=== PATIENT | male | born 1940 | race Caucasian/White ===

== ENCOUNTER → 2017-05-29 08:07 | Outpatient (CLI) | payer MEDICARE, OTHER, SELFPAY ==
[2017-05-29 09:45] LABS: PSA,Total- Diagnostic 9.27 ng/mL (0.0-4.0)
== END ==
PROVIDERS: Family Provider Family Medicine; PCP Family Medicine; Visit Provider Urology
DX: R97.20 Elevated prostate specific antigen [PSA] (principal)
CPT/HCPCS: 36415; 84153

== ENCOUNTER → 2017-10-18 12:24 | Outpatient (CLI) | payer MEDICARE, OTHER, SELFPAY | PROVIDERS: Family Provider Family Medicine; PCP Family Medicine; Visit Provider Family Medicine | DX: Z00.00 Encounter for general adult medical examination without abnormal findings (principal) ==

== ENCOUNTER 2018-02-04 06:25 | Day surgery (SDC) | payer MEDICARE, OTHER, SELFPAY ==
[2018-02-04] VITALS (7 sets, daily range): BP systolic 98–155; BP diastolic 61–82; PULSE 51–57; RESP 16; TEMP 36.1–36.8; O2SAT 94–99; BMI 26.6
--- NOTE | 2018-02-04 | COLBX_PTH ---
PATIENT: ROBBY FAROOQ LOC: EN U#:[id number] AGE/SX: 77/M ROOM: RE02/04/[address]: Dr. Donny Dahl MD : 1940 BED: DIS: 02/04/2018 SPEC #: [id number] RECD: 02/04/18 11:09 STATUS: JOAQUIN TATA #: [id number] GARRY: 02/04/18 00:[address]: Donny Dahl DEPT: SURGICAL PATHOLOGY RECD BY: Lamberto Nielsen ENTERED: 02/04/18 11:10 SP TYPE: COLON BX OTHR DR: Dr. Rom Stafford MD Tissues: A - Cecum, NOS B - Transverse colon Procedures: Surgery Specimen Level IV HEADER OPERATION: Colonoscopy (MOD) PRE-OP DIAGNOSIS: History of colon polyps TISSUE SUBMITTED: A - Biopsy of cecum polyp, B - Biopsy of distal transverse polyp MICROSCOPIC DIAGNOSIS A. Cecum polyp, biopsy: Fragments of tubular adenoma. Fragments of fecal material. B. Distal transverse colon polyp, biopsy: Fragments of tubular adenoma. SRIDEVI:juan diego 02/05/18 MICROSCOPIC DESCRIPTION Slides are reviewed. GROSS DESCRIPTION A - Received in fixative is one container labeled with the patient's name and designated cecum polyp. The specimen consists of multiple irregular fragments of light kim soft tissue mixed with fecal material that in aggregate measure 2 x 0.3 x 0.1 cm. The specimen is totally submitted in one cassette. B - Received in fixative is one container labeled with the patient's name and designated biopsy distal transverse polyp. The specimen consists of multiple irregular fragments of light kim soft tissue that in aggregate measure 1 x 0.4 x 0.1 cm. The specimen is totally submitted in one cassette. / SRIDEVI:juan diego 02/04/18 TC:1 [facility]: [id number] x2
--- NOTE | 2018-02-04 08:22 | OP.ENDO_ITS ---
Patient Name: Veronica Vera Procedure Date: 02/04/2018 7:44 AM Date of : 1940 Age: 77 Procedure: Colonoscopy Indications: High risk colon cancer surveillance: Personal history of colonic polyps Providers: Donny Dahl MD Referring MD: Donny Dahl MD Medicines: Midazolam 3 mg IV, Meperidine 100 mg IV Patient Profile: Last Colonoscopy: February 2015. Complications: No immediate complications. Procedure: Pre-Anesthesia Assessment: - Prior to the procedure, a History and Physical was performed, and patient medications and allergies were reviewed. The patient's tolerance of previous anesthesia was also reviewed. The risks and benefits of the procedure and the sedation options and risks were discussed with the patient. All questions were answered, and informed consent was obtained. Prior Anticoagulants: The patient has taken no previous anticoagulant or antiplatelet agents. ASA Grade Assessment: II - A patient with mild systemic disease. After reviewing the risks and benefits, the patient was deemed in satisfactory condition to undergo the procedure. After I obtained informed consent, the scope was passed under direct vision. Throughout the procedure, the patient's blood pressure, pulse, and oxygen saturations were monitored continuously. The Colonoscope was introduced through the anus and advanced to the cecum, identified by appendiceal orifice and ileocecal valve. The colonoscopy was performed with moderate difficulty due to a tortuous colon. Successful completion of the procedure was aided by increasing the dose of sedation medication, changing the patient to a supine position and using manual pressure. The patient tolerated the procedure well. The quality of the bowel preparation was good. Moderate Sedation: Moderate (conscious) sedation was personally administered by the endoscopist. The following parameters were monitored: oxygen saturation, heart rate, blood pressure, and response to care. Total physician intraservice time was 20 minutes. Scope In: 7:51:11 AM Scope Withdrawal Time 0 hours 10 minutes 47 seconds Scope Out: 8:14:41 AM Total Procedure Duration Time 0 hours 23 minutes 30 seconds Findings: The digital rectal exam findings include anal stenosis and internal hemorrhoids (Grade I). A 10 mm polyp was found in the cecum. The polyp was sessile. The polyp was removed with a cold snare. Resection and retrieval were complete. A 5 mm polyp was found in the distal transverse colon. The polyp was sessile. The polyp was removed with a cold biopsy forceps. Resection and retrieval were complete. The exam was otherwise without abnormality. Impression: - Anal stenosis and internal hemorrhoids (Grade I) found on digital rectal exam. Difficult to palpate prostate because of tight anus. - One 10 mm polyp in the cecum, removed with a cold snare. Resected and retrieved. - One 5 mm polyp in the distal transverse colon, removed with a cold biopsy forceps. Resected and retrieved. - The examination was otherwise normal. Recommendation: - Discharge patient to home. - Resume previous diet. - Telephone my office for pathology results in 1 week. - Repeat colonoscopy in 5 years for surveillance. - Continue present medications. Procedure Code(s): --- Professional --- 66535, Colonoscopy, flexible; with removal of tumor(s), polyp(s), or other lesion(s) by snare technique 23762, 59, Colonoscopy, flexible; with biopsy, single or multiple 59169, 59, Moderate sedation services provided by the same physician or other qualified health childcare worker performing the diagnostic or therapeutic service that the sedation supports, requiring the presence of an independent trained observer to assist in the monitoring of the patient's level of consciousness and physiological status; initial 15 minutes of intraservice time, patient age 5 years or older Diagnosis Code(s): --- Professional --- Z86.010, Personal history of colonic polyps K62.4, Stenosis of anus and rectum D12.0, Benign neoplasm of cecum D12.3, Benign neoplasm of transverse colon (hepatic flexure or splenic flexure) K64.0, First degree hemorrhoids CPT copyright 2017 [employer]. All rights reserved. The codes documented in this report are preliminary and upon primer charger review may be revised to meet current compliance requirements. Donny Dahl MD 02/04/2018 8:21:42 AM This report has been signed electronically. Number of Addenda: 0 Note Initiated On: 02/04/2018 7:44 AM
== END 2018-02-04 09:25 | disposition home or self-care (01) ==
LOC: EN 06:26 → AC 06:27
PROVIDERS: Family Provider Family Medicine; PCP Family Medicine; Referring Provider Surgery; Visit Provider Surgery
PROC: 0DJD8ZZ Inspection of Lower Intestinal Tract, Via Natural or Artificial Opening Endoscopic (ICD-10-PCS; CPT 45378; principal; 2018-02-04 07:40)
DX: Z12.11 Encounter for screening for malignant neoplasm of colon (principal); D12.0 Benign neoplasm of cecum; D12.3 Benign neoplasm of transverse colon; K64.0 First degree hemorrhoids; K62.4 Stenosis of anus and rectum; M19.90 Unspecified osteoarthritis, unspecified site; G47.30 Sleep apnea, unspecified; F41.9 Anxiety disorder, unspecified; Z79.899 Other long term (current) drug therapy; Z86.010 Personal history of colon polyps
CPT/HCPCS: 45380; 45385; 88305; 99152; 99153; J7120

== ENCOUNTER → 2018-02-24 12:57 | Outpatient (CLI) | payer MEDICARE, OTHER, SELFPAY ==
[2018-02-24 13:03] LABS: Hematocrit 46.2 % (40-54); Hemoglobin 15.3 g/dl (13.0-16.5); Mean Corp Hgb Conc 33.1 g/gl (32-36); Mean Corpuscular Hgb 30.8 pg (27.0-32.0); Mean Corpuscular Volume 93.1 fL (80-94); Mean Platelet Vol. 9.2 fl (6.2-12.0); Platelet Count 238 K/mm3 (150-450); RBC Distribution Width CV 12.8 % (11.6-14.6); RBC Distribution Width SD 43.4 fl (35.1-43.9); Red Blood Count 4.96 M/mm3 (4.6-6.2); White Blood Count 11.4 K/mm3 (4.4-11.0)
[2018-02-24 13:04] LABS: Scan Indicated on CBC? Y/N NO
== END ==
PROVIDERS: Family Provider Family Medicine; PCP Family Medicine; Referring Provider Family Medicine; Visit Provider Family Medicine
DX: R10.31 Right lower quadrant pain (principal)
CPT/HCPCS: 85027

== ENCOUNTER 2018-06-18 05:54 | Day surgery (SDC) | payer MEDICARE, OTHER, SELFPAY ==
--- NOTE | 2018-06-05 17:02 | PCM.HP.BLA ---
History and Physical DATE OF SURGERY: 05/21/2018 SCHEDULED PROCEDURE: right knee arthroscopy with partial medial and partial lateral meniscectomy with chondroplasty HISTORY OF PRESENT ILLNESS: This is a 77-year-old male who has been having ongoing pain in his right knee for several years. With activity pain to reach as high as a 7/10. He has difficult time going up and down stairs secondary to the knee pain. Difficult time with getting in and out of a car or kneeling. Patient states his pain is over the medial and lateral joint line as well as posterior knee. He does complain of clicking sensation in the knee. Patient has tried previous cortisone injections with minimal relief on the last injection. Patient had viscous supplementations in October with no improvement. Patient does have previous history of a staph infection right knee. Patient did undergo an MRI of the knee which does show large effusion with posterior horn medial meniscus tear and fraying of the lateral meniscus. Patient states his knee feels tight. After failing conservative measures and discussing treatment options with Dr. Deonte Richardson, patient would like to proceed with a right knee arthroscopy with partial medial and partial lateral meniscectomy with chondroplasty. Patient does see pain management for injections. He is also on tramadol from pain management. He has previous history of cervical fusion. Patient currently denies any chest pain, shortness of breath, fevers chills, recent infections. Patient has medical history pertinent for coronary artery disease, celiac disease, type I diabetic, hypercholesterolemia, hypertension, BPH. We have obtain surgical clearance from patient's primary care physician. REVIEW OF SYSTEMS: ROS: Const: Reports anxiety, but denies anorexia, change in appetite, fever, hard of hearing, vision problems and weight change. CV: Denies chest pain, heart murmur, irregular heartbeat and peripheral vascular disease. Resp: Reports sleep apnea, but denies asthma, cough, pneumonia, SOB, tuberculosis and wheezing. GI: Reports constipation, but denies diarrhea, difficulty swallowing, heartburn, nausea, bloody stools and vomiting. : Urinary: denies incontinence. Musculo: Reports weakness, but denies leg swelling, limp and trouble walking. Skin: Reports tattoo, but denies Raynaud's and history of shingles. Neuro: Reports numbness/tingling but denies ambulatory dysfunction, dizziness and tremor. Psych: Reports anxiety, but denies depression, insomnia, mental illness and stress. Armando/Lymph: Denies anemia, bleeding/bruising tendency and past transfusion. Reviewed, no changes. PAST MEDICAL HISTORY: PMH: Problem List: Knee joint effusion, Localized, primary osteoarthritis Medical Problems: Arthritis, Kidney Stones, Hypercholesterolemia, Depression Accidents: None Surgical Hx: Gallbladder - (1984) [facility] Hernia Repair - ABDOMINAL HERNIA 1987 [facility] 2005 [facility] Right Knee Surgery - (2008) [facility] Shoulder Rotator Cuff Repair - (2008) Cervical Fusion - 4,5 & 6 Urolift Implant - (08/12/2017) Anesthesia Complications: None Assistive Devices: Glasses Reviewed and updated. SOCIAL HISTORY: SH: Marital: .Occupation: Retired.Work Status: Retired.Hand Dominance: Right-handed. Personal Habits: Cigarette Use: Never Smoked Cigarettes.Alcohol: Denies use.Drug Use: Denies Use.Enjoy Exercising: Exercises 1-3 X/Week. Reviewed, no changes. VITALS: Ht: 67 Wt: 175lb Wt k.380 BMI: 27.4 BP: 131/76 Pulse: 82 Resp: 16 T: 96.8 T: 36.0C ALLERGIES: No Known Drug Allergy MEDICATIONS: Sertraline HCL 50 mg 1po qday, Atorvastatin Calcium 40 mg 1po qday, Gabapentin 400 mg 1po qday, Tramadol HCL 50 mg 1-2 by mouth every 6 hours as needed pain, Vitamin B Complex 1po qday, Vitamin D3 1000 Unit 1x/day by mouth PRE-OP EXAM: General appearance:NORMAL Other: Eyes: Conjunctivae and lids: NORMAL Pupils: ERR Ears, Nose, Mouth, and Throat: NORMAL Other: Inspection of lips, teeth and gums: NORMAL Other: Neck: Examination of neck: no masses noted. Respiratory: Assessment of respiratory effort: NORMAL Other: Auscultation of lungs: clear to auscultation no wheezes, rhonchi or rales. Cardiovascular: Auscultation of heart: regular rate and rhythm, no murmurs, gallops or rubs. Gastrointestinal: Exam of abdomen: soft, nontender, nondistended bowel sounds present. PHYSICAL EXAMINATION: Patient walks with minimal limping gait. Right knee has large effusion. Range of motion right knee: 0 extension to 125 flexion with pain on end range. Patient has click with Vinny's examination. There is swelling in the posterior aspect of the knee. Tenderness to palpation of the posterior knee. Sensation intact to light touch. Neurovascularly intact. IMAGING STUDIES: 1. X-rays of the right knee reveal varus alignment with medial joint space narrowing, subchondral sclerosis, and osteophyte formation consistent with mild to moderate osteoarthritis. 2. MRI of the right knee reveals posterior horn medial meniscus tear with fraying of the lateral meniscus and large effusion. IMPRESSION: 1. Right knee osteoarthritis with underlying medial lateral meniscus tears with large effusion 2. Hypertension 3. Coronary artery disease 4. Type 1 diabetes 5. Hypercholesterolemia 6. BPH 7. Osteopenia 8. Lumbar degenerative disc disease 9. History of cervical fusion PLAN: Dr. Deonte Richardson did discuss and review with the patient all treatment options including surgical versus nonsurgical options. Patient does wish to proceed with the above-stated procedure. Potential risks, benefits, and complications of the procedure were discussed in detail including but not limited to , infection, nerve and blood vessel damage, persistent pain, numbness, tingling, paresthesias, blood clot, pulmonary embolism, and requirement for possible further surgery. The patient expressed full understanding and has no further questions for the doctor. Patient does agree to proceed with the above-stated procedure and has signed the surgery consent form. This dictation was created using voice recognition software. Phonetic and/or grammatical errors may exist.. ___ I have re-examined the patient. There are no clinical changes since date of exam. ___ See progress notes for changes. ___ Dictated on admission Date: Time: Signature:
[2018-06-18] VITALS (8 sets, daily range): BP systolic 114–145; BP diastolic 65–81; PULSE 63–90; RESP 16–18; TEMP 36.2–36.9; O2SAT 92–96; BMI 26.4
[2018-06-18] MEDS: Cefazolin 2 GM in 0.9% Normal Saline 100 ML IV (07:54)
[2018-06-18] MEDS: Bupivacaine Mpf 0.5% 30 ML VIAL (08:30)
--- NOTE | 2018-06-18 08:39 | OP.PCM_ITS ---
Report of Operation Date of Procedure: 06/18/18 Pre-Operative Diagnosis: Right knee medial meniscus tear. Right knee lateral meniscus tear. Right knee chondromalacia tricompartmental Post-Operative Diagnosis: Right knee medial meniscus tear. Right knee lateral meniscus tear. Right knee chondromalacia tricompartmental Surgery/Procedure Performed:: Right knee arthroscopic partial medial lateral meniscectomy right knee arthroscopic chondroplasty Description of Surgical Findings:: See operative body patient support representative: None Type of Anesthesia:: General Anesthesiologist: Aba Pérez Special Medications: Ancef Estimated Blood Loss (mL): 10 Fluids Replaced: 1200 mL crystalloid Description of Procedure: On the date of the procedure, the patient's R lower extremity was marked in the preoperative area. Patient was brought back to the operating room where they were transferred to the bed. Anesthesia assumed control of the C-spine airway and administered anesthetic. All bony prominences were identified and well- padded and the R leg was placed in the arthroscopic leg gupta. The contralateral leg was then draped over the bed and well-padded. There was padding underneath both sciatic nerves. The foot of the bed was then dropped and the R leg was prepped in a sterile fashion. The surgeon then scrubbed. Upon reentering the room, the operative leg was draped in a standard orthopedic fashion. A timeout was called, everyone agreed upon the side, the site, the procedure to be performed, patient's identity and antibiotics given. Incisions were marked out for the medial and lateral infrapatellar portals. Esmarch bandage was then used to exsanguinate the leg and tourniquet was placed at 250 mmHg. At this time, the lateral portal incision was made in a vertical fashion. The trocar was placed into the joint. The camera was then placed and the patellofemoral joint was visualized. The patella did appear to have grade 3-4 chondral changes. The trochlea appeared to have grade 3 chondral changes. We then directed our attention to the medial gutter where there was no foreign body. Then directed our attention to the medial joint compartment. There were grade 3-4 chondral changes on the medial distal femur, grade 3 chondral changes on the medial tibial plateau. The medial meniscus had complex tears along the inner edge. The medial portal was then placed under direct visualization using a spinal needle an 11 blade scalpel. Once this was done a probe was placed in the joint and the meniscus was probed finding complex posterior horn and inner edge meniscus tears. The biters and donna were then used sequentially to debriding get rid of any free edges that could be a source of pain and catching in the meniscus tear. We also debrided any areas of cartilage flaps performed the chondroplasty in the medial compartment once we felt medial meniscus tear was adequately debrided, we again visualized the joint and noted the meniscus tear was adequately debrided. Attention was then turned towards the notch where the anterior cruciate ligament was intact. PCL was visualized and appeared intact. Attention was then directed towards the lateral compartment where the lateral distal femur had grade 3 chondral changes, the lateral proximal tibia had GRADE 3 chondral changes. The lateral meniscus had complex tears of the inner portion of the meniscus. Shaver was placed into the medial compartment as well as biter eventually in order to remove any free edges could be a source of pain. Once he is free edges were removed we again visualized the joint confirmed an adequate meniscectomy. We then directed our attention to the lateral gutter, which was visualized and no free bodies were noted. At this time the wound was copiously irrigated out with normal saline with epinephrine. The wound was closed with 4-0 nylon and 0.5% Marcaine and epinephrine were injected for local anesthetic. Xeroform was placed over the incision. Sterile dressing was placed. Compressive dressing was placed. Tourniquet was let down. For that there was then placed up. Patient was awakened by anesthesia patient was transferred to the PACU for recovery in stable condition. Postoperative plan: Patient will be made weight-bear as tolerated. Return to activities as tolerated. He will come to the office in 2 weeks for postoperative wound check and suture removal. If he is doing well that time he can follow-up as needed. - Complications No intraoperative complications - Admit VTE Documentation VTE Present on Admission: No VTE Mechan Device Prophylaxis: SCD's, Knee High RIKA Hose VTE Pharm Prophylaxis ordered?: Yes
[2018-06-18] MEDS: Ketorolac 30 MG/ML Syringe IV (09:46)
== END 2018-06-18 11:29 | disposition home or self-care (01) ==
LOC: SDC 05:55 → AC 05:55
PROVIDERS: Family Provider Family Medicine; PCP Family Medicine; Referring Provider Specialist; Visit Provider Specialist
PROC: (CPT 29870; principal; 2018-06-18 07:40)
DX: S83.281A Other tear of lateral meniscus, current injury, right knee, initial encounter (principal); S83.231A Complex tear of medial meniscus, current injury, right knee, initial encounter; X58.XXXA Exposure to other specified factors, initial encounter; Y93.9 Activity, unspecified; Y92.9 Unspecified place or not applicable; Y99.9 Unspecified external cause status; M94.261 Chondromalacia, right knee; M17.11 Unilateral primary osteoarthritis, right knee; I25.10 Atherosclerotic heart disease of native coronary artery without angina pectoris; K90.0 Celiac disease; E10.9 Type 1 diabetes mellitus without complications; I10 Essential (primary) hypertension; E78.00 Pure hypercholesterolemia, unspecified; M51.36 Other intervertebral disc degeneration, lumbar region; M85.80 Other specified disorders of bone density and structure, unspecified site; N40.0 Benign prostatic hyperplasia without lower urinary tract symptoms; G47.30 Sleep apnea, unspecified; F32.9 Major depressive disorder, single episode, unspecified; F41.9 Anxiety disorder, unspecified; Z79.899 Other long term (current) drug therapy
CPT/HCPCS: 01400; 29880; 64447; J7120; J2405

== ENCOUNTER → 2020-03-28 15:15 | Outpatient (CLI) | payer MEDICARE, OTHER, SELFPAY ==
[2018-06-18 06:14] VITALS: BMI 26.4
== END ==
PROVIDERS: PCP Family Medicine; Visit Provider Urology
DX: R97.20 Elevated prostate specific antigen [PSA] (principal)
CPT/HCPCS: 36415; 84153

== ENCOUNTER → 2020-07-15 13:41 | Outpatient (CLI) | payer MEDICARE, OTHER, SELFPAY ==
[2018-06-18 06:14] VITALS: BMI 26.4
== END ==
PROVIDERS: PCP Family Medicine; Referring Provider Urology; Visit Provider Urology
DX: R97.20 Elevated prostate specific antigen [PSA] (principal)
CPT/HCPCS: 36415; 84153

== ENCOUNTER → 2020-09-14 | Outpatient (CLI) | payer MEDICARE, OTHER, SELFPAY ==
--- NOTE | 2020-09-14 | LES_PTH ---
PATIENT: ROBBY FAROOQ LOC: [place] #:[id number] AGE/SX: 79/M ROOM: RE09/14/[address]: Dr. Donny Dahl MD : 1940 BED: DIS: 09/14/2020 SPEC #: [id number] RECD: 09/14/20 15:23 STATUS: JOAQUIN REValentine #: [id number] GARRY: 09/14/20 00:[address]: Donny Dhal DEPT: SURGICAL PATHOLOGY RECD BY: Lamberto Nielsen ENTERED: 09/15/20 08:18 SP TYPE: Lesion OTHR DR: Dr. Rom Stafford MD Tissues: Skin of head, NOS Procedures: Surgery Specimen Level IV HEADER OPERATION: Shave biopsy right gnosticist PRE-OP DIAGNOSIS: Skin lesion face TISSUE SUBMITTED: Right gnosticist MICROSCOPIC DIAGNOSIS Skin of right gnosticist, biopsy: Verrucous keratosis, inflamed. AM:juan diego 09/16/2020 MICROSCOPIC DESCRIPTION Slides are reviewed. GROSS DESCRIPTION Received in fixative is one container labeled with the patient's name and designated right gnosticist. The specimen consists of a piece of kim-brown skin measuring 0.6 x 0.5 x 0.2 cm. The specimen is inked and submitted entirely in one cassette. It will be bisected at the time of embedding. / SRIDEVI:juan diego 09/15/20 TC:5 CPT: 70956
[2020-09-14 13:29] VITALS: BMI 27.3
== END | disposition home or self-care (01) ==
LOC: LABSPEC 15:35
PROVIDERS: PCP Family Medicine; Referring Provider Surgery; Visit Provider Surgery
DX: L98.9 Disorder of the skin and subcutaneous tissue, unspecified (principal)
CPT/HCPCS: 88305

== ENCOUNTER → 2021-01-19 14:28 | Outpatient (CLI) | payer MEDICARE, OTHER, SELFPAY | PROVIDERS: PCP Family Medicine; Referring Provider Urology; Visit Provider Urology | DX: N40.1 Benign prostatic hyperplasia with lower urinary tract symptoms (principal) | CPT/HCPCS: 36415; 84153 ==

== ENCOUNTER → 2022-01-19 | Outpatient (CLI) | payer MEDICARE, OTHER, SELFPAY | END | disposition home or self-care (01) | LOC: LAB 16:17 | PROVIDERS: PCP Family Medicine; Visit Provider Urology | DX: R97.20 Elevated prostate specific antigen [PSA] (principal) | CPT/HCPCS: 36415; 84153 ==

== ENCOUNTER → 2022-02-19 | Outpatient (CLI) | payer MEDICARE, OTHER, SELFPAY ==
--- NOTE | 2022-02-19 | IMM_PTH ---
PATIENT: ROBBY FAROOQ LOC: [facility] U#:[id number] AGE/SX: 81/M ROOM: RE02/19/[address]: Dr. Álvaro Fritz MD : 1940 BED: DIS: 02/19/2022 SPEC #: [id number] RECD: 02/21/22 09:56 STATUS: JOAQUIN REQ #: [id number] GARRY: 02/19/22 00:[address]: Álvaro Fritz DEPT: IMMUNOHISTOCHEMISTRY RECD BY: Jhon Sotomayor ENTERED: 02/21/22 10:08 SP TYPE: IMMUNO OTHR DR: Dr. Rom Stafford MD Tissues: D - PROSTATE LEFT F - PROSTATE LEFT Procedures: CK8 (initial) 34BE12 (add) Pankeratin (add) P40 (add) 34BE12 (initial) PHYSICIAN & INSTITUTION [place] [address] SPECIMEN INFORMATION: Tissue Source: D. Left prostate, apex, F. Left prostate, base Clinical Info: R97.20 Specimen Number: [id number] D, F CPT code: 84457, 27405 x7 METHODOLOGY: Deparaffinized sections of prefer/formalin-fixed tissue or PAP/DQ stained slides are incubated with monoclonal/polyclonal antibodies/oligonucleotide probes. Localization is made via biotin free immunoperoxidase method. Appropriate controls are performed and reacted as expected. Results on target cell population are indicated in the following table: RESULTS: ANTIBODY / CLONE RESULT Block D P40 (BC28) negative 34BE12 (34BE12) negative AE1-3 (AE1/AE3/PCK26) positive CK8 (64fsvpK16) positive Block F P40 (BC28) positive 34BE12 (34BE12) positive AE1-3 (AE1/AE3/PCK26) positive CK8 (12ugyvT26) positive These tests were developed and their performance characteristics determined by [facility]. They may not have been cleared or approved by the U.S. Food and Drug Administration. The FDA has determined that such clearance or approval is not necessary. The above immunohistochemical/dualISH markers are ordered and reviewed by the Pathologist. INTERPRETATION: D. Left prostate, apex: Two minute foci of adenocarcinoma F. Left prostate, base: Negative for adenocarcinoma /SRIDEVI :ester 02/22/2022
--- NOTE | 2022-02-19 08:00 | PROSBIL_PTH ---
PATIENT: ROBBY FAROOQ LOC: [facility] U#:[id number] AGE/SX: 81/M ROOM: RE02/19/[address]: Dr. Álvaro Fritz MD : 1940 BED: DIS: 02/19/2022 SPEC #: [id number] RECD: 02/19/22 16:19 STATUS: JOAQUIN REValentine #: [id number] GARRY: 02/19/22 08:[address]: Álvaro Fritz DEPT: SURGICAL PATHOLOGY RECD BY: Dayan Paredes ENTERED: 02/20/22 08:01 SP TYPE: PROST BX YESSY DR: Dr. Rom Stafford MD Tissues: A - PROSTATE RIGHT B - PROSTATE RIGHT C - PROSTATE RIGHT D - PROSTATE LEFT E - PROSTATE LEFT F - PROSTATE LEFT Procedures: PROSTATE BX HEADER OPERATION: Prostate biopsy PRE-OP DIAGNOSIS: R97.20 TISSUE SUBMITTED: A-Right apex, B-Right mid, C-Right base, D-Left apex, E-Left mid, F-Left base MICROSCOPIC DIAGNOSIS A. Right prostate, apex, core biopsy: Prostatic tissue, negative for malignancy. B. Right prostate, mid, core biopsy: Prostatic tissue, negative for malignancy. Focal chronic inflammation. C. Right prostate, base, core biopsy: Prostatic tissue, negative for malignancy. D. Left prostate, apex, core biopsy: Two minute foci of prostatic adenocarcinoma. [place] grade: 3+3 =6 Number of cores involved: 1/ Proportion of tissue involved: <5% Perineural invasion: Not identified. Greatest tumor length: 1.1 cm, discontinuous. Focal chronic inflammation. See comment. E. Left prostate, mid, core biopsy: Prostatic tissue, negative for malignancy. Focal chronic inflammation. F. Left prostate, base, core biopsy: Prostatic tissue, negative for malignancy. Focal chronic inflammation. See comment. RICHARD 02/22/22 COMMENT D & F. Immunohistochemistry ([id number]) supports the above diagnosis. MICROSCOPIC DESCRIPTION Slides are reviewed. GROSS DESCRIPTION A - Received is one container designated prostate, right apex. The specimen consists of one elongated fragment of light kim-white soft tissue each measuring 1.6 cm in length and 0.1 cm in diameter. The specimen is totally submitted in one cassette. B - Received is one container designated prostate, right mid. The specimen consists of one elongated fragment of light kim-white soft tissue each measuring 2.0 cm in length and 0.1 cm in diameter. The specimen is totally submitted in one cassette. C - Received is one container designated prostate, right base. The specimen consists of one elongated fragment of light kim-white soft tissue each measuring 1.5 cm in length and 0.1 cm in diameter. The specimen is totally submitted in one cassette. D - Received is one container designated prostate, left apex. The specimen consists of one elongated fragment of light kim-white soft tissue each measuring 1.5 cm in length and 0.1 cm in diameter. The specimen is totally submitted in one cassette. The specimen is totally submitted in one cassette. E - Received is one container designated prostate, left mid. The specimen consists of one elongated fragment of light kim-white soft tissue each measuring 1.5 cm in length and 0.1 cm in diameter. The specimen is totally submitted in one cassette. F - Received is one container designated prostate, left base. The specimen consists of one elongated fragment of light kim-white soft tissue each measuring 1.5 cm in length and 0.1 cm in diameter. The specimen is totally submitted in one cassette. /SJ:cc 02/20/2022 TC:0 CPT: G0146
== END | disposition home or self-care (01) ==
LOC: LABSPEC 16:25
PROVIDERS: PCP Family Medicine; Visit Provider Urology
DX: C61 Malignant neoplasm of prostate (principal)
CPT/HCPCS: 88305; 88341; 88342; G0416

== ENCOUNTER 2022-07-10 07:28 | Day surgery (SDC) | payer MEDICARE, OTHER, SELFPAY ==
--- NOTE | 2022-07-10 07:46 | PCM.HP.BLA ---
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 Is patient in pain?: No Allergies No Known Allergies Allergy (Verified 06/19/22 14:23) Medications B-complex with vitamin C 1 tab PO DAILY 01/17/18 [History Confirmed 06/19/22] atorvastatin 40 mg tablet 40 mg PO DAILY 01/17/18 [History Confirmed 06/19/22] cholecalciferol (vitamin D3) 25 mcg (1,000 unit) capsule 1,000 unit PO DAILY 01/17/18 [History Confirmed 06/19/22] tramadol 50 mg tablet 50 mg PO Q6H PRN Pain 01/17/18 [History Confirmed 06/19/22] gabapentin 600 mg tablet 600 mg PO Q6H 08/10/20 [History Confirmed 06/19/22] acetaminophen 650 mg tablet,extended release (Arthritis Pain Relief (acetaminophen) ER) 650 mg PO Q12H 03/22/22 [History Confirmed 06/19/22] duloxetine 30 mg capsule,delayed release (Cymbalta) 30 mg PO DAILY 03/22/22 [History Confirmed 06/19/22] PFSH Medical History?(Updated 06/19/22 @ 15:[address] Donny Dahl MD) Anxiety Arthritis Back problem Hemorrhoids Personal history of colonic polyps Sleep apnea Surgical History? History of prostate surgery Hx of carpal tunnel repair Hx of cholecystectomy Hx of fusion of cervical spine Hx of hernia repair Family History? Mother Diabetes Heart diseaseBrother Cancer ?? ? Kidney Heart disease Social History? Smoking Status:? Never smoker second hand exposure:? No alcohol intake:? never substance use type:? does not use caffeine:? No what type of physical activity do you participate in:? none frequency:? does not exercise seatbelt use:? always HPI HPI HPI: 81-year-old gentleman is being referred by Dr. Rom Stafford for surgical consultation regarding abdominal pain.? The patient is complaining of acid he indigestion and nervous stomach.? Complaining of more of discomfort in the right upper quadrant.? Nothing seems to improve it.? This been ongoing for over 6 months.? By report a CT scan from the clinic showed nonspecific findings of appendix filled with air and stool no inflammation.? I have personally reviewed those images.? No evidence of bowel obstruction.? Fatty change of the liver.? Chronic medications include famotidine 20 mg daily and Cymbalta 30 mg daily.? He does have a previous history of colon polyp and diverticulosis of the colon.? He has had a previous cholecystectomy in 1986.? It would appear that his most recent colonoscopy was February 2015. As of June 09, 2022 total protein was 7.2 and albumin was 4.4 and calcium was 9.6 and total bilirubin was 0.7 and alkaline phosphatase was 76 and AST was 26 and ALT was 28 and glucose was 102 and BUN was 17 and creatinine 1.19 and lipase was 21 His white blood cell count was 11.76 with a hemoglobin 15.3 and hematocrit 46.9 and a platelet count of 284,000 with no left shift The patient states that he has had this intermittent right lower quadrant abdominal pain for at least a year and a half.? Claims that the sharp pain he can lie down to take a deep breath and usually is able to get it to resolve within about 5 minutes.? No fever chills or sweats.? He has had a history of multiple kidney stones but he points more to the right flank area.? 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 He claims that when he has the pain that he feels full but he does not vomit.? There is been no bright red blood per rectum or melena.? No unexpected weight loss. Previous colonoscopy was January 2018 He points more to the right mid to lower abdomen as the etiologic source.? He is not having discomfort at this time.? He does not describe the pain as a constant achy dull pain. ROS General General: No weight change, appetite, fatigue, colon cancer, breast cancer or weakness HEENT HEENT: No difficulty swallowing, eye injury, eye surgery, swollen glands or hoarseness Endo Endocrine: No thyroid disease, diabetes mellitus, thyroid cancer, Hair loss, heat intolerance or cold intolerance Musc Musculoskeletal: Yes back problems and arthritis; No rheumatoid arthritis, gout or joint pain Cardio Cardiovascular: No murmur, pacemaker, heart disease, atrial fibrillation, high blood pressure, heart attack, heart stent, palpitations, shortness of breat with exertion or chest pain Psych Psychiatric: Yes anxiety; No depression or hearing voices Resp Respiratory: No shortness of breath, Yes sleep apnea, No cough, No COPD, No asthma, No emphysema and No wheezing Gastro Gastrointestinal: Yes abdominal pain, No nausea or vomiting, No diarrhea, No constipation, No blood in stool, Yes acid reflux, No hemorrhoids, No ulcers, No gallbladder problem and No black,tarry stools Armando Hematologic: No blood thinners, No blood disorders, No bleeding, No anemia and No blood clots Neuro Neurologic: No weakness Exam Const General: cooperative, comfortable and no acute distress [facility] Head: normal to inspection Eyes General: appearance normal, both eyes and all related structures Neck Other: Decreased range of motion Chest Other: Slightly increased anterior posterior diameter Resp Effort & Inspection: normal respiratory effort Auscultation: clear to auscultation bilaterally Cardio Rate: regular rate Rhythm: regular rhythm GI Inspection: normal to inspection Other: Well-healed long right subcostal incision.? Well-healed midline epigastric incision.? No hepatosplenomegaly.? No mass.? No focal tenderness.? Bowel sounds present unremarkable Skin General: no rashes or lesions noted Neuro General: patient alert and patient awake Extrem General: no calf tenderness Psych Appearance: grossly normal Assessment and Plan Assessment and Plan (1) Abdominal pain: ?Status:?Acute Plan 1-1/2-year history of intermittent sharp right mid to lower quadrant abdominal pain of undetermined etiology.? He has a history of kidney stones but states that he does not feel that this discomfort is similar.? Apparently on 1 occasion he was noted to have some blood in his urine on analysis.? The pain is rather transient and about [address] imaging exam suggested a visibly unusual appendix with air and stool noted within a fairly large orifice.? There is additional some concern as to whether his discomfort could be peptic ulcer in origin. I propose for him a combined esophagogastroduodenoscopy with possible biopsy and colonoscopy with possible biopsy or polypectomy as indicated and he is aware of technique, benefit, risk and alternatives.? Careful inspection for peptic ulcer issues and careful inspection particularly of the appendiceal orifice will be pursued. If these exams are unremarkable then I would remain suspicious about potentially degenerative disease of his back with transient nerve impingement or perhaps less likely intermittent kidney stone pain but I think that is less likely to the quite transient nature of his discomfort. I appreciate the opportunity of assisting with the surgical care. Copy: Dr. Rom Dahl M.D., F.A.C.S I have examined the patient and the H&P has been reviewed. There are no clinical changes since date of exam. Donny Dahl M.D., F.A.C.S.
[2022-07-10] MEDS: Lactated Ringers 1,000 ML 15 ML IV (08:00)
[2022-07-10 08:01] VITALS: BP 169/86; PULSE 98; RESP 16; TEMP 36.2; O2SAT 96; BMI 27.1
--- NOTE | 2022-07-10 08:30 | EGD_PTH ---
PATIENT: ROBBY FAROOQ LOC: EN U#:[id number] AGE/SX: 81/M ROOM: RE07/10/[address]: Dr. Donny Dahl MD : 1940 BED: DIS: 07/10/2022 SPEC #: [id number] RECD: 07/10/22 11:57 STATUS: JOAQUIN TATA #: [id number] GARRY: 07/10/22 08:[address]: Donny Dahl DEPT: SURGICAL PATHOLOGY RECD BY: Dayan Paredes ENTERED: 07/10/22 12:47 SP TYPE: EGD BIOPSY OT DR: Dr. Rom Stafford MD Tissues: A - Duodenum, NOS B - Gastric mucous membrane C - Esophagus, NOS D - Cecum, NOS E - Ascending colon Procedures: Special Stain Group II Surgery Specimen Level IV Alcian Blue/PAS (control) HEADER OPERATION: Colonoscopy, EGD ([facility] [place]), biopsy PRE-OP DIAGNOSIS: Abdominal pain TISSUE SUBMITTED: A ? Duodenum biopsy, B ? Antrum biopsy for histo and H. pylori, C ? Distal esophagus biopsy, D ? Cecal polyp, E - Proximal ascending polyps biopsy MICROSCOPIC DIAGNOSIS A. Duodenum, biopsy: A fragment of duodenal mucosa with mild Deven gland hyperplasia. B. Antrum, biopsy: Mild gastritis. See microscopic description and comment. C. Distal esophagus, biopsy: Fragments of gastroesophageal mucosa with intestinal metaplasia (goblet cell metaplasia), consistent with Cabral's esophagus. Chronic inflammation. Indefinite for low grade dysplasia. See comment. D. Cecal polyp, biopsy: Fragments of tubular adenoma. E. Proximal ascending colon polyp, biopsy: Fragments of hyperplastic polyp. SJ:juan diego 07/11/2022 COMMENT B. The results of immunohistochemistry for Helicobacter pylori will be reported separately ([id number]). C. Immunohistochemistry ([id number]) for P53 and Ki-67 will be performed and results will be reported separately. Alcian blue/PAS stain with matched control is used in the evaluation of the specimen. Case has been reviewed in consultation with Dr. Hernandez who concurs with the above diagnosis. IDC:AM MICROSCOPIC DESCRIPTION Slides are reviewed. B. The specimen shows fragments of gastric mucosa with chronic inflammatory cell infiltrates in the lamina propria consisting of lymphocytes and plasma cells, consistent with mild chronic gastritis. GROSS DESCRIPTION A - Received in fixative is one container labeled with the patient's name and designated duodenum biopsy. The specimen consists of one irregular fragment of light kim soft tissue that measures 0.3 x 0.3 x 0.1 cm. The specimen is totally submitted in one cassette. B - Received in fixative is one container labeled with the patient's name and designated antrum biopsy. The specimen consists of one irregular fragment of light kim soft tissue that measures 0.4 x 0.3 x 0.1 cm. The specimen is totally submitted in one cassette. C - Received in fixative is one container labeled with the patient's name and designated distal esophagus biopsy. The specimen consists of multiple irregular fragments of light kim soft tissue that in aggregate measure 1.5 x 0.6 x 0.1 cm. The specimen is totally submitted in one cassette. D - Received in fixative is one container labeled with the patient's name and designated cecal polyp. The specimen consists of multiple irregular fragments of light kim soft tissue that in aggregate measure 1.0 x 0.2 x 0.1 cm. The specimen is totally submitted in one cassette. E - Received in fixative is one container labeled with the patient's name and designated proximal ascending polyp. The specimen consists of multiple irregular fragments of light kim soft tissue that in aggregate measure 1.0 x 0.4 x 0.1 cm. The specimen is totally submitted in one cassette. / SJ:rg 07/10/2022 TC:1 [facility]: [id number] x4, [id number]
--- NOTE | 2022-07-10 08:30 | IMM_PTH ---
PATIENT: ROBBY FAROOQ LOC: EN U#:[id number] AGE/SX: 81/M ROOM: RE07/10/[address]: Dr. Donny Dahl MD : 1940 BED: DIS: 07/10/2022 SPEC #: [id number] RECD: 07/10/22 13:42 STATUS: JOAQUIN REValentine #: [id number] GARRY: 07/10/22 08:[address]: Donny Dahl DEPT: IMMUNOHISTOCHEMISTRY RECD BY: Aurea Summers ENTERED: 07/10/22 13:43 SP TYPE: IMMUNO OTHR DR: Dr. Rom Stafford MD Tissues: B - Stomach, NOS C - Esophageal mucous membrane Procedures: H Pylori (initial) P53 (initial) KI-67 (add) PHYSICIAN & INSTITUTION [place] [id number] SPECIMEN INFORMATION: Tissue Source: B ? Antrum biopsy, C ? Distal esophagus biopsy Clinical Info: Abdominal pain Specimen Number: [id number] B & C CPT code: 46725 x2, 03679 METHODOLOGY: Deparaffinized sections of prefer/formalin-fixed tissue or PAP/DQ stained slides are incubated with monoclonal/polyclonal antibodies/oligonucleotide probes. Localization is made via biotin free immunoperoxidase method. Appropriate controls are performed and reacted as expected. Results on target cell population are indicated in the following table: RESULTS: ANTIBODY / CLONE RESULT Block B H Pylori (polyclonal) negative Block C P53 (DO-7) positive, focal (indeterminate pattern) Ki-67 (30-9) positive, low These tests were developed and their performance characteristics determined by [facility]. They may not have been cleared or approved by the U.S. Food and Drug Administration. The FDA has determined that such clearance or approval is not necessary. The above immunohistochemical/dualISH markers are ordered and reviewed by the Pathologist. INTERPRETATION: B. Antrum, biopsy: Negative for Helicobacter pylori organisms. C. Distal esophagus, biopsy: Indefinite for low grade dysplasia. SJ:juan diego 07/12/2022 Case has been reviewed in consultation with Dr. Hernandez who concurs with the above diagnosis. IDC:MELIZA
[2022-07-10 09:10] VITALS: BP 169/86; BP 94/63; PULSE 59; RESP 16; TEMP 36.1; O2SAT 94
--- NOTE | 2022-07-10 09:11 | OP.CCLET_ITS ---
07/10/2022 Rom Stafford Re : Upper GI endoscopy procedure for Veronica Stafford This procedure was performed on Sunday, July 10, 2022. My impressions and recommendations are as follows: Impressions : - Esophageal mucosal changes consistent with long-segment Cabral's esophagus. Biopsied. - Medium-sized hiatal hernia. - Gastritis. Biopsied. - Normal examined duodenum. Biopsied. Recommendations : - Discharge patient to home. - Resume previous diet. - Continue present medications. - Use Prilosec (omeprazole) 40 mg PO daily Possible source of right mid abdominal pain.. My findings are described in the full procedure note, which is enclosed. If I can be of further assistance, please feel free to contact me at Doctor phone number(s): Work: . Sincerely, Donny Dahl MD 07/10/2022 9:11:18 AM This report has been signed electronically.
--- NOTE | 2022-07-10 09:11 | OP.EGD_ITS ---
Patient Name: Veronica Vera Procedure Date: 07/10/2022 8:19 AM Date of : 1940 Age: 81 Procedure: Upper GI endoscopy Indications: Abdominal pain in the right upper quadrant Providers: Donny Dahl MD Medicines: See the Anesthesia note for documentation of the administered medications Complications: No immediate complications. Procedure: Pre-Anesthesia Assessment: - Prior to the procedure, a History and Physical was performed, and patient medications and allergies were reviewed. The patient's tolerance of previous anesthesia was also reviewed. The risks and benefits of the procedure and the sedation options and risks were discussed with the patient. All questions were answered, and informed consent was obtained. Prior Anticoagulants: The patient has taken no previous anticoagulant or antiplatelet agents. ASA Grade Assessment: II - A patient with mild systemic disease. After reviewing the risks and benefits, the patient was deemed in satisfactory condition to undergo the procedure. After obtaining informed consent, the endoscope was passed under direct vision. Throughout the procedure, the patient's blood pressure, pulse, and oxygen saturations were monitored continuously. The colonoscope was introduced through the mouth, and advanced to the second part of duodenum. The upper GI endoscopy was accomplished without difficulty. The patient tolerated the procedure well. Scope In: 8:30:41 AM Scope Out: 8:42:58 AM Total Procedure Duration Time 0 hours 12 minutes 17 seconds Findings: There were esophageal mucosal changes consistent with long-segment Cabral's esophagus present in the lower third of the esophagus. The maximum longitudinal extent of these mucosal changes was 6 cm in length. Mucosa was biopsied with a cold forceps for histology. A medium-sized hiatal hernia was present. Diffuse mild inflammation characterized by erythema was found in the gastric antrum. Biopsies were taken with a cold forceps for histology. The examined duodenum was normal. Biopsies were taken with a cold forceps for histology. Impression: - Esophageal mucosal changes consistent with long-segment Cabral's esophagus. Biopsied. - Medium-sized hiatal hernia. - Gastritis. Biopsied. - Normal examined duodenum. Biopsied. Recommendation: - Discharge patient to home. - Resume previous diet. - Continue present medications. - Use Prilosec (omeprazole) 40 mg PO daily Possible source of right mid abdominal pain.. Procedure Code(s): --- Professional --- 77591, Esophagogastroduodenoscopy, flexible, transoral; with biopsy, single or multiple Diagnosis Code(s): --- Professional --- K22.8, Other specified diseases of esophagus K44.9, Diaphragmatic hernia without obstruction or gangrene K29.70, Gastritis, unspecified, without bleeding R10.11, Right upper quadrant pain CPT copyright 2017 [employer]. All rights reserved. The codes documented in this report are preliminary and upon edge worker review may be revised to meet current compliance requirements. Donny Dahl MD 07/10/2022 9:11:18 AM This report has been signed electronically. Number of Addenda: 0 Note Initiated On: 07/10/2022 8:19 AM
[2022-07-10 09:15] VITALS: BP 101/67; BP 169/86; PULSE 57; RESP 16; O2SAT 94
--- NOTE | 2022-07-10 09:17 | OP.COLON_ITS ---
Patient Name: Veronica Vera Procedure Date: 07/10/2022 8:43 AM Date of : 1940 Age: 81 Procedure: Colonoscopy Indications: Abdominal pain in the right upper quadrant Providers: Donny Dahl MD Medicines: See the Anesthesia note for documentation of the administered medications Patient Profile: Last Colonoscopy: date unknown. Complications: No immediate complications. Procedure: Pre-Anesthesia Assessment: - Prior to the procedure, a History and Physical was performed, and patient medications and allergies were reviewed. The patient's tolerance of previous anesthesia was also reviewed. The risks and benefits of the procedure and the sedation options and risks were discussed with the patient. All questions were answered, and informed consent was obtained. Prior Anticoagulants: The patient has taken no previous anticoagulant or antiplatelet agents. ASA Grade Assessment: II - A patient with mild systemic disease. After reviewing the risks and benefits, the patient was deemed in satisfactory condition to undergo the procedure. After I obtained informed consent, the scope was passed under direct vision. Throughout the procedure, the patient's blood pressure, pulse, and oxygen saturations were monitored continuously. The colonoscope was introduced through the anus and advanced to the cecum, identified by appendiceal orifice and ileocecal valve. The colonoscopy was performed without difficulty. The patient tolerated the procedure well. The quality of the bowel preparation was good. The ileocecal valve and the appendiceal orifice were photographed. Scope In: 8:45:11 AM Scope Withdrawal Time 0 hours 16 minutes 16 seconds Scope Out: 9:05:34 AM Total Procedure Duration Time 0 hours 20 minutes 23 seconds Findings: The digital rectal exam findings include non-thrombosed internal hemorrhoids and internal hemorrhoids that prolapse with straining, but spontaneously regress to the resting position (Grade II). A 5 mm polyp was found in the cecum. The polyp was sessile. The polyp was removed with a hot snare. Resection and retrieval were complete. A polypoid area at likely orifice to ileocecal valve was found in the proximal ascending colon. The polyp was sessile. This was biopsied with a cold forceps for histology. A few diverticula were found in the sigmoid colon. Impression: - Non-thrombosed internal hemorrhoids and internal hemorrhoids that prolapse with straining, but spontaneously regress to the resting position (Grade II) found on digital rectal exam. - One 5 mm polyp in the cecum, removed with a hot snare. Resected and retrieved. - One polyp like area or orifice to ileocecal area in the proximal ascending colon. Biopsied. - Diverticulosis in the sigmoid colon. Recommendation: - Discharge patient to home. - Resume previous diet. - Continue present medications. - Repeat colonoscopy in 5 years for surveillance based on pathology results. - Telephone my office for pathology results in 1 week. No source for abdominal pain identified in the colon Procedure Code(s): --- Professional --- 97418, Colonoscopy, flexible; with removal of tumor(s), polyp(s), or other lesion(s) by snare technique 53545, 59, Colonoscopy, flexible; with biopsy, single or multiple Diagnosis Code(s): --- Professional --- K64.1, Second degree hemorrhoids D12.0, Benign neoplasm of cecum D12.2, Benign neoplasm of ascending colon R10.11, Right upper quadrant pain K57.30, Diverticulosis of large intestine without perforation or abscess without bleeding CPT copyright 2017 [employer]. All rights reserved. The codes documented in this report are preliminary and upon senior insight manager review may be revised to meet current compliance requirements. Donny Dahl MD 07/10/2022 9:17:32 AM This report has been signed electronically. Number of Addenda: 0 Note Initiated On: 07/10/2022 8:43 AM
--- NOTE | 2022-07-10 09:18 | OP.CCLET_ITS ---
07/10/2022 Rom Stafford Re : Colonoscopy procedure for Veronica Mora Nydia This procedure was performed on Sunday, July 10, 2022. My impressions and recommendations are as follows: Impressions : - Non-thrombosed internal hemorrhoids and internal hemorrhoids that prolapse with straining, but spontaneously regress to the resting position (Grade II) found on digital rectal exam. - One 5 mm polyp in the cecum, removed with a hot snare. Resected and retrieved. - One polyp like area or orifice to ileocecal area in the proximal ascending colon. Biopsied. - Diverticulosis in the sigmoid colon. Recommendations : - Discharge patient to home. - Resume previous diet. - Continue present medications. - Repeat colonoscopy in 5 years for surveillance based on pathology results. - Telephone my office for pathology results in 1 week. No source for abdominal pain identified in the colon My findings are described in the full procedure note, which is enclosed. If I can be of further assistance, please feel free to contact me at Doctor phone number(s): Work: . Sincerely, Donny Dahl MD 07/10/2022 9:17:32 AM This report has been signed electronically.
[2022-07-10 09:20] VITALS: BP 103/69; BP 169/86; PULSE 58; RESP 18; O2SAT 100
[2022-07-10 09:25] VITALS: BP 115/77; BP 169/86; PULSE 58; RESP 18; O2SAT 98
[2022-07-10 09:46] VITALS: BP 169/86
== END 2022-07-10 10:16 | disposition home or self-care (01) ==
LOC: EN 07:28 → AC 07:29
PROVIDERS: PCP Family Medicine; Referring Provider Family Medicine; Visit Provider Surgery
PROC: 0DJD8ZZ Inspection of Lower Intestinal Tract, Via Natural or Artificial Opening Endoscopic (ICD-10-PCS; CPT 45378; principal; 2022-07-10 08:25)
DX: K22.710 Barrett's esophagus with low grade dysplasia (principal); K29.70 Gastritis, unspecified, without bleeding; K44.9 Diaphragmatic hernia without obstruction or gangrene; K57.30 Diverticulosis of large intestine without perforation or abscess without bleeding; K76.0 Fatty (change of) liver, not elsewhere classified; K21.9 Gastro-esophageal reflux disease without esophagitis; K64.1 Second degree hemorrhoids; D12.0 Benign neoplasm of cecum; Z86.010 Personal history of colon polyps
CPT/HCPCS: 45385; 43239; 45380; 88305; 88313; 88341; 88342; J7120; J2405

== ENCOUNTER → 2022-08-30 | Outpatient (CLI) | payer MEDICARE, OTHER, SELFPAY | END | disposition home or self-care (01) | LOC: MTLAB 08:33 → LAB 08:34 | PROVIDERS: PCP Family Medicine; Referring Provider Urology; Visit Provider Urology | DX: C61 Malignant neoplasm of prostate (principal) | CPT/HCPCS: 36415; 84153 ==

== ENCOUNTER → 2023-03-01 | Outpatient (CLI) | payer MEDICARE, OTHER, SELFPAY | END | disposition home or self-care (01) | LOC: LAB 10:54 | PROVIDERS: PCP Family Medicine; Referring Provider Urology; Visit Provider Urology | DX: R97.20 Elevated prostate specific antigen [PSA] (principal) | CPT/HCPCS: 36415; 84153 ==

== ENCOUNTER 2023-05-10 10:42 | Day surgery (SDC) | payer MEDICARE, OTHER, SELFPAY ==
[2023-05-10 11:24] VITALS: BP 158/94; PULSE 73; RESP 18; TEMP 36.4; O2SAT 98; BMI 28.4
[2023-05-10] MEDS: Lactated Ringers 1,000 ML 15 ML IV (11:35)
--- NOTE | 2023-05-10 11:55 | HP.PCM_ITS ---
HPI - General General Date of Service: 05/10/23 Chief Complaint: Prostate cancer HPI Narrative ROBBY FAROOQ, is a 82 M who presents for placement of spacer and markers for prostate cancer treatment [facility] Medical History Anxiety Anxiety Arthritis Arthritis Back pain Back problem CPAP (continuous positive airway pressure) dependence Depression Heartburn Hemorrhoids High cholesterol Loss of hearing Neuropathy Non-smoker Personal history of colonic polyps Skin tear Sleep apnea Wears glasses Home Medications B-complex with vitamin C 1 tab PO DAILY 01/17/18 [History Last Taken Unknown] atorvastatin 40 mg tablet 40 mg PO DAILY 01/17/18 [History Last Taken Unknown] cholecalciferol (vitamin D3) 25 mcg (1,000 unit) capsule 1,000 unit PO DAILY 01/17/18 [History Last Taken Unknown] tramadol 50 mg tablet 50 mg PO 4X/DAY 01/17/18 [History Last Taken 05/10/23] gabapentin 600 mg tablet 600 mg PO 4X/DAY 08/10/20 [History Last Taken 05/10/23] acetaminophen 650 mg tablet,extended release (Arthritis Pain Relief (acetaminophen) ER) 650 mg PO PRN PRN Pain 03/22/22 [History Last Taken Unknown] duloxetine 30 mg capsule,delayed release (Cymbalta) 30 mg PO DAILY 03/22/22 [History Last Taken Unknown] sertraline 25 mg tablet (Zoloft) 25 mg PO DAILY 03/14/23 [History Last Taken Unknown] omeprazole 40 mg capsule,delayed release See Rx Instructions .Route .COMPLEX #90 caps 03/27/23 [Rx Last Taken 05/10/23] Allergy/AdvReac Type Severity Reaction Status Date / Time No Known Allergies Allergy Verified 05/10/23 11:23 Family History Mother Diabetes Heart disease Brother Cancer Kidney Heart disease Surgical History (Updated 05/01/23 @ 14:42 by Alie Simon) History of esophagogastroduodenoscopy (EGD) History of Grace fundoplication History of prostate surgery Hx of carpal tunnel repair Hx of cholecystectomy Hx of colonoscopy Hx of fusion of cervical spine Hx of hernia repair Hx of right knee surgery Hx of rotator cuff surgery Social History (Reviewed 07/18/22 @ 08:01 by Erika Bernardo Smoking Status: Never smoker second hand exposure: No alcohol intake: never substance use type: does not use caffeine: No what type of physical activity do you participate in: none frequency: does not exercise seatbelt use: always Vital Signs Vital Signs Vital Signs: 05/10/23 11:24 05/10/23 11:24 Temperature 97.6 F L Temperature Source Temporal Pulse Rate 73 Respiratory Rate 18 Respiratory Pattern Normal Blood Pressure 158/94 H Blood Pressure Mean 115 Blood Pressure Source Monitor Blood Pressure Position Semi-Fowlers Blood Pressure Location Right Arm Pulse Ox 98 Oxygen Delivery Method Room Air Weight Weight: 84.9 kg Body Mass Index (BMI) 28.4
--- NOTE | 2023-05-10 12:55 | DCINST_ITS ---
Discharge Instructions Diet Discharge Diet: No restrictions Activity Discharge Activity: Return to Normal Activity and May Not Drive (while taking narcotic pain medications.) Dressing / Incision Call your doctor if you observe: Fever of 101 or Higher Follow Up Care Please Follow Up With: Álvaro Fritz MD When: Call [phone] for an appointment Test Results: Test results from this visit will be discussed in further detail at your follow- up appointment, if applicable. Discharge Plan Admission Primary Reason for Your Visit: Placement of gold markers and spacer Attending Provider: Álvaro Fritz Primary Care Provider: Rom Stafford Discharge Orders/Prescriptions Prescriptions: New ciprofloxacin HCl [Cipro] 500 mg tablet 500 mg PO BID Qty: 10 0RF No Action atorvastatin 40 mg tablet 40 mg PO DAILY tramadol 50 mg tablet 50 mg PO 4X/DAY B-complex with vitamin C tablet 1 tab PO DAILY cholecalciferol (vitamin D3) 1,000 unit capsule 1,000 unit PO DAILY gabapentin 600 mg tablet 600 mg PO 4X/DAY Patient Comments: TAKE 1 TABLET BY MOUTH EVERY 6 HOURS acetaminophen [Arthritis Pain Relief (acetam)] 650 mg tablet extended release 650 mg PO PRN PRN (Reason: Pain) duloxetine [Cymbalta] 30 mg capsule,delayed release(DR/EC) 30 mg PO DAILY sertraline [Zoloft] 25 mg tablet 25 mg PO DAILY omeprazole 40 mg capsule,delayed release(DR/EC) See Rx Instructions .ROUTE .COMPLEX Qty: 90 4RF Dose Instruction: TAKE 1 CAPSULE BY MOUTH EVERY DAY Rx Instructions: TAKE 1 CAPSULE BY MOUTH EVERY DAY Referrals / Follow Up: Rom Stafford MD [Primary Care Provider] - Disposition Disposition (needs filled in before D/C Order can be placed): Home, Self Care
[2023-05-10] MEDS: Cefazolin 2 GM in 0.9% Normal Saline (100mL Bag) 100 ML IV (13:19)
--- NOTE | 2023-05-10 13:38 | OP.PCM_ITS ---
Report of Operation Date of Procedure: 05/10/23 Pre-Operative Diagnosis: Prostate cancer Post-Operative Diagnosis: The same Surgery/Procedure Performed:: Placement of gold markers and spacer gel Description of Surgical Findings:: In the preoperative area I reviewed with the patient how the procedure is done we talked about the risk of the procedure including the risk of infection, bleeding, migration of the spacer gel, the patient is planning to have radiation to the prostate he understands that the spacer gel has demonstrated benefit in reducing the risk of toxicity from the ration radiation to the rectum but there is no guarantees that this spacer gel will prevent any serious complications or toxicity to the rectum or bowels. After reviewing this with the patient and his family organ to proceed with placement of a spacer gel matrix. Patient was taken back to the operating room after smooth induction of anesthesia he was placed supine on the table. The genitals and perineum were prepped and draped in usual sterile fashion. I then introduced a biplanar ultrasound probe into the rectum and performed ultrasonography and identified the Denonvilliers' fascia the prostate mid base and apex and seminal vesicles. The spacer gel mix was then prepared on the back table per manufactures instruction. Under ultrasound guidance in the midline perineum a bevel needle down we advanced through the perineum below the prostate into the space of Denonvilliers' fascia. This space which could be identified by ultrasound with a bright white layer between the prostate and the rectum. I then injected a puff of normal saline to identify the space further. After I confirmed that the needle was in the correct space in the mid prostate and the space of Denonvilliers' fascia between the rectum and the prostate. Then over the course of 15 seconds the gel matrix was injected slowly there was nice separation between the prostate and the rectum at the gel matrix was injected. The position of the gel matrix was confirmed by ultrasound. Then the injection needle was removed intact. penis and testicles were prepped and draped in usual sterile fashion, ultrasound probe was placed into the rectum and biplanar ultrasound was performed on the prostate. Identified the base mid and apex of the prostate identified the transition zone prostate. Then using a needle the first head inspector and center marker was placed into the right base of the prostate, the second head inspector and center marker was placed in the left base of the prostate, and the third core marker was placed in the right apex of the prostate after all 3 markers were placed the placement of the markers were confirmed by ultrasonography.
[2023-05-10 13:45] VITALS: BP 150/79; BP 158/94; PULSE 73; RESP 16; TEMP 36.6; O2SAT 95
[2023-05-10 13:50] VITALS: BP 143/84; BP 158/94; PULSE 68; RESP 16; O2SAT 94
[2023-05-10 13:57] VITALS: BP 132/85; BP 158/94; PULSE 71; RESP 16; TEMP 36.6; O2SAT 93
[2023-05-10 14:23] VITALS: BP 158/94
== END 2023-05-10 14:28 | disposition home or self-care (01) ==
LOC: SDC 10:46 → AC 10:50
PROVIDERS: PCP Family Medicine; Referring Provider Urology; Visit Provider Urology
PROC: (CPT 55874; principal; 2023-05-10 12:55)
DX: C61 Malignant neoplasm of prostate (principal); E78.00 Pure hypercholesterolemia, unspecified; Z79.899 Other long term (current) drug therapy; K21.9 Gastro-esophageal reflux disease without esophagitis
CPT/HCPCS: 55876; 55874; 00400; J7120; J2405

== ENCOUNTER → 2023-05-16 | Outpatient (CLI) | payer MEDICARE, OTHER, SELFPAY ==
--- NOTE | 2023-05-16 10:49 | MRI_ITS ---
EXAMINATION: MR Prostate WO/W Contrast COMPARISON: None CLINICAL HISTORY: Male, 82 years old. planning XRT, eval for disease extent in prostate TECHNIQUE: Standard prostate MR protocol was used before and after administration of 17 cc of IV Clariscan. FINDINGS: Heterogeneous appearance of the central gland is consistent with benign prostatic hyperplasia. OAR hydrogel is seen posterior to the seminal vesicles. Radiation beads are in place. Lesion 1: LOCATION - there is a 2 x 1.2 x 1.2 cm mildly T2 hypointense lesion in the left anterolateral transition zone from mid to apex. It is moderately bright on DWI and moderately dark on ADC map. T2 - 5 DWI - 4 DCE - positive Overall PI-RADS v2 score = 5 Capsular margin and neurovascular bundle: At least 2 mm of macrocapsular extension to the left anterolaterally. Seminal vesicles: Not involved. Lymph nodes: No lymphadenopathy in the field of view. Bones: New enhancing T1 hypointense/T2 hypointense 1 cm lesion in the left superior pubic ramus near the pubic symphysis . MRI/Pelvis W/WO Contrast IMPRESSION: 2 cm PI-RADS 5 lesion in the left anterolateral TZ from mid gland to apex. 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 - At least 2 mm of macrocapsular extension to the left anterolaterally. - No evidence of seminal vesicle invasion. - No lymphadenopathy. Electronically Signed: Miguel Claudio MD at 20:09 EST ,
[2023-05-16 11:29] LABS: CREATININE FINGERSTICK < 1.0 mg/dL (0.70-1.30); EGFR FINGERSTICK > 60.0000 mL/min (>60)
--- OUTSIDE RECORDS SUMMARY | 2023-05-16 12:04 | XMS RPT_ITS | CCD ---
Author Name Unknown Address [address] [facility] [address] [place] [address] Organization [facility] Care Team Providers Care Meat Slicer Name Role Phone REECE CHAUDHARY, NIKO Primary Care Physician Anthony Guerrero Unavailable Unavailable Niko Stafford MD Primary Care Provider REECE CHAUDHARY, NIKO Primary Care Physician Anthony Guerrero Unavailable Unavailable Niko Stafford MD Primary Care Provider Anthony Guerrero Unavailable Unavailable Niko Stafford MD Primary Care Provider NIKO STAFFORD MD Primary Care Unavailable SHONDA VALLES, CRISTINO Porter Attending Domenica NIKO Valenzuela MD Primary Care Unavailable JOE RAMIRES MD Attending Unavailable NIKO STAFFORD MD Primary Care Unavailable SARAH VALLES, RAJI Attending Unavailab Mejia, RAJI Attending UnavailNIKO David MD Primary Care Unavailable NIKO STAFFORD MD Primary Care Unavailable JOE RAMIRES MD Attending Unavailable NIKO STAFFORD Primary Care Unavailable NIKO STAFFORD Referring Unavailable NIKO STAFFORD Primary Care Unavailable NIKO STAFFORD Referring Unavailable NIKO STAFFORD Referring Unavailable NIKO STAFFORD Primary Care Unavailable NIKO STAFFORD Attending Unavailable NIKO STAFFORD Primary Care Unavailable NIKO STAFFORD Primary Care Unavailable NIKO STAFFORD Referring Unavailable NIKO MENDIETA JR Attending Unavailable NIKO STAFFORD Primary Care Unavailable NIKO STAFFORD Primary Care Unavailable Adrian Thompson Attending Unavailable NIKO STAFFORD Primary Care Unavailable NIKO STAFFORD Referring Unavailable NIKO STAFFORD Primary Care Unavailable NIKO STAFFORD Attending Unavailable Medications Current Medications Medication Drug Class(es) Dates Sig (Normalized) Sig (Original) enteric contrast (will be provided with radiology test) (1 source) Start: 05-07-2022 End: 05-08-2022 enteric contrast (will be provided with radiology test) Indications: Chronic RLQ pain For CT ABD/PEL W IVCON Routine order Administer, As Directed One Time Only, via Oral, Rectal, both Oral and Rectal, Enteric Tube, Stoma or Indwelling Catheter, Enteric Contrast as designated per enteric contrast guidelines 1 Each 0 05/07/2022 05/08/2022 Active Completed/Discontinued Medications Medication Drug Class(es) Dates Sig (Normalized) Sig (Original) acetaminophen 325 mg oral tablet (20 sources) Start: 05-16-2020 End: 06-15-2020 Tylenol 325 mg oral tablet Dose : 325 mg = 1 tab(s), Oral, QID, # 120 tab(s), 0 Refill(s), Pharmacy: [id number], 05/19/20, 172.7, cm, 05/16/20 10:03:00 EST, Height, kg, 05/16/20 10:03:00 EST, Dosing Weight Start Date: 05/16/20 Stop Date: 06/15/20 Status: Ordered Problems Active Problems Problem Classification Problem Date Documented Date Episodic/Chronic Adjustment disorders (1 source) Grief finding; Translations: [Adjustment disorder with depressed mood] Chronic Anxiety disorders (20 sources) Anxiety state; Translations: [Generalized anxiety disorder] Onset: 03-28-2009 02-08-2015 Chronic Diseases of white blood cells (20 sources) Lymphocytosis; Translations: [Lymphocytosis (symptomatic)] Onset: 03-24-2018 03-24-2018 Chronic Disorders of lipid metabolism (20 sources) Hypercholesterolemia; Translations: [Hyperlipidemia] Onset: 03-28-2009 08-04-2013 Chronic Esophageal disorders (8 sources) Gastroesophageal reflux disease without esophagitis; Translations: [Gastro-esophageal reflux disease without esophagitis] Chronic Genitourinary symptoms and ill-defined conditions (1 source) Microscopic hematuria; Translations: [Other microscopic hematuria] Episodic Mood disorders (4 sources) Depressive disorder; Translations: [Depression, unspecified depression type] Chronic Osteoarthritis (20 sources) Osteoarthritis; Translations: [Unspecified osteoarthritis, unspecified site] Onset: 03-28-2009 04-03-2021 Chronic Other bone disease and musculoskeletal deformities (11 sources) [place] 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 Other nervous system disorders (20 sources) Cervical nerve root compression; Translations: [Cervical root disorders, not elsewhere classified] 01-06-2020 Chronic Other nervous system disorders (1 source) Other chronic pain; Translations: [Chronic RLQ pain] Onset: 05-22-2022 Chronic Other non-traumatic joint disorders (11 sources) Knee pain 03-18-2020 Episodic Other screening for suspected conditions (not mental disorders or infectious disease) (20 sources) Raised prostate specific antigen; Translations: [Elevated prostate specific antigen [PSA]] Onset: 04-13-2009 01-06-2020 Episodic Other skin disorders (1 source) Lesion of nose; Translations: [Disorder of the skin and subcutaneous tissue, unspecified] 10-18-2022 Episodic Peritonitis and intestinal abscess (1 source) Infectious disease of abdomen; Translations: [Peritonitis, unspecified] Episodic Residual codes; unclassified (7 sources) Sleep apnea; Translations: [Sleep apnea, unspecified] Onset: 03-28-2009 Chronic Residual codes; unclassified (17 sources) Obstructive sleep apnea syndrome; Translations: [Obstructive sleep apnea (adult) (pediatric)] Onset: 03-28-2009 Chronic Residual codes; unclassified (1 source) Sleep apnea, unspecified; Translations: [Sleep apnea, unspecified type] Onset: 01-06-2020 Chronic Residual codes; unclassified (11 sources) Chronic back pain 04-03-2018 Episodic Spondylosis; intervertebral disc disorders; other back problems (20 sources) Degeneration of intervertebral disc; Translations: [Disorder of lumbar disc] Onset: 03-28-2009 08-04-2013 Chronic Past or Other Problems Problem Classification Problem Date Documented Da te Episodic/Chronic Abdominal pain (7 sources) Right lower quadrant pain; Translations: [Right lower quadrant pain] Onset: 05-22-2022 Episodic Administrative/social admission (20 sources) Advance directive discussed with patient; Translations: [Other specified counseling] Onset: 07-07-2021 Episodic Anal and rectal conditions (19 sources) Stenosis of rectum and anus; Translations: [Stenosis of anus and rectum] Onset: 02-25-2018 01-10-2022 Episodic Calculus of urinary tract (20 sources) Kidney stone; Translations: [Calculus of kidney] Onset: 03-28-2009 08-04-2013 Episodic Diabetes mellitus without complication (20 sources) Impaired fasting glycemia; Translations: [Impaired fasting glucose] Onset: 04-13-2009 06-13-2010 Episodic Hemorrhoids (19 sources) Internal hemorrhoids grade I; Translations: [First degree hemorrhoids] Onset: 02-25-2018 01-10-2022 Episodic Other and unspecified benign neoplasm (2 sources) Polyp of colon; Translations: [Polyp of colon] Onset: 04-29-2009 07-24-2017 Episodic Other and unspecified benign neoplasm (20 sources) History of polyp of colon; Translations: [Personal history of colonic polyps] Onset: 01-26-2014 01-26-2014 Episodic Other non-traumatic joint disorders (2 sources) Shoulder joint pain; Translations: [Pain in unspecified shoulder] Onset: 11-23-2009 04-03-2021 Episodic Spondylosis; intervertebral disc disorders; other back problems (20 sources) Sciatica; Translations: [Other specified dorsopathies, lumbosacral region] Onset: 09-06-2017 09-06-2017 Episodic Results Test Name Value Interpretation Reference Range Facil ity Vital Signs Date Time Vital Sign Value Performing Clinician Steph arriaga 06-09-2022 09:12-0500 Body weight 84.37 kg Niko Stafford MD Work Phone: [facility] 06-09-2022 09:12-0500 Diastolic blood pressure 82 mm[Hg] Niko Stafford MD Work Phone: [facility] 06-09-2022 09:12-0500 Heart rate 70 /min Niko Stafford MD Work Phone: [facility] 06-09-2022 09:12-0500 SaO2% (BldA) [Mass fraction] 97 % Niko Stafford MD Work Phone: [facility] 06-09-2022 09:12-0500 Systolic blood pressure 122 mm[Hg] Niko Stafford MD Work Phone: [facility] 05-07-2022 15:35-0500 Body height 168.9 cm Niko Stafford MD Work Phone: [facility] 05-07-2022 15:35-0500 Body weight 84.37 kg Niko Stafford MD Work Phone: [facility] 05-07-2022 15:35-0500 Diastolic blood pressure 66 mm[Hg] Niko Stafford MD Work Phone: [facility] 05-07-2022 15:35-0500 Heart rate 71 /min Niko Stafford MD Work Phone: [facility] 05-07-2022 15:35-0500 SaO2% (BldA) [Mass fraction] 99 % Niko Stafford MD Work Phone: [facility] 05-07-2022 15:35-0500 Systolic blood pressure 130 mm[Hg] Niko Stafford MD Work Phone: [facility] 04-16-2022 14:15-0500 Body temperature 97.5 [degF] Nkio Mendieta Jr., MD Work Phone: [facility] 04-16-2022 14:15-0500 Body weight 84.01 kg Niko Mendieta Jr., MD Work Phone: [facility] 04-16-2022 14:15-0500 Diastolic blood pressure 72 mm[Hg] Niko Mendieta Jr., MD Work Phone: [facility] 04-16-2022 14:15-0500 Heart rate 72 /min Niko Mendieta Jr., MD Work Phone: [facility] 04-16-2022 14:15-0500 Respiratory rate 16 /min Niko Mendieta Jr., MD Work Phone: [facility] 04-16-2022 14:15-0500 SaO2% (BldA) [Mass fraction] 96 % Niko Mendieta Jr., MD Work Phone: [facility] 04-16-2022 14:15-0500 Systolic blood pressure 146 mm[Hg] Niko Mendieta Jr., MD Work Phone: [facility] 03-19-2022 10:38-0500 Diastolic blood pressure 86 mm[Hg] Justina Haagen PRODUCT DEVELOPMENT DIRECTOR.CHAR FILTER TANK TENDER HEAD Work Phone: [facility] 03-19-2022 10:38-0500 Heart rate 63 /min Justina Haagen PRODUCT DEVELOPMENT DIRECTOR.CHAR FILTER TANK TENDER HEAD Work Phone: [facility] 03-19-2022 10:38-0500 Respiratory rate 18 /min Justina Haagen PRODUCT DEVELOPMENT DIRECTOR.CHAR FILTER TANK TENDER HEAD Work Phone: [facility] 03-19-2022 10:38-0500 SaO2% (BldA) [Mass fraction] 97 % Justina Haagen PRODUCT DEVELOPMENT DIRECTOR.CHAR FILTER TANK TENDER HEAD Work Phone: [facility] 03-19-2022 10:38-0500 Systolic blood pressure 134 mm[Hg] Justina Haagen PRODUCT DEVELOPMENT DIRECTOR.CHAR FILTER TANK TENDER HEAD Work Phone: [facility] 02-12-2022 10:16-0500 Body weight 83.01 kg Justina Haagen PRODUCT DEVELOPMENT DIRECTOR.CHAR FILTER TANK TENDER HEAD Work Phone: [facility] 02-12-2022 10:16-0500 Diastolic blood pressure 90 mm[Hg] Justina Haagen PRODUCT DEVELOPMENT DIRECTOR.CHAR FILTER TANK TENDER HEAD Work Phone: [facility] 02-12-2022 10:16-0500 Heart rate 64 /min Justina Haagen PRODUCT DEVELOPMENT DIRECTOR.CHAR FILTER TANK TENDER HEAD Work Phone: [facility] 02-12-2022 10:16-0500 Respiratory rate 16 /min Justina Haagen PRODUCT DEVELOPMENT DIRECTOR.CHAR FILTER TANK TENDER HEAD Work Phone: [facility] 02-12-2022 10:16-0500 Systolic blood pressure 142 mm[Hg] Justina Haagen PRODUCT DEVELOPMENT DIRECTOR.CHAR FILTER TANK TENDER HEAD Work Phone: [facility] 01-10-2022 10:30-0400 Diastolic blood pressure 82 mm[Hg] Niko Stafford MD Work Phone: [facility] 01-10-2022 10:30-0400 Systolic blood pressure 130 mm[Hg] Niko Stafford MD Work Phone: [facility] 01-10-2022 10:05-0400 Body height 168.9 cm Niko Stafford MD Work Phone: [facility] 01-10-2022 10:05-0400 Body weight 82.92 kg Niko Stafford MD Work Phone: [facility] 01-10-2022 10:05-0400 Heart rate 57 /min Niko Stafford MD Work Phone: [facility] 01-10-2022 10:05-0400 SaO2% (BldA) [Mass fraction] 97 % Niko Stafford MD Work Phone: [facility] 07-07-2021 10:29-0400 Body weight 83.92 kg Niko Stafford MD Work Phone: [facility] 07-07-2021 10:29-0400 Diastolic blood pressure 78 mm[Hg] Niko Stafford MD Work Phone: [facility] 07-07-2021 10:29-0400 Heart rate 64 /min Niko Stafford MD Work Phone: [facility] 07-07-2021 10:29-0400 Systolic blood pressure 138 mm[Hg] Niko Stafford MD Work Phone: [facility] Encounters Encounter Date Encounter Type Care Provider Facility Start: 03-27-2023 Telephone encounter Niko Stafford MD Work Phone: [facility] Procedures Date Procedure Procedure Detail Performing Clinician Start: 12-24-2022 Biopsy JOE MARTINEZ MD Start: 05-22-2022 Ct abdomen & pelvis w/contrast material Niko Stafford MD Work Phone: Start: 07-22-2020 2019-nCoV vaccination D Nestor ROSALES DO Plan of Treatment Date Care Activity Detail Author Start: 06-09-2025 DIABETES SCREEN DIABETES SCREEN [facility] Start: 06-09-2025 Diabetes Screening Diabetes Screenin g [facility] Start: 05-22-2025 DIABETES SCREEN DIABETES SCREEN [facility] Start: 02-01-2025 DIABETES SCREEN DIABETES SCREEN [facility] Start: 09-01-2024 DIABETES SCREEN DIABETES SCREEN [facility] Start: 02-20-2024 Urine microalbumin profile [facility] Start: 01-07-2024 [facility] Start: 12-07-2022 Covid-19 Vaccine ( season) Covid-19 Vaccine () [facility] Start: 12-07-2022 Influenza vaccination [facility] Start: 10-05-2022 Influenza vaccination INFLUENZA (#1) [facility] Immunizations Immunization Date Immunization Notes Care Provider Fa cili 01-19-2022 influenza virus vaccine, unspecified formulation Ct [facility] 02-10-2021 COVID-19 vaccine, ag e 12+ yr ([employer] - PURPLE TOP) Niko Stafford MD Work Phone: [facility] 01-14-2021 influenza, high dose seasonal, preservative-free Niko Stafford MD Work Phone: [facility] 01-14-2021 influenza, high-dose , quadrivalent vaccine (FLUZONE HIGH DOSE QUADRIVALENT) Niko Stafford MD Work Phone: [facility] 08-16-2020 zoster vaccine, recombinant, adjuvanted, (SHINGRIX, PF,) 50 mcg/0.5 mL injection Niko Stafford MD Work Phone: [facility] Work Phone: Payers Date Payer Category Payer Private Health Insurance HUMANA HUMANA MEDICARE SUPPLEMENT [id number] 2015-Present [phone] [address] [address] [place] [address] Indemnity [id number] 2015 Private Health Insurance HUMANA HUMANA MEDICARE SUPPLEMENT [id number] 2015-Present [phone] [address] [address] [place] [address] Indemnity [id number] 2015 Private Health Insurance [id number] 2003 Medicare MEDICARE MEDICAR E A AND B [id number] 2003-Present [phone] [place] [address] Medicare [id number] 2003 Medicare MEDICARE MEDICAR E A AND B [id number] 2003-Present [phone] [place] [address] Medicare [id number] 2003 Medicare [id number] 1938 Unknown [id number] 1938 Unknown [id number] 1938 Unknown [id number] 1938 Unknown [id number] 1938 Unknown [id number] Social History Date Type Detail Facility Start: 03-18-2020 End: 01-10-2022 Never smoked tobacco (finding) [facility] Sex Assigned At Male [facility] Start: 01-06-2021 End: 07-10-2022 Alcohol intake Current non-drinker of alcohol (finding) [facility] Start: 1940 Sex Assigned At Not on file [facility] Start: 06-27-2021 End: 02-12-2022 Exposure to SARS-CoV-2 (event) Not sure [facility] Start: 01-10-2022 Tobacco use and exposure Smokeless tobacco non-user [facility] Start: 07-10-2022 End: 10-22-2022 History of Social function [facility] Work Phone: Start: 07-10-2022 End: 10-22-2022 Tobacco use panel [facility] Work Phone: Adult Depression Screening Assessment 2 [facility] Work Phone: Clinical Notes 03-28-2009 to 03-27-2023 Telephone Encounter - Wilfrid Leal - 03/27/2023 10:51 AM ESTTelephone Encounter - Corinne Barrera - 03/27/2023 10:43 AM ESTTelephone Encounter - Molly Nunez Ma - 10/18/2022 1:57 PM EDT Note Date & Type Note Facility 03-27-2023 Miscellaneous Notes Omeprazole 40mg prescribed by Dr. Joe Dahl and was last dispensed today, 03/27/23 by [facility] pharmacy. Pt notified. Wilfrid Leal Patient called to refill omeprazole 40 mg; once a day. Not on med list. Please review. Uses [facility] in [place]. documented in this encounter [facility] 10-18-2022 Miscellaneous Notes Faxed consult to [facility] as requested. Molly Nunez Ma Right nasal lesion noted while here with . Has lesion on right nostril with central scabbed depression, nodular border with telangiectasial vessels. Recheck walk in without appt in 2 weeks. Please send consult to Dr. Milo Hunt Telephone on 10/18/22 CONSULT TO DERMATOLOGY External nasal lesion (primary encounter diagnosis) Erick Leyva PA-C documented in this encounter [facility] 10-02-2022 Miscellaneous Notes Records reviewed. Patient with a 6 cm segment of Cabral's. History of a previous fundoplication. Biopsies revealed indefinite for low-grade dysplasia. 1. We will obtain esophageal biopsy slides for review. 2. We will arrange for a virtual visit. Records received and uploaded under scanned doc. Please review and advise Denisha Hensley Distribution Driver documented in this encounter [facility] 08-06-2022 Note HNO ID: [id number] Author: Adrian Thompson MD Service: ? Author Type: Physician Type: Progress Notes Filed: 08/06/2022 2:36 PM Note Text: New Patient/Consult REASON FOR VISIT Veronica Farooq is a 81 year old male who is scheduled for a consult at the request of . CHIEF COMPLAINT No chief complaint on file. My final recommendations will be communicated back to the requesting physician by the way of the shared medical record, fax, or via US Mail. HISTORY OF PRESENT ILLNESS 81-year-old male who was referred for Cabral's esophagus. Records indicate biopsy proven Cabral's esophagus with indeterminate for dysplasia. An upper endoscopy was performed on July 10. Long segment Barretts of 6 cm in length was notable as well as a medium sized hiatal hernia. Long history of GERD ( years ) Placed on omeprazole, pyrosis is under control No pyrosis or dysphagia Medications: atorvastatin, vitamin B and C, tramadol, gabapentin, acetaminophen, cymbalta, omeprazole 40 milligrams daily, Past medical history: back pain, obstructive sleep apnea, depression, gastroesophageal reflux, hypercholesterolemia, hearing loss, colon polyps Past surgical history: Grace fundoplication, prostate surgery, coli cystectomy, carpal tunnel repair, fusion cervical spine, hernia repair, rotator cuff surgery, right knee surgery Family medical history: diabetes heart disease kidney disease cancer Social history: no history of smoking or alcohol use MEDICATIONS Current Outpatient Medications Medication Sig Dispense Refill atorvastatin (LIPITOR) 40 mg tablet Take 1 tablet by mouth daily at bedtime. For cholesterol. 90 tablet 3 famotidine (PEPCID) 20 mg tablet Take 1 tablet by mouth daily at bedtime. 30 tablet 2 DULoxetine (CYMBALTA) 30 mg capsule Take 1 capsule by mouth once daily. 90 capsule 1 acetaminophen (TYLENOL ARTHRITIS PAIN ORAL) Take 2 tablets by mouth. gabapentin (NEURONTIN) 600 mg tablet Take 600 mg by mouth four times daily. vitamin B complex (VITAMIN B-100 COMPLEX ORAL) Take 100 mg by mouth once daily. Cholecalciferol, Vitamin D3, 25 mcg (1,000 unit) cap Take 1,000 Units by mouth once daily. gabapentin (NEURONTIN) 400 mg capsule Take 600 mg by mouth four times daily. traMADol (ULTRAM) 50 mg tablet Take 50 mg by mouth every 6 hours as needed. CPAP CHIN STRAP, USED WITH CPAP DEVICE 1 Units 0 No current facility-administered medications for this visit. ALLERGIES ALLERGIES No Known Allergies PAST MEDICAL HISTORY PAST MEDICAL HISTORY Diagnosis Date Cervical nerve root impingement sees Dr. Lott, pain management at [place] Colon polyp Depression Diverticulosis of colon (without mention of hemorrhage) Elevated PSA sees Dr Boswell Hyperlipidemia Kidney disease Low testosterone Obstructive sleep apnea Osteoarthrosis Personal history of colonic polyps Sleep apnea Snoring PAST SURGICAL HISTORY PAST SURGICAL HISTORY Procedure Laterality Date CHOLECYSTECTOMY 1986 Cholecystectomy, open (Dr. Rayo) COLONOSCOPY AND POLYPECTOMY late [address] Pandey -- 3-year intervals COLONOSCOPY AND POLYPECTOMY 02/23/2014 Sessile serrated with low-gr dysplasia, tubular adenoma, internal hemorrhoids COLONOSCOPY BX SINGLE/MULTI 07/10/2022 Dr. Nestor Dahl; hemorrhoids, 5mm polyp- cecum, polyp- ileocecal, diverticulosis- sigmoid; repeat 5yrs COLONOSCOPY FLX DX W/COLLJ SPEC WHEN PFRMD 03/30/2011 Colonoscopy repeat 3 years COLONOSCOPY FLX DX W/COLLJ SPEC WHEN PFRMD 02/25/2015 CYSTOSCOPY,+URETEROSCOPY 1993 stone removed EGD BIOPSY SING OR MULT 07/10/2022 Dr. Nestor Dahl; Cabral's, HH, gastritis NEUROPLASTY AND/TRANSPOS MEDIAN NRV CARPAL TUNNE Bilateral 08/11/[address] Shepard PAST SURGICAL HISTORY OF 2008 Left Rotator cuff, Dr. Raines, PAST SURGICAL HISTORY OF 1988, 2003 Castillo, Ventral Hernia x 2 PAST SURGICAL HISTORY OF 01/03/2015 neck surgery - fused C4,5,6 PAST SURGICAL HISTORY OF Right 06/18/2018 right knee arthroscopic partial medical lateral meniscectomy right knee arthroscopic chondroplasty UROLIFT PROSTATE PROCEDURE 11/2017 Dr.Miguel Fritz SOCIAL HISTORY Social History Tobacco Use Smoking status: Never Smokeless tobacco: Never Substance Use Topics Alcohol use: No Drug use: No FAMILY HISTORY FAMILY HISTORY Problem Relation Age of Onset None Father Coronary Artery Disease Mother early 60's Diabetes Mother Coronary Artery Disease Brother Cancer Brother kidney Colon Cancer Other none Heart disease Brother GASTROINTESTINAL REVIEW OF SYSTEMS Difficulty swallowing / foods sticking in throat: No Heartburn: No Chest Pain: No Filling up quickly at meals: No Loss of appetite: No Nausea: No Vomiting: No Abdominal pain: No Bloody or black, bowel movements: No Constipation: No Diarrhea: No Vomiting blood: No Recent change in weight: No REVIEW OF OTHER SYSTEMS GENERAL: No weight los (more content not included)... [facility] 08-06-2022 History of Presen t illness Narrative New Patient/Consult REASON FOR VISIT Veronica Farooq is a 81 year old male who is scheduled for a consult at the request of . CHIEF COMPLAINT No chief complaint on file. My final recommendations will be communicated back to the requesting physician by the way of the shared medical record, fax, or via US Mail. HISTORY OF PRESENT ILLNESS 81-year-old male who was referred for Cabral's esophagus. Records indicate biopsy proven Cabral's esophagus with indeterminate for dysplasia. An upper endoscopy was performed on July 10. Long segment Barretts of 6 cm in length was notable as well as a medium sized hiatal hernia. Long history of GERD ( years ) Placed on omeprazole, pyrosis is under control No pyrosis or dysphagia Medications: atorvastatin, vitamin B and C, tramadol, gabapentin, acetaminophen, cymbalta, omeprazole 40 milligrams daily, Past medical history: back pain, obstructive sleep apnea, depression, gastroesophageal reflux, hypercholesterolemia, hearing loss, colon polyps Past surgical history: Grace fundoplication, prostate surgery, coli cystectomy, carpal tunnel repair, fusion cervical spine, hernia repair, rotator cuff surgery, right knee surgery Family medical history: diabetes heart disease kidney disease cancer Social history: no history of smoking or alcohol use MEDICATIONS Current Outpatient Medications Medication Sig Dispense Refill atorvastatin (LIPITOR) 40 mg tablet Take 1 tablet by mouth daily at bedtime. For cholesterol. 90 tablet 3 famotidine (PEPCID) 20 mg tablet Take 1 tablet by mouth daily at bedtime. 30 tablet 2 DULoxetine (CYMBALTA) 30 mg capsule Take 1 capsule by mouth once daily. 90 capsule 1 acetaminophen (TYLENOL ARTHRITIS PAIN ORAL) Take 2 tablets by mouth. gabapentin (NEURONTIN) 600 mg tablet Take 600 mg by mouth four times daily. vitamin B complex (VITAMIN B-100 COMPLEX ORAL) Take 100 mg by mouth once daily. Cholecalciferol, Vitamin D3, 25 mcg (1,000 unit) cap Take 1,000 Units by mouth once daily. gabapentin (NEURONTIN) 400 mg capsule Take 600 mg by mouth four times daily. traMADol (ULTRAM) 50 mg tablet Take 50 mg by mouth every 6 hours as needed. CPAP CHIN STRAP, USED WITH CPAP DEVICE 1 Units 0 No current facility-administered medications for this visit. ALLERGIES ALLERGIES No Known Allergies PAST MEDICAL HISTORY PAST MEDICAL HISTORY Diagnosis Date Cervical nerve root impingement sees Dr. Lott, pain management at [place] Colon polyp Depression Diverticulosis of colon (without mention of hemorrhage) Elevated PSA sees Dr Boswell Hyperlipidemia Kidney disease Low testosterone Obstructive sleep apnea Osteoarthrosis Personal history of colonic polyps Sleep apnea Snoring PAST SURGICAL HISTORY PAST SURGICAL HISTORY Procedure Laterality Date CHOLECYSTECTOMY 1986 Cholecystectomy, open (Dr. Rayo) COLONOSCOPY & POLYPECTOMY late [address] Pandey -- 3-year intervals COLONOSCOPY & POLYPECTOMY 02/23/2014 Sessile serrated with low-gr dysplasia, tubular adenoma, internal hemorrhoids COLONOSCOPY BX SINGLE/MULTI 07/10/2022 Dr. Nestor Dahl; hemorrhoids, 5mm polyp- cecum, polyp- ileocecal, diverticulosis- sigmoid; repeat 5yrs COLONOSCOPY FLX DX W/COLLJ SPEC WHEN PFRMD 03/30/2011 Colonoscopy repeat 3 years COLONOSCOPY FLX DX W/COLLJ SPEC WHEN PFRMD 02/25/2015 CYSTOSCOPY,+URETEROSCOPY 1993 stone removed EGD BIOPSY SING OR MULT 07/10/2022 Dr. Nestor Dahl; Cabral's, HH, gastritis NEUROPLASTY &/TRANSPOS MEDIAN NRV CARPAL TUNNE Bilateral 08/11/[address] Shepard PAST SURGICAL HISTORY OF 2008 Left Rotator cuff, Dr. Raines, PAST SURGICAL HISTORY OF 1988, 2003 Castillo, Ventral Hernia x 2 PAST SURGICAL HISTORY OF 01/03/2015 neck surgery - fused C4,5,6 PAST SURGICAL HISTORY OF Right 06/18/2018 right knee arthroscopic partial medical lateral meniscectomy right knee arthroscopic chondroplasty UROLIFT PROSTATE PROCEDURE 11/2017 Dr.Miguel Fritz SOCIAL HISTORY Social History Tobacco Use Smoking status: Never Smokeless tobacco: Never Substance Use Topics Alcohol use: No Drug use: No FAMILY HISTORY FAMILY HISTORY Problem Relation Age of Onset None Father Coronary Artery Disease Mother early 60's Diabetes Mother Coronary Artery Disease Brother Cancer Brother kidney Colon Cancer Other none Heart disease Brother GASTROINTESTINAL REVIEW OF SYSTEMS Difficulty swallowing / foods sticking in throat: No Heartburn: No Chest Pain: No Filling up quickly at meals: No Loss of appetite: No Nausea: No Vomiting: No Abdominal pain: No Bloody or black, bowel movements: No Constipation: No Diarrhea: No Vomiting blood: No Recent change in weight: No REVIEW OF OTHER SYSTEMS GENERAL: No weight loss, malaise or fevers RESPIRATORY: Negative for cough, hemoptysis, wheezing, COPD, dyspnea or shortness of breath CARDIOVASCULAR: Negative for chest pain, leg swelling, hypertension, CHF or palpitations MUSCULOSKELETAL: Negative for joint pain or swelling, back pain or muscle pain SKIN: Negative for lesions, rash, and itching PSYCH: Negative for sleep disturbance, mood disorder and recent psychosocial stressors NEURO: No history of headaches, syncope, paralysis, seizures or tremors PHYSICAL EXAMINATION There were no vitals taken for this visit. General appearance: cooperative, in no acute distress Neurological: alert and oriented x3, exam grossly non-focal, No Asterixis Eyes: conjunctivae/corneas clear Lungs: Lungs clear to auscultation. No wheezing or ronchi. Heart: S1, S2 Normal Abdomen: Abdomen soft, non-tender, Bowel sounds normal, No masses, No organomegaly, and no tenderness on palpation or percussion. Extremities: Extremities normal. No deformities, edema, or skin discoloration Skin:no rashes, lesions, or jaundice Lymph:No abnormal adenopathy Assessment IMPRESSION AND PLAN Assessment and plan: 81-year-old male with long segment Cabral s esophagus. Comments in the biopsy states indeterminate Cabral's dysplasia with possible endoscopic ablation. We will first have these biopsies reviewed and if necessary, perform either another surveillance examination or ablation of the Barretts esophagus. This will all depend on the findings of our pathology team. Adrian Thompson II, MD August 06, 2022 11:06 AM documented in this encounter [facility] 08-03-2022 Miscellaneous Notes Faxed referral over as requested. Ok to do PT is needing referral for Pain Management his previous one has retired (Dr. Lott) he is wanting to go to Dr. Ramires at [facility]. Please assist and advise. Kori LOVE documented in this encounter [facility] 07-26-2022 Miscellaneous Notes Records received uploaded under scanned doc. Pt needs to be seen for Cabral's I will call and schedule. Please review and advise Denisha Hensley Distribution Driver documented in this encounter [facility] 06-29-2022 Miscellaneous Notes Pharmacy verified in [facility] Patient has been identified by name and date of : Yes Patient aware RX will be sent to pharmacy. No need to notify patient. Spouse phones for refill(s): Requested Prescriptions Pending Prescriptions Disp Refills atorvastatin (LIPITOR) 40 mg tablet 90 tablet 3 Sig: Take 1 tablet by mouth daily at bedtime. For cholesterol. famotidine (PEPCID) 20 mg tablet 30 tablet 2 Sig: Take 1 tablet by mouth daily at bedtime. DULoxetine (CYMBALTA) 30 mg capsule 90 capsule 1 Sig: Take 1 capsule by mouth once daily. Date of last office visit : 06/09/2022 Date of next office visit : Visit date not found Last 2 Encounter Wt Readings: Date: Wt: 06/09/2022 84.4 kg (186 lb) 05/07/2022 84.4 kg (186 lb) Please advise. Anay Wheeler Pss documented in this encounter [facility] 06-13-2022 Miscellaneous Notes Spoke with patient. Given message from provider's office. Patient verbalizes understanding. Patient states he has an appointment with Dr. Joe Dahl on 06/19. He says I'm doing about the same . Yary Lindsay RN TC to pt, left message to return call to office. FYI- pt cancelled appt with Gen Surg (pt was advised by PCP at on 06/09/22 to keep appt with Gen Surg) Left message for patient to return call. Molly Nunez Ma Result message sent 05/31/22: Please let him know CT showed no surgical issues. Appendix non-specific findings with air and stool present. How is he doing? Please give my apology as I don't know why message did not reach him. He also saw Dr. Stafford 06/09/2022 whose note reflects reviewing results. Thanks, Erick Brown PA-C Images from the original note were not included. Patient calling asking to have CT results. Results CT ABD/PEL W IVCON (Order [id number]) Patient Info Patient Name Sex Veronica Farooq ([id number]) Male 1940 Imaging Findings Finding Acuity Linked Recommendation Recommendation Status Finding Status Digestive tract Routing code: GI_1 Actionable Unlisted Recommendation (see report) at the discretion of the clinical team. Needs Follow-up Reviewed Recommendations Needing Follow-Up Due Finding Recommended by Unlisted Recommendation (see report) at the discretion of the clinical team. 05/25/2023 Digestive tract Routing code: GI_1 - Actionable Radiology, Oru In Reading Physician Reading Date [facility] [place] Provider 05/25/2022 05/25/2022 11:21 PM - Radiology, Oru In Component Results Component Performing Lab Radiology Result (Actionable) (Final) CCRAD ACTIONABLE Comment: This report contains an incidental or actionable finding. This finding may be a new finding separate from the reason your provider ordered the imaging test or it may be an already known finding that needs additional or continued follow-up. Because of this incidental or actionable finding, you may need another test (imaging or a different type of test). Please contact your provider for the next steps. Impression IMPRESSION: Nonspecific findings of the appendix which is filled with air and stool but there is no periappendiceal inflammation seen. Correlation with clinical symptoms recommended This can be seen on series 3 image 80. No evidence of bowel obstruction. Fatty infiltration of the liver ACTIONABLE RESULT: FOLLOW-UP Acuity: Actionable Findings: Digestive Tract Routing Code: GI_1 Recommendation: Unlisted Recommendation (see report) correlation with clinical symptoms Time Frame: At the discretion of the clinical team. COMMUNICATION: Results will be communicated with the ordering provider via [facility] staff message or phone message by Imaging Support Services within 2 business days of report finalization. ==== Algorithms for management of incidental imaging findings can be found on the [facility] Intranet Sharepoint site at: [email or web address] [email or web address] Professor In Family Studies: JOSE Transcribe Date/Time: May 25 2022 11:14P Dictated by : VENTURA KENNY MD This examination was interpreted and the report reviewed and electronically signed by: VENTURA KENNY MD on May 25 2022 11:19PM EST Results-Findings * * *Final Report* * * DATE OF EXAM: May 22 2022 11:19AM [facility] 0530 - CT ABD/PEL W IVCON / PROCEDURE REASON: multiple diagnoses * * * * Physician Interpretation * * * * EXAMINATION: CT ABDOMEN AND PELVIS WITH IV CONTRAST CLINICAL HISTORY: Chronic right lower quadrant pain TECHNIQUE: CT of the abdomen and pelvis was performed using standard technique, scanning from just above the dome of the diaphragm to the symphysis pubis. MQ: CTAP_3 Contrast: IV: 100 ml of Omnipaque 350 Oral: 50 ml of Omni 240 10-25ml diluted with water CT Radiation dose: Integrated Dose-length product (DLP) for this visit = 468 mGy*cm. CT Dose Reduction Employed: Automated exposure control(AEC) and iterative recon COMPARISON: 02/24/2018 RESULT: Liver: Fatty infiltration of the liver is noted Biliary: No bile duct dilation. The gallbladder is surgically absent Spleen: A punctate granulomatous calcification is noted. No splenomegaly. Pancreas: No mass or duct dilation. Adrenals: No mass. Kidneys: Kidneys enhance symmetrically. No hydronephrosis is seen. GI tract: No dilation or wall thickening. Prominent appendix which is filled with air and stool measuring 1 cm without periappendiceal inflammation series 3 image 80. Lymph nodes: No abdominal or pelvic lymphadenopathy. Mesentery/Peritoneum: No ascites or mass. Retroperitoneum: No mass. Vasculature: - Abdominal aorta and iliac arteries: Atherosclerotic calcifications without aneurysm. - Celiac and SMA: Patent without stenosis. - Portal venous system (SMV, splenic vein, portal vein and branches): Patent. - Hepatic veins: Patent. Pelvis: No mass, ascites or fluid collection. Bladder is grossly unremarkable. Prostate radiation are seen Bones/Soft Tissues: Calcified granuloma right lung base. Small hiatal hernia. Lower thorax: No additional findings Still Operator Whiskey (topogram) images: No additional findings. Result History CT ABD/PEL W IVCON (Order #[id number]) on 05/25/2022 - Order Result History Report Result Information Status Provider Status Actionable Final result (05/25/2022 11:21 PM) Reviewed Exam Performed Date and Time 05/22/2022 11:19 AM [facility] DIVISION OF RADIOLOGY [address] [facility] [address] CT ABD/PEL W IVCON: Result Notes M Lex Brown PA-C 05/26/2022 9:13 AM EST Please let hi know CT showed no surgical issues. Appendix non-specific findings with air and stool present. How is he doing? Thanks, Erick Brown PA-C Went over results, notes from Erick RIVERA with understanding. Patient requesting referral to Dr Joe Dahl. Printed face sheet, insurance card copy, CT results, office notes, labs faxed to [phone] as requested. Patient said trying to get appt with Dr Nestor Dahl and will not get set up until items are faxed to them. documented in this encounter [facility] 06-11-2022 Miscellaneous Notes Patient calling asking for results. Went over results, notes from Dr Stafford with understanding. Patient said he has seen Dr Fritz in the past wanted referral faxed to his office. Printed consult, face sheet, insurance card copy, urine results, office notes and CT results faxed to [phone] as requested. Urine shows blood in urine. In addition to the surgery consult we placed Saturday. Refer to urology for hematuria. documented in this encounter [facility] 06-09-2022 Note HNO ID: [id number] Author: Niko Stafford MD Service: ? Author Type: Physician Type: Progress Notes Filed: 06/09/2022 9:41 AM Note Text: Patient presents with: Follow Up HPI: Patient presents today for office visit for follow up. Still getting the pain in his abd. Has the full feeling. Taking the famotidine and maybe slightly helpful. Is watching diet but doesn't seem to matter what he eats and still will get acid indigestion at night. Describes as a bad case of nervous stomach . His pain he indicates now is more ruq pain. Can still get occasional rlq pain. Can happen up to a few times a week. No changes in the bowels or the urine. Most of the time has not pain at all. No weight loss. No changes in the appetite. Indigestion is improving. No fever. Has been there on and off for months. Can last up to an hour when he gets discomfort. He wonders if it is a nervous stomach. He was to have done labs and urine at last ov and did not as directed. Reiterated that he needs to get labs I ordered today. Erick Brown discussed ct with him and asked him to come back in for recheck. See previous ov: Complains of a shooting/sharp pain in lower right sided abdomen. Intermittent over the past 6+ months. Hurts more in the morning. When episodes come on it takes a little while to go away. Feels like he's full . No bloody or black stools. No constipation or diarrhea. Does use miralax daily. No urinary issues. No dysuria or hematuria. No fever or chills. Nothing seems to make it better. Eventually will get beter. No change in appetite. No weight loss. Can last up to an hour each time it occurs. Has had some acid indigestion. No nsaid use. Does use tums. See CT SCAN: Nonspecific findings of the appendix which is filled with air and stool but there is no periappendiceal inflammation seen. Correlation with clinical symptoms recommended This can be seen on series 3 image 80. No evidence of bowel obstruction. Fatty infiltration of the liver Component Latest Ref Rng AND Units 02/01/2022 WBC 3.70 - 11.00 k/uL 10.45 RBC 4.20 - 6.00 m/uL 4.67 Hemoglobin 13.0 - 17.0 g/dL 14.7 Hematocrit 39.0 - 51.0 % 44.1 MCV 80.0 - 100.0 fL 94.4 MCH 26.0 - 34.0 pg 31.5 MCHC 30.5 - 36.0 g/dL 33.3 RDW-CV 11.5 - 15.0 % 12.2 Platelet Count 150 - 400 k/uL 241 MPV 9.0 - 12.7 fL 9.0 Neut% % 55.0 Abs Neut (ANC) 1.45 - 7.50 k/uL 5.74 Lymph% % 32.4 Abs Lymph 1.00 - 4.00 k/uL 3.39 Overton% % 10.3 Abs Overton <0.87 k/uL 1.08 (H) Eosin% % 1.1 Abs Eosin <0.46 k/uL 0.12 Baso% % 0.6 Abs Baso <0.11 k/uL 0.06 Immature Gran % % 0.6 IMMATURE GRANS (ABS) <0.10 k/uL 0.06 NRBC /100 WBC 0.0 Absolute nRBC <0.01 k/uL <0.01 DTYPE Auto Protein, Total 6.3 - 8.0 g/dL 6.8 Albumin 3.9 - 4.9 g/dL 4.3 Calcium 8.5 - 10.2 mg/dL 9.3 Bilirubin, Total 0.2 - 1.3 mg/dL 0.8 Alkaline Phosphatase 38 - 113 U/L 72 AST 14 - 40 U/L 22 ALT 10 - 54 U/L 24 Glucose 74 - 99 mg/dL 111 (H) BUN 9 - 24 mg/dL 18 Creatinine 0.73 - 1.22 mg/dL 1.02 Sodium 136 - 144 mmol/L 140 Potassium 3.7 - 5.1 mmol/L 4.5 Chloride 97 - 105 mmol/L 101 CO2 22 - 30 mmol/L 29 Anion Gap 9 - 18 mmol/L 10 eGFR >=60 mL/min/1.73mA? 73 Cholesterol, Total <200 mg/dL 160 Triglyceride <150 mg/dL 122 HDL Cholesterol >39 mg/dL 39 (L) Non HDL Cholesterol <130 mg/dL 121 Fasting Time hrs 12 VLDL Cholesterol <30 mg/dL 24 TC:HDL Ratio <5.10 4.10 LDL Cholesterol <100 mg/dL 97 LDL:HDL Ratio <2.54 2.49 Hemoglobin A1C 4.3 - 5.6 % 6.0 (H) Estimated Average Glucose mg/dL 126 MEDICATIONS: Current Outpatient Medications Medication Sig famotidine (PEPCID) 20 mg tablet Take 1 tablet by mouth daily at bedtime. DULoxetine (CYMBALTA) 30 mg capsule Take 1 capsule by mouth once daily. atorvastatin (LIPITOR) 40 mg tablet Take 1 tablet by mouth daily at bedtime. For cholesterol. acetaminophen (TYLENOL ARTHRITIS PAIN ORAL) Take 2 tablets by mouth. gabapentin (NEURONTIN) 600 mg tablet Take 600 mg by mouth four times daily. vitamin B complex (VITAMIN B-100 COMPLEX ORAL) Take 100 mg by mouth once daily. Cholecalciferol, Vitamin D3, 25 mcg (1,000 unit) cap Take 1,000 Units by mouth once daily. traMADol (ULTRAM) 50 mg tablet Take 50 mg by mouth every 6 hours as needed. gabapentin (NEURONTIN) 400 mg capsule Take 600 mg by mouth four times daily. CPAP CHIN STRAP, USED WITH CPAP DEVICE No current facility-administered medications for this visit. ALLERGIES: ALLERGIES No Known Allergies PAST MEDICAL HISTORY Diagnosis Date Cervical nerve root impingement sees Dr. Lott, pain management at [place] Colon polyp Depression Diverticulosis of colon (without mention of hemorrhage) Elevated PSA sees Dr Boswell Hyperlipidemia Kidney disease Low testosterone Obstructive sleep apnea Osteoarthrosis Personal history of colonic polyps Sleep apnea Snoring PAST SURGICAL HISTORY Procedure Laterality Date CHOLECYSTEC (more content not included)... [facility] [place] 06-09-2022 Instructions Niko Stafford MD - 06/09/2022 9:39 AM EST Get labs and urine today. Make sure you follow up with surgery for follow up. documented in this encounter [facility] 06-09-2022 History of Presen t illness Narrative Patient presents with: Follow Up HPI: Patient presents today for office visit for follow up. Still getting the pain in his abd. Has the full feeling. Taking the famotidine and maybe slightly helpful. Is watching diet but doesn't seem to matter what he eats and still will get acid indigestion at night. Describes as a bad case of nervous stomach . His pain he indicates now is more ruq pain. Can still get occasional rlq pain. Can happen up to a few times a week. No changes in the bowels or the urine. Most of the time has not pain at all. No weight loss. No changes in the appetite. Indigestion is improving. No fever. Has been there on and off for months. Can last up to an hour when he gets discomfort. He wonders if it is a nervous stomach. He was to have done labs and urine at last ov and did not as directed. Reiterated that he needs to get labs I ordered today. Erick Brown discussed ct with him and asked him to come back in for recheck. See previous ov: Complains of a shooting/sharp pain in lower right sided abdomen. Intermittent over the past 6+ months. Hurts more in the morning. When episodes come on it takes a little while to go away. Feels like he's full . No bloody or black stools. No constipation or diarrhea. Does use miralax daily. No urinary issues. No dysuria or hematuria. No fever or chills. Nothing seems to make it better. Eventually will get beter. No change in appetite. No weight loss. Can last up to an hour each time it occurs. Has had some acid indigestion. No nsaid use. Does use tums. See CT SCAN: Nonspecific findings of the appendix which is filled with air and stool but there is no periappendiceal inflammation seen. Correlation with clinical symptoms recommended This can be seen on series 3 image 80. No evidence of bowel obstruction. Fatty infiltration of the liver Component Latest Ref Rng & Units 02/01/2022 WBC 3.70 - 11.00 k/uL 10.45 RBC 4.20 - 6.00 m/uL 4.67 Hemoglobin 13.0 - 17.0 g/dL 14.7 Hematocrit 39.0 - 51.0 % 44.1 MCV 80.0 - 100.0 fL 94.4 MCH 26.0 - 34.0 pg 31.5 MCHC 30.5 - 36.0 g/dL 33.3 RDW-CV 11.5 - 15.0 % 12.2 Platelet Count 150 - 400 k/uL 241 MPV 9.0 - 12.7 fL 9.0 Neut% % 55.0 Abs Neut (ANC) 1.45 - 7.50 k/uL 5.74 Lymph% % 32.4 Abs Lymph 1.00 - 4.00 k/uL 3.39 Overton% % 10.3 Abs Overton <0.87 k/uL 1.08 (H) Eosin% % 1.1 Abs Eosin <0.46 k/uL 0.12 Baso% % 0.6 Abs Baso <0.11 k/uL 0.06 Immature Gran % % 0.6 IMMATURE GRANS (ABS) <0.10 k/uL 0.06 NRBC /100 WBC 0.0 Absolute nRBC <0.01 k/uL <0.01 DTYPE Auto Protein, Total 6.3 - 8.0 g/dL 6.8 Albumin 3.9 - 4.9 g/dL 4.3 Calcium 8.5 - 10.2 mg/dL 9.3 Bilirubin, Total 0.2 - 1.3 mg/dL 0.8 Alkaline Phosphatase 38 - 113 U/L 72 AST 14 - 40 U/L 22 ALT 10 - 54 U/L 24 Glucose 74 - 99 mg/dL 111 (H) BUN 9 - 24 mg/dL 18 Creatinine 0.73 - 1.22 mg/dL 1.02 Sodium 136 - 144 mmol/L 140 Potassium 3.7 - 5.1 mmol/L 4.5 Chloride 97 - 105 mmol/L 101 CO2 22 - 30 mmol/L 29 Anion Gap 9 - 18 mmol/L 10 eGFR >=60 mL/min/1.73m 73 Cholesterol, Total <200 mg/dL 160 Triglyceride <150 mg/dL 122 HDL Cholesterol >39 mg/dL 39 (L) Non HDL Cholesterol <130 mg/dL 121 Fasting Time hrs 12 VLDL Cholesterol <30 mg/dL 24 TC:HDL Ratio <5.10 4.10 LDL Cholesterol <100 mg/dL 97 LDL:HDL Ratio <2.54 2.49 Hemoglobin A1C 4.3 - 5.6 % 6.0 (H) Estimated Average Glucose mg/dL 126 MEDICATIONS: Current Outpatient Medications Medication Sig famotidine (PEPCID) 20 mg tablet Take 1 tablet by mouth daily at bedtime. DULoxetine (CYMBALTA) 30 mg capsule Take 1 capsule by mouth once daily. atorvastatin (LIPITOR) 40 mg tablet Take 1 tablet by mouth daily at bedtime. For cholesterol. acetaminophen (TYLENOL ARTHRITIS PAIN ORAL) Take 2 tablets by mouth. gabapentin (NEURONTIN) 600 mg tablet Take 600 mg by mouth four times daily. vitamin B complex (VITAMIN B-100 COMPLEX ORAL) Take 100 mg by mouth once daily. Cholecalciferol, Vitamin D3, 25 mcg (1,000 unit) cap Take 1,000 Units by mouth once daily. traMADol (ULTRAM) 50 mg tablet Take 50 mg by mouth every 6 hours as needed. gabapentin (NEURONTIN) 400 mg capsule Take 600 mg by mouth four times daily. CPAP CHIN STRAP, USED WITH CPAP DEVICE No current facility-administered medications for this visit. ALLERGIES: ALLERGIES No Known Allergies PAST MEDICAL HISTORY Diagnosis Date Cervical nerve root impingement sees Dr. Lott, pain management at [place] Colon polyp Depression Diverticulosis of colon (without mention of hemorrhage) Elevated PSA sees Dr Boswell Hyperlipidemia Kidney disease Low testosterone Obstructive sleep apnea Osteoarthrosis Personal history of colonic polyps Sleep apnea Snoring PAST SURGICAL HISTORY Procedure Laterality Date CHOLECYSTECTOMY 1986 Cholecystectomy, open (Dr. Rayo) COLONOSCOPY & POLYPECTOMY late [address] Pandey -- 3-year intervals COLONOSCOPY & POLYPECTOMY 02/23/14 Sessile serrated with low-gr dysplasia, tubular adenoma, internal hemorrhoids COLONOSCOPY FLX DX W/COLLJ SPEC WHEN PFRMD 03/30/2011 Colonoscopy repeat 3 years COLONOSCOPY FLX DX W/COLLJ SPEC WHEN PFRMD 02-25-15 CYSTOSCOPY,+URETEROSCOPY 1993 stone removed NEUROPLASTY &/TRANSPOS MEDIAN NRV CARPAL TUNNE Bilateral 08/11/[address] Shepard PAST SURGICAL HISTORY OF 2008 Left Rotator cuff, Dr. Raines, PAST SURGICAL HISTORY OF 1988, 2003 Castillo, Ventral Hernia x 2 PAST SURGICAL HISTORY OF 01/03/2015 neck surgery - fused C4,5,6 PAST SURGICAL HISTORY OF Right 06/18/2018 right knee arthroscopic partial medical lateral meniscectomy right knee arthroscopic chondroplasty UROLIFT PROSTATE PROCEDURE 11/2017 Dr.Miguel Fritz FAMILY HISTORY Problem Relation Age of Onset None Father Coronary Artery Disease Mother early 60's Diabetes Mother Coronary Artery Disease Brother Cancer Brother kidney Colon Cancer Other none Heart disease Brother Social History Tobacco Use Smoking status: Never Smokeless tobacco: Never Substance Use Topics Alcohol use: No Drug use: No Reviewed current medications, allergies, past medical history, surgical history, family history and social history today. REVIEW OF SYSTEMS All other reviewed and negative other than HPI. HEALTH MAINTENANCE: Reviewed health maintenance issues today and recommended the following in detail. There are no preventive care reminders to display for this patient. VITALS: BP 122/82 Pulse 70 Wt 84.4 kg (186 lb) SpO2 97% BMI 29.57 kg/m Last 4 Encounter Wt Readings: Date: Wt: 05/07/2022 84.4 kg (186 lb) 04/16/2022 84 kg (185 lb 3.2 oz) 02/12/2022 83 kg (183 lb) 01/10/2022 82.9 kg (182 lb 12.8 oz) PHYSICAL EXAMINATION: General appearance: Well appearing, alert, in no acute distress, well-hydrated, well nourished. Skin: Skin color, texture, turgor normal, no suspicious rashes or lesions Head: Normocephalic, no masses, lesions, tenderness or abnormalities Lungs: Lungs clear to auscultation. No wheezing, rhonchi, rales Heart: RRR without murmur, gallop, or rubs. No ectopy Abdomen: Negative findings: symmetric, no masses palpable, no organomegaly, bowel sounds normal, soft, non-tender, spleen non-palpable, and no rebound or guarding. Specifically nonsurgical abdomen today. Extremities: No deformities, edema, skin discoloration, clubbing or cyanosis. Good capillary refill. ASSESSMENT/PLAN: 1. RUQ pain - ICD9: 789.01, ICD10: R10.11 (primary diagnosis) Reinforced getting labs and following up with surgery as directed. Red flags for re-assessment reviewed with patient in detail. - stay on famotidine. - CBC + DIFF - COMP METABOLIC PANEL - LIPASE BLD - URINALYSIS, WITH MICROSCOPIC - URINE CULTURE - CONSULT TO GENERAL SURGERY 2. RLQ abdominal pain - ICD9: 789.03, ICD10: R10.31 - CBC + DIFF - COMP METABOLIC PANEL - LIPASE BLD - URINALYSIS, WITH MICROSCOPIC - URINE CULTURE - CONSULT TO GENERAL SURGERY 3. GERD without esophagitis - ICD9: 530.81, ICD10: K21.9 - continue meds. - CONSULT TO GENERAL SURGERY Niko Stafford documented in this encounter [facility] 05-28-2022 Miscellaneous Notes Patient returned call and went over results, notes from Erick KURTZ with understanding. Patient said he is feeling the same, no changes still having pain right lower quadrant. He has follow up appt with Dr Stafford on 06/09/2022. Message left for patient to return call. Nuha Gómez ----- Message from Matilda Brown PA-C sent at 05/26/2022 9:13 AM EST ----- Please let hi know CT showed no surgical issues. Appendix non-specific findings with air and stool present. How is he doing? Thanks, Erick Brown PA-C documented in this encounter [facility] 05-22-2022 Note HNO ID: [id number] Author: RT Jus(R) Service: ? Author Type: Hand Hose Cutter Type: Progress Notes Filed: 05/22/2022 2:45 PM Note Text: Radiology Service Progress Note DATE OF SERVICE: May 22, 2022 TIME: 2:44 PM PATIENT IDENTITY VERIFICATION COMPLETED USING TWO (2) STANDARD IDENTIFIERS: Name and Date of confirmed by patient verbally. FALL SCREENING: Has the patient had 2 falls in the last year or 1 fall with injury or currently using an Ambulatory Assistive Device (Walker, Cane, Wheelchair, Crutches, etc.)? No PATIENT GENDER DATA: Male PATIENT RELEVANT IMPLANT DATA REVIEWED: Yes ALLERGIES: Reviewed and unchanged CONTRAST ALLERGY: NO. EXAM: CT -CONTRAST INDUCED NEPHROPATHY RISK FACTORS: Patient age > 60 years CREATININE: Creatinine Date Value Ref Range Status 05/22/2022 1.05 0.73 - 1.22 mg/dL Final 02/01/2022 1.02 0.73 - 1.22 mg/dL Final 12/21/2020 1.08 0.73 - 1.22 mg/dL Final Estimated Glomerular Filtration Rate Date Value Ref Range Status 05/22/2022 70 >=60 mL/min/1.73m? Final Comment: Estimated Glomerular Filtration Rate (eGFR) is calculated using the 2020 CKD-EPI creatinine equation. This equation utilizes serum creatinine, sex, and age as parameters. The creatinine assay has traceable calibration to isotope dilution-mass spectrometry. Refer to KDIGO guidelines for clinical interpretation. In patients with unstable renal function, e.g. those with acute kidney injury, the eGFR may not accurately reflect actual GFR. eGFR- Date Value Ref Range Status 12/21/2020 >60 Final P.O.C.T. RESULTS: POC done: Yes, See Lab Tab May 22, 2022 TREATMENT: N/A PERIPHERAL IV DATA: Ambulatory: A peripheral IV was started in the Left antecubital site with a Angio cath: 22 gauge. RADIOLOGY DEPARTMENT: CT; Exam(s) Completed: Abdomen/Pelvis SIGNATURE: RT Gregorio(R) PATIENT NAME: Veronica Farooq DATE: May 22, 2022 TIME: 2:44 PM [facility] [place] 05-22-2022 History of Presen t illness Narrative Radiology Service Progress Note DATE OF SERVICE: May 22, 2022 TIME: 2:44 PM PATIENT IDENTITY VERIFICATION COMPLETED USING TWO (2) STANDARD IDENTIFIERS: Name and Date of confirmed by patient verbally. FALL SCREENING: Has the patient had 2 falls in the last year or 1 fall with injury or currently using an Ambulatory Assistive Device (Walker, Cane, Wheelchair, Crutches, etc.)? No PATIENT GENDER DATA: Male PATIENT RELEVANT IMPLANT DATA REVIEWED: Yes ALLERGIES: Reviewed and unchanged CONTRAST ALLERGY: NO. EXAM: CT -CONTRAST INDUCED NEPHROPATHY RISK FACTORS: Patient age > 60 years CREATININE: Creatinine Date Value Ref Range Status 05/22/2022 1.05 0.73 - 1.22 mg/dL Final 02/01/2022 1.02 0.73 - 1.22 mg/dL Final 12/21/2020 1.08 0.73 - 1.22 mg/dL Final Estimated Glomerular Filtration Rate Date Value Ref Range Status 05/22/2022 70 >=60 mL/min/1.73m Final Comment: Estimated Glomerular Filtration Rate (eGFR) is calculated using the 2020 CKD-EPI creatinine equation. This equation utilizes serum creatinine, sex, and age as parameters. The creatinine assay has traceable calibration to isotope dilution-mass spectrometry. Refer to KDIGO guidelines for clinical interpretation. In patients with unstable renal function, e.g. those with acute kidney injury, the eGFR may not accurately reflect actual GFR. eGFR- Date Value Ref Range Status 12/21/2020 >60 Final P.O.C.T. RESULTS: POC done: Yes, See Lab Tab May 22, 2022 TREATMENT: N/A PERIPHERAL IV DATA: Ambulatory: A peripheral IV was started in the Left antecubital site with a Angio cath: 22 gauge. RADIOLOGY DEPARTMENT: CT; Exam(s) Completed: Abdomen/Pelvis SIGNATURE: RT Gregorio(R) PATIENT NAME: Veronica Farooq DATE: May 22, 2022 TIME: 2:44 PM documented in this encounter [facility] 05-07-2022 Note HNO ID: [id number] Author: Niko Stafford MD Service: ? Author Type: Physician Type: Progress Notes Filed: 05/07/2022 3:58 PM Note Text: Patient presents with: Abdominal Pain HPI: Patient presents today for office visit for abdominal pain. Complains of a shooting/sharp pain in lower right sided abdomen. Intermittent over the past 6+ months. Hurts more in the morning. When episodes come on it takes a little while to go away. Feels like he's full . No bloody or black stools. No constipation or diarrhea. Does use miralax daily. No urinary issues. No dysuria or hematuria. No fever or chills. Nothing seems to make it better. Eventually will get beter. No change in appetite. No weight loss. Can last up to an hour each time it occurs. Has had some acid indigestion. No nsaid use. Does use tums. MEDICATIONS: Current Outpatient Medications Medication Sig DULoxetine (CYMBALTA) 30 mg capsule Take 1 capsule by mouth once daily. atorvastatin (LIPITOR) 40 mg tablet Take 1 tablet by mouth daily at bedtime. For cholesterol. acetaminophen (TYLENOL ARTHRITIS PAIN ORAL) Take 2 tablets by mouth. gabapentin (NEURONTIN) 600 mg tablet Take 600 mg by mouth four times daily. vitamin B complex (VITAMIN B-100 COMPLEX ORAL) Take 100 mg by mouth once daily. Cholecalciferol, Vitamin D3, 25 mcg (1,000 unit) cap Take 1,000 Units by mouth once daily. traMADol (ULTRAM) 50 mg tablet Take 50 mg by mouth every 6 hours as needed. CPAP CHIN STRAP, USED WITH CPAP DEVICE gabapentin (NEURONTIN) 400 mg capsule Take 600 mg by mouth four times daily. (Patient not taking: No sig reported) No current facility-administered medications for this visit. ALLERGIES: ALLERGIES No Known Allergies PAST MEDICAL HISTORY Diagnosis Date Cervical nerve root impingement sees Dr. Lott, pain management at [place] Colon polyp Depression Diverticulosis of colon (without mention of hemorrhage) Elevated PSA sees Dr Boswell Hyperlipidemia Kidney disease Low testosterone Obstructive sleep apnea Osteoarthrosis Personal history of colonic polyps Sleep apnea Snoring PAST SURGICAL HISTORY Procedure Laterality Date CHOLECYSTECTOMY 1986 Cholecystectomy, open (Dr. Rayo) COLONOSCOPY AND POLYPECTOMY late [address] Pandey -- 3-year intervals COLONOSCOPY AND POLYPECTOMY 02/23/14 Sessile serrated with low-gr dysplasia, tubular adenoma, internal hemorrhoids COLONOSCOPY FLX DX W/COLLJ SPEC WHEN PFRMD 03/30/2011 Colonoscopy repeat 3 years COLONOSCOPY FLX DX W/COLLJ SPEC WHEN PFRMD 02-25-15 CYSTOSCOPY,+URETEROSCOPY 1993 stone removed NEUROPLASTY AND/TRANSPOS MEDIAN NRV CARPAL TUNNE Bilateral 08/11/[address] Shepard PAST SURGICAL HISTORY OF 2008 Left Rotator cuff, Dr. Raines, PAST SURGICAL HISTORY OF 1988, 2003 Castillo, Ventral Hernia x 2 PAST SURGICAL HISTORY OF 01/03/2015 neck surgery - fused C4,5,6 PAST SURGICAL HISTORY OF Right 06/18/2018 right knee arthroscopic partial medical lateral meniscectomy right knee arthroscopic chondroplasty UROLIFT PROSTATE PROCEDURE 11/2017 Dr.Miguel Fritz FAMILY HISTORY Problem Relation Age of Onset None Father Coronary Artery Disease Mother early 60's Diabetes Mother Coronary Artery Disease Brother Cancer Brother kidney Colon Cancer Other none Heart disease Brother Social History Tobacco Use Smoking status: Never Smokeless tobacco: Never Substance Use Topics Alcohol use: No Drug use: No Reviewed current medications, allergies, past medical history, surgical history, family history and social history today. REVIEW OF SYSTEMS As above. HEALTH MAINTENANCE: Reviewed health maintenance issues today and recommended the following in detail. DEPRESSION ASSESSMENT due on 04/08/2022 Has dpoa, his and children are his dpoa. VITALS: BP 130/66 Pulse 71 Ht 168.9 cm (5' 6.5 ) Wt 84.4 kg (186 lb) SpO2 99% BMI 29.57 kg/m? Last 4 Encounter Wt Readings: Date: Wt: 04/16/2022 84 kg (185 lb 3.2 oz) 02/12/2022 83 kg (183 lb) 01/10/2022 82.9 kg (182 lb 12.8 oz) 07/07/2021 83.9 kg (185 lb) PHYSICAL EXAMINATION: General appearance: Well appearing, alert, in no acute distress, well-hydrated, well nourished. Skin: Skin color, texture, turgor normal, no suspicious rashes or lesions Lungs: Lungs clear to auscultation. No wheezing, rhonchi, rales Heart: RRR without murmur, gallop, or rubs. No ectopy Abdomen: soft, no current tenderness. Bs positive. No rebound. Extremities: No deformities, edema, skin discoloration, clubbing or cyanosis. Good capillary refill. ASSESSMENT/PLAN: 1. Chronic RLQ pain - ICD9: 789.03, 338.29, ICD10: R10.31, G89.29 (primary diagnosis) Given its persistence and chronic recurrent nature. Do ct to rule out mass. Check labs. Red flags for re-assessment reviewed with patient in detail. - URINALYSIS, WITH MICROSCOPIC - URINE CULTURE - CBC + DIF (more content not included)... [facility] [place] 05-07-2022 History of Presen t illness Narrative Patient presents with: Abdominal Pain HPI: Patient presents today for office visit for abdominal pain. Complains of a shooting/sharp pain in lower right sided abdomen. Intermittent over the past 6+ months. Hurts more in the morning. When episodes come on it takes a little while to go away. Feels like he's full . No bloody or black stools. No constipation or diarrhea. Does use miralax daily. No urinary issues. No dysuria or hematuria. No fever or chills. Nothing seems to make it better. Eventually will get beter. No change in appetite. No weight loss. Can last up to an hour each time it occurs. Has had some acid indigestion. No nsaid use. Does use tums. MEDICATIONS: Current Outpatient Medications Medication Sig DULoxetine (CYMBALTA) 30 mg capsule Take 1 capsule by mouth once daily. atorvastatin (LIPITOR) 40 mg tablet Take 1 tablet by mouth daily at bedtime. For cholesterol. acetaminophen (TYLENOL ARTHRITIS PAIN ORAL) Take 2 tablets by mouth. gabapentin (NEURONTIN) 600 mg tablet Take 600 mg by mouth four times daily. vitamin B complex (VITAMIN B-100 COMPLEX ORAL) Take 100 mg by mouth once daily. Cholecalciferol, Vitamin D3, 25 mcg (1,000 unit) cap Take 1,000 Units by mouth once daily. traMADol (ULTRAM) 50 mg tablet Take 50 mg by mouth every 6 hours as needed. CPAP CHIN STRAP, USED WITH CPAP DEVICE gabapentin (NEURONTIN) 400 mg capsule Take 600 mg by mouth four times daily. (Patient not taking: No sig reported) No current facility-administered medications for this visit. ALLERGIES: ALLERGIES No Known Allergies PAST MEDICAL HISTORY Diagnosis Date Cervical nerve root impingement sees Dr. Lott, pain management at [place] Colon polyp Depression Diverticulosis of colon (without mention of hemorrhage) Elevated PSA sees Dr Boswell Hyperlipidemia Kidney disease Low testosterone Obstructive sleep apnea Osteoarthrosis Personal history of colonic polyps Sleep apnea Snoring PAST SURGICAL HISTORY Procedure Laterality Date CHOLECYSTECTOMY 1986 Cholecystectomy, open (Dr. Rayo) COLONOSCOPY & POLYPECTOMY late [address] Pandey -- 3-year intervals COLONOSCOPY & POLYPECTOMY 02/23/14 Sessile serrated with low-gr dysplasia, tubular adenoma, internal hemorrhoids COLONOSCOPY FLX DX W/COLLJ SPEC WHEN PFRMD 03/30/2011 Colonoscopy repeat 3 years COLONOSCOPY FLX DX W/COLLJ SPEC WHEN PFRMD 02-25-15 CYSTOSCOPY,+URETEROSCOPY 1993 stone removed NEUROPLASTY &/TRANSPOS MEDIAN NRV CARPAL TUNNE Bilateral 08/11/[address] Shepard PAST SURGICAL HISTORY OF 2008 Left Rotator cuff, Dr. Raines, PAST SURGICAL HISTORY OF 1988, 2003 Castillo, Ventral Hernia x 2 PAST SURGICAL HISTORY OF 01/03/2015 neck surgery - fused C4,5,6 PAST SURGICAL HISTORY OF Right 06/18/2018 right knee arthroscopic partial medical lateral meniscectomy right knee arthroscopic chondroplasty UROLIFT PROSTATE PROCEDURE 11/2017 Dr.Miguel Fritz FAMILY HISTORY Problem Relation Age of Onset None Father Coronary Artery Disease Mother early 60's Diabetes Mother Coronary Artery Disease Brother Cancer Brother kidney Colon Cancer Other none Heart disease Brother Social History Tobacco Use Smoking status: Never Smokeless tobacco: Never Substance Use Topics Alcohol use: No Drug use: No Reviewed current medications, allergies, past medical history, surgical history, family history and social history today. REVIEW OF SYSTEMS As above. HEALTH MAINTENANCE: Reviewed health maintenance issues today and recommended the following in detail. DEPRESSION ASSESSMENT due on 04/08/2022 Has dpoa, his and children are his dpoa. VITALS: BP 130/66 Pulse 71 Ht 168.9 cm (5' 6.5 ) Wt 84.4 kg (186 lb) SpO2 99% BMI 29.57 kg/m Last 4 Encounter Wt Readings: Date: Wt: 04/16/2022 84 kg (185 lb 3.2 oz) 02/12/2022 83 kg (183 lb) 01/10/2022 82.9 kg (182 lb 12.8 oz) 07/07/2021 83.9 kg (185 lb) PHYSICAL EXAMINATION: General appearance: Well appearing, alert, in no acute distress, well-hydrated, well nourished. Skin: Skin color, texture, turgor normal, no suspicious rashes or lesions Lungs: Lungs clear to auscultation. No wheezing, rhonchi, rales Heart: RRR without murmur, gallop, or rubs. No ectopy Abdomen: soft, no current tenderness. Bs positive. No rebound. Extremities: No deformities, edema, skin discoloration, clubbing or cyanosis. Good capillary refill. ASSESSMENT/PLAN: 1. Chronic RLQ pain - ICD9: 789.03, 338.29, ICD10: R10.31, G89.29 (primary diagnosis) Given its persistence and chronic recurrent nature. Do ct to rule out mass. Check labs. Red flags for re-assessment reviewed with patient in detail. - URINALYSIS, WITH MICROSCOPIC - URINE CULTURE - CBC + DIFF - BASIC METABOLIC PNL - CT ABD/PEL W IVCON - IV CONTRAST (RADIOLOGY PROCEDURE) - ENTERIC CONTRAST (RADIOLOGY PROCEDURE) 2. GERD: Add pepcid at hs. Red flags for re-assessment reviewed with patient in detail. Niko Stafford MD RTO in four weeks. documented in this encounter [facility] 04-16-2022 Note HNO ID: [id number] Author: Niko Mendieta Jr., MD Service: ? Author Type: Physician Type: Progress Notes Filed: 04/16/2022 3:23 PM Note Text: NEW PATIENT (CONSULT) HISTORY AND PHYSICAL EXAM PRIMARY CARE PHYSICIAN: Niko Stafford MD REASON FOR CONSULT: TAMMI REFERRING PHYSICIAN: Niko Stafford MD CHIEF COMPLAINT: TAMMI Consultation requested by Niko Stafford MD for an opinion regarding chief complaint of Patient presents with: New Patient: Sleep apnea; non-CPAP user and my final recommendations will be communicated back to the requesting physician by way of shared medical record or letter via [place] mail. 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 Those results in Epic. Note on review of results, question if 17 cmH2O was adequate pressure with present of centrals during study, and REM events did not appear normalized on this setting. Pt stopped using PAP therapy due to a constant leak at the pressure he was set at (he thinks it was up to 20 cmH2O). Thus, they lowered the pressure down to 8 cmH2O, but what good was that doing . Describes sleep as being up and down quite a bit during the night. States lots of disruption from environment ( moving, dog). States he could never get adjusted to the PAP. No significant issues falling asleep at night besides delay in sleep when caring for his . + Snore. States if does wake up and he is supine, will have a dry mouth. Pt prefers to sleep on his side. Sleep and wake times vary but always finds sleep non-restorative. Also tired during the day. No RLS symptoms. No parasomnias. Estimates 6.5 hours of sleep nightly. REVIEW OF SYSTEMS GENERAL:No weight loss, malaise or fevers. HEENT:Negative for frequent or significant headaches, No changes in hearing or vision, no nose bleeds or other nasal problems NECK:Negative for lumps, goiter, pain and significant neck swelling RESPIRATORY: Negative for cough, wheezing or shortness of breath. CARDIOVASCULAR: Negative for chest pain, leg swelling or palpitations. GASTROINTESTINAL: Negative for abdominal discomfort, blood in stools or black stools or change in bowel habits GENITOURINARY: No history of dysuria, frequency or incontinence MUSCULOSKELETAL: Negative for joint pain or swelling, back pain or muscle pain. NEUROLOGIC:Negative for focal numbness or weakness, headaches and dizziness or syncope, vision changes, speech/language changes, changes in gait or falls -- besides those complaints as above in HPI. SKIN:Negative for lesions, rash, and itching. LAB/IMAGING: Reviewed and include: WBC (k/uL) Date Value 02/01/2022 10.45 RBC (m/uL) Date Value 02/01/2022 4.67 Hemoglobin (g/dL) Date Value 02/01/2022 14.7 Hematocrit (%) Date Value 02/01/2022 44.1 MCV (fL) Date Value 02/01/2022 94.4 MCH (pg) Date Value 02/01/2022 31.5 MCHC (g/dL) Date Value 02/01/2022 33.3 RDW-CV (%) Date Value 02/01/2022 12.2 Platelet Count (k/uL) Date Value 02/01/2022 241 MPV (fL) Date Value 02/01/2022 9.0 Glucose (mg/dL) Date Value 02/01/2022 111 (H) BUN (mg/dL) Date Value 02/01/2022 18 Creatinine (mg/dL) Date Value 02/01/2022 1.02 Sodium (mmol/L) Date Value 02/01/2022 140 Potassium (mmol/L) Date Value 02/01/2022 4.5 Chloride (mmol/L) Date Value 02/01/2022 101 CO2 (mmol/L) Date Value 02/01/2022 29 Protein, Total (g/dL) Date Value 02/01/2022 6.8 Albumin (g/dL) Date Value 02/01/2022 4.3 Calcium, Total (mg/dL) Date Value 02/01/2022 9.3 Alkaline Phosphatase (U/L) Date Value 02/01/2022 72 Bilirubin, Total (mg/dL) Date Value 02/01/2022 0.8 AST (U/L) Date Value 02/01/2022 22 ALT (U/L) Date Value 02/01/2022 24 URINALYSIS No results found for: PH, SPGR, UGLUC, UBILI, UKET, UHB, UPROT, UROBIL, UWBC, SSA MEDICATIONS: DULoxetine (CYMBALTA) 30 mg capsule Take 1 capsule by mouth once daily. atorvastatin (LIPITOR) 40 mg tablet Take 1 tablet by mouth daily at bedtime. For cholesterol. acetaminophen (TYLENOL ARTHRITIS PAIN ORAL) Take 2 tablets by mouth. gabapentin (NEURONTIN) 600 mg tablet Take 600 mg by mouth four times daily. vitamin B complex (VITAMIN B-100 COMPLEX ORAL) Take 100 mg by mouth once daily. Cholecalciferol, Vitamin D3, 25 mcg (1,000 unit) cap Take 1,000 Units by mouth once daily. traMADol (ULTRAM) 50 mg tablet Take 50 mg by mouth every 6 hours as needed. gabapentin (NEURONTIN) 400 mg capsule Take 600 mg by mouth four times daily. (Patient not taking: Reported on 04/16/2022) CPAP CHIN STRAP, USED WITH CPAP DEVICE (Patient not taking: Reported on 04/16/2022) HISTORIES PAST MEDICAL HISTORY Diagnosis Date Cervical nerve root impingement sees Dr. Lott, pain management at [facility] (more content not included)... [facility] [place] 04-16-2022 History of Presen t illness Narrative NEW PATIENT (CONSULT) HISTORY AND PHYSICAL EXAM PRIMARY CARE PHYSICIAN: Niko Stafford MD REASON FOR CONSULT: TAMMI REFERRING PHYSICIAN: Niko Stafford MD CHIEF COMPLAINT: TAMMI Consultation requested by Niko Stafford MD for an opinion regarding chief complaint of Patient presents with: New Patient: Sleep apnea; non-CPAP user and my final recommendations will be communicated back to the requesting physician by way of shared medical record or letter via [place] mail. 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 Those results in [facility]. Note on review of results, question if 17 cmH2O was adequate pressure with present of centrals during study, and REM events did not appear normalized on this setting. Pt stopped using PAP therapy due to a constant leak at the pressure he was set at (he thinks it was up to 20 cmH2O). Thus, they lowered the pressure down to 8 cmH2O, but what good was that doing . Describes sleep as being up and down quite a bit during the night. States lots of disruption from environment ( moving, dog). States he could never get adjusted to the PAP. No significant issues falling asleep at night besides delay in sleep when caring for his . + Snore. States if does wake up and he is supine, will have a dry mouth. Pt prefers to sleep on his side. Sleep and wake times vary but always finds sleep non-restorative. Also tired during the day. No RLS symptoms. No parasomnias. Estimates 6.5 hours of sleep nightly. REVIEW OF SYSTEMS GENERAL:No weight loss, malaise or fevers. HEENT:Negative for frequent or significant headaches, No changes in hearing or vision, no nose bleeds or other nasal problems NECK:Negative for lumps, goiter, pain and significant neck swelling RESPIRATORY: Negative for cough, wheezing or shortness of breath. CARDIOVASCULAR: Negative for chest pain, leg swelling or palpitations. GASTROINTESTINAL: Negative for abdominal discomfort, blood in stools or black stools or change in bowel habits GENITOURINARY: No history of dysuria, frequency or incontinence MUSCULOSKELETAL: Negative for joint pain or swelling, back pain or muscle pain. NEUROLOGIC:Negative for focal numbness or weakness, headaches and dizziness or syncope, vision changes, speech/language changes, changes in gait or falls -- besides those complaints as above in HPI. SKIN:Negative for lesions, rash, and itching. LAB/IMAGING: Reviewed and include: WBC (k/uL) Date Value 02/01/2022 10.45 RBC (m/uL) Date Value 02/01/2022 4.67 Hemoglobin (g/dL) Date Value 02/01/2022 14.7 Hematocrit (%) Date Value 02/01/2022 44.1 MCV (fL) Date Value 02/01/2022 94.4 MCH (pg) Date Value 02/01/2022 31.5 MCHC (g/dL) Date Value 02/01/2022 33.3 RDW-CV (%) Date Value 02/01/2022 12.2 Platelet Count (k/uL) Date Value 02/01/2022 241 MPV (fL) Date Value 02/01/2022 9.0 Glucose (mg/dL) Date Value 02/01/2022 111 (H) BUN (mg/dL) Date Value 02/01/2022 18 Creatinine (mg/dL) Date Value 02/01/2022 1.02 Sodium (mmol/L) Date Value 02/01/2022 140 Potassium (mmol/L) Date Value 02/01/2022 4.5 Chloride (mmol/L) Date Value 02/01/2022 101 CO2 (mmol/L) Date Value 02/01/2022 29 Protein, Total (g/dL) Date Value 02/01/2022 6.8 Albumin (g/dL) Date Value 02/01/2022 4.3 Calcium, Total (mg/dL) Date Value 02/01/2022 9.3 Alkaline Phosphatase (U/L) Date Value 02/01/2022 72 Bilirubin, Total (mg/dL) Date Value 02/01/2022 0.8 AST (U/L) Date Value 02/01/2022 22 ALT (U/L) Date Value 02/01/2022 24 URINALYSIS No results found for: PH, SPGR, UGLUC, UBILI, UKET, UHB, UPROT, UROBIL, UWBC, SSA MEDICATIONS: DULoxetine (CYMBALTA) 30 mg capsule Take 1 capsule by mouth once daily. atorvastatin (LIPITOR) 40 mg tablet Take 1 tablet by mouth daily at bedtime. For cholesterol. acetaminophen (TYLENOL ARTHRITIS PAIN ORAL) Take 2 tablets by mouth. gabapentin (NEURONTIN) 600 mg tablet Take 600 mg by mouth four times daily. vitamin B complex (VITAMIN B-100 COMPLEX ORAL) Take 100 mg by mouth once daily. Cholecalciferol, Vitamin D3, 25 mcg (1,000 unit) cap Take 1,000 Units by mouth once daily. traMADol (ULTRAM) 50 mg tablet Take 50 mg by mouth every 6 hours as needed. gabapentin (NEURONTIN) 400 mg capsule Take 600 mg by mouth four times daily. (Patient not taking: Reported on 04/16/2022) CPAP CHIN STRAP, USED WITH CPAP DEVICE (Patient not taking: Reported on 04/16/2022) HISTORIES PAST MEDICAL HISTORY Diagnosis Date Cervical nerve root impingement sees Dr. Lott, pain management at [place] Colon polyp Depression Diverticulosis of colon (without mention of hemorrhage) Elevated PSA sees Dr Boswell Hyperlipidemia Kidney disease Low testosterone Obstructive sleep apnea Osteoarthrosis Personal history of colonic polyps Sleep apnea Snoring FAMILY HISTORY Problem Relation Age of Onset None Father Coronary Artery Disease Mother early 60's Diabetes Mother Coronary Artery Disease Brother Cancer Brother kidney Colon Cancer Other none Heart disease Brother SOCIAL HISTORY Social History Tobacco Use Smoking status: Never Smokeless tobacco: Never Substance Use Topics Alcohol use: No Drug use: No PHYSICAL EXAMINATION BP 146/72 Pulse 72 Temp 36.4 C (97.5 F) (Temporal) Resp 16 Wt 84 kg (185 lb 3.2 oz) SpO2 96% BMI 29.44 kg/m GENERAL EXAM: General appearance: NAD, pleasant. HEENT: NC/AT, nasal congestion absent, no oral lesions, membranes moist. Loo III NECK: ROM nml. Lungs: CTA bilaterally. CV: RRR nl S1, S2 Extr: No cyanosis, clubbing or edema. Skin: Cool to touch. NEUROLOGICAL EXAM: General: Awake, alert, oriented x3 (person,place,time), speech fluent, no dysarthria; comprehension, naming, repetition intact. CN: PERRL, EOMI and without nystagmus, VFF to confrontation, facial sensation and strength are normal and symmetric, hearing is intact to finger rub bilaterally, palate and tongue movements are intact and symmetric. SCM and trapezius strength normal. Motor: Normal tone, bulk and strength (5/5) bilaterally (throughout extremities x4). Coordination: FNF, JOANN, HTS intact. No tremors. Sensation: LT intact throughout. No evidence of neglect. Gait: Stable with normal stride and arm swing. Assessment and Plan: ASSESSMENT/PLAN: 1. 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 Currently not treated due to PAP intolerance and mask leak as above. However, pt willing to try treating again. Continues to have symptoms of TAMMI, with greater risk factor likely being oral airway crowding with no reported family history and BMI <30. Pt has other conditions that could be exacerbated by untreated TAMMI including elevated BP. Discussed with patient: the physiology of OSAS, medical conditions associated with OSAS (DM, HTN, CAD, Depression, Stroke, Headache...) and treatment options (UPPP, Dental appliances, CPAP...). To evaluate, will order split night sleep study. Split if AHI >5 given prior dx of TAMMI and other med conditions. However, rather than trail CPAP through the night, will now attempt to treat with bilevel PAP therapy. Pt agrees with plan. Pt will follow up 1-2 weeks after sleep study to review results and determine appropriate treatment. Advised patient to avoid activities that could harm self or others when tired/sleepy, including driving and/or operating heavy machinery. Encouraged weight loss, and continued compliance with other medications. Niko Mendieta MD I spent a total of 45 minutes on the date of the service which included preparing to see the patient, [id number] patient care, completing clinical documentation, obtaining and/or reviewing separately obtained history, performing a medically appropriate examination, counseling and educating the patient/family/caregiver, ordering medications, tests, or procedures, and communicating results to the patient/family/caregiver. documented in this encounter [facility] 03-19-2022 Instructions Justina Carrasco APRN.CNP - 03/19/2022 11:01 AM EST Continue the same dose of medication. Recheck with Dr. Stafford in June. Let us know sooner if you feel that the dose of medication needs to be increased. documented in this encounter [facility] 03-19-2022 History of Presen t illness Narrative This is a 81 year old male who presents today with: Patient presents with: Recheck: 1 month follow up HISTORY OF PRESENT ILLNESS: Veronica Farooq is a 81 year old male. Patient presents with: Recheck: 1 month follow up Pt presents today for a 1 month follow-up of the cymbalta. He feels that the medication is working. He had follow-up with his pain management provider, who also endorsed the medication. While mood isn't perfect, feels improved and stable. He would like to continue the current dose of medication. PAST MEDICAL HISTORY: PAST MEDICAL HISTORY Diagnosis Date Cervical nerve root impingement sees Dr. Lott, pain management at [place] Colon polyp Depression Diverticulosis of colon (without mention of hemorrhage) Elevated PSA sees Dr Boswell Hyperlipidemia Kidney disease Low testosterone Obstructive sleep apnea Osteoarthrosis Personal history of colonic polyps Sleep apnea Snoring PAST SURGICAL HISTORY Procedure Laterality Date CHOLECYSTECTOMY 1986 Cholecystectomy, open (Dr. Rayo) COLONOSCOPY & POLYPECTOMY late [address] Pandey -- 3-year intervals COLONOSCOPY & POLYPECTOMY 02/23/14 Sessile serrated with low-gr dysplasia, tubular adenoma, internal hemorrhoids COLONOSCOPY FLX DX W/COLLJ SPEC WHEN PFRMD 03/30/2011 Colonoscopy repeat 3 years COLONOSCOPY FLX DX W/COLLJ SPEC WHEN PFRMD 02-25-15 CYSTOSCOPY,+URETEROSCOPY 1993 stone removed NEUROPLASTY &/TRANSPOS MEDIAN NRV CARPAL TUNNE Bilateral 08/11/[address] Shepard PAST SURGICAL HISTORY OF 2008 Left Rotator cuff, Dr. Raines, PAST SURGICAL HISTORY OF 1988, 2003 Castillo, Ventral Hernia x 2 PAST SURGICAL HISTORY OF 01/03/2015 neck surgery - fused C4,5,6 PAST SURGICAL HISTORY OF Right 06/18/2018 right knee arthroscopic partial medical lateral meniscectomy right knee arthroscopic chondroplasty UROLIFT PROSTATE PROCEDURE 11/2017 Dr.Miguel Fritz ALLERGIES Patient has no known allergies. MEDICATIONS Current Outpatient Medications Medication Sig DULoxetine (CYMBALTA) 30 mg capsule Take 1 capsule by mouth once daily. atorvastatin (LIPITOR) 40 mg tablet Take 1 tablet by mouth daily at bedtime. For cholesterol. acetaminophen (TYLENOL ARTHRITIS PAIN ORAL) Take 2 tablets by mouth. gabapentin (NEURONTIN) 600 mg tablet Take 600 mg by mouth four times daily. vitamin B complex (VITAMIN B-100 COMPLEX ORAL) Take 100 mg by mouth once daily. Cholecalciferol, Vitamin D3, 25 mcg (1,000 unit) cap Take 1,000 Units by mouth once daily. gabapentin (NEURONTIN) 400 mg capsule Take 600 mg by mouth four times daily. traMADol (ULTRAM) 50 mg tablet Take 50 mg by mouth every 6 hours as needed. CPAP CHIN STRAP, USED WITH CPAP DEVICE No current facility-administered medications for this visit. FAMILY HISTORY Problem Relation Age of Onset None Father Coronary Artery Disease Mother early 60's Diabetes Mother Coronary Artery Disease Brother Cancer Brother kidney Colon Cancer Other none Heart disease Brother Social History Tobacco Use Smoking status: Never Smokeless tobacco: Never Substance Use Topics Alcohol use: No Drug use: No EXAM: BP 134/86 Pulse 63 Resp 18 SpO2 97% PHYSICAL EXAM: General Appearance: Well appearing, alert, in no acute distress, well-hydrated, well nourished.. Skin: Skin color, texture, turgor normal, no suspicious rashes or lesions. Head: Normocephalic, no masses, lesions, tenderness or abnormalities. Eyes: Anicteric sclera. Extraocular movements are intact. Lungs: Lungs clear to auscultation. No wheezing, rhonchi, rales.. Heart: RRR without murmur, gallop, or rubs. No ectopy. Neurologic: Gait normal. ASSESSMENT/PLAN: 1. Depression, unspecified depression type - ICD9: 311, ICD10: F32.A Stable on current dose of cymbalta. He would like to continue the same dose. 90-day supply sent to pharmacy. Recheck in 3 months. Discussed treatment plan and patient voices understanding. Patient's questions answered appropriately. Medications and potential side effects were discussed and patient voices understanding. Return to the office as scheduled or as needed for worsening/no improvement. Justina Carrasco APRN.SINGH documented in this encounter [facility] 02-12-2022 Instructions Justina Carrasco APRN.CNP - 02/12/2022 10:45 AM EST Continue the same medication. Recheck in 1 month for a recheck. 3. Let us know sooner if any problems/concerns. documented in this encounter [facility] 02-12-2022 History of Presen t illness Narrative This is a 81 year old male who presents today with: Patient presents with: Recheck HISTORY OF PRESENT ILLNESS: Veronica Farooq is a 81 year old male. Patient presents with: Recheck Pt presents today for a recheck. He stopped his zoloft at last visit and was started on cymbalta. He thinks this one may be helping a little more. He still has trouble with some depression. Admits to continued grief over when his father . He endorses that his has been having health problems. He did have a couple of sessions of counseling a few years ago and not interested in resuming that at this time. PAST MEDICAL HISTORY: PAST MEDICAL HISTORY Diagnosis Date Cervical nerve root impingement sees Dr. Lott, pain management at [place] Colon polyp Depression Diverticulosis of colon (without mention of hemorrhage) Elevated PSA sees Dr Boswell Hyperlipidemia Kidney disease Low testosterone Obstructive sleep apnea Osteoarthrosis Personal history of colonic polyps Sleep apnea Snoring PAST SURGICAL HISTORY Procedure Laterality Date CHOLECYSTECTOMY 1986 Cholecystectomy, open (Dr. Rayo) COLONOSCOPY & POLYPECTOMY late [address] Pandey -- 3-year intervals COLONOSCOPY & POLYPECTOMY 02/23/14 Sessile serrated with low-gr dysplasia, tubular adenoma, internal hemorrhoids COLONOSCOPY FLX DX W/COLLJ SPEC WHEN PFRMD 03/30/2011 Colonoscopy repeat 3 years COLONOSCOPY FLX DX W/COLLJ SPEC WHEN PFRMD 02-25-15 CYSTOSCOPY,+URETEROSCOPY 1993 stone removed NEUROPLASTY &/TRANSPOS MEDIAN NRV CARPAL TUNNE Bilateral 08/11/[address] Shepard PAST SURGICAL HISTORY OF 2008 Left Rotator cuff, Dr. Raines, PAST SURGICAL HISTORY OF 1988, 2003 Castillo, Ventral Hernia x 2 PAST SURGICAL HISTORY OF 01/03/2015 neck surgery - fused C4,5,6 PAST SURGICAL HISTORY OF Right 06/18/2018 right knee arthroscopic partial medical lateral meniscectomy right knee arthroscopic chondroplasty UROLIFT PROSTATE PROCEDURE 11/2017 Dr.Miguel Fritz ALLERGIES Patient has no known allergies. MEDICATIONS Current Outpatient Medications Medication Sig DULoxetine (CYMBALTA) 30 mg capsule Take 1 capsule by mouth once daily. atorvastatin (LIPITOR) 40 mg tablet Take 1 tablet by mouth daily at bedtime. For cholesterol. acetaminophen (TYLENOL ARTHRITIS PAIN ORAL) Take 2 tablets by mouth. gabapentin (NEURONTIN) 600 mg tablet Take 600 mg by mouth four times daily. vitamin B complex (VITAMIN B-100 COMPLEX ORAL) Take 100 mg by mouth once daily. Cholecalciferol, Vitamin D3, 25 mcg (1,000 unit) cap Take 1,000 Units by mouth once daily. gabapentin (NEURONTIN) 400 mg capsule Take 600 mg by mouth four times daily. traMADol (ULTRAM) 50 mg tablet Take 50 mg by mouth every 6 hours as needed. CPAP CHIN STRAP, USED WITH CPAP DEVICE No current facility-administered medications for this visit. FAMILY HISTORY Problem Relation Age of Onset None Father Coronary Artery Disease Mother early 60's Diabetes Mother Coronary Artery Disease Brother Cancer Brother kidney Colon Cancer Other none Heart disease Brother Social History Tobacco Use Smoking status: Never Smokeless tobacco: Never Substance Use Topics Alcohol use: No Drug use: No EXAM: BP 142/90 (BP Site: Left Arm, BP Position: Sitting, BP Cuff Size: Regular Adult) Pulse 64 Resp 16 Wt 83 kg (183 lb) BMI 29.09 kg/m PHYSICAL EXAM: General Appearance: Well appearing, alert, in no acute distress, well-hydrated, well nourished.. Skin: Skin color, texture, turgor normal, no suspicious rashes or lesions. Head: Normocephalic, no masses, lesions, tenderness or abnormalities. Eyes: Anicteric sclera. Extraocular movements are intact. . Neck: Supple, no adenopathy, no bruits. Lungs: Lungs clear to auscultation. No wheezing, rhonchi, rales.. Heart: RRR without murmur, gallop, or rubs. No ectopy. Extremities: No deformities, edema, skin discoloration, clubbing or cyanosis. Good capillary refill. Neurologic: Gait normal. ASSESSMENT/PLAN: 1. Depression, unspecified depression type - ICD9: 311, ICD10: F32.A Patient notices some improvement in his symptoms. Discussed options. He will go ahead and continue this for another month. Will determine at that time, if he would like to continue the same dose or increase the dosage. He is aware to notify provider in the meantime with any problems or concerns. Discussed treatment plan and patient voices understanding. Patient's questions answered appropriately. Medications and potential side effects were discussed and patient voices understanding. Return to the office as scheduled or as needed for worsening/no improvement. Justina Carrasco APRN.CNP The patient indicates understanding of these issues and agrees with the plan. I spent a total of 24 minutes on the date of the service which included preparing to see the patient, [id number] patient care, completing clinical documentation, performing a medically appropriate examination, and counseling and educating the patient/family/caregiver. documented in this encounter [facility] documented as of this encounter (statuses as of 01/10/2022) [facility] History of Past illness Narrative* Problem Noted Date Resolved Date Back problem 01/10/2022 01/10/2022 Chronic back pain 01/10/2022 01/10/2022 Hemorrhoids 01/10/2022 01/10/2022 History of cervical spinal arthrodesis 2 01/10/2022 History of surgical procedure 01/10/2022 [place]-Schlatter's disease 01/10/202201/10 Skin lesion 01/10/2022 01/10/2022 Benign neoplasm of transverse colon 02/25/2018 01/10/2022 Right lower quadrant pain 02/25/20182021 Pain in joint, shoulder region 11/23/2009 1 Overview: Left rotator cuff Colon polyps 04/29/2009 01/10/2022 Overview: Dr. Miranda, q 3 year scopes Routine general medical exam in[facility] at a [facility] 03/28/2009 02/08/2015 Overview: 03/28/2009, establish care 06/13/2010, yearly check-up documented as of this encounter (statuses as of 02/12/2022) [facility] History of Past illness Narrative* Problem Noted Date Resolved Date Back problem 01/10/2022 01/10/2022 Chronic back pain 01/10/2022 01/10/2022 Hemorrhoids 01/10/2022 01/10/2022 History of cervical spinal arthrodesis 2 01/10/2022 History of surgical procedure 01/10/2022 [place]-Schlatter's disease 01/10/202201/10 Skin lesion 01/10/2022 01/10/2022 Benign neoplasm of transverse colon 02/25/2018 01/10/2022 Right lower quadrant pain 02/25/20182021 Pain in joint, shoulder region 11/23/2009 1 Overview: Left rotator cuff Colon polyps 04/29/2009 01/10/2022 Overview: Dr. Miranda, q 3 year scopes Routine general medical exam ination at a health care facility 03/28/2009 02/08/2015 Overview: 03/28/2009, establish care 06/13/2010, yearly check-up documented as of this encounter (statuses as of 03/19/2022) [facility] History of Past illness Narrative* Problem Noted Date Resolved Date Back problem 01/10/2022 01/10/2022 Chronic back pain 01/10/2022 01/10/2022 Hemorrhoids 01/10/2022 01/10/2022 History of cervical spinal arthrodesis 2 01/10/2022 History of surgical procedure 01/10/2022 [place]-Schlatter's disease 01/10/202201/10 Skin lesion 01/10/2022 01/10/2022 Benign neoplasm of transverse colon 02/25/2018 01/10/2022 Right lower quadrant pain 02/25/20182021 Pain in joint, shoulder region 11/23/2009 1 Overview: Left rotator cuff Colon polyps 04/29/2009 01/10/2022 Overview: Dr. Miranda, q 3 year scopes Routine general medical exam [facility] at a [facility] 03/28/2009 02/08/2015 Overview: 03/28/2009, establish care 06/13/2010, yearly check-up documented as of this encounter (statuses as of 04/16/2022) [facility] History of Past illness Narrative* Problem Noted Date Resolved Date Back problem 01/10/2022 01/10/2022 Chronic back pain 01/10/2022 01/10/2022 Hemorrhoids 01/10/2022 01/10/2022 History of cervical spinal arthrodesis 2 01/10/2022 History of surgical procedure 01/10/2022 [place]-Schlatter's disease 01/10/202201/10 Skin lesion 01/10/2022 01/10/2022 Benign neoplasm of transverse colon 02/25/2018 01/10/2022 Right lower quadrant pain 02/25/20182021 Pain in joint, shoulder region 11/23/2009 1 Overview: Left rotator cuff Colon polyps 04/29/2009 01/10/2022 Overview: Dr. Miranda, q 3 year scopes Routine general medical exam ination at a health care facility 03/28/2009 02/08/2015 Overview: 03/28/2009, establish care 06/13/2010, yearly check-up documented as of this encounter (statuses as of 05/08/2022) [facility] History of Past illness Narrative* Problem Noted Date Resolved Date Back problem 01/10/2022 01/10/2022 Chronic back pain 01/10/2022 01/10/2022 Hemorrhoids 01/10/2022 01/10/2022 History of cervical spinal arthrodesis 01/10/2022 History of surgical procedure 01/10/2022 Albin-Schlatter's disease 01/10/202201/10 Skin lesion 01/10/2022 01/10/2022 Benign neoplasm of transverse colon 02/25/2018 01/10/2022 Right lower quadrant pain 02/25/20182021 Pain in joint, shoulder region 11/23/2009 1 Overview: Left rotator cuff Colon polyps 04/29/2009 01/10/2022 Overview: Dr. Miranda, q 3 year scopes Routine general medical exam ination at a health care facility 03/28/2009 02/08/2015 Overview: 03/28/2009, establish care 06/13/2010, yearly check-up documented as of this encounter (statuses as of 06/09/2022) [place] [id number] History of Past illness Narrative* Problem Noted Date Resolved Date Back problem 01/10/2022 01/10/2022 Chronic back pain 01/10/2022 01/10/2022 Hemorrhoids 01/10/2022 01/10/2022 History of cervical spinal arthrodesis 2 01/10/2022 History of surgical procedure 01/10/2022 [place]-Schlatter's disease 01/10/202201/10 Skin lesion 01/10/2022 01/10/2022 Benign neoplasm of transverse colon 02/25/2018 01/10/2022 Right lower quadrant pain 02/25/20182021 Pain in joint, shoulder region 11/23/2009 1 Overview: Left rotator cuff Colon polyps 04/29/2009 01/10/2022 Overview: Dr. Miranda, q 3 year scopes Routine general medical exam [facility] at [facility] 03/28/2009 02/08/2015 Overview: 03/28/2009, establish care 06/13/2010, yearly check-up documented as of this encounter (statuses as of 06/11/2022) [facility] History of Past illness Narrative* Problem Noted Date Resolved Date Back problem 01/10/2022 01/10/2022 Chronic back pain 01/10/2022 01/10/2022 Hemorrhoids 01/10/2022 01/10/2022 History of cervical spinal arthrodesis 2 01/10/2022 History of surgical procedure 01/10/2022 Albin-Schlatter's disease 01/10/202201/10 Skin lesion 01/10/2022 01/10/2022 Benign neoplasm of transverse colon 02/25/2018 01/10/2022 Right lower quadrant pain 02/25/20182021 Pain in joint, shoulder region 11/23/2009 1 Overview: Left rotator cuff Colon polyps 04/29/2009 01/10/2022 Overview: Dr. Miranda, q 3 year scopes Routine general medical exam ination at a health care facility 03/28/2009 02/08/2015 Overview: 03/28/2009, establish care 06/13/2010, yearly check-up documented as of this encounter (statuses as of 06/29/2022) [facility] History of Past illness Narrative* Problem Noted Date Resolved Date Back problem 01/10/2022 01/10/2022 Chronic back pain 01/10/2022 01/10/2022 Hemorrhoids 01/10/2022 01/10/2022 History of cervical spinal arthrodesis 2 01/10/2022 History of surgical procedure 01/10/2022 Albin-Schlatter's disease 01/10/202201/10 Skin lesion 01/10/2022 01/10/2022 Benign neoplasm of transverse colon 02/25/2018 01/10/2022 Right lower quadrant pain 02/25/20182021 Pain in joint, shoulder region 11/23/2009 1 Overview: Left rotator cuff Colon polyps 04/29/2009 01/10/2022 Overview: Dr. Miranda, q 3 year scopes Routine general medical exam ination at a health care facility 03/28/2009 02/08/2015 Overview: 03/28/2009, establish care 06/13/2010, yearly check-up documented as of this encounter (statuses as of 07/27/2022) [facility] History of Past illness Narrative* Problem Noted Date Resolved Date Back problem 01/10/2022 01/10/2022 Chronic back pain 01/10/2022 01/10/2022 Hemorrhoids 01/10/2022 01/10/2022 History of cervical spinal arthrodesis 2 01/10/2022 History of surgical procedure 01/10/2022 [place]-Schlatter's disease 01/10/202201/10 Skin lesion 01/10/2022 01/10/2022 Benign neoplasm of transverse colon 02/25/2018 01/10/2022 Right lower quadrant pain 02/25/20182021 Pain in joint, shoulder region 11/23/2009 1 Overview: Left rotator cuff Colon polyps 04/29/2009 01/10/2022 Overview: Dr. Miranda, q 3 year scopes Routine general medical exam [facility] at [facility] 03/28/2009 02/08/2015 Overview: 03/28/2009, establish care 06/13/2010, yearly check-up documented as of this encounter (statuses as of 07/28/2022) [facility] History of Past illness Narrative* Problem Noted Date Resolved Date Back problem 01/10/2022 01/10/2022 Chronic back pain 01/10/2022 01/10/2022 Hemorrhoids 01/10/2022 01/10/2022 History of cervical spinal arthrodesis 2 01/10/2022 History of surgical procedure 01/10/2022 [place]-Schlatter's disease 01/10/202201/10 Skin lesion 01/10/2022 01/10/2022 Benign neoplasm of transverse colon 02/25/2018 01/10/2022 Right lower quadrant pain 02/25/20182021 Pain in joint, shoulder region 11/23/2009 1 Overview: Left rotator cuff Colon polyps 04/29/2009 01/10/2022 Overview: Dr. Miranda, q 3 year scopes Routine general medical exam ination at a health care facility 03/28/2009 02/08/2015 Overview: 03/28/2009, establish care 06/13/2010, yearly check-up documented as of this encounter (statuses as of 08/03/2022) [facility] History of Past illness Narrative* Problem Noted Date Resolved Date Back problem 01/10/2022 01/10/2022 Chronic back pain 01/10/2022 01/10/2022 Hemorrhoids 01/10/2022 01/10/2022 History of cervical spinal arthrodesis 2 01/10/2022 History of surgical procedure 01/10/2022 Albin-Schlatter's disease 01/10/202201/10 Skin lesion 01/10/2022 01/10/2022 Benign neoplasm of transverse colon 02/25/2018 01/10/2022 Right lower quadrant pain 02/25/20182021 Pain in joint, shoulder region 11/23/2009 1 Overview: Left rotator cuff Colon polyps 04/29/2009 01/10/2022 Overview: Dr. Miranda, q 3 year scopes Routine general medical exam [facility] at [facility] 03/28/2009 02/08/2015 Overview: 03/28/2009, establish care 06/13/2010, yearly check-up documented as of this encounter (statuses as of 08/07/2022) [facility] History of Past illness Narrative* Problem Noted Date Resolved Date Back problem 01/10/2022 01/10/2022 Chronic back pain 01/10/2022 01/10/2022 Hemorrhoids 01/10/2022 01/10/2022 History of cervical spinal arthrodesis 2 01/10/2022 History of surgical procedure 01/10/2022 Albin-Schlatter's disease 01/10/202201/10 Skin lesion 01/10/2022 01/10/2022 Benign neoplasm of transverse colon 02/25/2018 01/10/2022 Right lower quadrant pain 02/25/20182021 Pain in joint, shoulder region 11/23/2009 1 Overview: Left rotator cuff Colon polyps 04/29/2009 01/10/2022 Overview: Dr. Miranda, q 3 year scopes Routine general medical exam ination at a health care facility 03/28/2009 02/08/2015 Overview: 03/28/2009, establish care 06/13/2010, yearly check-up documented as of this encounter (statuses as of 08/16/2022) [facility] History of Past illness Narrative* Problem Noted Date Resolved Date Back problem 01/10/2022 01/10/2022 Chronic back pain 01/10/2022 01/10/2022 Hemorrhoids 01/10/2022 01/10/2022 History of cervical spinal arthrodesis 01/10/2022 History of surgical procedure 01/10/2022 Albin-Schlatter's disease 01/10/202201/10 Skin lesion 01/10/2022 01/10/2022 Benign neoplasm of transverse colon 02/25/2018 01/10/2022 Right lower quadrant pain 02/25/20182021 Pain in joint, shoulder region 11/23/2009 1 Overview: Left rotator cuff Colon polyps 04/29/2009 01/10/2022 Overview: Dr. Miranda, q 3 year scopes Routine general medical exam ination at a health care facility 03/28/2009 02/08/2015 Overview: 03/28/2009, establish care 06/13/2010, yearly check-up documented as of this encounter (statuses as of 10/03/2022) [facility] History of Past illness Narrative* Problem Noted Date Diagnosed Date Resolved Date Back problem 01/10/2022 01/10/2022 Chronic back pain 01/10/2022 01/10/2022 Hemorrhoids 01/10/2022 01/10/2022 History of cervical spinal arthrodesis 01/10/2022 01/10/2022 History of surgical procedure 01/10/2022 01/10/2022 Albin-Schlatter's disease 01/10/2022 1 Skin lesion 01/10/2022 01/10/2022 Benign neoplasm of transverse colon 02/25/2018 01/10/2022 Right lower quadrant pain 02/25/2018 Pain in joint, shoulder region 11/23/2009 01/10/2022 Overview: Left rotator cuff Colon polyps 04/29/2009 01/10/2022 Overview: Dr. Miranda, q 3 year scopes Routine general medical exam ination at a health care facility 03/28/2009 02/08/2015 Overview: 03/28/2009, establish care 06/13/2010, yearly check-up documented as of this encounter (statuses as of 10/18/2022) [facility] History of Past illness Narrative* Problem Noted Date Diagnosed Date Resolved Date Back problem 01/10/2022 01/10/2022 Chronic back pain 01/10/2022 01/10/2022 Hemorrhoids 01/10/2022 01/10/2022 History of cervical spinal arthrodesis 01/10/2022 01/10/2022 History of surgical procedure 01/10/2022 01/10/2022 [place]-Schlatter's disease 01/10/2022 1 Skin lesion 01/10/2022 01/10/2022 Benign neoplasm of transverse colon 02/25/2018 01/10/2022 Right lower quadrant pain 02/25/2018 Pain in joint, shoulder region 11/23/2009 01/10/2022 Overview: Left rotator cuff Colon polyps 04/29/2009 01/10/2022 Overview: Dr. Miranda, q 3 year scopes Routine general medical exam ination at a health care facility 03/28/2009 02/08/2015 Overview: 03/28/2009, establish care 06/13/2010, yearly check-up documented as of this encounter (statuses as of 02/10/2023) [facility] History of Past illness Narrative* Problem Noted Date Diagnosed Date Resolved Date Back problem 01/10/2022 01/10/2022 Chronic back pain 01/10/2022 01/10/2022 Hemorrhoids 01/10/2022 01/10/2022 History of cervical spinal arthrodesis 01/10/2022 01/10/2022 History of surgical procedure 01/10/2022 01/10/2022 [place]-Schlatter's disease 01/10/2022 1 Skin lesion 01/10/2022 01/10/2022 Benign neoplasm of transverse colon 02/25/2018 01/10/2022 Right lower quadrant pain 02/25/2018 Pain in joint, shoulder region 11/23/2009 01/10/2022 Overview: Left rotator cuff Colon polyps 04/29/2009 01/10/2022 Overview: Dr. Miranda, q 3 year scopes Routine general medical exam ination at a [facility] care facility 03/28/2009 02/08/2015 Overview: 03/28/2009, establish care 06/13/2010, yearly check-up documented as of this encounter (statuses as of 02/10/2023) [facility] History of Past illness Narrative* Problem Noted Date Diagnosed Date Resolved Date Back problem 01/10/2022 01/10/2022 Chronic back pain 01/10/2022 01/10/2022 Hemorrhoids 01/10/2022 01/10/2022 History of cervical spinal arthrodesis 01/10/2022 01/10/2022 History of surgical procedure 01/10/2022 01/10/2022 [place]-Schlatter's disease 01/10/2022 1 Skin lesion 01/10/2022 01/10/2022 Benign neoplasm of transverse colon 02/25/2018 01/10/2022 Right lower quadrant pain 02/25/2018 Pain in joint, shoulder region 11/23/2009 01/10/2022 Overview: Left rotator cuff Colon polyps 04/29/2009 01/10/2022 Overview: Dr. Miranda, q 3 year scopes Routine general medical exam ination at a [facility] facility 03/28/2009 02/08/2015 Overview: 03/28/2009, establish care 06/13/2010, yearly check-up documented as of this encounter (statuses as of 03/28/2023) [facility] History of Present illness Narrative* Niko Stafford MD - 01/10/2022 10:05 AM EDT Patient presents with: 6 Month Exam HPI: Patient presents today for office visit for follow up. Feeling more depressed and anxious. Refers to stress with 's health. HYPERLIPIDEMIA: Patient is taking medications: Yes. Patient is watching diet: Yes. Patient denies myalgias: Yes. Patient denies gi upset: Yes PSYCH: Currently tolerating medications well: Yes . Side effects: No. Sleep issues: Yes. Not sleeping well Energy changes: Yes. Fatigued. He would like to try something else Appetite changes: No. Current depression: Yes. Current anxiety: Yes. Suicidal ideation: No. Still seeing urology and pain management. Hematology. Again has seen heme in the past. Recommended we follow. TAMMI:he did not keep his appt with sleep med. Discussed importance of treating. MEDICATIONS: Current Outpatient Medications Medication Sig sertraline (ZOLOFT) 50 mg tablet Take 1 tablet by mouth once daily. atorvastatin (LIPITOR) 40 mg tablet Take 1 tablet by mouth daily at bedtime. For cholesterol. acetaminophen (TYLENOL ARTHRITIS PAIN ORAL) Take 2 tablets by mouth. gabapentin (NEURONTIN) 600 mg tablet Take 600 mg by mouth four times daily. vitamin B complex (VITAMIN B-100 COMPLEX ORAL) Take 100 mg by mouth once daily. Cholecalciferol, Vitamin D3, 25 mcg (1,000 unit) cap Take 1,000 Units by mouth once daily. gabapentin (NEURONTIN) 400 mg capsule Take 600 mg by mouth four times daily. traMADol (ULTRAM) 50 mg tablet Take 50 mg by mouth every 6 hours as needed. CPAP CHIN STRAP, USED WITH CPAP DEVICE No current facility-administered medications for this visit. ALLERGIES: ALLERGIES No Known Allergies PAST MEDICAL HISTORY Diagnosis Date Cervical nerve root impingement sees Dr. Lott, pain management at [place] Colon polyp Depression Diverticulosis of colon (without mention of hemorrhage) Elevated PSA sees Dr Boswell Hyperlipidemia Kidney disease Low testosterone Obstructive sleep apnea Osteoarthrosis Personal history of colonic polyps Sleep apnea Snoring PAST SURGICAL HISTORY Procedure Laterality Date CHOLECYSTECTOMY 1986 Cholecystectomy, open (Dr. Rayo) COLONOSCOPY & POLYPECTOMY late [address] Pandey -- 3-year intervals COLONOSCOPY & POLYPECTOMY 02/23/14 Sessile serrated with low-gr dysplasia, tubular adenoma, internal hemorrhoids COLONOSCOPY FLX DX W/COLLJ SPEC WHEN PFRMD 03/30/2011 Colonoscopy repeat 3 years COLONOSCOPY FLX DX W/COLLJ SPEC WHEN PFRMD 02-25-15 CYSTOSCOPY,+URETEROSCOPY 1993 stone removed NEUROPLASTY &/TRANSPOS MEDIAN NRV CARPAL TUNNE Bilateral 08/11/[address] Shepard PAST SURGICAL HISTORY OF 2008 Left Rotator cuff, Dr. Raines, PAST SURGICAL HISTORY OF 1988, 2003 Castillo, Ventral Hernia x 2 PAST SURGICAL HISTORY OF 01/03/2015 neck surgery - fused C4,5,6 PAST SURGICAL HISTORY OF Right 06/18/2018 right knee arthroscopic partial medical lateral meniscectomy right knee arthroscopic chondroplasty UROLIFT PROSTATE PROCEDURE 11/2017 Dr.Miguel Fritz FAMILY HISTORY Problem Relation Age of Onset None Father Coronary Artery Disease Mother early 60's Diabetes Mother Coronary Artery Disease Brother Cancer Brother kidney Colon Cancer Other none Heart disease Brother Social History Tobacco Use Smoking status: Never Smokeless tobacco: Never Substance Use Topics Alcohol use: No Drug use: No Reviewed current medications, allergies, past medical history, surgical history, family history andsocial history today. REVIEW OF SYSTEMS RESPIRATORY: Negative for cough, hemoptysis, wheezing, COPD, dyspnea or shortness of breath CARDIOVASCULAR: Negative for chest pain, leg swelling, hypertension, CHF or palpitations GI: Negative for blood in stools or black stools, change in bowel habit : No history of dysuria, frequency or incontinence All other reviewed and negative other than HPI. HEALTH MAINTENANCE: Reviewed health maintenance issues today and recommended the following in detail. DEPRESSION ASSESSMENT done INFLUENZA(1) due on 12/07/2021-will be getting at [facility]. VITALS: BP 130/82 Pulse (!) 57 Ht 168.9 cm (5' 6.5 ) Wt 82.9 kg (182 lb 12.8 oz) SpO2 97% BMI 29.06 kg/m Last 4 Encounter Wt Readings: Date: Wt: 07/07/2021 83.9 kg (185 lb) 01/06/2021 83.5 kg (184 lb) 07/06/2020 85.2 kg (187 lb 12.8 oz) 01/06/2020 84.8 kg (187 lb) PHYSICAL EXAMINATION: General appearance: Well appearing, alert, in no acute distress, well-hydrated, well nourished. Skin: Skin color, texture, turgor normal, no suspicious rashes or lesions Head: Normocephalic, no masses, lesions, tenderness or abnormalities Lungs: Lungs clear to auscultation. No wheezing, rhonchi, rales Heart: RRR without murmur, gallop, or rubs. No ectopy Abdomen: Normal abdominal exam, Abdomen soft, non-tender. Bowel sounds normal. No masses, organomegaly Extremities: No deformities, edema, skin discoloration, clubbing or cyanosis. Good capillary refill. Musculoskeletal: No joint swelling, deformity, or tenderness PSYCH:Affect normal. Normal speech. Normal eye contact ASSESSMENT/PLAN: 1. 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 Stop zoloft and start low dose cymbalta which might help chronic pain issues as well. - DULOXETINE 30 MG CAPSULE,DELAYED RELEASE 2. Mixed hyperlipidemia - ICD9: 272.2, ICD10: E78.2 - check labs. 3. Depression, unspecified depression type - ICD9: 311, ICD10: F32.A - Discussed risks and benefits of new medication with the patient. Advised them to call if any sideeffects or questions. - DULOXETINE 30 MG CAPSULE,DELAYED RELEASE 4. Hyperglycemia Check labs. Niko Stafford MD RTO in four weeks. [facility] History of Present illness Narrative* Niko Stafford MD - 07/07/2021 10:46 AM EDT Patient presents with: 6 Month Exam HPI: Patient presents today for office visit for follow up. Chronic pain:still seeing pain management. URO: sees Dr. Fritz, urine is doing well. Hematology: has seen hematology previous for monocytosis. Dr. Decker had suggested we monitor it. The abs number is climbing a little. PSYCH: moods have been stable. No severe anxiety or depression. No issues with meds. Some stress at home. TAMMI:not using cpap. Discussed importance of treating. Offered to have him go back to see Dr. Mendieta HYPERLIPIDEMIA: Patient is taking medications: Yes. Patient is watching diet: Yes. MEDICATIONS: Current Outpatient Medications Medication Sig sertraline (ZOLOFT) 50 mg tablet Take 1 tablet by mouth once daily. atorvastatin (LIPITOR) 40 mg tablet Take 1 tablet by mouth daily at bedtime. For cholesterol. gabapentin (NEURONTIN) 600 mg tablet Take 600 mg by mouth four times daily. vitamin B complex (VITAMIN B-100 COMPLEX ORAL) Take 100 mg by mouth once daily. Cholecalciferol, Vitamin D3, (VITAMIN D) 1,000 unit cap Take 1,000 Units by mouth once daily. traMADol (ULTRAM) 50 mg tablet Take 50 mg by mouth every 6 hours as needed. zoster vaccine, recombinant, adjuvanted, (SHINGRIX, PF,) 50 mcg/0.5 mL injection Inject 0.5 mL intramuscularly now and repeat 2nd dose in 2-6 months acetaminophen (TYLENOL ARTHRITIS PAIN ORAL) Take 2 tablets by mouth. gabapentin (NEURONTIN) 400 mg capsule Take 600 mg by mouth four times daily. CPAP CHIN STRAP, USED WITH CPAP DEVICE No current facility-administered medications for this visit. ALLERGIES: ALLERGIES No Known Allergies PAST MEDICAL HISTORY Diagnosis Date Cervical nerve root impingement sees Dr. Lott, pain management at [place] Colon polyp Depression Diverticulosis of colon (without mention of hemorrhage) Elevated PSA sees Dr Boswell Hyperlipidemia Kidney disease Low testosterone Obstructive sleep apnea Osteoarthrosis Personal history of colonic polyps Sleep apnea Snoring PAST SURGICAL HISTORY Procedure Laterality Date CHOLECYSTECTOMY 1986 Cholecystectomy, open (Dr. Rayo) COLONOSCOPY & POLYPECTOMY late [address] Pandey -- 3-year intervals COLONOSCOPY & POLYPECTOMY 02/23/14 Sessile serrated with low-gr dysplasia, tubular adenoma, internal hemorrhoids COLONOSCOPY FLX DX W/COLLJ SPEC WHEN PFRMD 03/30/2011 Colonoscopy repeat 3 years COLONOSCOPY FLX DX W/COLLJ SPEC WHEN PFRMD 02-25-15 CYSTOSCOPY,+URETEROSCOPY 1993 stone removed NEUROPLASTY &/TRANSPOS MEDIAN NRV CARPAL TUNNE Bilateral 08/11/[address] Shepard PAST SURGICAL HISTORY OF 2008 Left Rotator cuff, Dr. Raines, PAST SURGICAL HISTORY OF 1988, 2003 Castillo, Ventral Hernia x 2 PAST SURGICAL HISTORY OF 01/03/2015 neck surgery - fused C4,5,6 PAST SURGICAL HISTORY OF Right 06/18/2018 right knee arthroscopic partial medical lateral meniscectomy right knee arthroscopic chondroplasty UROLIFT PROSTATE PROCEDURE 11/2017 Dr.Miguel Fritz FAMILY HISTORY Problem Relation Age of Onset None Father Coronary Artery Disease Mother early 60's Diabetes Mother Coronary Artery Disease Brother Cancer Brother kidney Colon Cancer Other none Heart disease Brother Social History Tobacco Use Smoking status: Never Smoker Smokeless tobacco: Never Used Substance Use Topics Alcohol use: No Drug use: No Reviewed current medications, allergies, past medical history, surgical history, family history andsocial history today. REVIEW OF SYSTEMS RESPIRATORY: Negative for cough, hemoptysis, wheezing, COPD, dyspnea or shortness of breath CARDIOVASCULAR: Negative for chest pain, leg swelling, hypertension, CHF or palpitations All other reviewed and negative other than HPI. HEALTH MAINTENANCE: Reviewed health maintenance issues today and recommended the following in detail. ADVANCE DIRECTIVE DISCUSSION - has living will and dpoa. , then daughter and son are his surrogates. Asked him to bring it in. VITALS: BP 138/78 Pulse 64 Wt 83.9 kg (185 lb) BMI 29.41 kg/m Last 4 Encounter Wt Readings: Date: Wt: 07/07/2021 83.9 kg (185 lb) 01/06/2021 83.5 kg (184 lb) 07/06/2020 85.2 kg (187 lb 12.8 oz) 01/06/2020 84.8 kg (187 lb) PHYSICAL EXAMINATION: General appearance: Well appearing, alert, in no acute distress, well-hydrated, well nourished. Skin: Skin color, texture, turgor normal, no suspicious rashes or lesions Head: Normocephalic, no masses, lesions, tenderness or abnormalities Neck: Supple, no adenopathy; thyroid symmetric, normal size, no bruits Lungs: Lungs clear to auscultation. No wheezing, rhonchi, rales Heart: RRR without murmur, gallop, or rubs. No ectopy Abdomen: Normal abdominal exam, Abdomen soft, non-tender. Bowel sounds normal. No masses, organomegaly Extremities: No deformities, edema, skin discoloration, clubbing or cyanosis. Good capillary refill. Musculoskeletal: No joint swelling, deformity, or tenderness ASSESSMENT/PLAN: 1. Monocytosis - ICD9: 288.63, ICD10: D72.821 (primary diagnosis) - recheck in six weeks to follow trend. - CBC + DIFF 2. Depression, unspecified depression type - ICD9: 311, ICD10: F32.A - continue meds. - SERTRALINE 50 MG TABLET 3. Grief - ICD9: 309.0, ICD10: F43.21 - SERTRALINE 50 MG TABLET 4. Hyperglycemia - ICD9: 790.29, ICD10: R73.9 - follow labs. - HGB A1C 5. Sleep apnea, unspecified type - ICD9: 780.57, ICD10: G47.30 - see sleep med - CONSULT TO SLEEP MEDICINE - ADULT 6. Mixed hyperlipidemia - ICD9: 272.2, ICD10: E78.2 - good control - Continue current medication. - ATORVASTATIN 40 MG TABLET 7. Advance directive discussed with patient - ICD9: V65.49, ICD10: Z71.89 Niko Stafford RTO in six months and prn. documented in this encounterC[facility]03[facility]22 Miscellaneous Notes* Telephone Encounter - Nusrat Garcia Ma - 06/30/2021 8:[address] orders for cbc with diff with patient. documented in this encounterC[facility]12[facility] History of Past illness Narrative* Problem Noted Date Resolved Date Routine general medical exam ination at a health care facility 03/28/2009 02/08/2015 Overview: 03/28/2009, establish care 06/13/2010, yearly check-up documented as of this encounter (statuses as of 06/30/2021) [facility] History of Past illness Narrative* Problem Noted Date Resolved Date Routine general medical exam ination at a health care facility 03/28/2009 02/08/2015 Overview: 03/28/2009, establish care 06/13/2010, yearly check-up documented as of this encounter (statuses as of 07/07/2021) [facility] No data available for this section [facility] Evaluation + Plan note Future Appointments Appointment Date:10/03/2021 10:00:00 AM Scheduled Provider:RAJI SMITH Location:PM Office Appointment Type:PM [facility] Management Evaluation + Plan note Future Appointments Appointment Date:12/12/2021 01:30:00 PM Scheduled Provider:JOE ROSALES DO Location:PM Office Appointment Type:PM OV [facility] Evaluation + Plan note Future Appointments Appointment Date:08/03/2022 10:00:00 AM Scheduled Provider:RAJI SMITH Location:PM Office Appointment Type:PM [facility] Management Evaluation + Plan note Future Appointments Appointment Date:12/31/2022 08:15:00 AM Scheduled Provider:JOE RAMIRES MD Location:[facility] PM Appointment Type:PM OV [facility] Evaluation + Plan note Future Appointments Appointment Date:02/25/2023 01:30:00 PM Scheduled Provider:JOE RAMIRES MD Location:[facility] PM Appointment Type:PM OV [facility] Evaluation + Plan note Future Appointments Appointment Date:05/27/2023 12:15:00 PM Scheduled Provider:JOE RAMIRES MD Location:[facility] PM [facility]ment Type:[facility] Diagnosis Sleep apnea, unspecified type- Primary documented in this encounter [facility] note* Diagnosis Monocytosis- Primary Monocytosis (symptomatic) Depression, unspecified depression type Grief Adjustment disorder with depressed mood Hyperglycemia Other abnormal glucose Sleep apnea, unspecified type Mixed hyperlipidemia Advance directive discussed with patient Other specified counseling documented in this encounter [facility] note* Diagnosis Cervical nerve root impingement- Primary Brachial neuritis or radiculitis nos Mixed hyperlipidemia Depression, unspecified depression type Hyperglycemia Other abnormal glucose documented in this encounter [facility] note* Diagnosis Depression, unspecified depression type- Primary documented in this encounter [facility] note* Diagnosis Obstructive sleep apnea (adult) (pediatric)- Primary documented in this encounter [facility] note* Diagnosis Chronic RLQ pain- Primary Abdominal pain, right lower quadrant GERD without esophagitis Esophageal reflux Infection in abdomen (HCC) Unspecified peritonitis documented in this encounter [facility] note* Diagnosis RUQ pain- Primary Abdominal pain, right upper quadrant RLQ abdominal pain Abdominal pain, right lower quadrant GERD without esophagitis Esophageal reflux documented in this encounter [facility] note* Diagnosis Microscopic hematuria- Primary documented in this encounter [facility] note* Diagnosis Mixed hyperlipidemia GERD without esophagitis Esophageal reflux documented in this encounter 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 note* Diagnosis Gastroesophageal reflux disease without esophagitis- Primary Esophageal reflux Cabral's esophagus with dysplasia Cabral's esophagus documented in this encounter [facility] note* Diagnosis Cabral's esophagus without dysplasia- Primary Cabral's esophagus documented in this encounter [facility] note* Diagnosis External nasal lesion- Primary Unspecified disorder of skin and subcutaneous tissue [facility]* Diagnosis Chronic RLQ pain Abdominal pain, right lower quadrant documented in this encounter [facility] Discharge instructions No data available for this section 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 Advance Directive(s) 04/16/2018 12:40 PM Reason for Referral Specialty Diagnoses / Procedures Referred By Contac t Referred To Contact Dermatology Diagnoses External nasal lesion Procedures CONSULT TO DERMATOLOGY Matilda Brown PA-C [address] [place] [address] Referral ID Status Reason Start Date Expiration Date Visits Requested Visits Authorized [id number] Ref Not Required PCP Requested Referral 10/18/2022 10/18/2023 1 1 Specialty Diagnoses / Procedures Referred By Contac t Referred To Contact Gastroenterology Diagnoses Cabral's esophagus without dysplasia Procedures CONSULT TO GASTROENTEROLOGY OFFICE/OUTPATIENT [facility] 60-74 MINUTES Adrian Thompson MD [address] [id number] Referral ID Status Reason Start Date Expiration Date Visits Requested Visits Authorized [id number] Authorized PCP Requested Referral 10/02/2022 10/02/2023 1 1 Specialty Diagnoses / Procedures Referred By Contac t Referred To Contact Pain Management Diagnoses 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 Procedures CONSULT TO PAIN MGT Niko Stafford MD [address] [place] [address] Referral ID Status Reason Start Date Expiration Date Visits Requested Visits Authorized [id number] Ref Not Required PCP Requested Referral 08/03/2022 08/03/2023 1 1 Specialty Diagnoses / Procedures Referred By Contac t Referred To Contact Urology Diagnoses Microscopic hematuria Procedures CONSULT TO UROLOGY OFFICE/OUTPATIENT [facility] 60-74 MINUTES Niko Stafford MD [address] [place] [address] Referral ID Status Reason Start Date Expiration Date Visits Requested Visits Authorized [id number] Authorized PCP Requested Referral 06/11/2022 06/11/2023 1 1 Specialty Diagnoses / Procedures Referred By Contac t Referred To Contact General Surgery Diagnoses RUQ pain RLQ abdominal pain GERD without esophagitis Procedures CONSULT TO GENERAL SURGERY OFFICE/OUTPATIENT [facility] 60-[place] [address] [place] [id number] Referral ID Status Reason Start Date Expiration Date Visits Requested Visits Authorized [id number] Authorized PCP Requested Referral 06/09/2022 06/09/2023 1 1 Specialty Diagnoses / Procedures Referred By Contac t Referred To Contact CT IMAGING Diagnoses Chronic RLQ pain Infection in abdomen (HCC) Procedures CT ABD/PEL W IVCON CT ABD & PELVIS W/CONTRAST Niko Stafford MD [address] [place] [id number] Imaging Referral ID Status Reason Start Date Expiration Date Visits Requested Visits Authorized [id number] Authorized Auto-Generat ed Referral 05/07/2022 06/06/2023 1 1 Specialty Diagnoses / Procedures Referred By Contac t Referred To Contact Diagnoses Sleep apnea, unspecified type Procedures CONSULT TO SLEEP MEDICINE - ADULT OFFICE/OUTPATIENT [facility] 60-74 MINUTES Niko Stafford MD [address] [place] [id number] Referral ID Status Reason Start Date Expiration Date Visits Requested Visits Authorized [id number] Authorized PCP Requested Referral 07/07/2021 07/07/2022 1 1 Additional Source Comments (unrecognized sect ion and content) No Status Records FoundNo Status Records FoundNo Status Records Found INFORMATION SOURCE (unrecogn ized section and content) DATE CREATED AUTHOR AUTHOR'S ORGANIZ ATION 03/14/2023 [facility] ([place]) DATE CREATED AUTHOR AUTHOR'S BETTY GONZALEZ 03/28/2023 [facility] [place] Source Comments (unrecognize d section and content) In the event this informatio n is protected by the Federal Confidentiality of Alcohol and Drug Abuse Patient Records regulations: The Federal rules restrict any use of the information to criminally investigate or prosecute any alcohol or drug abuse patient.[facility] FoundationIn the event this information is protected by the Federal Confidentiality of Alcohol and Drug Abuse Patient Records regulations: The Federal rules restrict any use of the information to criminally investigate or prosecute any alcohol or drug abuse patient.[facility] FoundationIn the event this information is protected by the Federal Confidentiality of Alcohol and Drug Abuse Patient Records regulations: The Federal rules restrict any use of the information to criminally investigate or prosecute any alcohol or drug abuse patient.[facility] FoundationIn the event this information is protected by the Federal Confidentiality of Alcohol and Drug Abuse Patient Records regulations: The Federal rules restrict any use of the information to criminally investigate or prosecute any alcohol or drug abuse patient.[facility] FoundationIn the event this information is protected by the Federal Confidentiality of Alcohol and Drug Abuse Patient Records regulations: The Federal rules restrict any use of the information to criminally investigate or prosecute any alcohol or drug abuse patient.[facility] FoundationIn the event this information is protected by the Federal Confidentiality of Alcohol and Drug Abuse Patient Records regulations: The Federal rules restrict any use of the information to criminally investigate or prosecute any alcohol or drug abuse patient.[facility] FoundationIn the event this information is protected by the Federal Confidentiality of Alcohol and Drug Abuse Patient Records regulations: The Federal rules restrict any use of the information to criminally investigate or prosecute any alcohol or drug abuse patient.[facility] FoundationIn the event this information is protected by the Federal Confidentiality of Alcohol and Drug Abuse Patient Records regulations: The Federal rules restrict any use of the information to criminally investigate or prosecute any alcohol or drug abuse patient.[facility] FoundationIn the event this information is protected by the Federal Confidentiality of Alcohol and Drug Abuse Patient Records regulations: The Federal rules restrict any use of the information to criminally investigate or prosecute any alcohol or drug abuse patient.[facility] FoundationIn the event this information is protected by the Federal Confidentiality of Alcohol and Drug Abuse Patient Records regulations: The Federal rules restrict any use of the information to criminally investigate or prosecute any alcohol or drug abuse patient.[facility] FoundationIn the event this information is protected by the Federal Confidentiality of Alcohol and Drug Abuse Patient Records regulations: The Federal rules restrict any use of the information to criminally investigate or prosecute any alcohol or drug abuse patient.[facility] FoundationIn the event this information is protected by the Federal Confidentiality of Alcohol and Drug Abuse Patient Records regulations: The Federal rules restrict any use of the information to criminally investigate or prosecute any alcohol or drug abuse patient.[facility] FoundationIn the event this information is protected by the Federal Confidentiality of Alcohol and Drug Abuse Patient Records regulations: The Federal rules restrict any use of the information to criminally investigate or prosecute any alcohol or drug abuse patient.[facility] FoundationIn the event this information is protected by the Federal Confidentiality of Alcohol and Drug Abuse Patient Records regulations: The Federal rules restrict any use of the information to criminally investigate or prosecute any alcohol or drug abuse patient.[facility] FoundationIn the event this information is protected by the Federal Confidentiality of Alcohol and Drug Abuse Patient Records regulations: The Federal rules restrict any use of the information to criminally investigate or prosecute any alcohol or drug abuse patient.[facility] FoundationIn the event this information is protected by the Federal Confidentiality of Alcohol and Drug Abuse Patient Records regulations: The Federal rules restrict any use of the information to criminally investigate or prosecute any alcohol or drug abuse patient.[facility] FoundationIn the event this information is protected by the Federal Confidentiality of Alcohol and Drug Abuse Patient Records regulations: The Federal rules restrict any use of the information to criminally investigate or prosecute any alcohol or drug abuse patient.[facility] FoundationIn the event this information is protected by the Federal Confidentiality of Alcohol and Drug Abuse Patient Records regulations: The Federal rules restrict any use of the information to criminally investigate or prosecute any alcohol or drug abuse patient.[facility] FoundationIn the event this information is protected by the Federal Confidentiality of Alcohol and Drug Abuse Patient Records regulations: The Federal rules restrict any use of the information to criminally investigate or prosecute any alcohol or drug abuse patient.[facility] FoundationIn the event this information is protected by the Federal Confidentiality of Alcohol and Drug Abuse Patient Records regulations: The Federal rules restrict any use of the information to criminally investigate or prosecute any alcohol or drug abuse patient.[facility] FoundationIn the event this information is protected by the Federal Confidentiality of Alcohol and Drug Abuse Patient Records regulations: The Federal rules restrict any use of the information to criminally investigate or prosecute any alcohol or drug abuse patient.[facility] Reason for Visit (unrecogniz ed section and content) Specialty Diagnoses / Procedures Referred By Dunia urias Referred To Contact CT IMAGING Diagnoses Chronic RLQ pain Infection in abdomen (HCC) Procedures CT ABD/PEL W IVCON CT ABD & PELVIS W/CONTRAST Niko Stafford MD [address] [place] [address] [place] [id number] Referral ID Status Reason Start Date Expiration Date V isits Requested Visits Authorized [id number] Closed Auto-Generate d Referral 05/07/2022 06/06/2023 1 1 Reason Comments Orders Reason Comments 6 Month Exam Reason Comments 6 Month Exam Reason Comments Recheck Reason Comments Recheck 1 month follow up Reason Comments New Patient Sleep apnea; non-CPA P user Specialty Diagnoses / Procedures Referred By Dunia urias Referred To Contact Diagnoses Sleep apnea, unspecified type Procedures CONSULT TO SLEEP MEDICINE - ADULT OFFICE/OUTPATIENT NEW HIGH MDM 60-74 MINUTES Niko Stafford MD [address] [place] [address] Referral ID Status Reason Start Date Expiration Date V isits Requested Visits Authorized [id number] Closed PCP Requested Referral 07/07/2021 07/07/2022 1 1 Reason Comments Abdominal Pain Reason Comments Follow Up Reason Comments Results Reason Onset Date Comments Refill Request 06/29/2022 Reason Comments Received Outside Medical Records Reason Comments Results Reason Comments Consult Reason Comments New Patient [place] Reason Comments Received Outside Medical Records Reason Comments Orders Reason Comments Rx refill; not on med list Care Teams (unrecognized sec tion and content) Meat Slicer Relationship Specialty Start Date End Date Niko Stafford MD [address] [place], [place] [id number] PCP - General Family Practice 02/08/15 Anthony Guerrero Physician Neurology 06/02/14 Meat Slicer Relationship Specialty Start Date End Date Niko Stafford MD [address] [place], [place] [id number] PCP - General Family Medicine 02/08/15 Anthony Guerrero Physician Neurology 06/02/14 Meat Slicer Relationship Specialty Start Date End Date Niko Stafford MD [address] [place], [place] [id number] PCP - General Family Medicine 02/08/15 Anthony Guerrero Physician Neurology 06/02/14 Meat Slicer Relationship Specialty Start Date End Date Niko Stafford MD [address] [place], [place] [id number] PCP - General Family Medicine 02/08/15 Anthony Guerrero Physician Neurology 06/02/14 Meat Slicer Relationship Specialty Start Date End Date Niko Stafford MD [address] [place], [place] [id number] PCP - General Family Medicine 02/08/15 Anthony Guerrero Physician Neurology 06/02/14 Meat Slicer Relationship Specialty Start Date End Date Niko Stafford MD [address] [place], [place] [id number] PCP - General Family Medicine 02/08/15 Anthony Guerrero Physician Neurology 06/02/14 Meat Slicer Relationship Specialty Start Date End Date Niko Stafford MD [address] [place] [address] PCP - General Family Medicine 02/08/15 Anthony Guerrero Physician Neurology 06/02/14 Meat Slicer Relationship Specialty Start Date End Date Niko Stafford MD [address] [place] [address] PCP - General Family Medicine 02/08/15 Anthony Guerrero Physician Neurology 06/02/14 Meat Slicer Relationship Specialty Start Date End Date Niko Stafford MD [address] [place] [address] PCP - General Family Medicine 02/08/15 Anthony Guerrero Physician Neurology 06/02/14 Meat Slicer Relationship Specialty Start Date End Date Niko Stafford MD [address] [place] [address] PCP - General Family Medicine 02/08/15 Anthony Guerrero Physician Neurology 06/02/14 Meat Slicer Relationship Specialty Start Date End Date Niko Stafford MD [address] [facility] [place] [address] PCP - General Family Medicine 02/08/15 Anthony Guerrero Physician Neurology 06/02/14 Meat Slicer Relationship Specialty Start Date End Date Niko Stafford MD [address] [place] [address] PCP - General Family Medicine 02/08/15 Anthony Guerrero Physician Neurology 06/02/14 Meat Slicer Relationship Specialty Start Date End Date Niko Stafford MD [address] [facility] [place] [address] PCP - General Family Medicine 02/08/15 Anthony Guerrero Physician Neurology 06/02/14 Meat Slicer Relationship Specialty Start Date End Date Niko Stafford MD [address] [place] [address] PCP - General Family Medicine 02/08/15 Anthony Guerrero Physician Neurology 06/02/14 Meat Slicer Relationship Specialty Start Date End Date Niko Stafford MD [address] [place] [address] PCP - General Family Medicine 02/08/15 Anthony Guerrero Physician Neurology 06/02/14 Meat Slicer Relationship Specialty Start Date End Date Niko Stafford MD [address] [place] [address] PCP - General Family Medicine 02/08/15 Anthony Guerrero Physician Neurology 06/02/14 Care Team (unrecognized sect ion and content) Care Team Personnel Name: NIKO STAFFORD MD Member Role: Primary Care Physician Address: Address: [place] [address]- Care Team Related Persons Name: CHRISTINE FAROOQ Address: Home [address] [place] [address] [place] Care Team Personnel Name: NIKO STAFFORD MD Member Role: Primary Care Physician Address: Address: [address] [address]- Care Team Related Persons Name: CHRISTINE FAROOQ Address: Home [address] [place] [id number] Care Team Personnel Name: NIKO STAFFORD MD Member Role: Primary Care Physician Address: Address: [place] [id number]- [place] Care Team Related Persons Name: CHRISTINE FAROOQ Address: Home [address] Care Team Personnel Name: NIKO STAFFORD MD Member Role: Primary Care Physician Address: Address: [facility] [address] Care Team Related Persons Name: CHRISTINE FAROOQ Address: Home [address] FOR RECORDS PERTAINING TO PATIENTS WHO ARE OR HAVE BEEN ENROLLED IN A CHEMICAL DEPENDENCY/SUBSTANCEABUSE PROGRAM, SOME INFORMATION MAY BE OMITTED. This clinical summary was aggregated from multiple sources. Caution should be exercised in using it in the provision of clinical care. This summary normalizes information from multiple sources, and as a consequence, information in this document may materially change the coding, format and clinical context of patient data. In addition, data may be omitted in some cases. CLINICAL DECISIONS SHOULD BE BASED ON THE PRIMARY CLINICAL RECORDS. [facility] [employer] [facility]. provides no warranty or guarantee of the accuracy or completeness of information in this document.
== END | disposition home or self-care (01) ==
LOC: MRI 10:40
PROVIDERS: PCP Family Medicine; Referring Provider Student in an Organized Health Care Education/Training Program; Visit Provider Student in an Organized Health Care Education/Training Program
DX: C61 Malignant neoplasm of prostate (principal)
CPT/HCPCS: 72197; A9575

== ENCOUNTER → 2023-06-08 | Outpatient (CLI) | payer MEDICARE, OTHER, SELFPAY ==
--- OUTSIDE RECORDS SUMMARY | 2023-06-08 08:18 | XMS RPT_ITS | CCD ---
Author Name Unknown Address [address] [facility] [address] [place] [address] Organization [facility] Care Team Providers Care Facilities Supervisor Name Role Phone REECE CHAUDHARY, NIKO Primary Care Physician Anthony Guerrero Unavailable Unavailable Niko Stafford MD Primary Care Provider REECE CHAUDHARY, NIKO Primary Care Physician Anthony Guerrero Unavailable Unavailable Niko Stafford MD Primary Care Provider Anthony Guerrero Unavailable Unavailable Niko Stafford MD Primary Care Provider NIKO STAFFORD Primary Care Unavailable NIKO STAFFORD [...] Unavailable NIKO STAFFORD Attending Unavailable NIKO STAFFORD MD Primary Care Unavailable RAJI SMITH Attending Unavailable REECE CHAUDHARY, NIKO Primary Care Unavailable JOE RAMIRES MD Attending Unavailable REECE CHAUDHARY, NIKO Primary Care Unavailable SHONDA VALLES, CRISTINO Porter Attending Domenica estelle STAFFORD MD, NIKO Primary Care Unavailable JOE RAMIRES MD Attending Unavailable JOE RAMIRES MD Attending Unavailable NIKO STAFFORD MD Primary Care Unavailable NIKO STAFFORD MD Primary Care Unavailable RAJI SMITH Attending Unavailable Medications Current Medications Medication Drug Class(es) Dates Sig (Normalized) Sig (Original) atorvastatin 40 mg oral tablet (20 sources) HMG-CoA Reductase Inhibitor Start: 08-20-2013 End: 06-29-2022 Lipitor 40 mg oral tablet Dose : 40 mg = 1 tab(s), Oral, Daily, 0 Refill(s) Start Date: 08/20/13 Status: Ordered Completed/Discontinued Medications Medication Drug Class(es) Dates Sig (Normalized) Sig (Original) acetaminophen 325 mg oral tablet (20 sources) Start: 05-16-2020 End: 06-15-2020 Tylenol 325 mg oral tablet Dose : 325 mg = 1 tab(s), Oral, QID, # 120 tab(s), 0 Refill(s), Pharmacy: [id number], 05/19/20, 172.7, cm, 05/16/20 10:03:00 EST, Height, kg, 05/16/20 10:03:00 EST, Dosing Weight Start Date: 05/16/20 Stop Date: 06/15/20 Status: Ordered Problems Active Problems Problem Classification Problem Date Documented Date Episodic/Chronic Adjustment disorders (1 source) Grief finding; Translations: [Adjustment disorder with depressed mood] Chronic Anxiety disorders (20 sources) Anxiety state; Translations: [Generalized anxiety disorder] Onset: 03-28-2009 02-08-2015 Chronic Calculus of urinary tract (20 sources) Kidney stone; Translations: [Calculus of kidney] Onset: 03-28-2009 08-04-2013 Episodic Diseases of white blood cells (20 sources) [...] Chronic Other bone disease and musculoskeletal deformities (12 sources) 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 Other nervous system disorders (20 sources) Cervical nerve root compression; Translations: [Cervical root disorders, not elsewhere classified] 01-06-2020 Chronic Other nervous system disorders (1 source) Other chronic pain; Translations: [Chronic RLQ pain] Onset: 05-22-2022 Chronic Other non-traumatic joint disorders (12 sources) Knee pain 03-18-2020 Episodic Other screening [...] type] Onset: 01-06-2020 Chronic Residual codes; unclassified (12 sources) Chronic back pain 04-03-2018 Episodic Spondylosis; intervertebral disc disorders; other back problems (20 sources) Degeneration of intervertebral disc; Translations: [Disorder of lumbar disc] Onset: 03-28-2009 08-04-2013 Chronic Spondylosis; intervertebral disc disorders; other back problems (20 sources) Sciatica; Translations: [Other specified dorsopathies, lumbosacral region] Onset: 09-06-2017 09-06-2017 Episodic Past or Other Problems Problem Classification Problem [...] anus and rectum] Onset: 02-25-2018 01-10-2022 Episodic Diabetes mellitus without complication (20 sources) [...] in unspecified shoulder] Onset: 11-23-2009 04-03-2021 Episodic Results Test Name Value Interpretation Reference Range Facil ity Vital Signs Date Time Vital Sign Value Performing Clinician Steph arriaga 06-09-2022 09:12-0500 Body weight 84.37 kg Niko Stafford MD Work Phone: [facility] 06-09-2022 09:12-0500 Diastolic blood pressure 82 mm[Hg] Niko Stafford MD Work Phone: [facility] 06-09-2022 09:12-0500 Heart rate 70 /min Niko Stafford MD Work Phone: [facility] 06-09-2022 09:12-0500 SaO2% (BldA) [Mass fraction] 97 % Niko Stafford MD Work Phone: [facility] 06-09-2022 09:12-0500 Systolic blood pressure 122 mm[Hg] Niko Stafford MD Work Phone: [facility] 05-07-2022 15:35-0500 Body height 168.9 cm Niko Stafford MD Work Phone: [facility] 05-07-2022 15:35-0500 Body weight 84.37 kg Niko Stafford MD Work Phone: [facility] 05-07-2022 15:35-0500 Diastolic blood pressure 66 mm[Hg] Niko Stafford MD Work Phone: [facility] 05-07-2022 15:35-0500 Heart rate 71 /min Niko Stafford MD Work Phone: [facility] 05-07-2022 15:35-0500 SaO2% (BldA) [Mass fraction] 99 % Niko Stafford MD Work Phone: [facility] 05-07-2022 15:35-0500 Systolic blood pressure 130 mm[Hg] Niko Stafford MD Work Phone: [facility] 04-16-2022 14:15-0500 Body temperature 97.5 [degF] Niko Mendieta Jr., MD Work Phone: [facility] 04-16-2022 14:15-0500 Body weight 84.01 kg iNko Mendieta Jr., MD Work Phone: [facility] 04-16-2022 14:15-0500 Diastolic blood pressure 72 mm[Hg] Niko Mendieta Jr., MD Work Phone: [facility] 04-16-2022 14:15-0500 Heart rate 72 /min Niko Mendieta Jr., MD Work Phone: [facility] 04-16-2022 14:15-0500 Respiratory rate 16 /min Niko Mendieta Jr., MD Work Phone: [facility] 04-16-2022 14:15-0500 SaO2% (BldA) [Mass fraction] 96 % Niko Mendieta Jr., MD Work Phone: [facility] 04-16-2022 14:15-0500 Systolic blood pressure 146 mm[Hg] Niko Mendieta Jr., MD Work Phone: [facility] 03-19-2022 10:38-0500 Diastolic blood pressure 86 mm[Hg] Justina Carrasco APRN.MAGNETOMETER OPERATOR Work Phone: [facility] 03-19-2022 10:38-0500 Heart rate 63 /min Justina Carrasco INSIDE SALES ADMINISTRATOR.MAGNETOMETER OPERATOR Work Phone: [facility] 03-19-2022 10:38-0500 Respiratory rate 18 /min Justina Haagen INSIDE SALES ADMINISTRATOR.MAGNETOMETER OPERATOR Work Phone: [facility] 03-19-2022 10:38-0500 SaO2% (BldA) [Mass fraction] 97 % Justina Haagen INSIDE SALES ADMINISTRATOR.MAGNETOMETER OPERATOR Work Phone: [facility] 03-19-2022 10:38-0500 Systolic blood pressure 134 mm[Hg] Justina Haagen INSIDE SALES ADMINISTRATOR.MAGNETOMETER OPERATOR Work Phone: [facility] 02-12-2022 10:16-0500 Body weight 83.01 kg Justina Haagen INSIDE SALES ADMINISTRATOR.MAGNETOMETER OPERATOR Work Phone: [facility] 02-12-2022 10:16-0500 Diastolic blood pressure 90 mm[Hg] Justina Haagen INSIDE SALES ADMINISTRATOR.MAGNETOMETER OPERATOR Work Phone: [facility] 02-12-2022 10:16-0500 Heart rate 64 /min Justina Haagen INSIDE SALES ADMINISTRATOR.MAGNETOMETER OPERATOR Work Phone: [facility] 02-12-2022 10:16-0500 Respiratory rate 16 /min Justina Haagen INSIDE SALES ADMINISTRATOR.MAGNETOMETER OPERATOR Work Phone: [facility] 02-12-2022 10:16-0500 Systolic blood pressure 142 mm[Hg] Justina Haagen INSIDE SALES ADMINISTRATOR.MAGNETOMETER OPERATOR Work Phone: [facility] 01-10-2022 10:30-0400 Diastolic blood pressure 82 mm[Hg] Niko Stafford MD Work Phone: [facility] 01-10-2022 10:30-0400 Systolic blood pressure 130 mm[Hg] Niko Stafford MD Work Phone: [facility] 01-10-2022 10:05-0400 Body height 168.9 cm Niko Stafford MD Work Phone: [facility] 01-10-2022 10:05-0400 Body weight 82.92 kg Niko Stafford MD Work Phone: [facility] 01-10-2022 10:05-0400 Heart rate 57 /min Niko Stafford MD Work Phone: [facility] 01-10-2022 10:05-0400 SaO2% (BldA) [Mass fraction] 97 % Niko Stafford MD Work Phone: [facility] 07-07-2021 10:29-0400 Body weight 83.92 kg Niko Stafford MD Work Phone: [facility] 07-07-2021 10:29-0400 Diastolic blood pressure 78 mm[Hg] Niko Stafford MD Work Phone: [facility] 07-07-2021 10:29040 Heart rate 64 /min Niko Stafford MD Work Phone: [facility] 07-07-2021 10:290400 Systolic blood pressure 138 mm[Hg] Niko Stafford MD Work Phone: [facility] Encounters Encounter Date Encounter Type Care Provider Facility Start: 05-27-2023 End: 05-28-2023 ambulatory JOE RAMIRES MD Facility:[facility] Start: 05-27-2023 End: 05-27-2023 Patient encounter procedure JOE RAMIRES MD [facility] Start: 03-27-2023 Telephone encounter Niko Stafford MD Work Phone: [facility] [place] Procedures Date Procedure Procedure Detail Performing Clinician Start: 12-24-2022 Biopsy JOE MARTINEZ MD Start: 05-22-2022 Ct abdomen & pelvis w/contrast material Niko Stafford MD Work Phone: Start: 07-22-2020 2019-nCoV vaccination Matthieu ROSALES DO Plan of Treatment Date Care Activity Detail Author Start: 06-09-2025 DIABETES SCREEN DIABETES SCREEN [facility] Start: 06-09-2025 Diabetes Screening Diabetes Screenin g [facility] Start: 05-22-2025 DIABETES SCREEN DIABETES SCREEN [facility] Start: 02-01-2025 DIABETES SCREEN DIABETES SCREEN [facility] Start: 09-01-2024 DIABETES SCREEN DIABETES SCREEN [facility] Start: 02-20-2024 Urine microalbumin profile [facility] Start: 01-07-2024 DIABETES SCREEN DIABETES SCREEN [facility] Start: 12-07-2022 Covid-19 Vaccine ( season) Covid-19 Vaccine ( season) [facility] Start: 12-07-2022 Influenza vaccination [facility] Start: 10-05-2022 Influenza vaccination INFLUENZA (#1) [facility] Immunizations Immunization Date Immunization Notes Care Provider Fa cili 01-19-2022 influenza virus vaccine, unspecified formulation [facility] 02-10-2021 COVID-19 vaccine, ag e 12+ yr ([employer] - PURPLE TOP) Niko Stafford MD Work Phone: [facility] 01-14-2021 influenza, high dose seasonal, preservative-free Niko Stafford MD Work Phone: [facility] 01-14-2021 influenza, high-dose , quadrivalent vaccine (FLUZONE HIGH DOSE QUADRIVALENT) Niko Stafford MD Work Phone: [facility] 08-16-2020 zoster vaccine, recombinant, adjuvanted, (SHINGRIX, PF,) 50 mcg/0.5 mL injection Niko Stafford MD Work Phone: [facility] Work Phone: Payers Date Payer Category Payer Medicare [id number] 2015 Private Health Insurance HUMANA HUMANA MEDICARE SUPPLEMENT [id number] 2015-Present [phone] [address] [address] [place] [address] Indemnity [id number] 2015 Private Health Insurance HUMANA HUMANA MEDICARE SUPPLEMENT [id number] 2015-Present [phone] [address] [address] [place] [address] Indemnity [id number] 2003 Medicare MEDICARE MEDICAR E A AND B [id number] 2003-Present [phone] [place] [address] Medicare [id number] 2003 Medicare MEDICARE MEDICAR E A AND B [id number] 2003-Present [phone] [place] [address] Medicare [id number] 2003 Medicare [id number] 1940 Unknown [id number] 1940 Unknown [id number] 1940 Unknown [id number] 1940 Unknown [id number] 1940 Unknown [id number] 1940 Unknown [id number] Social History Date Type Detail Facility Start: 03-18-2020 End: 09-24-2022 Never smoked tobacco (finding) [facility] Sex Assigned At Male [facility] Start: 01-06-2021 End: 07-10-2022 Alcohol intake Current non-drinker of alcohol (finding) [facility] Start: 1940 Sex Assigned At Not on file [facility] Start: 06-27-2021 End: 02-12-2022 Exposure to SARS-CoV-2 (event) Not sure [facility] Start: 01-10-2022 Tobacco use and exposure Smokeless tobacco non-user [facility] Start: 07-10-2022 End: 10-22-2022 History of Social function [facility] Work Phone: Start: 07-10-2022 End: 10-22-2022 Tobacco use panel [facility] Work Phone: Adult Depression Screening Assessment 2 [facility] Work Phone: Clinical Notes 03-28-2009 to 03-27-2023 Telephone Encounter - Wilfrid Leal - 03/27/2023 10:51 AM ESTTelephone Encounter - Corinne Barrera - 03/27/2023 10:43 AM ESTTelephone Encounter - Molly Nunez Ma - 10/18/2022 1:57 PM EDT Note Date & Type Note Facility 03-27-2023 Miscellaneous Notes Omeprazole 40mg prescribed by Dr. Joe Dahl and was last dispensed today, 03/27/23 by [facility] pharmacy. Pt notified. Wilfrid Leal Patient called to refill omeprazole 40 mg; once a day. Not on med list. Please review. Uses [facility] in [place]. documented in this encounter [facility] 10-18-2022 Miscellaneous Notes Faxed consult to [place] as requested. Molly Nunez Ma Right nasal lesion noted while here with . Has lesion on right nostril with central scabbed depression, nodular border with telangiectasial vessels. Recheck walk in without appt in 2 weeks. Please send consult to Dr. Milo Hunt Telephone on 10/18/22 CONSULT TO DERMATOLOGY External nasal lesion (primary encounter diagnosis) Thanks, Erick Brown PA-C documented in this encounter [facility] 10-02-2022 Miscellaneous Notes Records reviewed. Patient with a 6 cm segment of Cabral's. History of a previous fundoplication. Biopsies revealed indefinite for low-grade dysplasia. 1. We will obtain esophageal biopsy slides for review. 2. We will arrange for a virtual visit. Records received and uploaded under scanned doc. Please review and advise Denisha Hensley Block Mechanic documented in this encounter [facility] 08-06-2022 Note HNO ID: [id number] Author: Adrian Thompson MD Service: ? Author [...] impingement sees Dr. Lott, pain management at [place] Colon polyp Depression Diverticulosis of colon (without [...] los (more content not included)... [facility] 08-06-2022 History of Presen t illness Narrative [...] impingement sees Dr. Lott, pain management at [place] Colon polyp Depression Diverticulosis of colon (without [...] 2022 11:06 AM documented in this encounter [facility] 08-03-2022 Miscellaneous Notes Faxed referral over as requested. Ok to do PT is needing referral for Pain Management his previous one has retired (Dr. Lott) he is wanting to go to Dr. Ramires at [facility]. Please assist and advise. Kori LOVE documented in this encounter [facility] 07-26-2022 Miscellaneous Notes Records received uploaded under scanned doc. Pt needs to be seen for Cabral's I will call and schedule. Please review and advise Denisha Hensley Block Mechanic documented in this encounter [facility] 06-29-2022 Miscellaneous Notes Pharmacy verified in [facility] Patient has been identified by name [...] Anay Wheeler Pss documented in this encounter [facility] 06-13-2022 Miscellaneous Notes Spoke with patient. Given message from provider's office. Patient verbalizes understanding. Patient states he has an appointment with Dr. Joe Dahl on 06/19. He says I'm doing about the same . Yary Lindsay RN TC to pt, left message to return call to office. FYI- pt cancelled appt with Gen Surg (pt was advised by PCP at [facility] on 06/09/22 to keep appt with Gen [...] results. Results CT ABD/PEL W IVCON (Order [id number]) Patient Info Patient Name Sex Veronica Gore ([id number]) Male 1940 Imaging Findings Finding Acuity Linked [...] Radiology, [place] Physician Reading Date [facility] [place] Provider 05/25/2022 05/25/2022 11:21 PM - Radiology, [...] be communicated with the ordering provider via [facility] staff message or phone message by Imaging Support Services within 2 business days of report finalization. ==== Algorithms for management of incidental imaging findings can be found on the [facility] Intranet Sharepoint site at: [email or web address] [email or web address] [email or web address] Bumper Operator: JOSE Transcribe Date/Time: May 25 2022 11:14P Dictated by : VENTURA KENNY MD This examination was interpreted and the report reviewed and electronically signed by: VENTURA KENNY MD on May 25 2022 11:19PM EST Results-Findings * * *Final Report* * * DATE OF EXAM: May 22 2022 11:19AM [facility] 0530 - CT ABD/PEL W IVCON / [...] hiatal hernia. Lower thorax: No additional findings Soa Engineer (topogram) images: No additional findings. Result History CT ABD/PEL W IVCON (Order #[id number]) on 05/25/2022 - Order Result History Report Result Information Status Provider Status Actionable Final result (05/25/2022 11:21 PM) Reviewed Exam Performed Date and Time 05/22/2022 11:19 AM [facility] DIVISION OF RADIOLOGY [address] [facility] [address] CT ABD/PEL W IVCON: Result Notes M [...] CT results, office notes, labs faxed to [phone] as requested. Patient said trying to get appt with Dr Nestor Dahl and will not get set up until items are faxed to them. documented in this encounter [facility] 06-11-2022 Miscellaneous Notes Patient calling asking for results. Went over results, notes from Dr Stafford with understanding. Patient said he has seen Dr Fritz in the past wanted referral faxed to his office. Printed consult, face sheet, insurance card copy, urine results, office notes and CT results faxed to [phone] as requested. Urine shows blood in urine. In addition to the surgery consult we placed Saturday. Refer to urology for hematuria. documented in this encounter [facility] 06-09-2022 Note HNO ID: [id number] Author: Niko Stafford MD Service: ? Author [...] to get labs I ordered today. Erick Kevin discussed ct with him and asked him [...] Abs Lymph 1.00 - 4.00 k/uL 3.39 [place]% % 10.3 Abs [place] <0.87 k/uL 1.08 (H) Eosin% % 1.1 [...] impingement sees Dr. Lott, pain management at [place] Colon polyp Depression Diverticulosis of colon (without mention of hemorrhage) Elevated PSA sees Dr Boswell Hyperlipidemia Kidney disease Low testosterone Obstructive sleep apnea Osteoarthrosis Personal history of colonic polyps Sleep apnea Snoring PAST SURGICAL HISTORY Procedure Laterality Date CHOLECYSTEC (more content not included)... [facility] 06-09-2022 Instructions Niko Stafford MD - 06/09/2022 9:39 AM EST Get labs and urine today. Make sure you follow up with surgery for follow up. documented in this encounter [facility] 06-09-2022 History of Presen t illness Narrative [...] Abs Lymph 1.00 - 4.00 k/uL 3.39 [place]% % 10.3 Abs [place] <0.87 k/uL 1.08 (H) Eosin% % 1.1 [...] impingement sees Dr. Lott, pain management at [place] Colon polyp Depression Diverticulosis of colon (without [...] SURGERY Niko Stafford documented in this encounter [facility] 05-28-2022 Miscellaneous Notes Patient returned call and [...] Erick Brown PA-C documented in this encounter [facility] 05-22-2022 Note HNO ID: [id number] Author: RT Jus(R) Service: ? Author Type: Dance Critic Type: Progress Notes Filed: 05/22/2022 2:45 PM [...] 22, 2022 TIME: 2:44 PM [facility] 05-22-2022 History of Presen t illness Narrative [...] TIME: 2:44 PM documented in this encounter [facility] 05-07-2022 Note HNO ID: [id number] Author: Niko Stafford MD Service: ? Author [...] impingement sees Dr. Lott, pain management at [place] Colon polyp Depression Diverticulosis of colon (without [...] DIF (more content not included)... [facility] 05-07-2022 History of Presen t illness Narrative [...] impingement sees Dr. Lott, pain management at [place] Colon polyp Depression Diverticulosis of colon (without [...] in four weeks. documented in this encounter [facility] 04-16-2022 Note HNO ID: [id number] Author: Niko Mendieta Jr., MD Service: ? [...] TAMMI for which he was dx'd at [facility] via split night sleep study showing severe [...] impingement sees Dr. Lott, pain management at [facility] (more content not included)... 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 Those results in [facility]. Note on review of results, question [...] impingement sees Dr. Lott, pain management at [place] Colon polyp Depression Diverticulosis of colon (without [...] treating again. Continues to have symptoms of TMAMI, with greater risk factor likely being oral [...] which included preparing to see the patient, [id number] patient care, completing clinical documentation, obtaining and/or reviewing separately obtained history, performing a medically appropriate examination, counseling and educating the patient/family/caregiver, ordering medications, tests, or procedures, and communicating results to the patient/family/caregiver. documented in this encounter [facility] 03-19-2022 Instructions Justina Carrasco APRN.CNP - 03/19/2022 11:01 AM EST Continue the same dose of medication. Recheck with Dr. Stafford in June. Let us know sooner if you feel that the dose of medication needs to be increased. documented in this encounter [facility] 03-19-2022 History of Presen t illness Narrative [...] impingement sees Dr. Lott, pain management at [place] Colon polyp Depression Diverticulosis of colon (without [...] needed for worsening/no improvement. Justina Carrasco APRN.CNP documented in this encounter [facility] 02-12-2022 Instructions Justina Carrasco APRN.CNP - 02/12/2022 10:45 AM EST Continue the same medication. Recheck in 1 month for a recheck. 3. Let us know sooner if any problems/concerns. documented in this encounter [facility] 02-12-2022 History of Presen t illness Narrative [...] impingement sees Dr. Lott, pain management at [place] Colon polyp Depression Diverticulosis of colon (without [...] which included preparing to see the patient, [id number] patient care, completing clinical documentation, performing a medically appropriate examination, and counseling and educating the patient/family/caregiver. documented in this encounter [facility] documented as of this encounter (statuses as of 01/10/2022) [facility] History of Past illness Narrative* Problem Noted [...] of this encounter (statuses as of 02/12/2022) [facility] History of Past illness Narrative* Problem Noted Date Resolved Date Back problem 01/10/2022 01/10/2022 Chronic back pain 01/10/2022 01/10/2022 Hemorrhoids 01/10/2022 01/10/2022 History of cervical spinal arthrodesis 2 01/10/2022 History of surgical procedure 01/10/2022 Long[place]-Schlatter's disease 01/10/202201/10 Skin lesion 01/10/2022 01/10/2022 Benign [...] of this encounter (statuses as of 03/19/2022) [facility] History of Past illness Narrative* Problem Noted Date Resolved Date Back problem 01/10/2022 01/10/2022 Chronic back pain 01/10/2022 01/10/2022 Hemorrhoids 01/10/2022 01/10/2022 History of cervical spinal arthrodesis 01/10/2022 History of surgical procedure 01/10/2022 [place]-Schlatter's disease 01/10/202201/10 Skin lesion 01/10/2022 01/10/2022 Benign [...] of this encounter (statuses as of 04/16/2022) [facility] History of Past illness Narrative* Problem Noted [...] Routine general medical exam ination at a [facility] care facility 03/28/2009 02/08/2015 Overview: 03/28/2009, [place] [facility] 06/13/2010, yearly check-up documented as of this encounter (statuses as of 05/08/2022) [facility] History of Past illness Narrative* Problem Noted Date Resolved Date Back problem 01/10/2022 01/10/2022 Chronic back pain 01/10/2022 01/10/2022 Hemorrhoids 01/10/2022 01/10/2022 History of cervical spinal arthrodesis 2 01/10/2022 History of surgical procedure 01/10/2022 Longwood-Schlatter's disease 01/10/202201/10 Skin lesion 01/10/2022 01/10/2022 Benign [...] of this encounter (statuses as of 06/09/2022) [facility] History of Past illness Narrative* Problem Noted Date Resolved Date Back problem 01/10/2022 01/10/2022 Chronic back pain 01/10/2022 01/10/2022 Hemorrhoids 01/10/2022 01/10/2022 History of cervical spinal arthrodesis 2 01/10/2022 History of surgical procedure 01/10/2022 Longwood-Schlatter's disease 01/10/202201/10 Skin lesion 01/10/2022 01/10/2022 Benign neoplasm of transverse colon 02/25/2018 01/10/2022 Right lower quadrant pain 02/25/20182021 Pain in joint, shoulder region 11/23/2009 1 Overview: Left rotator cuff Colon polyps 04/29/2009 01/10/2022 Overview: Dr. Miranda, q 3 year scopes Routine general medical exam ination at a [facility] care facility 03/28/2009 02/08/2015 Overview: 03/28/2009, establish care 06/13/2010, yearly check-up documented as of this encounter (statuses as of 06/11/2022) [facility] History of Past illness Narrative* Problem Noted [...] of this encounter (statuses as of 06/29/2022) [facility] History of Past illness Narrative* Problem Noted Date Resolved Date Back problem 01/10/2022 01/10/2022 Chronic back pain 01/10/2022 01/10/2022 Hemorrhoids 01/10/2022 01/10/2022 History of cervical spinal arthrodesis 2 01/10/2022 History of surgical procedure 01/10/2022 Longwood-Schlatter's disease 01/10/202201/10 Skin lesion 01/10/2022 01/10/2022 Benign [...] of this encounter (statuses as of 07/27/2022) [facility] History of Past illness Narrative* Problem Noted Date Resolved Date Back problem 01/10/2022 01/10/2022 Chronic back pain 01/10/2022 01/10/2022 Hemorrhoids 01/10/2022 01/10/2022 History of cervical spinal arthrodesis 2 01/10/2022 History of surgical procedure 01/10/2022 Longwood-Schlatter's disease 01/10/202201/10 Skin lesion 01/10/2022 01/10/2022 Benign neoplasm of transverse colon 02/25/2018 01/10/2022 Right lower quadrant pain 02/25/20182021 Pain in joint, shoulder region 11/23/2009 1 Overview: Left rotator cuff Colon polyps 04/29/2009 01/10/2022 Overview: Dr. Miranda, q 3 year scopes Routine general medical exam ination at a [facility] care facility 03/28/2009 02/08/2015 Overview: 03/28/2009, establish care 06/13/2010, yearly check-up documented as of this encounter (statuses as of 07/28/2022) [facility] History of Past illness Narrative* Problem Noted Date Resolved Date Back problem 01/10/2022 01/10/2022 Chronic back pain 01/10/2022 01/10/2022 Hemorrhoids 01/10/2022 01/10/2022 History of cervical spinal arthrodesis 2 01/10/2022 History of surgical procedure 01/10/2022 Longwood-Schlatter's disease 01/10/202201/10 Skin lesion 01/10/2022 01/10/2022 Benign [...] of this encounter (statuses as of 08/03/2022) [facility] History of Past illness Narrative* Problem Noted [...] of this encounter (statuses as of 08/07/2022) [facility] History of Past illness Narrative* Problem Noted Date Resolved Date Back problem 01/10/2022 01/10/2022 Chronic back pain 01/10/2022 01/10/2022 Hemorrhoids 01/10/2022 01/10/2022 History of cervical spinal arthrodesis 2 01/10/2022 History of surgical procedure 01/10/2022 Longwood-Schlatter's disease 01/10/202201/10 Skin lesion 01/10/2022 01/10/2022 Benign [...] of this encounter (statuses as of 08/16/2022) [facility] History of Past illness Narrative* Problem Noted Date Resolved Date Back problem 01/10/2022 01/10/2022 Chronic back pain 01/10/2022 01/10/2022 Hemorrhoids 01/10/2022 01/10/2022 History of cervical spinal arthrodesis 01/10/2022 History of surgical procedure 01/10/2022 Longwood-Schlatter's disease 01/10/202201/10 Skin lesion 01/10/2022 01/10/2022 Benign [...] of this encounter (statuses as of 10/03/2022) [facility] History of Past illness Narrative* Problem Noted [...] of this encounter (statuses as of 10/18/2022) [facility] History of Past illness Narrative* Problem Noted [...] of this encounter (statuses as of 02/10/2023) [facility] History of Past illness Narrative* Problem Noted [...] of this encounter (statuses as of 02/10/2023) [facility] History of Past illness Narrative* Problem Noted Date Diagnosed Date Resolved Date Back problem 01/10/2022 01/10/2022 Chronic back pain 01/10/2022 01/10/2022 Hemorrhoids 01/10/2022 01/10/2022 History of cervical spinal arthrodesis 01/10/2022 01/10/2022 History of surgical procedure 01/10/2022 01/10/2022 Longwood-Schlatter's disease 01/10/2022 1 Skin lesion 01/10/2022 01/10/2022 Benign neoplasm of transverse colon 02/25/2018 01/10/2022 Right lower quadrant pain 02/25/2018 Pain in joint, shoulder region 11/23/2009 01/10/2022 Overview: Left rotator cuff Colon polyps 04/29/2009 01/10/2022 Overview: Dr. Miranda, q 3 year scopes Routine general medical exam ination at a [facility] facility 03/28/2009 02/08/2015 Overview: 03/28/2009, establish care 06/13/2010, yearly check-up documented as of this encounter (statuses as of 03/28/2023) [facility] History of Present illness Narrative* Niko Stafford [...] impingement sees Dr. Lott, pain management at [place] Colon polyp Depression Diverticulosis of colon (without [...] INFLUENZA(1) due on 12/07/2021-will be getting at [facility]. VITALS: BP 130/82 Pulse (!) 57 Ht [...] RTO in four weeks. [facility] History of Present illness Narrative* Niko Stafford [...] impingement sees Dr. Lott, pain management at [place] Colon polyp Depression Diverticulosis of colon (without [...] six months and prn. [facility] Miscellaneous Notes* Telephone Encounter - Nusrat Gracia Ma - 06/30/2021 8:[address] orders for cbc with diff with patient. [facility] History of Past illness Narrative* Problem Noted Date Resolved Date Routine general medical exam ination at a health care facility 03/28/2009 02/08/2015 Overview: 03/28/2009, establish care 06/13/2010, yearly check-up documented as of this encounter (statuses as of 06/30/2021) [facility] History of Past illness Narrative* Problem Noted Date Resolved Date Routine general medical exam ination at a health care facility 03/28/2009 02/08/2015 Overview: 03/28/2009, establish care 06/13/2010, yearly check-up documented as of this encounter (statuses as of 07/07/2021) [facility] No data available for this section [facility] Evaluation + Plan note Future Appointments Appointment Date:10/03/2021 10:00:00 AM Scheduled Provider:RAJI SMITH Location:PM Office Appointment Type:PM OV [facility] Evaluation + Plan note Future Appointments Appointment Date:12/12/2021 01:30:00 PM Scheduled Provider:JOE ROSALES DO Location:PM Office Appointment Type:PM OV [facility] Evaluation + Plan note Future Appointments Appointment Date:08/03/2022 10:00:00 AM Scheduled Provider:RAJI SMITH Location:PM Office Appointment Type:PM [facility] Evaluation + Plan note Future Appointments Appointment Date:12/31/2022 08:15:00 AM Scheduled Provider:JOE RAMIRES MD Location:[facility] PM Appointment Type:PM OV [facility] Evaluation + Plan note Future Appointments Appointment Date:02/25/2023 01:30:00 PM Scheduled Provider:JOE RAMIRES MD Location:[facility] PM Appointment Type:PM OV [facility] Ascenergyaluation + Plan note Future Appointments Appointment Date:05/27/2023 12:15:00 PM Scheduled Provider:JOE RAMIRES MD Location:[facility] PM Appointment Type:PM OV [facility] Ascenergyaluation + Plan note Future Appointments Appointment Date:08/19/2023 10:00:00 AM Scheduled Provider:JOE RAMIRES MD Location:[facility] PM Appointment Type:PM OV [facility] evLumidigmwwcfm note* Diagnosis Sleep apnea, unspecified type- Primary documented in this encounter [facility] note* Diagnosis Monocytosis- Primary Monocytosis (symptomatic) Depression, unspecified depression type Grief Adjustment disorder with depressed mood Hyperglycemia Other abnormal glucose Sleep apnea, unspecified type Mixed hyperlipidemia Advance directive discussed with patient Other specified counseling documented in this encounter [facility] note* Diagnosis Cervical nerve root impingement- Primary Brachial neuritis or radiculitis nos Mixed hyperlipidemia Depression, unspecified depression type Hyperglycemia Other abnormal glucose documented in this encounter [facility] note* Diagnosis Depression, unspecified depression type- Primary documented in this encounter [facility] note* Diagnosis Obstructive sleep apnea (adult) (pediatric)- Primary documented in this encounter [facility] note* Diagnosis Chronic RLQ pain- Primary Abdominal pain, right lower quadrant GERD without esophagitis Esophageal reflux Infection in abdomen (HCC) Unspecified peritonitis documented in this encounter [facility] note* Diagnosis RUQ pain- Primary Abdominal pain, right upper quadrant RLQ abdominal pain Abdominal pain, right lower quadrant GERD without esophagitis Esophageal reflux documented in this encounter [facility] note* Diagnosis Microscopic hematuria- Primary documented in this encounter [facility] note* Diagnosis Mixed hyperlipidemia GERD without esophagitis Esophageal reflux documented in this encounter [facility] note* Diagnosis Cervical nerve root impingement- Primary Brachial neuritis or radiculitis nos 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 documented in this encounter [facility] note* Diagnosis Gastroesophageal reflux disease without esophagitis- Primary Esophageal reflux Cabral's esophagus with dysplasia Cabral's esophagus documented in this encounter [facility] note* Diagnosis Cabral's esophagus without dysplasia- Primary Cabral's esophagus documented in this encounter [facility] note* Diagnosis External nasal lesion- Primary Unspecified disorder of skin and subcutaneous tissue documented in this encounter [facility] note* Diagnosis Chronic RLQ pain Abdominal pain, right lower quadrant documented in this encounter [facility] Discharge instructions No data available for this section [facility] progress note No data available for this section [facility] Summary Purpose Family History No Family History Records Found No data available for this section No data available for this section No Family History Records Found No data available for this section No Family History Records Found Advance Directives No Advanced Directives Records FoundDocuments on File Type Date Recorded Patient State Tested Nursing Assistant Expl anation Advance Directive(s) 04/16/2018 12:40 PM Documents on File Type Date Recorded Patient State Tested Nursing Assistant Expl anation Advance Directive(s) 04/16/2018 12:40 PM Reason for Referral Specialty Diagnoses / Procedures Referred By Contac t Referred To Contact Dermatology Diagnoses External nasal lesion Procedures CONSULT TO DERMATOLOGY Matilda Brown PA-C [address] [place] [address] Referral ID Status Reason Start Date Expiration Date Visits Requested Visits Authorized [id number] Ref Not Required PCP Requested Referral 10/18/2022 10/18/2023 1 1 Specialty Diagnoses / Procedures Referred By Contac t Referred To Contact Gastroenterology Diagnoses Cabral's esophagus without dysplasia Procedures CONSULT TO GASTROENTEROLOGY OFFICE/OUTPATIENT [facility] 60-74 MINUTES Adrian Thompson MD [address] [place] [address] Referral ID Status Reason Start Date Expiration Date Visits Requested Visits Authorized [id number] Authorized PCP Requested Referral 10/02/2022 10/02/2023 1 1 Specialty Diagnoses / Procedures Referred By Contac t Referred To Contact Pain Management Diagnoses 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 Procedures CONSULT TO PAIN MGT Niko Stafford MD [address] [place] [address] Referral ID Status Reason Start Date Expiration Date Visits Requested Visits Authorized [id number] Ref Not Required PCP Requested Referral 08/03/2022 08/03/2023 1 1 Specialty Diagnoses / Procedures Referred By Contac t Referred To Contact Urology Diagnoses Microscopic hematuria Procedures CONSULT TO UROLOGY OFFICE/OUTPATIENT [facility] 60-74 MINUTES Niko Stafford MD [address] [place] [address] Referral ID Status Reason Start Date Expiration Date Visits Requested Visits Authorized [id number] Authorized PCP Requested Referral 06/11/2022 06/11/2023 1 1 Specialty Diagnoses / Procedures Referred By Contac t Referred To Contact General Surgery Diagnoses RUQ pain RLQ abdominal pain GERD without esophagitis Procedures CONSULT TO GENERAL SURGERY OFFICE/OUTPATIENT [facility] 60-74 MINUTES Niko Stafford MD [address] [place] [address] Referral ID Status Reason Start Date Expiration Date Visits Requested Visits Authorized [id number] Authorized PCP Requested Referral 06/09/2022 06/09/2023 1 1 Specialty Diagnoses / Procedures Referred By Contac t Referred To Contact CT IMAGING Diagnoses Chronic RLQ pain Infection in abdomen (HCC) Procedures CT ABD/PEL W IVCON CT ABD & PELVIS W/CONTRAST Niko Stafford MD [address] [place] [address] Ct Imaging Referral ID Status Reason Start Date Expiration Date Visits Requested Visits Authorized [id number] Authorized Auto-Generat ed Referral 05/07/2022 06/06/2023 1 1 Specialty Diagnoses / Procedures Referred By Contac t Referred To Contact Diagnoses Sleep apnea, unspecified type Procedures CONSULT TO SLEEP MEDICINE - ADULT OFFICE/OUTPATIENT [facility] 60-74 MINUTES Niko Stafford MD [address] [facility] [place] [address] Referral ID Status Reason Start Date Expiration Date Visits Requested Visits Authorized [id number] Authorized PCP Requested Referral 07/07/2021 07/07/2022 1 1 Additional Source Comments (unrecognized sect ion and content) No Status Records FoundNo Status Records FoundNo Status Records Found INFORMATION SOURCE (unrecogn ized section and content) DATE CREATED AUTHOR AUTHOR'S ORGANIZ ATION 03/28/2023 [facility] DATE CREATED AUTHOR AUTHOR'S ORGANIZ ATION 05/29/2023 [facility] ([place]) Source Comments (unrecognize d section and content) In the event this informatio n is protected by the Federal Confidentiality of Alcohol and Drug Abuse Patient Records regulations: The Federal rules restrict any use of the information to criminally investigate or prosecute any alcohol or drug abuse patient.[facility] the event this information is protected by the Federal Confidentiality of Alcohol and Drug Abuse Patient Records regulations: The Federal rules restrict any use of the information to criminally investigate or prosecute any alcohol or drug abuse patient.[facility] the event this information is protected by the Federal Confidentiality of Alcohol and Drug Abuse Patient Records regulations: The Federal rules restrict any use of the information to criminally investigate or prosecute any alcohol or drug abuse patient.[facility] the event this information is protected by the Federal Confidentiality of Alcohol and Drug Abuse Patient Records regulations: The Federal rules restrict any use of the information to criminally investigate or prosecute any alcohol or drug abuse patient.[facility] the event this information is protected by the Federal Confidentiality of Alcohol and Drug Abuse Patient Records regulations: The Federal rules restrict any use of the information to criminally investigate or prosecute any alcohol or drug abuse patient.[facility] the event this information is protected by the Federal Confidentiality of Alcohol and Drug Abuse Patient Records regulations: The Federal rules restrict any use of the information to criminally investigate or prosecute any alcohol or drug abuse patient.[facility] the event this information is protected by the Federal Confidentiality of Alcohol and Drug Abuse Patient Records regulations: The Federal rules restrict any use of the information to criminally investigate or prosecute any alcohol or drug abuse patient.[facility] the event this information is protected by the Federal Confidentiality of Alcohol and Drug Abuse Patient Records regulations: The Federal rules restrict any use of the information to criminally investigate or prosecute any alcohol or drug abuse patient.[facility] the event this information is protected by the Federal Confidentiality of Alcohol and Drug Abuse Patient Records regulations: The Federal rules restrict any use of the information to criminally investigate or prosecute any alcohol or drug abuse patient.[facility] the event this information is protected by the Federal Confidentiality of Alcohol and Drug Abuse Patient Records regulations: The Federal rules restrict any use of the information to criminally investigate or prosecute any alcohol or drug abuse patient.[facility] the event this information is protected by the Federal Confidentiality of Alcohol and Drug Abuse Patient Records regulations: The Federal rules restrict any use of the information to criminally investigate or prosecute any alcohol or drug abuse patient.[facility] the event this information is protected by the Federal Confidentiality of Alcohol and Drug Abuse Patient Records regulations: The Federal rules restrict any use of the information to criminally investigate or prosecute any alcohol or drug abuse patient.[facility] the event this information is protected by the Federal Confidentiality of Alcohol and Drug Abuse Patient Records regulations: The Federal rules restrict any use of the information to criminally investigate or prosecute any alcohol or drug abuse patient.[facility] the event this information is protected by the Federal Confidentiality of Alcohol and Drug Abuse Patient Records regulations: The Federal rules restrict any use of the information to criminally investigate or prosecute any alcohol or drug abuse patient.[facility] the event this information is protected by the Federal Confidentiality of Alcohol and Drug Abuse Patient Records regulations: The Federal rules restrict any use of the information to criminally investigate or prosecute any alcohol or drug abuse patient.[facility]In the event this information is protected by the Federal Confidentiality of Alcohol and Drug Abuse Patient Records regulations: The Federal rules restrict any use of the information to criminally investigate or prosecute any alcohol or drug abuse patient.[facility] the event this information is protected by the Federal Confidentiality of Alcohol and Drug Abuse Patient Records regulations: The Federal rules restrict any use of the information to criminally investigate or prosecute any alcohol or drug abuse patient.[facility]In the event this information is protected by the Federal Confidentiality of Alcohol and Drug Abuse Patient Records regulations: The Federal rules restrict any use of the information to criminally investigate or prosecute any alcohol or drug abuse patient.[facility]In the event this information is protected by the Federal Confidentiality of Alcohol and Drug Abuse Patient Records regulations: The Federal rules restrict any use of the information to criminally investigate or prosecute any alcohol or drug abuse patient.[facility]In the event this information is protected by the Federal Confidentiality of Alcohol and Drug Abuse Patient Records regulations: The Federal rules restrict any use of the information to criminally investigate or prosecute any alcohol or drug abuse patient.[facility]In the event this information is protected by the Federal Confidentiality of Alcohol and Drug Abuse Patient Records regulations: The Federal rules restrict any use of the information to criminally investigate or prosecute any alcohol or drug abuse patient.[facility] Reason for Visit (unrecogniz ed section and content) Specialty Diagnoses / Procedures Referred By Dunia t Referred To Contact CT IMAGING Diagnoses Chronic RLQ pain Infection in abdomen (HCC) Procedures CT ABD/PEL W IVCON CT ABD & PELVIS W/CONTRAST Niko Stafford MD [address] [facility] [place] [address] [place] [address] Referral ID Status Reason Start Date Expiration Date V isits Requested Visits Authorized [id number] Closed Auto-Generate d Referral 05/07/2022 06/06/2023 1 1 Reason Comments Orders Reason Comments 6 Month Exam Reason Comments 6 Month Exam Reason Comments Recheck Reason Comments Recheck 1 month follow up Reason Comments New Patient Sleep apnea; non-CPA P user Specialty Diagnoses / Procedures Referred By Dunia t Referred To Contact Diagnoses Sleep apnea, unspecified type Procedures CONSULT TO SLEEP MEDICINE - ADULT OFFICE/OUTPATIENT NEW HIGH MDM 60-74 MINUTES Niko Stafford MD [address] [place] [address] Referral ID Status Reason Start Date Expiration Date V isits Requested Visits Authorized [id number] Closed PCP Requested Referral 07/07/2021 07/07/2022 1 [...] Care Teams (unrecognized sec tion and content) Facilities Supervisor Relationship Specialty Start Date End Date Niko Stafford MD [address] [place], [place] [id number] PCP - General Family Practice 02/08/15 Anthony Guerrero Physician Neurology 06/02/14 Facilities Supervisor Relationship Specialty Start Date End Date Niko Stafford MD [address] [place] [address] PCP - General Family Medicine 02/08/15 Anthony Guerrero Physician Neurology 06/02/14 Facilities Supervisor Relationship Specialty Start Date End Date Niko Stafford MD [address] [place], [place] [id number] PCP - General Family Medicine 02/08/15 Anthony Guerrero Physician Neurology 06/02/14 Facilities Supervisor Relationship Specialty Start Date End Date Niko Stafford MD [address] [place], [place] [id number] PCP - General Family Medicine 02/08/15 Anthony Guerrero Physician Neurology 06/02/14 Facilities Supervisor Relationship Specialty Start Date End Date Niko Stafford MD [address] [place] [address] PCP - General Family Medicine 02/08/15 MoAnthony brown Physician Neurology 06/02/14 Facilities Supervisor Relationship Specialty Start Date End Date Niko Stafford MD [address] [place] [address] PCP - General Family Medicine 02/08/15 MoAnthony brown Physician Neurology 06/02/14 Facilities Supervisor Relationship Specialty Start Date End Date Niko Stafford MD [address] [place] [address] PCP - General Family Medicine 02/08/15 Anthony Guerrero Physician Neurology 06/02/14 Facilities Supervisor Relationship Specialty Start Date End Date Niko Stafford MD [address] [place] [address] PCP - General Family Medicine 02/08/15 Anthony Guerrero Physician Neurology 06/02/14 Facilities Supervisor Relationship Specialty Start Date End Date Niko Stafford MD [address] [facility] [address] PCP - General Family Medicine 02/08/15 Anthony Guerrero Physician Neurology 06/02/14 Facilities Supervisor Relationship Specialty Start Date End Date Niko Stafford MD [address] [place] [address] PCP - General Family Medicine 02/08/15 Anthony Guerrero Physician Neurology 06/02/14 Facilities Supervisor Relationship Specialty Start Date End Date Niko Stafford MD [address] [place] [address] PCP - General Family Medicine 02/08/15 Anthony Guerrero Physician Neurology 06/02/14 Facilities Supervisor Relationship Specialty Start Date End Date Niko Stafford MD [address] [place] [address] PCP - General Family Medicine 02/08/15 Anthony Guerrero Physician Neurology 06/02/14 Facilities Supervisor Relationship Specialty Start Date End Date Niko Stafford MD [address] [place] [address] PCP - General Family Medicine 02/08/15 Anthony Guerrero Physician Neurology 06/02/14 Facilities Supervisor Relationship Specialty Start Date End Date Niko Stafford MD [address] [place] [address] PCP - General Family Medicine 02/08/15 Anthony Guerrero Physician Neurology 06/02/14 Facilities Supervisor Relationship Specialty Start Date End Date Niko Stafford MD [address] [place], [place] [id number] PCP - General Family Medicine 02/08/15 Anthony Guerrero Physician Neurology 06/02/14 Facilities Supervisor Relationship Specialty Start Date End Date Niko Stafford MD [address] [place] [address] PCP - General Family Medicine 02/08/15 Anthony Guerrero Physician Neurology 06/02/14 Care Team (unrecognized sect ion and content) Care Team Personnel Name: NIKO STAFFORD MD Member Role: Primary Care Physician Address: Address: [facility] [address] [place] [address]- [place] Care Team Related Persons Name: MANJUTelly CHRISTINE Address: Home [address] [place] [address] [place] Care Team Personnel Name: NIKO STAFFORD MD Member Role: Primary Care Physician Address: Address: [address] Care Team Related Persons Name: CHRISTINE FAROOQ Address: [place] [address] [place] [address] Care Team Personnel Name: NIKO STAFFORD MD Member Role: Primary Care Physician Address: Address: [address] Care Team Related Persons Name: CHRISTINE FAROOQ Address: Home [address] [place] [address] Care Team Personnel Name: NIKO STAFFORD MD Member Role: Primary Care Physician Address: Address: [address] Care Team Related Persons Name: CHRISTINE FAROOQ Address: [place] [address] [place] [address] FOR RECORDS PERTAINING TO PATIENTS WHO ARE [...] BE BASED ON THE PRIMARY CLINICAL RECORDS. [facility] [employer] [facility]. provides no warranty or guarantee of the accuracy or completeness of information in this document.
== END | disposition home or self-care (01) ==
LOC: LAB 08:15
PROVIDERS: PCP Family Medicine; Referring Provider Urology; Visit Provider Urology
DX: N40.1 Benign prostatic hyperplasia with lower urinary tract symptoms (principal)
CPT/HCPCS: 36415; 84153

== ENCOUNTER → 2023-12-11 | Outpatient (CLI) | payer MEDICARE, OTHER, SELFPAY ==
[2023-12-11 10:32] LABS: PSA,Total- Diagnostic 0.02 ng/mL (0.0-4.0)
== END | disposition home or self-care (01) ==
LOC: LAB 09:13
PROVIDERS: PCP Family Medicine; Referring Provider Nurse Practitioner; Visit Provider Nurse Practitioner
DX: C61 Malignant neoplasm of prostate (principal)
CPT/HCPCS: 36415; 84153

== ENCOUNTER → 2024-01-27 | Outpatient (CLI) | payer MEDICARE, OTHER, SELFPAY ==
--- NOTE | 2024-01-27 10:55 | RAD_ITS ---
INDICATION: RIGHT HIP PAIN EXAMINATION/TECHNIQUE: X-RAY - XR Hips Bilateral with Pelvis when performed; 2 Views COMPARISON: CT dated April 30, 2014 FINDINGS: There are degenerative changes of the visualized lower lumbar spine. PELVIC BONES: No displaced fracture, destructive or sclerotic lesions. Note that overlapping bowel shadows may however obscure fine detail. Sacroiliac joints are unremarkable. No widening of the pubic symphysis. HIPS: There are mild degenerative changes of the hips characterized by joint space narrowing and subchondral sclerosis. SOFT TISSUES: No soft tissue swelling or gas. 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 RAD/Hips B/L min 2 views w/ Pelvis IMPRESSION: Degenerative changes of the hips. Electronically Signed: Belem Hayden MD at 15:59 EDT ,
== END | disposition home or self-care (01) ==
LOC: RAD 10:44
PROVIDERS: PCP Family Medicine; Referring Provider Anesthesiology Pain Medicine; Visit Provider Anesthesiology Pain Medicine
DX: M25.551 Pain in right hip (principal)
CPT/HCPCS: 73521

== ENCOUNTER → 2024-06-11 | Outpatient (CLI) | payer MEDICARE, OTHER, SELFPAY ==
[2024-06-11 13:38] LABS: PSA,Total- Diagnostic 0.19 ng/mL (0.00-4.00)
== END | disposition home or self-care (01) ==
LOC: LAB 12:07
PROVIDERS: PCP Family Medicine; Referring Provider Urology; Visit Provider Urology
DX: C61 Malignant neoplasm of prostate (principal)
CPT/HCPCS: 36415; 84153

== ENCOUNTER 2024-07-05 08:03 | Emergency (ER) | payer MEDICARE, OTHER, SELFPAY ==
[2024-07-05 08:03] VITALS: BP 189/92; PULSE 76; RESP 14; TEMP 36.6; O2SAT 98; BMI 27.6
--- NOTE | 2024-07-05 08:42 | CT_ITS ---
PROCEDURE: ABDOMEN/PELVIS WITHOUT CONT N/A REASON FOR EXAM: 83-year-old male, KIDNEY STONE TECHNIQUE: Abdomen and pelvis CT without intravenous contrast. Noncontrast technique limits evaluation of the abdominal and pelvic viscera. Coronal and Sagittal reconstruction series were provided. One or more dose reduction techniques were used (e.g., Automated exposure control, adjustment of the mA and/or kV according to patient size, use of iterative reconstruction technique). PATIENT PREPARATION: Per protocol ORAL CONTRAST TYPE: None. COMPARISON: CT abdomen pelvis 05/22/2022. FINDINGS: Visualization is limited without the use of IV contrast. Lung bases: Bibasilar atelectasis/scarring. The heart is normal in size with coronary artery and aortic valvular calcifications. Liver: The unopacified liver is normal in size. No biliary ductal dilation. Gallbladder: Prior cholecystectomy. Spleen: Unremarkable. Pancreas: Diffuse fatty atrophy. Adrenals: Unremarkable. Kidneys: No hydronephrosis or nephrolithiasis. Bladder: Minimally distended and unremarkable. Reproductive Organs: Fiducial markers within the prostate. Bowel: The bowel loops are normal in caliber. No ascites or pneumoperitoneum. No inflammatory mass in the expected region of the appendix. Lymph nodes: No suspicious lymphadenopathy. Vasculature: Calcific plaque of the aortoiliac vessels. Bones: Diffuse osseous demineralization. Thoracolumbar spondylosis. CT/Abdomen/Pelvis without Cont IMPRESSION: No acute abdominopelvic finding on noncontrast examination. Reading Location: [facility]
[2024-07-05] MEDS: Ondansetron 4 MG/2 ML Vial IV (08:49)
[2024-07-05] MEDS: Ketorolac 15 MG/ML Vial IV (08:49)
[2024-07-05] MEDS: Morphine 2 MG/ML Syringe IV (08:49)
[2024-07-05 08:54] LABS: Absolute Lymphocyte Count 1.69 X10^3/uL (0.83-4.51); Absolute Neutrophil Count 4.7 X10^3/uL (2.0-7.7); Basophil# 0.06 X10^3/uL; Basophil% 0.8 % (0-1); Eosinophil# 0.26 X10^3/uL; Eosinophils% 3.4 % (0-5); Hematocrit 43.7 % (40-54); Hemoglobin 14.7 g/dL (13.0-16.5); Lymphocyte # 1.69 X10^3/ul (0.83-4.51); Lymphocyte % 22.3 % (19-41); Mean Corp Hgb Conc 33.6 g/dL (32-36); Mean Corpuscular Hgb 31.5 pg (27.0-32.0); Mean Corpuscular Volume 93.6 fL (80-94); Monocyte# 0.78 X10^3/uL; Monocyte% 10.3 % (0-10); NRBC Flagged by Analyzer 0 % (0-5); Neutrophil # 4.71 X10^3/uL (2.7-7.7); Platelet Count 282 K/mm3 (150-450); RBC Distribution Width CV 12.5 % (11.6-14.6); RBC Distribution Width SD 42.8 fl (35.1-43.9); Red Blood Count 4.67 M/mm3 (4.6-6.2); White Blood Count 7.6 K/mm3 (4.4-11.0)
[2024-07-05 09:37] LABS: Anion Gap 14 (5-15); BUN 14 mg/dL (4-19); BUN/Creat Ratio 12.3 RATIO (10-20); Calcium,Total 9.5 mg/dL (7.6-11.0); Carbon Dioxide 23.2 mmol/L (21.0-32.0); Chloride 101 mmol/L (98-108); Creatinine, Serum 1.16 mg/dL (0.70-1.20); EST Glomerular Filtration Rate 62 (>60); Estimated Creatinine Clearance 48.76 ml/min (50-250); Glucose 170 mg/dL (70-99); Potassium 3.8 mmol/L (3.3-5.1); Sodium Level 139 mmol/L (133-145)
[2024-07-05 09:45] LABS: Bacteria 0 SEEN /hpf (None Seen); Squamous Epithelial Cells - UA 0 SEEN /hpf (0-5)
[2024-07-05 09:47] LABS: Color, Urine Yellow (Yellow); Glucose, Dipstick Normal (Normal); Ketone-Dipstick 5 mg/dl (Negative); Leukocyte Esterase-Dipstick 25 /ul (Negative); Nitrite-Dipstick Negative (Negative); Occult Blood-Urine 10 /ul (Negative); Protein-Dipstick 30 mg/dl (Negative); Specific Gravity, Urine 1.025 (1.002-1.030); Urine Bilirubin Dipstick 1 mg/dL (Negative); Urine Clarity Clear (Clear); Urine Urobilinogen 1 mg/dl (Normal)
[2024-07-05 09:55] LABS: Mucous, Urine 1+ /hpf (<or=2+); Red Blood Cells-Urine 0-5 SEEN /hpf (0-5); White Blood Cells 0-5 SEEN /hpf (0-5)
[2024-07-05 10:40] VITALS: BP 142/78; PULSE 70; RESP 16; TEMP 36.4; O2SAT 95
[2024-07-05] MEDS: oxyCODONE 5 MG Tablet PO (10:48)
[2024-07-05 11:00] VITALS: BP 142/78; PULSE 70; RESP 16; TEMP 36.4; O2SAT 95
--- NOTE | 2024-07-05 11:48 | EX.ED.DYSGE1 ---
HPI History of Present Illness Chief Complaint: Flank Pain Informant: patient and family Narrative Narrative: 83-year-old male presenting to the emergency room with abdominal and left flank pain. Patient notes a history of kidney stones. Symptoms have been present for about 6 days. He notes symptoms are wax and wane but seem to get worse this morning. He denies any change in stool urination. No fevers. No rashes. He denies any known inciting events such as a fall or stumbling. [facility] Medical History Encounter for education Prostate cancer Loss of hearing Wears glasses Depression Anxiety Skin tear Arthritis High cholesterol Neuropathy Back pain Heartburn Non-smoker CPAP (continuous positive airway pressure) dependence Personal history of colonic polyps Hemorrhoids Sleep apnea Anxiety Arthritis Back problem Home Medications ?Medication ?Instructions ?Recorded ?Last Taken ?Type B-complex with vitamin C 1 tab PO DAILY 01/17/18 Unknown History atorvastatin 40 mg tablet 40 mg PO DAILY 01/17/18 Unknown History cholecalciferol (vitamin D3) 25 1,000 unit PO DAILY 01/17/18 Unknown History mcg (1,000 unit) capsule tramadol 50 mg tablet 50 mg PO 4X/DAY 01/17/18 05/10/23 History gabapentin 600 mg tablet 600 mg PO 4X/DAY 08/10/20 05/10/23 History acetaminophen 650 mg 650 mg PO PRN PRN Pain 03/22/22 Unknown History tablet,extended release (Arthritis Pain Relief (acetaminophen) ER) duloxetine 30 mg capsule,delayed 30 mg PO DAILY 03/22/22 Unknown History release (Cymbalta) sertraline 25 mg tablet (Zoloft) 25 mg PO DAILY 03/14/23 Unknown History omeprazole 40 mg capsule,delayed See Rx Instructions .Route 03/27/23 05/10/23 Rx release .COMPLEX #90 caps oxycodone-acetaminophen 5 mg-325 1 tab PO Q6H PRN PRN Pain 3 days 07/05/24 Unknown Rx mg tablet #12 TABLETS Allergy/AdvReac Type Severity Reaction Status Date / Time No Known Allergies Allergy Verified 02/11/24 10:32 Family History Mother Diabetes Heart disease Brother Cancer Kidney Heart disease Surgical History History of esophagogastroduodenoscopy (EGD) Hx of colonoscopy History of Grace fundoplication Hx of rotator cuff surgery Hx of right knee surgery History of prostate surgery Hx of carpal tunnel repair Hx of fusion of cervical spine Hx of hernia repair Hx of cholecystectomy Social History Smoking Status: Never smoker second hand exposure: No alcohol intake: never substance use type: does not use caffeine: No what type of physical activity do you participate in: none frequency: does not exercise seatbelt use: always ROS ROS ED Constitutional Constitutional ED: Denies chills, fever(s) or weight loss Eyes Eyes: Denies change in vision or diplopia ENT ENT ED: Denies ear pain, rhinorrhea or sore throat Cardiovascular Cardiovascular: Denies chest pain, orthopnea, palpitations or racing heartbeat Respiratory/Chest Respiratory/Chest: Denies cough, dyspnea or orthopnea Gastrointestinal Gastrointestinal: Reports abdominal pain; Denies constipation, diarrhea, nausea or vomiting Genitourinary Genitourinary ED: Denies dysuria, hematuria or urinary frequency Musculoskeletal Musculoskeletal: Reports back pain; Denies arthralgias or myalgias Integumentary Denies abscess or rash Neurologic Neurologic: Denies headache(s), paresthesias or weakness Psychiatric Psychiatric: Denies anxiety, depression, suicidal ideation or suicidal thoughts Endocrine Endocrinology: Denies polydipsia, polyphagia or polyuria Allergic/Immunologic Allergic/Immunologic ED: Denies mouth swelling, tongue swelling or urticaria EXAM Physical Exam Const Vital Signs: 07/05/24 08:03 07/05/24 10:40 07/05/24 11:00 Temperature 98 F 97.5 F L 97.5 F L Temperature Source Temporal Oral Pulse Rate 76 70 70 Respiratory Rate 14 16 16 Blood Pressure 189/92 H 142/78 H 142/78 H Blood Pressure Mean 124 99 99 Pulse Ox 98 95 95 Oxygen Delivery Method Room Air Room Air Positive well nourished and well developed General Appearance ED: well developed and NAD HEENT Reports normocephalic, head/scalp atraumatic and moist mucous membranes Eyes PERRL and EOMs intact bilaterally Neck no lymphadenopathy, supple and no JVD Resp normal respiratory effort and clear to auscultation bilaterally Cardio regular rate, regular rhythm and no murmurs GI normal to inspection, nondistended, normoactive bowel sounds and non-tender Palpation: soft Back/Spine no CVA tenderness and normal ROM Extremity normal to inspection General Extremety ED: Negative for edema General Extremity: Negative for edema Neuro oriented x3 and CN's II-XII intact bilaterally Sensorium / Orientation: alert Motor Exam: strength 5/5 throughout Psych mental status grossly normal Mood & Affect: Negative for depressed or tearful Skin no rashes or lesions noted and no wounds Skin Narrative: I do not appreciate any rash in the area of pain. MDM MDM MDM Narrative Medical decision making narrative: Differential diagnosis includes but not limited to diverticulitis colitis volvulus ureterolithiasis UTI pyelonephritis aneurysm obstruction Basic blood work and urine rather unremarkable. No obvious infection. No alterations in creatinine value. Normal white count. CT of the abdomen pelvis without IV contrast does not demonstrate any obvious ureterolithiasis or inflammatory condition. I do not see any aneurysm of the aorta. I discussed with the patient and family. I will write for pain medication. Symptoms again have been intermittent seemed worse this morning. Recommend PCP follow-up if symptoms or not improving return if new symptoms are worsening. History & Record Review Discussion w/independent historian: Patient and Family Lab Data Attestation: I reviewed the patient's lab results. Labs: Laboratory Results - last 24 hr 07/05/24 07/05/24 08:22 09:41 WBC 7.6 RBC 4.67 Hgb 14.7 Hct 43.7 MCV 93.6 MCH 31.5 MCHC 33.6 RDW Std Deviation 42.8 RDW Coeff of [place] 12.5 Plt Count 282 MPV 9.0 Immature Gran % (Auto) 1.200 H Neut % (Auto) 62.0 Lymph % (Auto) 22.3 Weld % (Auto) 10.3 H Eos % (Auto) 3.4 Baso % (Auto) 0.8 Absolute Neuts (auto) 4.7 Absolute Lymphs (auto) 1.69 Nucleated RBC % 0 Sodium 139 Potassium 3.8 Chloride 101 Carbon Dioxide 23.2 Anion Gap 14 BUN 14 Creatinine 1.16 Estim Creat Clear Calc 48.76 L Est GFR (MDRD) Non-Af 62 BUN/Creatinine Ratio 12.3 Glucose 170 H Calcium 9.5 Urine Color Yellow Urine Clarity Clear Urine pH 5.0 Ur Specific [place] 1.025 Urine Protein 30 H Urine Glucose (UA) Normal Urine Ketones 5 H Urine Occult Blood 10 H Urine Nitrite Negative Urine Bilirubin 1 H Urine Urobilinogen 1 H Ur Leukocyte Esterase 25 H Urine RBC 0-5 SEEN Urine WBC 0-5 SEEN Ur Squamous Epith Cells 0 SEEN Urine Bacteria 0 SEEN Urine Mucus 1+ Radiography Diagnostic Testing: Clinical Impression(s) from Imaging Studies Abdomen/Pelvis CT 07/05/24 08:42 IMPRESSION: No acute abdominopelvic finding on noncontrast examination. Reading Location: [facility] Discharge Plan Triage Chief Complaint: Flank Pain ED Provider: Dequan Boyle Dx/Rx/DC Orders Clinical Impression: Abdominal pain, Acute flank pain Instructions: ED Flank Pain, Uncertain Cause Prescriptions: New oxycodone-acetaminophen 5-325 mg tablet 1 tab PO Q6H PRN PRN (Reason: Pain) 3 Days Qty: 12 0RF No Action atorvastatin 40 mg tablet 40 mg PO DAILY tramadol 50 mg tablet 50 mg PO 4X/DAY B-complex with vitamin C tablet 1 tab PO DAILY cholecalciferol (vitamin D3) 1,000 unit capsule 1,000 unit PO DAILY gabapentin 600 mg tablet 600 mg PO 4X/DAY Patient Comments: TAKE 1 TABLET BY MOUTH EVERY 6 HOURS acetaminophen [Arthritis Pain Relief (acetam)] 650 mg tablet extended release 650 mg PO PRN PRN (Reason: Pain) duloxetine [Cymbalta] 30 mg capsule,delayed release(DR/EC) 30 mg PO DAILY sertraline [Zoloft] 25 mg tablet 25 mg PO DAILY omeprazole 40 mg capsule,delayed release(DR/EC) See Rx Instructions .ROUTE .COMPLEX Qty: 90 4RF Dose Instruction: TAKE 1 CAPSULE BY MOUTH EVERY DAY Rx Instructions: TAKE 1 CAPSULE BY MOUTH EVERY DAY Primary Care Provider: Rom Stafford Referrals: oRm Stafford MD [Primary Care Provider] - 3-5 Days if not improving Print Language: Lao Disposition Disposition: Home, Self Care Discharge Date/Time: 07/05/24 11:02
== END 2024-07-05 11:02 | disposition home or self-care (01) ==
PROVIDERS: Emergency Provider Emergency Medicine; PCP Family Medicine; Visit Provider Emergency Medicine
DX: R10.9 Unspecified abdominal pain (principal); M54.9 Dorsalgia, unspecified; E78.00 Pure hypercholesterolemia, unspecified; M19.90 Unspecified osteoarthritis, unspecified site; G47.30 Sleep apnea, unspecified; Z79.899 Other long term (current) drug therapy; Z87.442 Personal history of urinary calculi
CPT/HCPCS: 74176; 80048; 81001; 85025; 96374; 96375; 99284; A4216; J2405

== ENCOUNTER → 2024-12-16 | Outpatient (CLI) | payer MEDICARE, OTHER, SELFPAY ==
[2024-12-16 18:21] LABS: PSA,Total- Diagnostic 0.08 ng/mL (0.00-4.00)
--- OUTSIDE RECORDS SUMMARY | 2024-12-16 22:10 | XMS RPT_ITS | CCD ---
Author Organization [facility] Care Team Providers Care Menhaden Vessel Pilot Name Role Phone ROM NEWELL MD Primary Care Physician Anthony Guerrero Unavailable Unavailable Rom Newell MD Primary Care Provider ROM NEWELL MD Primary Care Physician Anthony Guerrero Unavailable Unavailable Rom Newell MD Primary Care Provider Anthony Guerrero Unavailable Rom Persaud MD Primary Care Provider [phone] Rom Newell Primary Care Provider Reece, Dr. Cueto Referring Provider Hesham, Dr. Joe Sommers Attending Provider Dr. Joe Dahl Other Provider Reece, Dr. Cueto Primary Care Provider Reece, Dr. Cueto Referring Provider Dr. Joe Dahl Attending Provider Reece, Dr. Cueto Primary Care Provider Dr. Aaron Nowak Attending Provider Dr. Álvaro Fritz Referring Provider ROM NEWELL MD Primary Care Unavailable RAJI SMITH Attending ROM Persaud MD Primary Care Unavailable JOE RAMIRES MD Attending ROM Persaud MD Primary Care Unavailable SHONDA SUTTON-SINGH, CRISTINO Porter Attending ROM Steele MD Primary Care Unavailable JOE RAMIRES MD Attending Unavailable JOE RAMIRES MD Attending Unavailable ROM NEWELL MD Primary Care Unavailable REECE MD, ROM Primary Care Unavailable RAJI SMITH Attending Unavailable Dr. Aaron Nowak Referring Provider Reece CHAUDHARY, Rom [place] Primary Care Provider Haagen EARLY CHILDHOOD AIDE CLASSROOM.JANITORIAL CLEANER, Justina Unavailable Suppan EARLY CHILDHOOD AIDE CLASSROOM.JANITORIAL CLEANER, Ailin A Unavailable [phone] Suppan EARLY CHILDHOOD AIDE CLASSROOM.JANITORIAL CLEANER, Ailin A Unavailable Suppan EARLY CHILDHOOD AIDE CLASSROOM.JANITORIAL CLEANER, Ailin A Unavailable Reece CHAUDHARY, Dr. Cueto Primary Care Provider Catrina CHAUDHARY, Dr. Álvaro La Attending Provider [phone] Catrina CHAUDHARY, Dr. Álvaro La Referring Provider [place] JETER, Dr. Baires Emergency Provider [place], Rom Primary Care Unavailable Aaron Nowak Attending Unavailable Joe Dahl Attending Unavailable [place], Rom Primary Care Unavailable Aaron Nowak Attending Unavailable [place], Rom Primary Care Unavailable Reece, Rom Referring Unavailable Antonio Duran Attending Unavailable [place], Rom Primary Care Unavailable [place], Rom Primary Care Unavailable Reece, Rom Referring Unavailable Aaron Nowak Attending Unavailable [place], Rom Primary Care Unavailable Buffy Narayanan Attending Unavailable Buffy Narayanan Referring Unavailable Reece, Rom Primary Care Unavailable Garry Shaffer Attending Unavailable Garry Shaffer Referring Unavailable Reece, Rom Primary Care Unavailable Dequan Boyle Attending Unavailable Aaron Nowak Attending Unavailable Aaron Nowak Referring Unavailable Reece, Rom Primary Care Unavailable Reece, Rom Primary Care Unavailable Álvaro Fritz Attending Unavailable Álvaro Fritz Referring Unavailable REECE, ROM J Primary Care Unavailable TRISHA THOMPSON Attending Unavailable REECE, ROM J Referring Unavailable REECE, ROM J Primary Care Unavailable REECE, ROM J Referring Unavailable REECE, ROM J Primary Care Unavailable REECE, ROM J Attending Unavailable REECE, ROM J Primary Care Unavailable REECE, ROM J Referring Unavailable REECE, ROM J Primary Care Unavailable REECE, ROM J Attending Unavailable REECE, ROM J Primary Care Unavailable REECE, ROM J Primary Care Unavailable REECE, ROM J Referring Unavailable REECE, ROM J Primary Care Unavailable REECE, ROM J Attending Unavailable ROM NEWELL Referring Unavailable REECE, ROM [place] Primary Care Unavailable REECE, ROM [place] Referring Unavailable REECE, ROM [place] Primary Care Unavailable REECE, ROM [place] Primary Care Unavailable REECE, ROM [place] Primary Care Unavailable AILIN COURTNEY Attending Unavailable REECE, ROM [place] Primary Care Unavailable REECE, ROM [place] Attending Unavailable REECE, ROM [place] Referring Unavailable REECE, ROM [place] Primary Care Unavailable REECE, ROM [place] Primary Care Unavailable BEVERLY CLARK Attending Unavailable TRISHA THOMPSON Referring Unavailable REECE, ROM [place] Referring Unavailable REECE, ROM [place] Primary Care Unavailable REECE, ROM [place] Primary Care Unavailable AILIN COURTNEY Attending Unavailable Medications Current Medications Medication Drug Class(es) Dates Sig (Normalized) Sig (Original) 8 hr acetaminophen 650 mg extended release oral tablet (20 sources) Start: 03-22-2022 Acetaminophen (Arthritis Pain Relief (Acetam)) 650 mg tablet extended release Active 650 mg PO NEEDED as needed for Pain March 22, 2022 1:00am Start: 05-16-2020 End: 06-15-2020 Tylenol 325 mg oral tablet D ose : 325 mg = 1 tab(s), Oral, QID, # 120 tab(s), 0 Refill(s), Pharmacy: [id number], 05/19/20, 172.7, cm, 05/16/20 10:03:00 EST, Height, kg, 05/16/20 10:03:00 EST, Dosing Weight Start Date: 05/16/20 Stop Date: 06/15/20 Status: Ordered acetaminophen (T YLENOL ARTHRITIS PAIN ORAL) Take 2 tablets by mouth. Active acetaminophen (T YLENOL ARTHRITIS PAIN ORAL) Take 2 tablets by mouth. 0 Active Comment on above: Take 2 tablets by mo [facility]. atorvastatin 40 mg oral tablet (20 sources) HMG-CoA Reductase Inhibitor Start: 014 End: 025 take 1 tablet by mouth once daily at bedtime for hyperlipidemia atorvastatin (LIPITOR) 40 mg tablet Indications: Mixed hyperlipidemia Take 1 tablet by mouth daily at bedtime. For cholesterol. 90 tablet 3 08/05/2024 Active Comment on above: Take 1 tablet by [facility] daily at bedtime. For cholesterol. B-Complex With Vitamin C (7 sources) Start: take 1 tablet by mouth once daily B-Complex With Vitamin C Active 1 TABLET PO DAILY January 16, 2018 11:00pm Start: 01-17-2018 take 1 tablet by huseyin once daily B-Complex With Vitamin C Active 1 TABLET PO DAILY January 17, 2018 12:00am B-Complex With Vitamin C tablet (2 sources) Start: 01-17-2018 B-Complex With Vitamin C tablet Active 1 {tbl} PO DAILY January 17, 2018 12:00am cefdinir 300 mg oral capsule (1 source) Cephalosporin Antibacterial Start: 07-07-2024 End: 07-14-2024 take 1 capsule by mouth twice daily cefdinir (OMNICEF) 300 mg capsule Indications: Diverticulitis , Abdominal pain, unspecified abdominal location Take 1 capsule by mouth two times a day for 7 days. 14 capsule 07/07/2024 07/14/2024 Active cholecalciferol 0.025 mg oral capsule (20 sources) Vitamin D Start: 01-17-2018 take 1 capsule by mouth once daily Cholecalciferol (Vitamin D3) 1,000 unit capsule Active 1000 U PO DAILY January 17, 2018 12:00am Comment on above: Take 1,000 Units by mouth once daily. CPAP (20 sources) Start: 06-30-2014 CPAP Indications: Sleep apnea CHIN STRAP, USED WITH CPAP DEVICE 1 Units 0 06/30/2014 Active Comment on above: CHIN STRAP, USED WIT H CPAP DEVICE DULoxetine 60 mg delayed release oral capsule (20 sources) Serotonin and Norepinephrine Reuptake Inhibitor Start: 07-15-2024 take 1 capsule by mouth once daily DULoxetine (CYMBALTA) 60 mg capsule Take 1 capsule by mouth once daily. 90 capsule 3 07/15/2024 Active Start: 01-10-2022 End: 07-15-2024 take 1 capsule by mouth once daily DULoxetine (CYMBALTA) 30 mg capsule Take 1 capsule by mouth once daily. 90 capsule 1 03/23/2024 07/15/2024 Discontinued Comment on above: Take 1 capsule by mo [facility] once daily. enteric contrast (will be provided with radiology test) (2 sources) Start: 11-18-2024 End: 11-19-2024 enteric contrast (will be provided with radiology test) Indications: Left lower quadrant abdominal pain , Intra-abdominal and pelvic swelling, mass and lump, unspecified site For CT ABD/PEL W IVCON Routine order Administer, As Directed One Time Only, via Oral, Rectal, both Oral and Rectal, Enteric Tube, Stoma or Indwelling Catheter, Enteric Contrast as designated per enteric contrast guidelines 1 each 11/18/2024 11/19/2024 Active Start: 05-07-2022 End: 05-08-2022 enteric contrast (will be pr ovided with radiology test) Indications: Chronic RLQ pain For CT ABD/PEL W IVCON Routine order Administer, As Directed One Time Only, via Oral, Rectal, both Oral and Rectal, Enteric Tube, Stoma or Indwelling Catheter, Enteric Contrast as designated per enteric contrast guidelines 1 Each 0 05/07/2022 05/08/2022 Active Comment on above: For CT ABD/PEL W IVC ON Routine order Administer, As Directed One Time Only, via Oral, Rectal, both Oral and Rectal, Enteric Tube, Stoma or Indwelling Catheter, Enteric Contrast as designated per enteric contrast guidelines gabapentin 600 mg oral tablet (20 sources) Anti-epileptic Agent Start: 08-10-2020 End: 09-19-2023 take 1 tablet by mouth four times daily gabapentin (NEURONTIN) 600 mg tablet Take 600 mg by mouth four times daily. 09/16/2023 Active Start: 08-10-2020 take 600 mg by mouth every six hours Gabapentin Active 600 MG PO EVERY 6 HOURS August 09, 2020 11:00pm Start: 01-17-2018 End: 08-10-2020 take 1 capsule by mouth four times daily Gabapentin 400 mg capsule Discontinued 400 mg PO 4 TIMES DAILY January 17, 2018 12:00am August 10, 2020 2:00pm End: 09-03-2023 gabapentin (NEURONTIN) 400 m g capsule Take 600 mg by mouth four times daily. 0 09/03/2023 Discontinued (Discontinued by another Health Care Provider) Comment on above: Take 600 mg by mouth four times daily. iv contrast (will be provided with radiology test) (2 sources) Start: 11-18-2024 End: 11-19-2024 iv contrast (will be provided with radiology test) Indications: Left lower quadrant abdominal pain , Intra-abdominal and pelvic swelling, mass and lump, unspecified site CT ABD/PEL -Inject, intravenously, once for 1 dose.No IV access, insert saline lock prior to the beginning of sedation, infusion, injection of imaging exam. Discontinue saline lock post exam. If Pt. has a central line or IVAD, may access for administration according to line specific nursing protocol. Once exam is complete flush line and de-access according to line specific nursing protocol in theCT contrast administration guidelines link. 1 each 11/18/2024 11/19/2024 Active Start: 05-07-2022 End: 05-08-2022 iv contrast (will be provide d with radiology test) Indications: Chronic RLQ pain CT ABD/PEL -Inject, intravenously, once for 1 dose.No IV access, insert saline lock prior to the beginning of sedation, infusion, injection of imaging exam. Discontinue saline lock post exam. If Pt. has a central line or IVAD, may access for administration according to line specific nursing protocol. Once exam is complete flush line and de-access according to line specific nursing protocol in the CT contrast administration guidelines link. 1 Each 0 05/07/2022 05/08/2022 Active Comment on above: CT ABD/PEL -Inject, intravenously, once for 1 dose.No IV access, insert saline lock prior to the beginning of sedation, infusion, injection of imaging exam. Discontinue saline lock post exam. If Pt. has a central line or IVAD, may access for administration according to line specific nursing protocol. Once exam is complete flush line and de-access according to line specific nursing protocol in the CT contrast administration guidelines link. metroNIDAZOLE 500 mg oral tablet (1 source) Nitroimidazole Antimicrobial Start: 025 End: take 1 tablet by mouth every eight hours metroNIDAZOLE (FLAGYL) 500 mg tablet Indications: Diverticulitis , Abdominal pain, unspecified abdominal location Take 1 tablet by mouth every 8 hours for 7 days. 21 tablet 07/07/2024 07/14/2024 Active mupirocin 0.02 mg/mg topical ointment (1 source) RNA Synthetase Inhibitor Antibacterial Start: 023 End: 023 mupirocin (BACTROBAN) 2 % ointment Apply to affected area three times daily for 10 days. 15 g 0 10/18/2022 10/28/2022 Active Comment on above: Apply to affected ar ea three times daily for 10 days. omeprazole 40 mg delayed release oral capsule (20 sources) Proton Pump Inhibitor Start: 023 End: take 1 capsule by mouth once omeprazole (PRILOSEC) 40 mg capsule Take 1 capsule by mouth every afternoon. 30 capsule 04/27/2024 Active Comment on above: Take 1 capsule by mo [facility] every afternoon. sertraline 25 mg oral tablet (20 sources) Serotonin Reuptake Inhibitor Start: 023 take 1 tablet by mouth once daily Sertraline (Zoloft) 25 mg tablet Active 25 mg PO DAILY March 14, 2023 1:00am Start: 01-17-2018 End: 07-07-2022 take 1 tablet by mouth once daily Sertraline (Zoloft) 50 mg tablet Discontinued 50 mg PO DAILY January 17, 2018 12:00am March 22, 2022 3:25pm Start: 08-20-2013 Zoloft 25 mg o ral tablet Dose : 25 mg = 1 tab(s), Oral, Daily, 0 Refill(s) Start Date: 08/20/13 Status: Ordered Comment on above: [facility] traMADol hydrochloride 50 mg oral tablet (20 sources) Opioid Agonist Start: 01-02-2023 End: 08-25-2023 traMADol 50 mg oral tablet Dose : 50 mg = 1 tab(s), Oral, q6hr, # 120 tab(s), 2 Refill(s), Pharmacy: [id number], Chronic back pain Lumbar back pain with radiculopathy affecting right lower extremity, 172, cm, 05/27/23 11:47:00 EST, Height, 192, kg, 05/27/23 11:47:00 EST, Dosing Weight Start Date: 05/27/23 Stop Date: 08/25/23 Status: Ordered Start: 07-31-2022 End: 12-23-2022 traMADol 50 mg oral tablet D ose : 50 mg = 1 tab(s), Oral, q4h, PRN for pain, X 30 day(s), # 120 tab(s), 2 Refill(s), 12/23/22 11:25:00 EDT, Pharmacy: [id number], Chronic back pain DDD (degenerative disc disease), 172, cm, 09/24/22 10:47:00 EDT, Height, 83.5 Start Date: 09/24/22 Stop Date: 12/23/22 Status: Ordered Start: 05-29-2022 End: 06-28-2022 traMADol 50 mg oral tablet D ose : 50 mg = 1 tab(s), Oral, q6hr, Fill date 05/29/2022, # 120 tab(s), 0 Refill(s), Pharmacy: [id number], Chronic back pain Right knee pain, 05/29/22, 172.7, cm, 12/12/21 13:34:00 EDT, Height, 82.1, kg, 12/12/21 13:34:00 EDT, Dosin... Start Date: 05/29/22 Stop Date: 06/28/22 Status: Ordered Start: 03-12-2022 End: 04-11-2022 traMADol 50 mg oral tablet D ose : 50 mg = 1 tab(s), Oral, q6hr, Fill date March 30, 2022, # 120 tab(s), 0 Refill(s), Pharmacy: [id number], Chronic back pain Right knee pain, 03/30/22, 172.7, cm, 12/12/21 13:34:00 EDT, Height, 82.1, kg, 12/12/21 13:34:00 EDT... Start Date: 03/12/22 Stop Date: 04/11/22 Status: Ordered Start: 12-12-2021 End: 01-11-2022 traMADol 50 mg oral tablet D ose : 50 mg = 1 tab(s), Oral, q6hr, Fill date December 30, 2021, # 120 tab(s), 0 Refill(s), Pharmacy: [id number], Chronic back pain Right knee pain, 12/30/21, 172.7, cm, 12/12/21 13:34:00 EDT, Height, 82.1, kg, 12/12/21 13:34:00 ED... Start Date: 12/12/21 Stop Date: 01/11/22 Status: Ordered Start: 01-17-2018 End: 05-21-2021 traMADol 50 mg oral tablet D ose : 50 mg = 1 tab(s), Oral, q6hr, Fill date 04/30/2021, # 120 tab(s), 0 Refill(s), Pharmacy: [id number], Chronic back pain Right knee pain, 04/30/21, 172.7, cm, 04/21/21 12:44:00 EST, Height, 83.9, kg, 04/21/21 12:44:00 EST, Dosing... Start Date: 04/21/21 Stop Date: 05/21/21 Status: Ordered Start: 01-17-2018 End: 11-02-2021 take 1 tablet by mouth four times daily Tramadol 50 mg tablet Active 50 mg PO 4 TIMES DAILY January 17, 2018 12:00am Comment on above: Take 50 mg by mouth every 6 hours as needed. Vitamin B Complex (20 sources) take 100 mg by mouth once daily vitamin B complex (VITAMIN B-100 COMPLEX ORAL) Take 100 mg by mouth once daily. Active take 100 mg by mouth once daily vitamin B complex (VITAMIN B-100 COMPLEX ORAL) Take 100 mg by mouth once daily. 0 Active Comment on above: Take 100 mg by mouth once daily. Vitamin B Complex oral capsule (12 sources) Start: 04-24-2018 take 1 capsule by mouth once daily Vitamin B Complex oral capsule Dose = 1 cap(s), Oral, Daily, 0 Refill(s) Start Date: 04/24/18 Status: Ordered Vitamin D with Minerals oral tablet (12 sources) Start: 04-24-2018 take 1 tablet by mouth once daily Vitamin D with Minerals oral tablet Dose = 1 tab(s), Oral, qDay, # 30 tab(s), 0 Refill(s) Start Date: 04/24/18 Status: Ordered Completed/Discontinued Medications Medication Drug Class(es) Dates Sig (Normalized) Sig (Original) acetaminophen 325 mg / oxyCODONE hydrochloride 5 mg oral tablet (7 sources) Opioid Agonist Start: 07-05-2024 End: 08-05-2024 take 1 tablet by mouth every six hours as needed oxyCODONE-acetamin ophen (PERCOCET) 5-325 mg tablet Take 1 tablet by mouth every 6 hours as needed. 07/05/2024 08/05/2024 Discontinued (Course of therapy completed) amoxicillin 500 mg oral capsule (6 sources) Penicillin-class Antibacterial Start: 05-28-2024 End: 07-15-2024 amoxicillin (AMOXIL) 500 mg capsule 500 mg. 05/28/2024 07/15/2024 Discontinued (Other) ciprofloxacin 500 mg oral tablet (4 sources) Quinolone Antimicrobial Start: 05-10-2023 End: 06-05-2023 take 1 tablet by mouth twice daily Ciprofloxacin Hcl (Cipro) 500 mg tablet Discontinued 500 mg PO TWICE A DAY May 10, 2023 1:00am June 05, 2023 11:32am famotidine 20 mg oral tablet (11 sources) Histamine-2 Receptor Antagonist Start: 05-07-2022 End: 09-27-2022 take 1 tablet by mouth once daily at bedtime famotidine (PEPCID) 20 mg tablet Indications: GERD without esophagitis Take 1 tablet by mouth daily at bedtime. 30 tablet 2 05/07/2022 06/29/2022 Discontinued Comment on above: Take 1 tablet by huseyin th daily at bedtime. predniSONE 20 mg oral tablet (5 sources) Start: 07-15-2024 End: 08-05-2024 take 1 tablet by mouth once daily predniSONE (DELTASONE) 20 mg tablet Indications: Radicular pain Take 1 tablet by mouth once daily. 5 tablet 07/15/2024 08/05/2024 Discontinued (Course of therapy completed) pregabalin 150 mg oral capsule (5 sources) Start: 08-19-2023 End: 09-17-2023 take 1 capsule by mouth three times daily pregabalin (LYRICA) 150 mg capsule Take 150 mg by mouth three times a day. 0 08/19/2023 09/17/2023 Discontinued Problems Active Problems Problem Classification Problem Date Documented Da te Episodic/Chronic Abdominal pain (20 sources) Right lower quadrant pain; Translations: [Right lower quadrant pain] Onset: 8 Resolved: 2 Episodic Adjustment disorders (1 source) Grief finding; Translations: [Adjustment disorder with depressed mood] Chronic Anxiety disorders (20 sources) Anxiety state; Translations: [Generalized anxiety disorder] Onset: 9 02-08-2015 Chronic Blindness and vision defects (2 sources) Eye / vision finding; Translations: [Unspecified visual disturbance] 09-17-2023 Episodic Conditions associated with dizziness or vertigo (1 source) Dizziness; Translations: [Dizziness and giddiness] 10-16-2023 Episodic Diseases of white blood cells (20 sources) Lymphocytosis; Translations: [Lymphocytosis (symptomatic)] Onset: 8 03-24-2018 Chronic Disorders of lipid metabolism (20 sources) Hypercholesterolemia; Translations: [Hyperlipidemia] Onset: 9 08-04-2013 Chronic Diverticulosis and diverticulitis (1 source) Diverticulitis; Translations: [Diverticulitis of intestine, part unspecified, without perforation or abscess without bleeding] 07-07-2024 Chronic Esophageal disorders (20 sources) Gastroesophageal reflux disease without esophagitis; Translations: [Gastro-esophageal reflux disease without esophagitis] Onset: Chronic Genitourinary symptoms and ill-defined conditions (1 source) Microscopic hematuria; Translations: [Other microscopic hematuria] Episodic Malaise and fatigue (2 sources) Asthenia; Translations: [Weakness] 09-03-2023 Episodic Mood disorders (4 sources) Depressive disorder; Translations: [Depression, unspecified depression type] Chronic Nutritional deficiencies (1 source) Vitamin D deficiency; Translations: [Vitamin D deficiency, unspecified] 09-03-2023 Chronic Osteoarthritis (20 sources) Osteoarthritis; Translations: [Unspecified osteoarthritis, unspecified site] Onset: 9 04-03-2021 Chronic Other and unspecified benign neoplasm (2 sources) Personal history of colonic polyps; Translations: [Personal history of colonic polyps] 03-22-2022 Episodic Other circulatory disease (1 source) Orthostatic hypotension; Translations: [Orthostatic hypotension] 09-17-2023 Episodic Other circulatory disease (1 source) Elevated blood-pressure reading without diagnosis of hypertension; Translations: [Elevated blood-pressure reading, without diagnosis of hypertension] 03-02-2024 Episodic Other gastrointestinal disorders (2 sources) Abdominal mass; Translations: [Intra-abdominal and pelvic swelling, mass and lump, unspecified site] 07-11-2023 Episodic Other gastrointestinal disorders (2 sources) Finding of abdominopelvic segment of trunk; Translations: [Intra-abdominal and pelvic swelling, mass and lump, unspecified site] 11-18-2024 Episodic Other gastrointestinal disorders (1 source) Intra-abdominal and pelvic swelling, mass and lump, unspecified site; Translations: [Intra-abdominal and pelvic swelling, mass and lump, unspecified site] Onset: 5 Episodic Other nervous system disorders (20 sources) Cervical nerve root compression; Translations: [Cervical root disorders, not elsewhere classified] 01-06-2020 Chronic Other non-traumatic joint disorders (12 sources) Knee pain 03-18-2020 Episodic Other screening for suspected conditions (not mental disorders or infectious disease) (1 source) Radiology result abnormal 07-20-2024 Chronic Other screening for suspected conditions (not mental disorders or infectious disease) (20 sources) Raised prostate specific antigen; Translations: [Elevated prostate specific antigen [PSA]] Onset: 0 Resolved: 4 01-06-2020 Episodic Other skin disorders (1 source) Lesion of nose; Translations: [Disorder of the skin and subcutaneous tissue, unspecified] 10-18-2022 Episodic Peritonitis and intestinal abscess (1 source) Infectious disease of abdomen; Translations: [Peritonitis, unspecified] Episodic Residual codes; unclassified (16 sources) Sleep apnea; Translations: [Sleep apnea, unspecified] Onset: 9 Chronic Residual codes; unclassified (20 sources) Obstructive sleep apnea syndrome; Translations: [Obstructive sleep apnea (adult) (pediatric)] Onset: 9 Chronic Residual codes; unclassified (1 source) Obstructive sleep apnea (adult) (pediatric); Translations: [Obstructive sleep apnea (adult) (pediatric)] Onset: 3 Chronic Residual codes; unclassified (9 sources) History of hernia repair; Translations: [Other specified postprocedural states] 06-18-2018 Episodic Comment on above: x2 Spondylosis; intervertebral disc disorders; other back problems (20 sources) Degeneration of intervertebral disc; Translations: [Disorder of lumbar disc] Onset: 9 08-04-2013 Chronic Transient cerebral ischemia (2 sources) Cerebral ischemia; Translations: [Transient cerebral ischemic attack, unspecified] 09-03-2023 Chronic Unclassified (1 source) Finding of abdominopelvic segment of trunk 11-18-2024 Past or Other Problems Problem Classification Problem Date Documented Da te Episodic/Chronic Administrative/social admission (20 sources) Advance directive discussed with patient; Translations: [Other specified counseling] Onset: 07-07-2021 Episodic Anal and rectal conditions (20 sources) Stenosis of rectum and anus; Translations: [Stenosis of anus and rectum] Onset: 02-25-2018 01-10-2022 Episodic Calculus of urinary tract (20 sources) Kidney stone; Translations: [Calculus of kidney] Onset: 03-28-2009 08-04-2013 Episodic Cancer of prostate (20 sources) Primary malignant neoplasm of prostate; Translations: [Malignant neoplasm of prostate] Onset: 01-29-2024 Resolved: 08-05-2024 03-14-2023 Chronic Cancer of prostate (20 sources) History of malignant neoplasm of prostate; Translations: [Personal history of malignant neoplasm of prostate] Onset: 05-07-2024 05-07-2024 Episodic Diabetes mellitus without complication (20 sources) Impaired fasting glycemia; Translations: [Impaired fasting glucose] Onset: 04-13-2009 06-13-2010 Episodic Hemorrhoids (20 sources) Internal hemorrhoids grade I; Translations: [First degree hemorrhoids] Onset: 02-25-2018 Resolved: 01-10-2022 01-10-2022 Episodic Nausea and vomiting (20 sources) Postoperative nausea and vomiting; Translations: [Nausea with vomiting, unspecified] Onset: 05-07-2024 Resolved: 08-05-2024 05-07-2024 Episodic Other and unspecified benign neoplasm (20 sources) Polyp of colon; Translations: [Polyp of colon] Onset: 04-29-2009 Resolved: 01-10-2022 07-24-2017 Episodic Other and unspecified benign neoplasm (20 sources) History of polyp of colon; Translations: [Personal history of colonic polyps] Onset: 01-26-2014 01-26-2014 Episodic Other and unspecified benign neoplasm (20 sources) Benign neoplasm of transverse colon; Translations: [Benign neoplasm of transverse colon] Onset: 02-25-2018 Resolved: 01-10-2022 01-10-2022 Episodic Other bone disease and musculoskeletal deformities (20 sources) Wheelwright Schlatter disease; 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, bilateral] Onset: 01-10-2022 Resolved: 01-10-2022 03-18-2020 Chronic Other connective tissue disease (20 sources) History of cervical spine fusion; Translations: [Arthrodesis status] Onset: 01-10-2022 Resolved: 01-10-2022 06-18-2018 Episodic Comment on above: C4, C5 and C6 Other non-epithelial cancer of skin (20 sources) Malignant neoplasm of skin; Translations: [Unspecified malignant neoplasm of skin, unspecified] Onset: 07-27-2023 07-27-2023 Episodic Other non-traumatic joint disorders (20 sources) Shoulder joint pain; Translations: [Pain in unspecified shoulder] Onset: 11-23-2009 Resolved: 01-10-2022 04-03-2021 Episodic Other non-traumatic joint disorders (1 source) Pain in right hip; Translations: [Pain in right hip] Onset: 02-21-2024 Episodic Other skin disorders (20 sources) Skin lesion; Translations: [Disorder of the skin and subcutaneous tissue, unspecified] Onset: 01-10-2022 Resolved: 01-10-2022 08-10-2020 Episodic Residual codes; unclassified (20 sources) Chronic back pain ; Translations: [Dorsalgia, unspecified] Onset: 01-10-2022 Resolved: 01-10-2022 04-03-2018 Episodic Spondylosis; intervertebral disc disorders; other back problems (20 sources) Sciatica; Translations: [Other specified dorsopathies, lumbosacral region] Onset: 09-06-2017 Resolved: 01-10-2022 09-06-2017 Episodic Results Test Name Value Interpretation Reference Range Facility [facility] 11[facility]27[facility]24 [facility] ROBBY VERA ([id number]) 1940 M Date Time Provider Department 11/27/24 ROM NEWELL During your visit today, we recorded the following information about you: Rom Newell MD 11/27/2024 12:[address] is ok. Shows very small groin hernias. Not likely causing issues. We can send him to surgery if he is willing. Let me know. Ryann Garcia RN 11/27/2024 2:47 PM Signed Spouse calls and notified of results and providers instructions. Spouse verbalizes understanding and will discuss with patient. Spouse reports that patient will probably not want a referral for surgery so she will only call back if he does. Ryann Garcia RN Allergies As of Date: 11/27/2024 (No Known Allergies) Date Reviewed: 11/25/2024 Reviewed by: Aracely Johnson, RT(R) - Fully Assessed Reason for Visit: Results [95] Prescriptions as of 11/27/2024 - atorvastatin (LIPITOR) 40 mg tablet Take 1 tablet by mouth daily at bedtime. For cholesterol. - DULoxetine (CYMBALTA) 60 mg capsule Take 1 capsule by mouth once daily. - omeprazole (PRILOSEC) 40 mg capsule Take 1 capsule by mouth every afternoon. - gabapentin (NEURONTIN) 600 mg tablet Take 600 mg by mouth four times daily. - acetaminophen (TYLENOL ARTHRITIS PAIN ORAL) Take 2 tablets by mouth. - vitamin B complex (VITAMIN B-100 COMPLEX ORAL) Take 100 mg by mouth once daily. - Cholecalciferol, Vitamin D3, 25 mcg (1,000 unit) cap Take 1,000 Units by mouth once daily. - traMADol (ULTRAM) 50 mg tablet Take 50 mg by mouth every 6 hours as needed. - CPAP CHIN STRAP, USED WITH CPAP DEVICE Problem List As Of Date 11/27/2024 Noted Resolved Routine general medical examination at [facility]*03/28/2009 02/08/2015 Class: Chronic Kidney stone [N20.0] 03/28/2009 Hyperlipidemia [E78.5] 03/28/2009 Anxiety state [F41.1] 03/28/2009 Obstructive sleep apnea (adult) (pediatric) [G4*03/28/2009 Osteoarthrosis [M19.90] 03/28/2009 Lumbar disc disorder [M51.9] 03/28/2009 Impaired fasting glucose [R73.01] 04/13/2009 Elevated PSA [R97.20] 04/13/2009 07/27/2023 Colon polyps [K63.5] 04/29/2009 01/10/2022 Pain in joint, shoulder region [M25.519] 11/23/2009 01/10/2022 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] Low testosterone [R79.89] Personal history of colonic polyps [Z86.0100] 01/26/2014 Sciatica of right side associated with disorder*09/06/2017 Lymphocytosis [D72.820] 03/24/2018 Monocytosis [D72.821] 03/24/2018 Advance directive discussed with patient [Z71.8*07/07/2021 Back problem [M53.9] 01/10/2022 01/10/2022 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] 02/25/2018 01/10/2022 Chronic back pain [M54.9, G89.29] 01/10/2022 01/10/2022 First degree hemorrhoids [K64.0] 02/25/2018 Hemorrhoids [K64.9] 01/10/2022 01/10/2022 History of cervical spinal arthrodesis [Z98.1] 01/10/2022 01/10/2022 History of surgical procedure [Z98.890] 01/10/2022 01/10/2022 Wheelwright-Schlatter's disease [M92.529] 01/10/2022 01/10/2022 Right lower quadrant pain [R10.31] 02/25/2018 01/10/2022 Skin lesion [L98.9] 01/10/2022 01/10/2022 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] 02/25/2018 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] 07/27/2023 Skin cancer [C44.90] 07/27/2023 Prostate cancer (HCC) [C61] 01/29/2024 08/05/2024 PONV (postoperative nausea and vomiting) [R11.2*05/07/2024 08/05/2024 History of prostate cancer [Z85.46] 05/07/2024 Encounter Status:Closed by RYANN GARCIA on 11/27/[address] [facility] [address] ABD/PEL W IVCONon 025 CT ABD/PEL W IVCON * * *Final Report* * * DATE OF EXAM: Nov 25 2024 11:22AM [facility] 0530 - CT ABD/PEL W IVCON / PROCEDURE REASON: multiple diagnoses * * * * Physician Interpretation * * * * EXAMINATION: CT ABDOMEN AND PELVIS WITH IV CONTRAST CLINICAL HISTORY: Left lower quadrant abdominal pain. Intra-abdominal and pelvic swelling, mass and lump. Question hernia. TECHNIQUE: CT of the abdomen and pelvis was performed using standard technique, scanning from just above the dome of the diaphragm to the upper thighs. Contrast: IV: 100 ml of Omnipaque 350 Oral: 10 ml of Omni 240 10-25ml diluted with water CT Radiation dose: Integrated Dose-length product (DLP) for this visit = 631 mGy*cm. CT Dose Reduction Employed: Automated exposure control(AEC) and iterative recon COMPARISON: CT abdomen pelvis 05/22/2022 FINDINGS: LOWER CHEST: A 9 mm nodule along the right major fissure likely reflects a subpleural lymph node. A calcified granulomas present within the right retrocardiac recess. HEPATOBILIARY: The liver is normal in appearance. The gallbladder is absent. No biliary ductal dilatation. SPLEEN, PANCREAS, ADRENAL GLANDS: Within normal limits. KIDNEYS, URETERS, BLADDER: Symmetric parenchymal enhancement with no obstructing calculus or hydronephrosis. Ureters and bladder within normal limits. PROSTATE, SEMINAL VESICLES: Brachytherapy seeds are present within the prostate. The seminal vesicles are symmetric. BOWEL: No evidence of obstruction. A small mural lipoma is present within a distal small bowel loop in the right lower quadrant (5:107). PERITONEAL/EXTRAPERITONEAL SPACE: No free air or free fluid. LYMPH NODES: No adenopathy. VASCULAR: Grossly unremarkable. ABDOMINAL WALL: Small bilateral fat-containing inguinal hernias, and tiny fat-containing periumbilical hernia. MUSCULOSKELETAL: No acute osseous abnormality. Multilevel degenerative disease of the thoracolumbar spine is noted. IMPRESSION: 1. No acute finding in the abdomen or pelvis. 2. Small bilateral fat-containing inguinal hernias. Survey Superintendent: JOSE Transcribe Date/Time: Nov 27 2024 7:01A Dictated by : SIOBHAN ERICKSON MD This examination was interpreted and the report reviewed and electronically signed by: SIOBHAN ERICKSON MD on Nov 27 2024 7:08AM EST [id number] Normal [facility] CNOVon 11-18-2024 CNOV Office Visit (FAMPWS ) ROBYB VERA ([id number]) 1940 M Date Time Provider Department 11/18/24 2:00 PM [facility] During your visit today, we recorded the following information about you: Pulse Blood pressure Weight 80/minute 110/70 81.4 kg Rom Newell MD 11/18/2024 2:16 PM Signed - Monitor the small lump on the left side of your pelvis/abdominal wall for any changes. - Contact our office if the lump grows, becomes painful or swollen, or if you develop any new bowel or urinary changes. - When you?re ready to proceed with further testing, we will first check your kidney function with a blood draw and then schedule a contrast-enhanced CT scan to assess the area more clearly. - Avoid rolling onto tools or other hard objects that could stress this area. Rom Newell MD 11/18/2024 2:42 PM Signed Yahir Vera is an 83-year-old male with a history of degenerative disc disease, presenting for evaluation of a left-sided abdominal lump. HPI Left-Sided Abdominal Lump: - Yahir noticed a protuberant area above the rim of the pelvis on the left side. - Denies pain, changes in bowel movements, or urinary issues. - No swelling in the groin area. - Denies unexpected weight loss, hematochezia, or melena. - Yahir has had several abdominal surgeries, including cholecystectomy and hernia repairs. Left Flank Pain: - Previously experienced left-sided flank pain, described as sharp and worse in certain positions. - Pain has resolved. - Seen in the ED on 07/05/2024 for this issue; CT scan without contrast showed no acute abdominal or pelvic findings. - Followed up with urology; no urinary cause identified. - Treated with cefdinir and metronidazole for suspected diverticulitis. - X-ray of the lumbar spine on 07/19 showed advanced multi-level degenerative disease - Bone scan showed no concerning findings and a rib fracture on the left 10th rib. - Managed with tramadol and gabapentin. - now better. MEDICATIONS: Current Outpatient Medications Medication Sig atorvastatin (LIPITOR) 40 mg tablet Take 1 tablet by mouth daily at bedtime. For cholesterol. DULoxetine (CYMBALTA) 60 mg capsule Take 1 capsule by mouth once daily. omeprazole (PRILOSEC) 40 mg capsule Take 1 capsule by mouth every afternoon. gabapentin (NEURONTIN) 600 mg tablet Take 600 mg by mouth four times daily. acetaminophen (TYLENOL ARTHRITIS PAIN ORAL) Take 2 tablets by mouth. vitamin B complex (VITAMIN B-100 COMPLEX ORAL) Take 100 mg by mouth once daily. Cholecalciferol, Vitamin D3, 25 mcg (1,000 unit) cap Take 1,000 Units by mouth once daily. traMADol (ULTRAM) 50 mg tablet Take 50 mg by mouth every 6 hours as needed. iv contrast (will be provided with radiology test) CT ABD/PEL -Inject, intravenously, once for 1 dose.No IV access, insert saline lock prior to the beginning of sedation, infusion, injection of imaging exam. Discontinue saline lock post exam. If Pt. has a central line or IVAD, may access for administration according to line specific nursing protocol. Once exam is complete flush line and de-access according to line specific nursing protocol in theCT contrast administration guidelines link. enteric contrast (will be provided with radiology test) For CT ABD/PEL W IVCON Routine order Administer, As Directed One Time Only, via Oral, Rectal, both Oral and Rectal, Enteric Tube, Stoma or Indwelling Catheter, Enteric Contrast as designated per enteric contrast guidelines CPAP CHIN STRAP, USED WITH CPAP DEVICE (Patient not taking: Reported on 11/18/2024) No current facility-administered medications for this visit. ALLERGIES: ALLERGIES No Known Allergies PAST MEDICAL HISTORY Diagnosis Date Arthritis Cervical nerve root impingement sees Dr. Lott, pain management at [place] Colon polyp Depression Diverticulosis of colon (without mention of hemorrhage) Elevated PSA sees Dr Boswell History of prostate cancer 05/07/2024 Hyperlipidemia Kidney disease Low testosterone Obstructive sleep apnea Osteoarthrosis Personal history of colonic polyps PONV (postoperative nausea and vomiting) 05/07/2024 Sleep apnea Snoring PAST SURGICAL HISTORY Procedure [...] BIOPSY SING OR MULT 07/10/2022 Dr. Nestor Dahl (more content not included)... Normal [facility] Creatinine and Glomerular fi ltration rate.predicted panel (S/P/Bld)on 11-18-2024 Creatinine [Mass/Vol] 1.12 mg/dL Normal 0.73-1.22 [facility] Comment on above: Order Comment: Speci jesse Type: BLOOD SPECIMEN Ordering Facility: [facility] Address: [address] [place] [address] Performed By: #### L JIMENEZ, [id number] #### [facility] CLIA [id number] [address] [place] [address] [place] eGFRcr SerPlBld CKD-EPI 2020 64 mL/min/1.73m??? Normal >=60 [facility] Comment on above: Order Comment: Specmeredith molina Type: BLOOD SPECIMEN Ordering Facility: [facility] Address: [address] [place] [address] Result Comment: Samira mated Glomerular Filtration Rate (eGFR) is calculated using the 2020 CKD-EPI creatinine equation. This equation utilizes serum creatinine, sex, and age as parameters. The creatinine assay has traceable calibration to isotope dilution-mass spectrometry. Refer to KDIGO guidelines for clinical interpretation. In patients with unstable renal function, e.g. those with acute kidney injury, the eGFR may not accurately reflect actual GFR. Performed By: #### L JIMENEZ, [id number] #### [facility] CLIA [id number] [address] [place] [id number] [place] PSA,Total- Diagnosticon 05-0 PSA, DIAGNOSTIC 0.15 ng/mL Normal 0.00-4.00 [facility] Comment on above: Result Comment: This test was performed using the [employer] tPSA method. Measured values of a patient??sample can vary depending on the testing procedure used. PSA values determined on patient samples by different testing procedures cannot be used interchangeably. If there is a change in PSA assays while monitoring therapy, sequential testing should be performed to confirm baseline values. Performed By: #### L [id number] ####[facility] [id number] [place], [address] Radiation Oncology Visiton 0 08-11-2024 Radiation Oncology Visit [facility] [address] [place] [address] OFFICE VISIT Date of Service: 08/11/24 1035 MR#: [id number] Acct: [id number] Name: MANJUROBBY Varner Matthieu Rep #: [id number] : 1940 From: Aaron Nowak DO Age/Sex: 83/M Location: [facility] [place] Status: Signed Intake Vital Signs 02/11/24 10:29 07/05/24 08:03 08/11/24 10:39 Height 5 ft 8 in 5 ft 8 in 5 ft 8 in Weight: 180 lb 4 oz BMI 27.3 BP 142/67 H Blood Pressure Location Lt brachial Position Sitting Respiration 18 Pulse 63 Pulse Source Monitor Temp 97.4 F L Temperature Source Temporal Artery Pulse Oximetry (%) 98 Oxygen Delivery Method room air Intake Visit Reasons: 6 MONTH F/U PROSTATE, PSA PRIOR Is patient in pain?: No Allergies No Known Allergies Allergy (Verified 08/11/24 10:38) Medications ???Medication ???Instructions ???Recorded ???Confirmed ???Type B-complex with vitamin C 1 tab PO DAILY 01/17/18 08/11/24 H istory atorvastatin 40 mg tablet 40 mg PO DAILY 01/17/18 08/11/24 H istory cholecalciferol (vitamin D3) 25 1,000 unit PO DAILY 01/17/1808/11 History mcg (1,000 unit) capsule tramadol 50 mg tablet 50 mg PO 4X/DAY 01/17/18 08/11/24 History gabapentin 600 mg tablet 600 mg PO 4X/DAY 08/10/20 08/11/24 History acetaminophen 650 mg 650 mg PO PRN PRN Pain 03/22/22 History tablet,extended release (Arthritis Pain Relief (acetaminophen) ER) duloxetine 30 mg capsule,delayed 30 mg PO DAILY 03/22/22 08/11/24 H istory release (Cymbalta) omeprazole 40 mg capsule,delayed See Rx Instructions .Route 3 08/11/24 Rx release .COMPLEX #90 caps Have you fallen in the past year?: No PFSH PFSH Medical History Encounter for education Prostate cancer Loss of hearing Wears glasses Depression Anxiety Skin tear Arthritis High cholesterol Neuropathy Back pain Heartburn Non-smoker CPAP (continuous positive airway pressure) dependence Personal history of colonic polyps Hemorrhoids Sleep apnea Anxiety Arthritis Back problem Home Medications ???Medication ???Instructions ???Recorded ???Last Taken ???Type B-complex with vitamin C 1 tab PO DAILY 01/17/18 Unknown Hi story atorvastatin 40 mg tablet 40 mg PO DAILY 01/17/18 Unknown Hi story cholecalciferol (vitamin D3) 25 1,000 unit PO DAILY 01/17/18 Unkno wn History mcg (1,000 unit) capsule tramadol 50 mg tablet 50 mg PO 4X/DAY 01/17/18 05/10/23 History gabapentin 600 mg tablet 600 mg PO 4X/DAY 08/10/20 05/10/23 History acetaminophen 650 mg 650 mg PO PRN PRN Pain 03/22/22 Un known History tablet,extended release (Arthritis Pain Relief (acetaminophen) ER) duloxetine 30 mg capsule,delayed 30 mg PO DAILY 03/22/22 Unknown Hi story release (Cymbalta) omeprazole 40 mg capsule,delayed See Rx Instructions .Route 3 05/10/23 Rx release .COMPLEX #90 caps Allergy/AdvReac Type Severity Reaction Status Date / Time No Known Allergies Allergy Verified 08/11/24 10:38 Family History Mother Diabetes Heart disease Brother Cancer Kidney Heart disease Surgical History History of esophagogastroduodenoscopy (EGD) Hx of colonoscopy History of Grace fundoplication Hx of rotator cuff surgery Hx of right knee surgery History of prostate surgery Hx of carpal tunnel repair Hx of fusion of cervical spine Hx of hernia repair Hx of cholecystectomy Social History Smoking Status: Never smoker second hand exposure: No alcohol intake: never substance use type: does not use caffeine: No what type of physical activity do you participate in: none frequency: does not exercise seatbelt use: always Diagnosis: Robby Vera is an 83-year-old male diagnosed with 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 From 05/27/2023 ??? 07/03/2023 he received definitive radiation therapy. History of Present Illness: 06/26/2016: Patient completed TRUS guided prostate biopsy.??? This demonstrated no evidence of malignancy. August 2017: Urolift completed 02/19/2022: Patient completed TRUS guided prostate biopsy.??? Pathology demonstrated Maria Victoria 3+3 adenocarcinoma involving less than 5% of 1/1 core in the left prostate apex.??? All remaining biopsies were negative. 07/10/2022: Colonoscopy was performed.??? There was evidence for nonthrombosed internal hemorrhoids and internal hemorrhoids that prolapse with straining but spontaneously regressed t (more content not included)... Normal [facility] CBC W Auto Differential pane l (Bld)on 08-05-2024 Basophils (Bld) [#/Vol] 0.05 10*3/uL [facility] Basophils/100 WBC (Bld) 0.6 % [facility] Differential cell count method Nom (Bld) Auto [facility] Eosinophils (Bld) [#/Vol] 0.16 10*3/uL [facility] Eosinophils/100 WBC (Bld) 2 % [facility] Erythrocyte distribution width (RBC) [Ratio] 12.3 % 11.5 - 15.0 % [facility] Hematocrit (Bld) [Volume fraction] 41.8 % 39.0 - 51.0 % [facility] Hemoglobin (Bld) [Mass/Vol] 13.6 g/dL 13.0 - 17.0 g/dL [facility] Immature granulocytes (Bld) [#/Vol] 0.09 10*3/uL NINF [facility] Immature granulocytes/100 WBC (Bld) 1.2 % [facility] Interpretation and review of laboratory results Abnormal [facility] Lymphocytes (Bld) [#/Vol] 1.43 10*3/uL [facility] Lymphocytes/100 WBC (Bld) 18.3 % [facility] MCH (RBC) [Entitic mass] 31.2 pg 26.0 - 34.0 pg [facility] MCHC (RBC) [Mass/Vol] 32.5 g/dL 30.5 - 36.0 g/dL [facility] MCV (RBC) [Entitic vol] 95.9 fL 80.0 - 100.0 fL [facility] Monocytes (Bld) [#/Vol] 0.9 10*3/uL High NINF [facility] Monocytes/100 WBC (Bld) 11.5 % [facility] Neutrophils (Bld) [#/Vol] 5.19 10*3/uL [facility] Neutrophils/100 WBC (Bld) 66.4 % [facility] Nucleated RBC (Bld) [#/Vol] NINF [facility] Nucleated RBC/100 WBC (Bld) [Ratio] 0 % /100 WBC [facility] Platelet mean volume (Bld) [Entitic vol] 9.2 fL 9.0 - 12.7 fL [facility] Platelets (Bld) [#/Vol] 309 10*3/uL [facility] RBC (Bld) [#/Vol] 4.36 10*6/uL 4.20 - 6.00 m/uL [facility] WBC (Bld) [#/Vol] 7.82 10*3/uL [facility] Basophils (Bld) [#/Vol] 0.05 10*3/uL Normal <0.11 [facility] Comment on above: Order Comment: Speci men Type: BLOOD SPECIMEN Ordering Facility: [facility] Address: [address] [place] [address] Performed By: #### L IPNF, [id number] #### [facility] CLIA [id number] [address] [place] [address] [place] Basophils/100 WBC (Bld) 0.6 % [facility] Comment on above: Order Comment: Speci men Type: BLOOD SPECIMEN Ordering Facility: [facility] Address: [address] [place] [address] Performed By: #### L IPNF, [id number] #### [facility] CLIA [id number] [address] [place] [address] [place] Differential cell count method Nom (Bld) Auto Normal [facility] Comment on above: Order Comment: Speci men Type: BLOOD SPECIMEN Ordering Facility: [facility] Address: [address] [place] [address] Performed By: #### L IPNF, [id number] #### [facility] CLIA [id number] [address] [place] [address] [place] Eosinophils (Bld) [#/Vol] 0.16 10*3/uL Normal <0.46 [facility] Comment on above: Order Comment: Speci men Type: BLOOD SPECIMEN Ordering Facility: [facility] Address: [address] [place] [address] Performed By: #### L IPNF, [id number] #### [facility] CLIA [id number] [address] [place] [address] [place] Eosinophils/100 WBC (Bld) 2.0 % Normal [facility] Comment on above: Order Comment: Speci men Type: BLOOD SPECIMEN Ordering Facility: [facility] Address: [address] [place] [address] Performed By: #### L IPNF, [id number] #### [facility] CLIA [id number] [address] [place], [place] [id number] [place] Erythrocyte distribution width (RBC) [Ratio] 12.3 % Normal 11.5-15.0 [facility] Comment on above: Order Comment: Speci men Type: BLOOD SPECIMEN Ordering Facility: [facility] Address: [address] [place] [address] Performed By: #### L IPNF, [id number] #### [facility] CLIA [id number] [address] [place] [address] [place] Hematocrit (Bld) [Volume fraction] 41.8 % Normal 39.0-51.0 [facility] Comment on above: Order Comment: Speci men Type: BLOOD SPECIMEN Ordering Facility: [facility] Address: [address] [place] [address] Performed By: #### L IPNF, [id number] #### [facility] CLIA [id number] [address] [place] [address] [place] Hemoglobin (Bld) [Mass/Vol] 13.6 g/dL Normal 13.0-17.0 [facility] Comment on above: Order Comment: Speci men Type: BLOOD SPECIMEN Ordering Facility: [facility] Address: [address] [place] [address] Performed By: #### L IPNF, 09657-4 #### [facility] CLIA [id number] [address] [place] [address] [place] Immature granulocytes (Bld) [#/Vol] 0.09 10*3/uL Normal <0.10 [facility] Comment on above: Order Comment: Speci men Type: BLOOD SPECIMEN Ordering Facility: [facility] Address: [address] [place] [address] Performed By: #### L IPNF, [id number] #### [facility] CLIA [id number] [address] [place] [address] [place] Immature granulocytes/100 WBC (Bld) 1.2 % Normal [facility] [facility] Comment on above: Order Comment: Speci men Type: BLOOD SPECIMEN Ordering Facility: [facility] Address: [address] [place] [address] Performed By: #### L IPNF, 38592-3 #### [facility] CLIA [id number] [address] [place] [address] [place] Lymphocytes (Bld) [#/Vol] 1.43 10*3/uL Normal 1.00-4.00 [facility] Comment on above: Order Comment: Speci men Type: BLOOD SPECIMEN Ordering Facility: [facility] Address: [address] [place] [address] Performed By: #### L IPNF, 53049-7 #### [facility] CLIA [id number] [address] [place] [address] [place] Lymphocytes/100 WBC (Bld) 18.3 % Normal [facility] Comment on above: Order Comment: Speci men Type: BLOOD SPECIMEN Ordering Facility: [facility] Address: [address] [place] [address] Performed By: #### L IPNF, 52319-8 #### [facility] CLIA [id number] [address] [place] [address] [place] MCH (RBC) [Entitic mass] 31.2 pg Normal 26.0-34.0 [facility] Comment on above: Order Comment: Speci men Type: BLOOD SPECIMEN Ordering Facility: [facility] Address: [address] [place] [address] Performed By: #### L IPNF, 79111-8 #### [facility] CLIA [id number] [address] [place] [address] [place] MCHC (RBC) [Mass/Vol] 32.5 g/dL Normal 30.5-36.0 [facility] Comment on above: Order Comment: Speci men Type: BLOOD SPECIMEN Ordering Facility: [facility] Address: [address] [place] [address] Performed By: #### L IPNF, 10655-3 #### [facility] CLIA [id number] [address] [place] [address] [place] MCV (RBC) [Entitic vol] 95.9 fL Normal 80.0-100.0 [facility] Comment on above: Order Comment: Speci men Type: BLOOD SPECIMEN Ordering Facility: [facility] Address: [address] [place] [address] Performed By: #### L IPNF, 02889-8 #### [facility] CLIA [id number] [address] [place] [address] [place] Monocytes (Bld) [#/Vol] 0.90 10*3/uL High <0.87 [facility] Comment on above: Order Comment: Speci men Type: BLOOD SPECIMEN Ordering Facility: [facility] Address: [address] [place] [address] Performed By: #### L IPNF, 03347-3 #### [facility] CLIA [id number] [address] [place] [address] [place] Monocytes/100 WBC (Bld) 11.5 % Normal [facility] Comment on above: Order Comment: Speci men Type: BLOOD SPECIMEN Ordering Facility: [facility] Address: [address] [place] [address] Performed By: #### L IPNF, 99881-9 #### [facility] CLIA [id number] [address] [place] [address] [place] Neutrophils (Bld) [#/Vol] 5.19 10*3/uL Normal 1.45-7.50 [facility] Comment on above: Order Comment: Speci men Type: BLOOD SPECIMEN Ordering Facility: [facility] Address: [address] [place] [address] Performed By: #### L IPNF, 75388-3 #### [facility] CLIA [id number] [address] [place] [address] [place] Neutrophils/100 WBC (Bld) 66.4 % Normal [facility] Comment on above: Order Comment: Speci men Type: BLOOD SPECIMEN Ordering Facility: [facility] Address: [address] [place] [address] Performed By: #### L IPNF, 17069-1 #### [facility] CLIA [id number] [address] [place] [address] [place] Nucleated RBC (Bld) [#/Vol] 10*3/uL Normal <0.01 [facility] Comment on above: Order Comment: Speci men Type: BLOOD SPECIMEN Ordering Facility: [facility] Address: [address] [place] [address] Performed By: #### L IPNF, 89421-7 #### [facility] CLIA [id number] [address] [place] [address] [place] Nucleated RBC/100 WBC (Bld) [Ratio] 0.0 /100 WBC Normal [facility] Comment on above: Order Comment: Speci men Type: BLOOD SPECIMEN Ordering Facility: [facility] Address: [address] [place] [address] Performed By: #### L IPNF, 95321-0 #### [facility] CLIA [id number] [address] [place] [address] [place] Platelet mean volume (Bld) [Entitic vol] 9.2 fL Normal 9.0-12.7 [facility] Comment on above: Order Comment: Speci men Type: BLOOD SPECIMEN Ordering Facility: [facility] Address: [address] [place] [address] Performed By: #### L IPNF, 71772-5 #### [facility] CLIA [id number] [address] [place] [address] [place] Platelets (Bld) [#/Vol] 309 10*3/uL Normal 150-400 [facility] Comment on above: Order Comment: Speci men Type: BLOOD SPECIMEN Ordering Facility: [facility] Address: [address] [place] [address] Performed By: #### L RACIELNF, 68078-8 #### [facility] CLIA [id number] [address] [place] [address] [place] RBC (Bld) [#/Vol] 4.36 10*6/uL Normal 4.20-6.00 [facility] Comment on above: Order Comment: Speci men Type: BLOOD SPECIMEN Ordering Facility: [facility] Address: [address] [place] [address] Performed By: #### L RACIELNF, 16911-9 #### [facility] CLIA [id number] [address] [place] [address] [place] WBC (Bld) [#/Vol] 7.82 10*3/uL Normal 3.70-11.00 [facility] Comment on above: Order Comment: Speci men Type: BLOOD SPECIMEN Ordering Facility: [facility] Address: [address] [place] [address] Performed By: #### Bob SCHRADERNF, 23820-6 #### [facility] CLIA [id number] [address] [place] [address] [place] CNOVon 08-05-2024 CNOV Office Visit (FAMPWS ) ROBBY VERA ([id number]) 1940 M Date Time Provider Department 08/05/24 9:40 AM ROM NEWELL During your visit today, we recorded the following information about you: Pulse Blood pressure Weight 64/minute 122/68 81.6 kg Rom Newell MD 08/05/2024 10:10 AM Signed Patient presents with: 6 Month Exam HPI: Patient presents today for office visit for follow up. Feeling better after ATB side pain is gone now. I felt it was likely more radicular. TAMMI: States does not use CPAP. Pain management seeing Dr Shaffer. Getting tramadol and gabapentin. Just got back bone scan. Shows rib fracture but area seen on lumbar xray was ok. Did show left rib fracture. May have had a fall or rolled on tools working on his car. Red flags for re-assessment reviewed with patient in detail. HLD:no new myalgias. Still seeing Dr Hunt for derm. Recently had egd. Biopsy was ok. Discussed whether we continue to pursue follow up. Urology:still seeing Dr Fritz. Due for some labs. No chest pain or shortness of breath. MEDICATIONS: Current Outpatient Medications Medication Sig DULoxetine (CYMBALTA) 60 mg capsule Take 1 capsule by mouth once daily. omeprazole (PRILOSEC) 40 mg capsule Take 1 capsule by mouth every afternoon. gabapentin (NEURONTIN) 600 mg tablet Take 600 mg by mouth four times daily. vitamin B complex (VITAMIN B-100 COMPLEX ORAL) Take 100 mg by mouth once daily. Cholecalciferol, Vitamin D3, 25 mcg (1,000 unit) cap Take 1,000 Units by mouth once daily. traMADol (ULTRAM) 50 mg tablet Take 50 mg by mouth every 6 hours as needed. atorvastatin (LIPITOR) 40 mg tablet Take 1 tablet by mouth daily at bedtime. For cholesterol. acetaminophen (TYLENOL ARTHRITIS PAIN ORAL) Take 2 tablets by mouth. CPAP CHIN STRAP, USED WITH CPAP DEVICE No current facility-administered medications for this visit. ALLERGIES: ALLERGIES No Known Allergies PAST MEDICAL HISTORY Diagnosis Date Arthritis Cervical nerve root impingement sees Dr. Lott, pain management at [place] Colon polyp Depression Diverticulosis of colon (without mention of hemorrhage) Elevated PSA sees Dr Boswell History of prostate cancer 05/07/2024 Hyperlipidemia Kidney disease Low testosterone Obstructive sleep apnea Osteoarthrosis Personal history of colonic polyps PONV (postoperative nausea and vomiting) 05/07/2024 Sleep apnea Snoring PAST SURGICAL HISTORY Procedure [...] SING OR MULT 07/10/2022 Dr. Nestor Dahl; [facility], HH, gastritis NEUROPLASTY AND/TRANSPOS MEDIAN NRV CARPAL [...] FAMILY HISTORY Problem Relation Age of Onset Coronary Artery Disease Mother early 60's Diabetes Mother None Father Coronary Artery Disease Brother Cancer Brother kidney Heart disease Brother Colon Cancer Other none Anesthesia Problems No Family History Social History Tobacco Use Smoking status: Never Smokeless tobacco: Never Vaping Use Vaping status: Never Used Substance Use Topics Alcohol use: No Drug use: No Reviewed current medications, allergies, past medical history, surgical history, family history and social history today. REVIEW OF SYSTEMS All other reviewed and negative other than HPI. VITALS: BP 122/68 Pulse 64 Wt 81.6 kg (180 lb) SpO2 98% BMI 27.38 kg/m? Last 4 Encounter Wt Readings: Date: Wt: 07/15/2024 81.6 kg (180 lb) 07/07/2024 83.9 kg (185 lb) 07/02/2024 81.6 kg (180 lb) 06/23/2024 81.6 kg (180 lb) PHYSICAL EXAMINATION: General appearance: Well appearing, alert, in no acute distress, well-hydrated, well nourished. Skin: Skin color, texture, turgor normal, no suspicious rashes or lesions Head: Normocephalic, no masses, lesions, tenderness or abnormalities Lungs: Lungs clear to auscultation. No wheezing, rh (more content not included)... Normal [facility] Comprehensive metabolic 2000 panelon 08-05-2024 Albumin [Mass/Vol] 4.2 g/dL Normal 3.9-4.9 [facility] Comment on above: Order Comment: Speci men Type: BLOOD SPECIMEN Ordering Facility: [facility] Address: [address] [place] [address] Performed By: #### L IPNF, 60906-6 #### [facility] CLIA [id number] [address] [place] [address] [place] ALP [Catalytic activity/Vol] 82 U/L Normal 38-113 [facility] Comment on above: Order Comment: Speci men Type: BLOOD SPECIMEN Ordering Facility: [facility] Address: [address] [place] [address] Performed By: #### L IPNF, 34717-6 #### [facility] CLIA [id number] [address] [place] [address] [place] ALT [Catalytic activity/Vol] 25 U/L Normal 10-54 [facility] Comment on above: Order Comment: Speci men Type: BLOOD SPECIMEN Ordering Facility: [facility] Address: [address] [place] [address] Performed By: #### L IPNF, 25256-8 #### [facility] CLIA [id number] [address] [place] [address] [place] Anion gap [Moles/Vol] 11 mmol/L Normal 8-15 [facility] Comment on above: Order Comment: Speci men Type: BLOOD SPECIMEN Ordering Facility: [facility] Address: [address] [place] [address] Performed By: #### L IPNF, 15648-7 #### [facility] CLIA [id number] [address] [place] [address] [place] AST [Catalytic activity/Vol] 22 U/L Normal 14-40 [facility] Comment on above: Order Comment: Speci men Type: BLOOD SPECIMEN Ordering Facility: [facility] Address: [address] [place] [address] Performed By: #### L JIMENEZ, 10400-9 #### [facility] CLIA [id number] [address] [place] [address] [place] Bilirubin [Mass/Vol] 0.4 mg/dL Normal 0.2-1.3 [facility] Comment on above: Order Comment: Speci men Type: BLOOD SPECIMEN Ordering Facility: [facility] Address: [address] [place] [address] Performed By: #### L JIMENEZ, 82691-7 #### [facility] CLIA [id number] [address] [place] [address] [place] Calcium [Mass/Vol] 9.2 mg/dL Normal 8.5-10.2 [facility] Comment on above: Order Comment: Speci men Type: BLOOD SPECIMEN Ordering Facility: [facility] Address: [address] [place] [address] Performed By: #### L IPERIKA, 82810-8 #### [facility] CLIA [id number] [address] [place] [address] [place] Chloride [Moles/Vol] 101 mmol/L Normal 98-107 [facility] Comment on above: Order Comment: Speci men Type: BLOOD SPECIMEN Ordering Facility: [facility] Address: [address] [place] [address] Performed By: #### L IPNF, 26205-1 #### [facility] CLIA [id number] [address] [place] [address] [place] CO2 [Moles/Vol] 28 mmol/L Normal 22-30 [facility] Comment on above: Order Comment: Speci men Type: BLOOD SPECIMEN Ordering Facility: [facility] Address: [address] [place] [address] Performed By: #### L IPNF, 43461-1 #### [facility] CLIA [id number] [address] [place] [address] [place] Creatinine [Mass/Vol] 1.06 mg/dL Normal 0.73-1.22 [facility] Comment on above: Order Comment: Speci men Type: BLOOD SPECIMEN Ordering Facility: [facility] Address: [address] [place] [address] Performed By: #### L IPNF, 08665-0 #### [facility] CLIA [id number] [address] [place] [address] [place] Creatinine and Glomerular filtration rate.predicted panel (S/P/Bld) 69 mL/min/1.73m??? Normal >=60 [facility] Comment on above: Order Comment: Curtis molina Type: BLOOD SPECIMEN Ordering Facility: [facility] Address: [address] [place] [address] Result Comment: Samira mated Glomerular Filtration Rate (eGFR) is calculated using the 2020 CKD-EPI creatinine equation. This equation utilizes serum creatinine, sex, and age as parameters. The creatinine assay has traceable calibration to isotope dilution-mass spectrometry. Refer to KDIGO guidelines for clinical interpretation. In patients with unstable renal function, e.g. those with acute kidney injury, the eGFR may not accurately reflect actual GFR. Performed By: #### L IPNF, 97546-7 #### [facility] CLIA [id number] [address] [place] [address] [place] Glucose [Mass/Vol] 103 mg/dL High 74-99 [facility] Comment on above: Order Comment: Jefi men Type: BLOOD SPECIMEN Ordering Facility: [facility] Address: [address] [place] [address] Result Comment: The [place] Diabetes Association (ADA) provides guidance for cutoff values for fasting glucose and random glucose. The ADA defines fasting as no caloric intake for at least 8 hours. Fasting plasma glucose results between 100 to 125 mg/dL indicate increased risk for diabetes (prediabetes). Fasting plasma glucose results greater than or equal to 126 mg/dL meet the criteria for diagnosis of diabetes. In the absence of unequivocal hyperglycemia, results should be confirmed by repeat testing. In a patient with classic symptoms of hyperglycemia or hyperglycemic crisis, random plasma glucose results greater than or equal to 200 mg/dL meet the criteria for diagnosis of diabetes. Reference: Standards of Medical Care in Diabetes 2016, [place] Diabetes Association. Diabetes Care. 2016.39(Suppl 1). Performed By: #### L JIMENEZ, 59109-4 #### [facility] CLIA [id number] [address] [place] [address] [place] Potassium [Moles/Vol] 4.9 mmol/L Normal 3.7-5.1 [facility] Comment on above: Order Comment: Speci men Type: BLOOD SPECIMEN Ordering Facility: [facility] Address: [address] [place] [address] Performed By: #### L IPERIKA, 38771-6 #### [facility] CLIA [id number] [address] [place] [address] [place] Protein [Mass/Vol] 7.1 g/dL Normal 6.3-8.0 [facility] Comment on above: Order Comment: Jefi jesse Type: BLOOD SPECIMEN Ordering Facility: [facility] Address: [address] [place] [address] Performed By: #### L IPERIKA, 08335-3 #### [facility] CLIA [id number] [address] [place] [address] [place] Sodium [Moles/Vol] 140 mmol/L Normal 136-144 [facility] Comment on above: Order Comment: Speci men Type: BLOOD SPECIMEN Ordering Facility: [facility] Address: [address] [place] [address] Performed By: #### L IPERIKA, 11849-4 #### [facility] CLIA [id number] [address] [place] [address] [place] Urea nitrogen [Mass/Vol] 15 mg/dL Normal 9-24 [facility] Comment on above: Order Comment: Curtis molina Type: BLOOD SPECIMEN Ordering Facility: [facility] Address: [address] [place] [address] Performed By: #### L JIMENEZ, 41158-7 #### [facility] CLIA [id number] [address] [place] [address] [place] HbA1c (Bld)on 08-05-2024 Average glucose Estimated from glycated hemoglobin (Bld) [Mass/Vol] 131 mg/dL Normal [facility] Comment on above: Order Comment: Curtis molina Type: BLOOD SPECIMEN Ordering Facility: [facility] Address: [address] [place] [address] Result Comment: eAG: (Estimated average glucose) is a calculated value from HgbA1c and is hr representative of the average blood glucose level in the last 2-3 month period. Performed By: #### L JIMENEZ, 63187-8 #### [facility] CLIA [id number] [address] [place] [address] [place] HbA1c (Bld) [Mass fraction] 6.2 % High 4.3-5.6 [facility] Comment on above: Order Comment: Curtis molina Type: BLOOD SPECIMEN Ordering Facility: [facility] Address: [address] [place] [address] Result Comment: [place] Diabetes Association guidelines indicate that patients with HgbA1c in the range 5.7-6.4% are at increased risk for development of diabetes, and intervention by lifestyle modification may be beneficial. HgbA1c greater or equal to 6.5% is considered diagnostic of diabetes. Performed By: #### L JIMENEZ, 55871-6 #### [facility] CLIA [id number] [address] [place] [address] [place] LIPID PANEL, NONFASTINGon Cholesterol [Mass/Vol] 187 mg/dL Normal <200 [facility] Comment on above: Order Comment: Speci men Type: BLOOD SPECIMEN Ordering Facility: [facility] Address: [address] [place] [address] Result Comment: <200 mg/dL, Desirable 200-239 mg/dL, Borderline high >239 mg/dL, High Performed By: #### L IPNF, 26531-6 #### [facility] CLIA [id number] [address] [place] [address] [place] HDL CHOLESTEROL, NF 42 mg/dL Normal >39 [facility] Comment on above: Order Comment: Curtis men Type: BLOOD SPECIMEN Ordering Facility: [facility] Address: [address] [place] [address] Result Comment: 40-5 9 mg/dL, Acceptable >59 mg/dL, High: Negative risk factor for coronary heart disease <40 mg/dL, Low: Positive risk factor for coronary heart disease Performed By: #### L IPNF, 50753-7 #### [facility] CLIA [id number] [address] [place] [address] OF [facility] LDL CHOLESTEROL CALCULATED, NF 112 mg/dL High <100 [facility] Comment on above: Order Comment: Curtis men Type: BLOOD SPECIMEN Ordering Facility: [facility] Address: [address] [place] [address] Result Comment: <100 mg/dL, Optimal 100-129 mg/dL, Near optimal/above optimal 130-159 mg/dL, Borderline high 160-189 mg/dL, High >189 mg/dL, Very high Secondary prevention optimal LDL Cholesterol levels are recommended to be <70 mg/dL LDL cholesterol is calculated using the Hammer-NIH equation. Performed By: #### L IPNF, 53677-5 #### [facility] CLIA [id number] [address] [place] [address] [place] LDL/HDL RATIO, NF 2.67 mg/dL High <2.54 [facility] Comment on above: Order Comment: Jefi men Type: BLOOD SPECIMEN Ordering Facility: [facility] Address: [address] [place] [address] Result Comment: Refe rence: 1. National Cholesterol Education Program ATP III Guideline At-A-Glance Quick Desk Reference: National Heart, Lung, and Blood [place]. National Institutes of Health. 2001: NIH Publication No. 01-3305. 2. An International Atherosclerosis Society position paper: global recommendations for the management of dyslipidemia: executive summary, Atherosclerosis. 2014: 232(2):410-413. Performed By: #### L IPNF, 00157-7 #### [facility] CLIA [id number] [address] [place] [address] [place] NON HDL CHOL, NF 145 mg/dL High <130 [facility] Comment on above: Order Comment: Curtis molina Type: BLOOD SPECIMEN Ordering Facility: [facility] Address: [address] [place] [address] Result Comment: <130 mg/dL, Optimal 130-159 mg/dL, Near optimal/above optimal 160-189 mg/dL, Borderline high 190-219 mg/dL, High >219 mg/dL, Very high Secondary prevention optimal non HDL Cholesterol levels are recommended to be <100 mg/dL Performed By: #### L IPNF, 54096-2 #### [facility] CLIA [id number] [address] [place] [address] [place] T CHOL/HDL RATIO NF 4.45 mg/dL Normal <5.10 [facility] Comment on above: Order Comment: Curtis molina Type: BLOOD SPECIMEN Ordering Facility: [facility] Address: [address] [place] [address] Performed By: #### L IPNF, 03244-6 #### [facility] CLIA [id number] [address] [place] [address] [place] TRIGLYCERIDES, NF 188 mg/dL High <150 [facility] Comment on above: Order Comment: Curtis molina Type: BLOOD SPECIMEN Ordering Facility: [facility] Address: [address] [place] [address] Result Comment: <150 mg/dL, Normal 150-199 mg/dL, Borderline high 200-499 mg/dL, High >499 mg/dL, Very high Performed By: #### L IPNF, 54986-1 #### [facility] CLIA [id number] [address] [place] [address] [place] VLDL CHOLESTEROL, NF 32 mg/dL High <30 [facility] Comment on above: Order Comment: Speci men Type: BLOOD SPECIMEN Ordering Facility: [facility] Address: [address] [place] [address] Performed By: #### L IPNF, 52407-6 #### [facility] CLIA [id number] [address] [place] [address] [place] NM BONE 3 PHASEon 07-31-2024 NM BONE 3 PHASE * * *Final Report* * * DATE OF EXAM: Jul 31 2024 2:24PM WON 0009 - NM BONE 3 PHASE / PROCEDURE REASON: abn xray; history of prostate cancer. bone lesion on xray * * * * Physician Interpretation * * * * EXAMINATION: THREE-PHASE BONE SCAN CLINICAL HISTORY: Prostate cancer TECHNIQUE: 22.3 millicuries of Tc-99m MDP was administered IV. Three-phase bone scan of the . Dynamic planar was performed immediately after injection. Multiplanar static blood pool and delayed images were then obtained. CORRELATION: Lumbar spine radiographs 07/15/2024; CT abdomen/pelvis 05/22/2022 RESULT: Arterial Flow: Symmetric radiotracer distribution without hyperemia. Blood Pool: No abnormal tracer uptake. Delayed: No abnormal tracer uptake. Other: On whole body images, focal area of radiotracer uptake along the anterolateral left 10th rib, corresponding to the rib fracture seen on prior radiograph. Additionally, radiotracer uptake corresponding to likely degenerative changes seen within the shoulders, throughout the spine, hips, knees, ankles, and feet. IMPRESSION: No evidence of scintigraphically active metastases. Left 10th rib fracture. Survey Superintendent: JOSE Transcribe Date/Time: Jul 31 2024 2:25P Dictated by : ELROY LLAMAS, DO This examination was interpreted and the report reviewed and electronically signed by: FERNANDO JHAVERI MD on Jul 31 2024 2:35PM EST [id number] [facility] ROBBY VER[facility] ([id number]) 1940 M Date Time Provider Department 07/20/24 [facility] During your visit today, we recorded the following information about you: Rom Newell MD 07/20/2024 8:18 AM Signed His xray shows a lot of degenerative disc disease. It also shows an area on his pelvis that may be things like a bone cyst etc which are ok but need better pictures. Recommend a bone scan to evaluate it. Sirena Reyes MA 07/20/2024 9:59 AM Signed Message left for pt to call back for results. Susana Mejia MA, RN 07/23/2024 2:12 PM Signed Patient notified of results and provider's instructions. Patient verbalizes understanding. Susana Montenegro RN Allergies As of Date: 07/20/2024 (No Known Allergies) Date Reviewed: 07/15/2024 Reviewed by: Nuha Gómez MA - Fully Assessed Reason for Visit: Results [95] Primary Visit Diagnosis:Abnormal findings on diagnostic imaging of other parts of musculoskeletal system [R93.7] Other Visit Diagnosis:History of prostate cancer [Z85.46] Order(s):NM BONE 3 PHASE [[id number]] Order #: [id number] FUTURE Prescriptions as of 07/23/2024 - predniSONE (DELTASONE) 20 mg tablet Take 1 tablet by mouth once daily. - DULoxetine (CYMBALTA) 60 mg capsule Take 1 capsule by mouth once daily. - oxyCODONE-acetaminophen (PERCOCET) 5-325 mg tablet Take 1 tablet by mouth every 6 hours as needed. - omeprazole (PRILOSEC) 40 mg capsule Take 1 capsule by mouth every afternoon. - gabapentin (NEURONTIN) 600 mg tablet Take 600 mg by mouth four times daily. - atorvastatin (LIPITOR) 40 mg tablet Take 1 tablet by mouth daily at bedtime. For cholesterol. - acetaminophen (TYLENOL ARTHRITIS PAIN ORAL) Take 2 tablets by mouth. - vitamin B complex (VITAMIN B-100 COMPLEX ORAL) Take 100 mg by mouth once daily. - Cholecalciferol, Vitamin D3, 25 mcg (1,000 unit) cap Take 1,000 Units by mouth once daily. - traMADol (ULTRAM) 50 mg tablet Take 50 mg by mouth every 6 hours as needed. - CPAP CHIN STRAP, USED WITH CPAP DEVICE Problem List As Of Date 07/20/2024 Noted Resolved Routine general medical examination at [facility]*03/28/2009 02/08/2015 Class: Chronic Kidney stone [N20.0] 03/28/2009 Hyperlipidemia [E78.5] 03/28/2009 Anxiety state [F41.1] 03/28/2009 Obstructive sleep apnea (adult) (pediatric) [G4*03/28/2009 Osteoarthrosis [M19.90] 03/28/2009 Lumbar disc disorder [M51.9] 03/28/2009 Impaired fasting glucose [R73.01] 04/13/2009 Elevated PSA [R97.20] 04/13/2009 07/27/2023 Colon polyps [K63.5] 04/29/2009 01/10/2022 Pain in joint, shoulder region [M25.519] 11/23/2009 01/10/2022 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] Low testosterone [R79.89] Personal history of colonic polyps [Z86.0100] 01/26/2014 Sciatica of right side associated with disorder*09/06/2017 Lymphocytosis [D72.820] 03/24/2018 Monocytosis [D72.821] 03/24/2018 Advance directive discussed with patient [Z71.8*07/07/2021 Back problem [M53.9] 01/10/2022 01/10/2022 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] 02/25/2018 01/10/2022 Chronic back pain [M54.9, G89.29] 01/10/2022 01/10/2022 First degree hemorrhoids [K64.0] 02/25/2018 Hemorrhoids [K64.9] 01/10/2022 01/10/2022 History of cervical spinal arthrodesis [Z98.1] 01/10/2022 01/10/2022 History of surgical procedure [Z98.890] 01/10/2022 01/10/2022 Albin-Schlatter's disease [M92.529] 01/10/2022 01/10/2022 Right lower quadrant pain [R10.31] 02/25/2018 01/10/2022 Skin lesion [L98.9] 01/10/2022 01/10/2022 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] 02/25/2018 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] 07/27/2023 Skin cancer [C44.90] 07/27/2023 Prostate cancer (HCC) [C61] 01/29/2024 PONV (postoperative nausea and vomiting) [R11.2*05/07/2024 History of prostate cancer [Z85.46] 05/07/2024 Encounter Status:Closed by SUSANA MONTENEGRO on 07/23/24 [facility] CNOVon 07-15-2024 CNOV Office Visit (FAMPWS ) ROBBY VERA ([id number]) 1940 [place] Date Time Provider Department 07/15/24 2:40 PM ROM NEWELLPWS During your visit today, we recorded the following information about you: Pulse Blood pressure Weight Height 76/minute 126/62 81.6 kg 1.727 m Rom Newell MD 07/15/2024 3:22 PM Signed Patient presents with: Follow Up HPI: Patient presents today for office visit for follow up. Complains today of ongoing lower left abdominal pain that radiates to his left mid-back. Pain is sharp when comes on. Standing up relives the pain. Refers to a pulling if he lays flat on his back. Laying on his back makes it worse. See below. Urology did not feel it was a urinary issues. Thought it was superfical and followed a dermatomal pattern. [facility]o empirically covered for possible diverticulitis-ct was negative, however was without contrast. Was in [facility] ER on 07/05/24 due to lower abdominal pain on the left side that radiates upward into the left flank. Pain comes and goes. Refers to pain coming on sharp and then subsides. No injury. Basic blood work and urine was unremarkable. No obvious infection. Normal white count. CT of abdomen showed no acute abdominopelvic findings. He is feeling better than it was. He initially says it did not help but now says maybe it helped. Discomfort is just aggravating at this point. Is 1 to 2 at this point. Does have DDD and sees Dr Bower and gets injections. No recent injury. No recent falls. Did have to lift a garage door when the spring broke. [place] it aggravated it. Wraps around his left side and comes and goes. No burning No numbness. No rash. Comes and goes. Movement makes makes it worse. Bowels are currently good. Using prune juice and butter. No urinary symptoms. No bloody or black stools. Pain is similar to when he has needed injections Saw Soco Courtney for follow up on 07/07/24 Copy and pasted. See note: This is a 83 year old male who presents today with: Patient presents with: ED Follow-up: [facility] ER 07/05/24 Flank pain. HISTORY OF PRESENT ILLNESS: Robby Vera is a 83 year old male. Patient presents with: ED Follow-up: [facility] ER 07/05/24 Flank pain. Pain in left lower quadrant of abdomen that wraps around left side of abd and Left flank.. Started 1 week ago around noon. Real sharp. Saturday went to ER because it was real bad. Real deep stabbing pain. No nausea- maybe a couple times. Checked in ER for kidney stones. Saw urologist today. Prostate cancer. Always took Miralax. Given percocet from ER. Constipation worse. Urinating ok. No blood in urine. Last colonoscopy positive for diverticulosis in the sigmoid colon. ASSESSMENT/PLAN: 1. Diverticulitis - ICD9: 562.11, ICD10: K57.92 (primary diagnosis) Likely cause diverticulitis, kidney stone ruled out, shingles doubtful - METRONIDAZOLE 500 MG TABLET - CEFDINIR 300 MG CAPSULE 2. Abdominal pain, unspecified abdominal location - ICD9: 789.00, ICD10: R10.9 Differential Diagnosis includes Constipation, Diverticulitis, Kidney stones/colic, and shingles - METRONIDAZOLE 500 MG TABLET - CEFDINIR 300 MG CAPSULE - avoid percocet - warm prune juice with 1 Tbsp. Of butter - Miralax daily - Liquid diet for 24 -48 hours, then advance to soft food for 24 - 48 hours - If symptoms worsen, go to ER- rigid abdomen, fevers, nausea and vomiting MEDICATIONS: Current Outpatient Medications Medication Sig oxyCODONE-acetaminophen (PERCOCET) 5-325 mg tablet Take 1 tablet by mouth every 6 hours as needed. (Patient not taking: Reported on 07/15/2024) omeprazole (PRILOSEC) 40 mg capsule Take 1 capsule by mouth every afternoon. DULoxetine (CYMBALTA) 30 mg capsule Take 1 capsule by mouth once daily. gabapentin (NEURONTIN) 600 mg tablet Take 600 mg by mouth four times daily. atorvastatin (LIPITOR) 40 mg tablet Take 1 tablet by mouth daily at bedtime. For cholesterol. acetaminophen (TYLENOL ARTHRITIS PAIN ORAL) Take 2 tablets by mouth. vitamin B complex (VITAMIN B-100 COMPLEX ORAL) Take 100 mg by mouth once daily. Cholecalciferol, Vitamin D3, 25 mcg (1,000 unit) cap Take 1,000 Units by mouth once daily. traMADol (ULTRAM) 50 mg tablet Take 50 mg by mouth every 6 hours as needed. CPAP CHIN STRAP, USED WITH CPAP DEVICE amoxicillin (AMOXIL) 500 mg capsule 500 mg. (Patient not taking: Reported on 07/15/2024) No current facility-administered medications for this visit. ALLERGIES: ALLERGIES No Known Allergies PAST MEDICAL HISTORY Diagnosis Date Arthritis Cervical nerve root impingement sees Dr. Lott, pain management at [place] Colon polyp Depression Diverticulosis of colon (without mention of hemorrhage) Elevated PSA sees Dr Boswell History of prostate cancer 05/07/2024 Hyperlipidemia Kidney disease Low testosterone Obstructive sleep apnea Osteoarthr (more content not included)... [facility] CNPNon 07-15-2024 [facility] Telephone (FAMPWS) ROBBY VERA ([id number]) 1940 M Date Time Provider Department 07/15/24 ROM NEWELL [facility] During your visit today, we recorded the following information about you: Susana Ch 07/15/2024 4:01 PM Signed Patient's daughter, Radha, returned to the manager front wanting to share some concerns re: patient. She is wanting to see if the Cymbalta could be increased. One of the brother's of the patient just and another brother isn't doing well. Patient stated to daughter [facility] Please advise. Rom Lemons MD 07/15/2024 4:48 PM Signed Sorry for their loss. Increase the cymbalta to 60 mg a day and follow up with one of us in four weeks. If he is having significant issues or they worry he may hurt himself-see statement below. Let us know immediately. Nuha Gómez MA 07/15/2024 5:05 PM Signed Called and spoke with daughter Radha and informed her of the medication increase and need for a follow up appointment in 4 weeks. I explained to her that I would need to discuss this with the patient as well. Radha asked that we make it seem like it was Dr. Newell's idea for the medication increase as she wishes for the patient to not know she spoke with us concerning these things. I advised her that legally and ethically we cannot lie to the patient. She verbalized understanding. Placed call to patient with no answer. Left message for call back. DAQUAN Hernandez Krystle, MANDEEP 07/16/2024 9:13 AM Signed Patient and spouse returns call and below reviewed. Patient agreeable to increase in Cymbalta and aware for any concerns or questions to contact office immediately. Patient pleasant and thankful. No concern for self harm noted.Will start Cymbalta increased dose tonight at bedtime. Spouse also agreeable to contact office for any questions or concerns. Ryann Garcia RN Allergies As of Date: 07/15/2024 (No Known Allergies) Date Reviewed: 07/15/2024 Reviewed by: Nuha Gómez MA - Fully Assessed Reason for Visit: Patient Update [1234] Order(s):DULoxetine (CYMBALTA) 60 mg capsuleTake 1 capsule by mouth once daily.Disp: 90 capsuleRfl: 3 Prescriptions as of 07/16/2024 - predniSONE (DELTASONE) 20 mg tablet Take 1 tablet by mouth once daily. - DULoxetine (CYMBALTA) 60 mg capsule Take 1 capsule by mouth once daily. - oxyCODONE-acetaminophen (PERCOCET) 5-325 mg tablet Take 1 tablet by mouth every 6 hours as needed. - omeprazole (PRILOSEC) 40 mg capsule Take 1 capsule by mouth every afternoon. - gabapentin (NEURONTIN) 600 mg tablet Take 600 mg by mouth four times daily. - atorvastatin (LIPITOR) 40 mg tablet Take 1 tablet by mouth daily at bedtime. For cholesterol. - acetaminophen (TYLENOL ARTHRITIS PAIN ORAL) Take 2 tablets by mouth. - vitamin B complex (VITAMIN B-100 COMPLEX ORAL) Take 100 mg by mouth once daily. - Cholecalciferol, Vitamin D3, 25 mcg (1,000 unit) cap Take 1,000 Units by mouth once daily. - traMADol (ULTRAM) 50 mg tablet Take 50 mg by mouth every 6 hours as needed. - CPAP CHIN STRAP, USED WITH CPAP DEVICE Problem List As Of Date 07/15/2024 Noted Resolved Routine general medical examination at [facility]*03/28/2009 02/08/2015 Class: Chronic Kidney stone [N20.0] 03/28/2009 Hyperlipidemia [E78.5] 03/28/2009 Anxiety state [F41.1] 03/28/2009 Obstructive sleep apnea (adult) (pediatric) [G4*03/28/2009 Osteoarthrosis [M19.90] 03/28/2009 Lumbar disc disorder [M51.9] 03/28/2009 Impaired fasting glucose [R73.01] 04/13/2009 Elevated PSA [R97.20] 04/13/2009 07/27/2023 Colon polyps [K63.5] 04/29/2009 01/10/2022 Pain in joint, shoulder region [M25.519] 11/23/2009 01/10/2022 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] Low testosterone [R79.89] Personal history of colonic polyps [Z86.0100] 01/26/2014 Sciatica of right side associated with disorder*09/06/2017 Lymphocytosis [D72.820] 03/24/2018 Monocytosis [D72.821] 03/24/2018 Advance directive discussed with patient [Z71.8*07/07/2021 Back problem [M53.9] 01/10/2022 01/10/2022 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] 02/25/2018 01/10/2022 Chronic back pain [M54.9, G89.29] 01/10/2022 01/10/2022 First degree hemorrhoids [K64.0] 02/25/2018 Hemorrhoids [K64.9] 01/10/2022 01/10/2022 History of cervical spinal arthrodesis [Z98.1] 01/10/2022 01/10/2022 History of surgical procedure [Z98.890] 01/10/2022 01/10/2022 Wheelwright-Schlatter's disease [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 [facility] XR LUMBAR 3V AP/LAT/L5-S1on 07-15-2024 XR LUMBAR 3V AP/LAT/L5-S1 * * *Final Report* * * DATE OF EXAM: Jul 15 2024 3:46PM WOX [id number] - XR LUMBAR 3V AP/LAT/L5-S1 / PROCEDURE REASON: Radicular pain * * * * Physician Interpretation * * * * PROCEDURE: Lumbar spine INDICATION: Radicular pain . Chronic low back pain that radiates anteriorly into both hips. TECHNIQUE: XR LUMBAR 3V AP/LAT/L5-S1 COMPARISON: None FINDINGS: Mild scoliotic curvature and straightening of the spine. No fracture or significant subluxation. Advanced degenerative disc disease at L2-3, L3-4 and L5-S1. Lower lumbar facet arthrosis without pars defects. Sacroiliac joints are unremarkable. 1 cm round sclerotic area in the right iliac bone, benign in appearance but not appreciated on a CT from 05/22/2022. Surgical clips in the right upper quadrant and radiation seeds in the prostate bed IMPRESSION: 1. Advanced multilevel degenerative disc disease. 2. 1 cm iliac bone sclerotic lesion, not present previously. Given the patient's history of prostate cancer, sclerotic metastasis cannot be excluded. Consider bone scan. Survey Superintendent: PSCB Transcribe Date/Time: Jul 19 2024 9:48A Dictated by : AMERICO ROSS MD This examination was interpreted and the report reviewed and electronically signed by: AMERICO ROSS MD on Jul 19 2024 9:52AM EST [id number] [facility] CNOVon 07-07-2024 [facility] ROBBY VERA ([id number]) 1940 M Date Time Provider Department 07/07/24 1:00 PM AILIN COURTNEY [facility] During your visit today, we recorded the following information about you: Pulse Blood pressure Weight 76/minute 146/80 83.9 kg Ailin Courtney, EARLY CHILDHOOD AIDE CLASSROOM.JANITORIAL CLEANER 07/07/2024 2:17 PM Addendum This is a 83 year old male who presents today with: Patient presents with: ED Follow-up: [facility] ER 07/05/24 Flank pain. HISTORY OF PRESENT ILLNESS: Robby Vera is a 83 year old male. Patient presents with: ED Follow-up: [facility] ER 07/05/24 Flank pain. Pain in left lower quadrant of abdomen that wraps around left side of abd and Left flank.. Started 1 week ago around noon. Real sharp. Saturday went to ER because it was real bad. Real deep stabbing pain. No nausea- maybe a couple times. Checked in ER for kidney stones. Saw urologist today. Prostate cancer. Always took Miralax. Given percocet from ER. Constipation worse. Urinating ok. No blood in urine. Last colonoscopy positive for diverticulosis in the sigmoid colon. PAST MEDICAL HISTORY: PAST MEDICAL HISTORY Diagnosis Date Arthritis Cervical nerve root impingement sees Dr. Lott, pain management at [place] Colon polyp Depression Diverticulosis of colon (without mention of hemorrhage) Elevated PSA sees Dr Boswell History of prostate cancer 05/07/2024 Hyperlipidemia Kidney disease Low testosterone Obstructive sleep apnea Osteoarthrosis Personal history of colonic polyps PONV (postoperative nausea and vomiting) 05/07/2024 Sleep apnea Snoring PAST SURGICAL HISTORY Procedure [...] DX W/COLLJ SPEC WHEN PFRMD 02/25/2015 CYSTOSCOPY,+URETEROSCOPY 1994 stone removed EGD BIOPSY SING OR MULT 07/10/2022 Dr. Nestor Dahl; Araujo's, HH, gastritis NEUROPLASTY AND/TRANSPOS MEDIAN NRV CARPAL [...] allergies. MEDICATIONS Current Outpatient Medications Medication Sig oxyCODONE-acetaminophen (PERCOCET) 5-325 mg tablet Take 1 tablet by mouth every 6 hours as needed. omeprazole (PRILOSEC) 40 mg capsule Take 1 capsule by mouth every afternoon. DULoxetine (CYMBALTA) 30 mg capsule Take 1 capsule by mouth once daily. gabapentin (NEURONTIN) 600 mg tablet Take 600 mg by mouth four times daily. atorvastatin (LIPITOR) 40 mg tablet Take 1 tablet by mouth daily at bedtime. For cholesterol. acetaminophen (TYLENOL ARTHRITIS PAIN ORAL) Take 2 tablets by mouth. vitamin B complex (VITAMIN B-100 COMPLEX ORAL) Take 100 mg by mouth once daily. Cholecalciferol, Vitamin D3, 25 mcg (1,000 unit) cap Take 1,000 Units by mouth once daily. traMADol (ULTRAM) 50 mg tablet Take 50 mg by mouth every 6 hours as needed. amoxicillin (AMOXIL) 500 mg capsule 500 mg. CPAP CHIN STRAP, USED WITH CPAP DEVICE No current facility-administered medications for this visit. FAMILY HISTORY Problem Relation Age of Onset Coronary Artery Disease Mother early 60's Diabetes Mother None Father Coronary Artery Disease Brother Cancer Brother kidney Heart disease Brother Colon Cancer Other none Anesthesia Problems No Family History Social History Tobacco Use Smoking status: Never Smokeless tobacco: Never Vaping Use Vaping status: Never Used Substance Use Topics Alcohol use: No Drug use: No EXAM: BP 146/80 Pulse 76 Wt 83.9 kg (185 lb) SpO2 95% BMI 28.14 kg/m? PHYSICAL EXAM: Physical Exam Vitals reviewed. Constitutional: Appearance: Normal appearance. HENT: Head: Normocephalic. Cardiovascular: Rate and Rhythm: Normal rate and regular rhythm. Pulses: Normal pulses. Heart sounds: Normal heart sounds. Pulmonary: Effort: Pulmonary effort is normal. Breath sounds: Normal breath sounds. Abdominal: Palpations: Abdomen is soft. Tenderness: There is abdominal tenderness. There is guarding and rebound. Comments: Small area of warmth in area mid (more content not included)... [facility] Abdomen/Pelvis without Conto n 07-05-2024 Abdomen/Pelvis without Cont [facility] [place] [address] Abdomen/Pelvis without Cont MR#: [id number] Acct: [id number] Name: ROBBY VERA Rep #: [id number] : 1940 M 83 From: Lesli Diop nd, MD PCP: Dr. Rom Newell MD Status: PRE ER Study: Abdomen/Pelvis without Cont Date of Exam: 06/08 Exam# [id number] Ordering Dr: Dequan Boyle DO PROCEDURE: ABDOMEN/PELVIS WITHOUT CONT N/A REASON FOR EXAM: 83-year-old male, KIDNEY STONE TECHNIQUE: Abdomen and pelvis CT without intravenous contrast. Noncontrast technique limits evaluation of the abdominal and pelvic viscera. Coronal and Sagittal reconstruction series were provided. One or more dose reduction techniques were used (e.g., Automated exposure control, adjustment of the mA and/or kV according to patient size, use of iterative reconstruction technique). PATIENT PREPARATION: Per protocol ORAL CONTRAST TYPE: None. COMPARISON: CT abdomen pelvis 05/22/2022. FINDINGS: Visualization is limited without the use of IV contrast. Lung bases: Bibasilar atelectasis/scarring. The heart is normal in size with coronary artery and aortic valvular calcifications. Liver: The unopacified liver is normal in size. No biliary ductal dilation. Gallbladder: Prior cholecystectomy. Spleen: Unremarkable. Pancreas: Diffuse fatty atrophy. Adrenals: Unremarkable. Kidneys: No hydronephrosis or nephrolithiasis. Bladder: Minimally distended and unremarkable. Reproductive Organs: Fiducial markers within the prostate. Bowel: The bowel loops are normal in caliber. No ascites or pneumoperitoneum. No inflammatory mass in the expected region of the appendix. Lymph nodes: No suspicious lymphadenopathy. Vasculature: Calcific plaque of the aortoiliac vessels. Bones: Diffuse osseous demineralization. Thoracolumbar spondylosis. CT/Abdomen/Pelvis without Cont IMPRESSION: No acute abdominopelvic finding on noncontrast examination. Reading Location: [facility] CC: Dr. Dequan Boyle DO; Dr. Rom Newell MD Survey Superintendent: Signed Normal [facility] Absolute neutrophil countOrd ered By: Dequan Boyle on 07-05-2024 Neutrophils (Bld) [#/Vol] 4.7 10*3/uL 2.0-7.7 [facility] Anion gap in Serum or Plasma Ordered By: Dequan Boyle on 07-05-2024 Anion gap [Moles/Vol] 14 mmol/L 08-20 [facility] BUN/creatinine ratioOrdered By: Dequan Boyle on 07-05-2024 Urea nitrogen/Creatinine [Mass ratio] 12.3 mg/mg 01-25 [facility] Basic Metabolic Profile (BMP )on 07-05-2024 BUN/CRE 12.3 RATIO Normal 01-25 [facility] Comment on above: Performed By: #### L 100.0100, L500.2500 #### [facility] [address] [place], [address] Calcium [Mass/Vol] 9.5 mg/dL Normal 7.6-11.0 [facility] Comment on above: Performed By: #### L 100.0100, L500.2500 #### [facility] [address] [place], [address] Chloride [Moles/Vol] 101 mmol/L Normal 98-108 [facility] Comment on above: Performed By: #### L 100.0100, L500.2500 #### [facility] [address] [place], [address] CO2 [Moles/Vol] 23.2 mmol/L Normal 21.0-32.0 [facility] Comment on above: Performed By: #### L 100.0100, L500.2500 #### [facility] [address] [place], [address] Creatinine [Mass/Vol] 1.16 mg/dL Normal 0.70-1.20 [facility] Comment on above: Performed By: #### L 100.0100, L500.2500 #### [facility] [address] [place], [address] ECRCL 48.76 ml/min Low 50-250 [facility] Comment on above: Performed By: #### L 100.0100, L500.2500 #### [facility] [address] [place], [address] GAP 14 Normal 5-15 [facility] Comment on above: Performed By: #### L 100.0100, L500.2500 #### [facility] [address] [place], [address] GFR/1.73 sq M.predicted among non-blacks MDRD (S/P/Bld) [Vol rate/Area] 62 mL/min/{1.73_m2} Normal >60 [facility] [facility] Comment on above: Result Comment: mL/m in/1.73m2 CKD-EPI Creatinine Equation (2020) Performed By: #### L 100.0100, L500.2500 #### [facility] [address] [place], [address] Glucose [Mass/Vol] 170 mg/dL High 70-99 [facility] Comment on above: Performed By: #### L 100.0100, L500.2500 #### [facility] [address] [place], [address] Potassium [Moles/Vol] 3.8 mmol/L Normal 3.3-5.1 [facility] Comment on above: Performed By: #### L 100.0100, L500.2500 #### [facility] [address] [place], [address] Sodium [Moles/Vol] 139 mmol/L Normal 133-145 [facility] Comment on above: Performed By: #### L 100.0100, L500.2500 #### [facility] [address] [place], [address] Urea nitrogen [Mass/Vol] 14 mg/dL Normal 4-19 [facility] Comment on above: Performed By: #### L 100.0100, L500.2500 #### [facility] [address] [place], [address] Basophil percentageOrdered B y: Dequan Prescottehne on 07-05-2024 Basophils/100 WBC (Bld) 0.8 % 0-1 [facility] Bilirubin Test strip Ql (U)O rdered By: Dequan Rochene on 07-05-2024 Bilirubin Ql (U) 1 mg/dL High Negative [facility] Comment on above: COLOR OF URINE MAY A FFECT DIPSTICK RESULTS. CBC W/Diff, Automatedon 06-08 0-2024 Absolute Lymph 1.69 X10 3/uL Normal 0.83-4.51 [facility] Comment on above: Performed By: #### L 100.0100, L500.2500 #### [facility] [address] [place], [address] Absolute Neut 4.7 X10 3/uL Normal 2.0-7.7 [facility] Comment on above: Performed By: #### L 100.0100, L500.2500 #### [facility] [address] [place], [address] Basophils/100 WBC (Bld) 0.8 % Normal 0-1 [facility] Comment on above: Performed By: #### L 100.0100, L500.2500 #### [facility] [address] [place], [address] Eosinophils/100 WBC (Bld) 3.4 % Normal 0-5 [facility] Comment on above: Performed By: #### L 100.0100, L500.2500 #### [facility] [address] [place], [address] Erythrocyte distribution width (RBC) [Ratio] 12.5 % Normal 11.6-14.6 [facility] Comment on above: Performed By: #### L 100.0100, L500.2500 #### [facility] [address] [place], [address] Hematocrit (Bld) [Volume fraction] 43.7 % Normal 40-54 [facility] Comment on above: Performed By: #### L 100.0100, L500.2500 #### [facility] [address] [place], [address] Hemoglobin (Bld) [Mass/Vol] 14.7 g/dL Normal 13.0-16.5 [facility] Comment on above: Performed By: #### L 100.0100, L500.2500 #### [facility] [address] [place], [address] IG% 1.200 High 0.0-0.9 [facility] Comment on above: Result Comment: IG% - Immature Granulocytes (promyelocytes, myelocytes and metamyelocytes) > 1% indicates that a LEFT SHIFT is Present. Performed By: #### L 100.0100, L500.2500 #### [facility] [address] [place], [address] Lymphocytes/100 WBC (Bld) 22.3 % Normal 19-41 [facility] Comment on above: Performed By: #### L 100.0100, L500.2500 #### [facility] [address] [place], [address] MCH (RBC) [Entitic mass] 31.5 pg Normal 27.0-32.0 [facility] Comment on above: Performed By: #### L 100.0100, L500.2500 #### [facility] [address] [place], [address] MCHC (RBC) [Mass/Vol] 33.6 g/dL Normal 32-36 [facility] Comment on above: Performed By: #### L 100.0100, L500.2500 #### [facility] [address] [place], [address] MCV (RBC) [Entitic vol] 93.6 fL Normal 80-94 [facility] Comment on above: Performed By: #### L 100.0100, L500.2500 #### [facility] [address] [place], [address] Monocytes/100 WBC (Bld) 10.3 % High 0-10 [facility] Comment on above: Performed By: #### L 100.0100, L500.2500 #### [facility] [address] [place], [address] Neutrophils/100 WBC (Bld) 62.0 % Normal 47-70 [facility] Comment on above: Performed By: #### L 100.0100, L500.2500 #### [facility] [address] [place], [address] Nucleated RBC (Bld) [#/Vol] 0 10*3/uL Normal 0-5 [facility] Comment on above: Performed By: #### L 100.0100, L500.2500 #### [facility] [address] [place], [address] Platelet mean volume (Bld) [Entitic vol] 9.0 fL Normal 6.2-12.0 [facility] Comment on above: Performed By: #### L 100.0100, L500.2500 #### [facility] [address] [place], [address] Platelets (Bld) [#/Vol] 282 10*3/uL Normal 150-450 [facility] Comment on above: Performed By: #### L 100.0100, L500.2500 #### [facility] [address] [place], [address] RBC (Bld) [#/Vol] 4.67 10*6/uL Normal 4.6-6.2 [facility] Comment on above: Performed By: #### L 100.0100, L500.2500 #### [facility] [address] [place], [address] RDW SD 42.8 fl Normal 35.1-43.9 [facility] Comment on above: Performed By: #### L 100.0100, L500.2500 #### [facility] [address] [place], [address] WBC (Bld) [#/Vol] 7.6 10*3/uL Normal 4.4-11.0 [facility] Comment on above: Performed By: #### L 100.0100, L500.2500 #### [facility] [address] [place], [address] Carbon dioxide, total [Moles /volume] in Central venous bloodOrdered By: Dequan Boyle on 07-05-2024 CO2 [Moles/Vol] 23.2 mmol/L 21.0-32.0 [facility] Chloride assayOrdered By: Viet Boyle on 07-05-2024 Chloride [Moles/Vol] 101 mmol/L 98-108 [facility] Emergency Department Summary on 07-05-2024 Emergency Department Summary [facility] Medical Records Department [address] [place] [address] Emergency Department Summary 07/05/24 MR#: [id number] Acct: [id number] Name: ROBBY VERA Matthieu Rep #: [id number] : 1940 83 From: Dequan Boyle DO PCP: Dr. Rom Newell MD Status:DEP ER Location: ED HPI History of Present Illness Chief Complaint: Flank Pain Informant: patient and family Narrative Narrative: 83-year-old male presenting to the emergency room with abdominal and left flank pain. Patient notes a history of kidney stones. Symptoms have been present for about 6 days. He notes symptoms are wax and wane but seem to get worse this morning. He denies any change in stool urination. No fevers. No rashes. He denies any known inciting events such as a fall or stumbling. [facility] Medical History Encounter for education Prostate cancer Loss of hearing Wears glasses Depression Anxiety Skin tear Arthritis High cholesterol Neuropathy Back pain Heartburn Non-smoker CPAP (continuous positive airway pressure) dependence Personal history of colonic polyps Hemorrhoids Sleep apnea Anxiety Arthritis Back problem Home Medications ???Medication ???Instructions ???Recorded ???Last Taken ???Type B-complex with vitamin C 1 tab PO DAILY 01/17/18 Unknown Hi story atorvastatin 40 mg tablet 40 mg PO DAILY 01/17/18 Unknown Hi story cholecalciferol (vitamin D3) 25 1,000 unit PO DAILY 01/17/18 Unkno wn History mcg (1,000 unit) capsule tramadol 50 mg tablet 50 mg PO 4X/DAY 01/17/18 05/10/23 History gabapentin 600 mg tablet 600 mg PO 4X/DAY 08/10/20 05/10/23 History acetaminophen 650 mg 650 mg PO PRN PRN Pain 03/22/22 Un known History tablet,extended release (Arthritis Pain Relief (acetaminophen) ER) duloxetine 30 mg capsule,delayed 30 mg PO DAILY 03/22/22 Unknown Hi story release (Cymbalta) sertraline 25 mg tablet (Zoloft) 25 mg PO DAILY 03/14/23 Unknown Hi story omeprazole 40 mg capsule,delayed See Rx Instructions .Route 3 05/10/23 Rx release .COMPLEX #90 caps oxycodone-acetaminophen 5 mg-325 1 tab PO Q6H PRN PRN Pain 3 days 0 07/05/24 Unknown Rx mg tablet #12 TABLETS Allergy/AdvReac Type Severity Reaction Status Date / Time No Known Allergies Allergy Verified 02/11/24 10:32 Family History Mother Diabetes Heart disease Brother Cancer Kidney Heart disease Surgical History History of esophagogastroduodenoscopy (EGD) Hx of colonoscopy History of Grace fundoplication Hx of rotator cuff surgery Hx of right knee surgery History of prostate surgery Hx of carpal tunnel repair Hx of fusion of cervical spine Hx of hernia repair Hx of cholecystectomy Social History Smoking Status: Never smoker second hand exposure: No alcohol intake: never substance use type: does not use caffeine: No what type of physical activity do you participate in: none frequency: does not exercise seatbelt use: always ROS ROS ED Constitutional Constitutional ED: Denies chills, fever(s) or weight loss Eyes Eyes: Denies change in vision or diplopia ENT ENT ED: Denies ear pain, rhinorrhea or sore throat Cardiovascular Cardiovascular: Denies chest pain, orthopnea, palpitations or racing heartbeat Respiratory/Chest Respiratory/Chest: Denies cough, dyspnea or orthopnea Gastrointestinal Gastrointestinal: Reports abdominal pain; Denies constipation, diarrhea, nausea or vomiting Genitourinary Genitourinary ED: Denies dysuria, hematuria or urinary frequency Musculoskeletal Musculoskeletal: Reports back pain; Denies arthralgias or myalgias Integumentary Denies abscess or rash Neurologic Neurologic: Denies headache(s), paresthesias or weakness Psychiatric Psychiatric: Denies anxiety, depression, suicidal ideation or suicidal thoughts Endocrine Endocrinology: Denies polydipsia, polyphagia or polyuria Allergic/Immunologic Allergic/Immunologic ED: Denies mouth swelling, tongue swelling or urticaria EXAM Physical Exam Const Vital Signs: 07/05/24 08:03 07/05/24 10:40 07/05/24 11:00 Temperature 98 F 97.5 F L 97.5 F L Temperature Source Temporal Oral Pulse Rate 76 70 70 Respiratory Rate 14 16 16 Blood Pressure 189/92 H 142/78 H 142/78 H Blood Pressure Mean 124 99 99 Pulse Ox 98 95 95 Oxygen Delivery Method Room Air Room Air Positive well nourished and well developed General Appearance ED: well developed and NAD HEENT Reports normocephalic, head/scalp atraumatic and moist mucous membranes Eyes PERRL and EOMs intact bilaterally Neck no l (more content not included)... Normal [facility] Eosinophil percentageOrdered By: Dequan Boyle on 07-05-2024 Eosinophils/100 WBC (Bld) 3.4 % 0-5 [facility] Epithelial cells.squamous LM Ql (Urine sed)Ordered By: Dequan Boyle on 07-05-2024 Epithelial cells.squamous LM.HPF (Urine sed) [#/Area] 0 /[HPF] 0-5 [facility] Erythrocyte distribution wid th ratioOrdered By: Dequan Boyle on 07-05-2024 Erythrocyte distribution width (RBC) [Ratio] 12.5 % 11.6-14.6 [facility] Erythrocyte distribution wid th standard deviationOrdered By: Dequan Boyle on 07-05-2024 Erythrocyte distribution width (RBC) [Entitic vol] 42.8 fL 35.1-43.9 [facility] Estimation of creatinine jl aranceOrdered By: Dequan Boyle on 07-05-2024 Estimated Creatinine Clearance Calc 48.76 ml/min Low 50-250 [facility] GFR/1.73 sq M.predicted theodora g non-blacks MDRD (S/P/Bld) [Vol rate/Area]Ordered By: Dequan Boyle on 07-05-2024 Estimated GFR (MDRD) Non-Af Amer 62 >60 [facility] Comment on above: mL/min/1.73m2 CKD-EP I Creatinine Equation (2020) Glucose Ql (U)Ordered By: Viet Boyle on 07-05-2024 Urine Glucose (UA) Normal mg/dl Normal [facility] Hematocrit Auto (Bld) [Volum e fraction]Ordered By: Dequan Boyle on 07-05-2024 Hematocrit (Bld) [Volume fraction] 43.7 % 40-54 [facility] Hemoglobin measurementOrdere d By: Dequan Boyle on 07-05-2024 Hemoglobin (Bld) [Mass/Vol] 14.7 g/dL 13.0-16.5 [facility] Immature granulocytes/100 WB C Auto (Bld)Ordered By: Dequan Boyle on 07-05-2024 Immature granulocytes/100 WBC (Bld) 1.200 % High 0.0-0.9 [facility] Comment on above: IG% - Immature Granu locytes (promyelocytes, myelocytes and metamyelocytes) > 1% indicates that a LEFT SHIFT is Present. Ketones Test strip Ql (U)Ord ered By: Dequan Boyle on 07-05-2024 Ketones Ql (U) 5 mg/dl High Negative [facility] Lymphocytes Auto (Unsp spec) [#/Vol]Ordered By: Dequan Boyle on 07-05-2024 Lymphocytes (Bld) [#/Vol] 1.69 10*3/uL 0.83-4.51 [facility] Lymphocytes/100 WBC Auto (Un sp spec)Ordered By: Dequan Boyle on 07-05-2024 Lymphocytes/100 WBC (Bld) 22.3 % 19-41 [facility] MCV (mean corpuscular volume ) determinationOrdered By: Dequan Boyle on 07-05-2024 MCV (RBC) [Entitic vol] 93.6 fL 80-94 [facility] Mean corpuscular hemoglobin (MCH) determinationOrdered By: Dequan Boyle on 07-05-2024 MCH (RBC) [Entitic mass] 31.5 pg 27.0-32.0 [facility] Mean corpuscular hemoglobin concentration (MCHC) determinationOrdered By: Dequan Boyle on 07-05-2024 MCHC (RBC) [Mass/Vol] 33.6 g/dL 32-36 [facility] Mean platelet volume determi nationOrdered By: Dequan Boyle on 07-05-2024 Platelet mean volume (Bld) [Entitic vol] 9.0 fL 6.2-12.0 [facility] Microscopic analysis of urin e for red blood cells (RBC)Ordered By: Dequan Boyle on 07-05-2024 Urine RBC 0-5 SEEN /hpf 0-5 [facility] Monocyte percentageOrdered B y: Dequan Boyle on 07-05-2024 Monocytes/100 WBC (Bld) 10.3 % High 0-10 [facility] Mucus LM Ql (Urine sed)Order ed By: Dequan Boyle on 07-05-2024 Mucus Ql (Urine sed) 1+ /hpf [facility] Neutrophil percentageOrdered By: Dequan Boyle on 07-05-2024 Neutrophils/100 WBC (Bld) 62.0 % 47-70 [facility] Nitrite Test strip Ql (U)Ord ered By: Dequan Boyle on 07-05-2024 Nitrite Ql (U) Negative Negative [facility] Nucleated red blood cell per centageOrdered By: Dequan Boyle on 07-05-2024 Nucleated RBC/100 WBC (Bld) [Ratio] 0 % 0-5 [facility] Platelet countOrdered By: Viet Boyle on 07-05-2024 Platelets (Bld) [#/Vol] 282 10*3/uL 150-450 [facility] Potassium (Unsp spec) [Mass/ Vol]Ordered By: Dequan Boyle on 07-05-2024 Potassium [Moles/Vol] 3.8 mmol/L 3.3-5.1 [facility] Protein Test strip Ql (U)Ord ered By: Dequan Boyle on 07-05-2024 Protein Ql (U) 30 mg/dl High Negative [facility] RBC Auto (Bld) [#/Vol]Ordere d By: Dequan Boyle on 07-05-2024 RBC (Bld) [#/Vol] 4.67 10*6/uL 4.6-6.2 [facility] Serum creatinine measurement (mass/volume)Ordered By: Dequan Boyle on 07-05-2024 Creatinine [Mass/Vol] 1.16 mg/dL 0.70-1.20 [facility] Serum glucose measurement (m ass/volume)Ordered By: Dequan Boyle on 07-05-2024 Glucose [Mass/Vol] 170 mg/dL High 70-99 [facility] Serum or plasma calcium brenda urement (mass/volume)Ordered By: Dequan Boyle on 07-05-2024 Calcium [Mass/Vol] 9.5 mg/dL 7.6-11.0 [facility] Serum or plasma urea nitroge n measurement (mass/volume)Ordered By: Dequan Boyle on 07-05-2024 Urea nitrogen [Mass/Vol] 14 mg/dL 4-19 [facility] Sodium levelOrdered By: Jw Boyle on 07-05-2024 Sodium [Moles/Vol] 139 mmol/L 133-145 [facility] Urinalysis, Completeon 07-05 Mucus Ql (Urine sed) 1+ /hpf Normal [facility] Comment on above: Order Comment: PARDEEP CTOR TO SPECIFY Performed By: #### L 400.0001 #### [facility] [address] [place], [address] RBC 0-5 SEEN Normal 0-5 [facility] Comment on above: Order Comment: PARDEEP CTOR TO SPECIFY Performed By: #### L 400.0001 #### [facility] [address] [place], [address] WBC 0-5 SEEN Normal 0-5 [facility] Comment on above: Order Comment: PARDEEP CTOR TO SPECIFY Performed By: #### L 400.0001 #### [facility] [address] [place], [address] BACTERIA 0 SEEN Normal None Seen [facility] Comment on above: Order Comment: PARDEEP CTOR TO SPECIFY Performed By: #### L 400.0001 #### [facility] [address] [place], [address] EPI,SQUAMOUS 0 SEEN Normal 0-5 [facility] Comment on above: Order Comment: PARDEEP CTOR TO SPECIFY Performed By: #### L 400.0001 #### [facility] [address] [place], [address] Urine blood detectionOrdered By: Dequan Boyle on 07-05-2024 Urine Occult Blood 10 /ul High Negative [facility] Urine clarityOrdered By: Alexis Boyle on 07-05-2024 Clarity (U) Clear Clear [facility] Urine color determinationOrd ered By: Dequan Boyle on 07-05-2024 Color (U) Yellow Yellow [facility] Urine leukocyte esterase det ection by dipstickOrdered By: Dequan Boyle on 07-05-2024 Leukocyte esterase Test strip Ql (U) 25 /ul High Negative [facility] Urine pHOrdered By: Dequan abbott on 07-05-2024 pH (U) 5.0 [pH] 5.0 - 8.0 [facility] Urine sediment bacteria coun t by microscopy (number/high power field)Ordered By: Dequan Montana on 07-05-2024 Bacteria LM.HPF (Urine sed) [#/Area] 0 /[HPF] None Seen [facility] Urine specific gravity measu rementOrdered By: Dequan Montana on 07-05-2024 Specific gravity (U) [Rel density] 1.025 1.002-1.03 0 [facility] Urobilinogen Ql (U)Ordered B y: Dequan Boyle on 07-05-2024 Urobilinogen (U) [Mass/Vol] 1 mg/dL High Normal [facility] White blood cell (WBC) count Ordered By: Dequan Boyle on 07-05-2024 WBC (Bld) [#/Vol] 7.6 10*3/uL 4.4-11.0 [facility] White blood cell countOrdere d By: Dequan Boyle on 07-05-2024 Urine WBC 0-5 SEEN /hpf 0-5 [facility] ANES POSTPROC EVALon 025 ANES POSTPROC EVAL HNO ID: [id number] Author: LUCIANO RESENDIZ MD Service: ? 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 PACU/ICU Patient Condition: stable. Anticipated Disposition: phase 2 then home. Neurological Status: aware and responsive. Pulmonary Status: breathing comfortably on room air Airway Control: returned to baseline unsupported. Cardiovascular Status: stable. Pain Management: clinically adequate Postoperative Hydration: acceptable. Intraoperative Events: no significant anesthesia events Post Operative Nausea/Vomiting Status: no significant post operative nausea or vomiting Recommendation: continue current plan of care. SIGNATURE: Luciano Resendiz MD PATIENT NAME: Robby Vera DATE: July 02, 2024 TIME: 3:06 PM CSN: [id number] Normal [facility] ANES PRE-OPon 07-02-2024 ANES PRE-OP HNO ID: [id number] Author: LUCIANO RESENDIZ MD Service: ? Author Type: Anesthesiologist Type: Anesthesia Preprocedure Evaluation Filed: 07/02/2024 13:31 Note Text: ANESTHESIOLOGY DAY OF SURGERY NOTE : 1940 Procedure Information Date/Time: 07/02/24 1400 Scheduled providers: Trisha Thompson MD; Luciano Resendiz MD; Beverly Clark APRN.NURSE INFORMATICS EDUCATOR Procedure: EGD DIAGNOSTIC Location: Gastroenterology Estimated body mass index is 27.38 kg/m? as calculated from the following: Height as of this encounter: 172.7 cm (5' 7.99). Weight as of this encounter: 81.6 kg (180 lb). Most recent hematocrit and potassium results: Hematocrit 40.6 01/29/2024 Potassium 4.0 09/03/2023 Relevant Problems ANESTHESIA (+) Obstructive sleep apnea (adult) (pediatric) (+) PONV (postoperative nausea and vomiting) CARDIO (+) First degree hemorrhoids -RENAL (+) Kidney stone NEURO-PSYCH (+) History of prostate cancer (+) Personal history of colonic polyps PULMONARY (+) Obstructive sleep apnea (adult) (pediatric) Other (+) Osteoarthrosis I - PHYSICAL EVALUATION AIRWAY Patient intubated: No. Tracheostomy tube not present Mallampati: II. TM distance: >3 FB. Neck ROM: full ROM without neurological symptoms. Mouth opening: adequate. Short neck: no. Thick neck: no DENTAL Dental findings: teeth intact. II - ANESTHESIA PLAN ASA Score: 3 Anesthetic Plan: MAC NPO Status: adequate Beta Comfort Monitoring Plan Monitoring plan: standard ASA. Post Procedure Analgesic Plan Postoperative analgesic plan: per surgical service. Informed Consent Anesthetic risks, benefits, alternatives, personnel and consent discussed: yes. Patient / Responsible [employer] Party agrees to proceed: yes Patient / Surrogate agrees to blood products: blood products not planned DNR status not reviewed with patient and/or family prior to surgery. Significant changes in the patient condition since the History and Physical, not otherwise documented in primary service progress note: no. Vitals Value Taken Time BP 165/89 07/02/24 1308 Pulse 83 07/02/24 1308 Resp 18 07/02/24 1308 Temp 36.2 ?C (97.2 ?F) 07/02/24 1308 SpO2 96 % 07/02/24 1308 Outpatient Medications as of 07/02/2024 Medication Sig amoxicillin (AMOXIL) 500 mg capsule 500 mg. omeprazole (PRILOSEC) 40 mg capsule Take 1 capsule by mouth every afternoon. DULoxetine (CYMBALTA) 30 mg capsule Take 1 capsule by mouth once daily. gabapentin (NEURONTIN) 600 mg tablet Take 600 mg by mouth four times daily. atorvastatin (LIPITOR) 40 mg tablet Take 1 tablet by mouth daily at bedtime. For cholesterol. acetaminophen (TYLENOL ARTHRITIS PAIN ORAL) Take 2 tablets by mouth. vitamin B complex (VITAMIN B-100 COMPLEX ORAL) Take 100 mg by mouth once daily. Cholecalciferol, Vitamin D3, 25 mcg (1,000 unit) cap Take 1,000 Units by mouth once daily. traMADol (ULTRAM) 50 mg tablet Take 50 mg by mouth every 6 hours as needed. CPAP CHIN STRAP, USED WITH CPAP DEVICE No current facility-administered medications on file as of 07/02/2024. I have interviewed and examined the patient. I have reviewed the medical record and/or the pre-anesthesia evaluation, pertinent labs, and test results. This contains updated information obtained within 48 hours of Surgery/Procedure. SIGNATURE: Luciano Resendiz MD PATIENT NAME: Robby Vera DATE: July 02, 2024 TIME: 1:29 PM CSN: [id number] Normal [facility] EGD Study observation Narrat iveon 07-02-2024 [facility] Radiology Study observation (narrative) [facility] HISTORY PHYSICALon HISTORY PHYSICAL HNO ID: [id number] Author: TRISHA THOMPSON MD Service: Gastroenterology Author Type: Physician Type: H&P Filed: 07/02/2024 13:39 Note Text: HISTORY AND PHYSICAL Robby Vera, 83 year old male Current history and physical on file: No Is a new History and Physical required for today's visit? Yes Indication for procedure: Araujo's esophagus PROCEDURE(S) SCHEDULED FOR: EGD (Esophagogastroduodenoscopy) with or without biopsies, removal of polyps or lesions, dilation ( any means), treatment of bleeding ( any means), Barrx treatment of Armando's Esophagus, image tube placement or cryo therapy treatment based on clinical findings. BASELINE BEHAVIOR: Calm BASELINE ORIENTATION: A AND O x3 All medications and allergies reviewed: Yes Skin Assessment: Warm dry mucus membranes pink Airway/Respiratory Assessment: Airway: visualization of the uvula- Yes Mouth: opening greater than 2 fingerbreadths- Yes Neck: full range of motion- Yes Breath sounds clear/equal- Yes Cardiac Assessment: Regular rate and rhythm without murmur Abdominal Assessment: Abdomen soft, non-tender, no masses or organomegaly. Sedation Plan: MAC Additional Comments: None Trisha Thompson II, MD [facility] NURSING PROGon 07-02-2024 NURSING PROG HNO ID: [id number] Author: ANA GAUTAM RN Service: ? Author Type: Registered Nurse Type: Nursing Progress Note Filed: 07/02/2024 12:59 Note Text: PRE OP LEARNING ASSESSMENT PROCEDURE/SURGERY: GI PROCEDURES: EGD READINESS TO LEARN COGNITIVE ABILITY: Alert and oriented MOTIVATION TO LEARN: Interested FAMILY SUPPORT: High - Very involved in pt care PATIENT LEARNS BEST BY: Individual Instruction Written Instruction - Hand-outs Verbal Instruction FACTORS AFFECTING LEARNING: None PHYSICAL LIMITATIONS AFFECTING LEARNING: None Electronically Signed By: Ana Gautam RN In Department: GASTROENTEROLOGY [facility] Pathology biopsy report Jesus (Tiss)on 07-02-2024 AP DISCLAIMER [facility] Comment on above: Order Comment: Speci men Type: BLOOD SPECIMEN Ordering Facility: [facility] Address: [address] [place] [address] Result Comment: Larry moulton Developed Test (LDT) Disclaimer: Performance characteristics of immunohistochemical, immunofluorescent, and chromogenic in-situ hybridization tests have been determined by the performing laboratory within [facility]'s [facility] Pathology and Laboratory Medicine Department ([facility], [facility][1], [facility], [facility], [facility], [facility], or [facility]) in a manner consistent with CLIA requirements. One or more of these tests may not have been cleared or approved by the FDA. RT-PLM is regulated under CLIA as qualified to perform high-complexity testing. These tests are used for clinical purposes. These should not be regarded as investigational or for research. Positive and negative controls stain appropriately. Performed By: #### L JIMENEZ, 37371-5 #### [facility] CLIA [id number] [address] [place] [address] [place] CASE REPORT [facility] Comment on above: Order Comment: Curtis molina Type: BLOOD SPECIMEN Ordering Facility: [facility] Address: [address] [place] [address] Result Comment: Surg [facility] Pathology Report Case: [id number] Authorizing Provider: Trisha Thompson MD Collected: 07/02/2024 01:54 PM Ordering Location: Gastroenterology Received: 07/02/2024 04:50 PM Pathologist: Marc Pressley MD Specimens: A) - Esophagus, Biopsy, 36- araujo's r/o dysplasia B) - Esophagus, Biopsy, 35-araujo's r/o dysplasia C) - Esophagus, Biopsy, 34-araujo's r/o dysplasia D) - Esophagus, Biopsy, 33-araujo's r/o dysplasia E) - Esophagus, Biopsy, 32-aruajo's r/o dysplasia Performed By: #### L JIMENEZ, [id number] #### [facility] CLIA [id number] [address] [place] [address] [place] FINAL DIAGNOSIS [facility] Comment on above: Order Comment: Curtis molina Type: BLOOD SPECIMEN Ordering Facility: [facility] Address: [address] [place] [address] Result Comment: A. E sophagus at 36 cm, biopsy: - Araujo's esophagus, negative for dysplasia. B. Esophagus at 35 cm, biopsy: - Aarujo's esophagus, negative for dysplasia. C. Esophagus at 34 cm, biopsy: - Araujo's esophagus, negative for dysplasia. D. Esophagus at 33 cm, biopsy: - Araujo's esophagus, negative for dysplasia. E. Esophagus at 32 cm, biopsy: - Araujo's esophagus, negative for dysplasia. at 1001 EDT Performed By: #### L IPNF, 67336-1 #### [facility] CLIA [id number] [address] [place] [address] [place] FINAL PERFORMING LAB [facility] Comment on above: Order Comment: Specmeredith molina Type: BLOOD SPECIMEN Ordering Facility: [facility] Address: [address] [place] [address] Result Comment: Diag nostic interpretation performed at: [facility], [address] [place] [address] CLIA# [id number] It Security Specialist: Corinne Seymour MD Performed By: #### L IPNF, [id number] #### [facility] CLIA [id number] [address] [place] [address] STATES OF [facility] GROSS DESCRIPTION [facility] Comment on above: Order Comment: Curtis molina Type: BLOOD SPECIMEN Ordering Facility: [facility] Address: [address] [place] [address] Result Comment: A. E sophagus, Biopsy Received in formalin are multiple pieces of kim-pink, soft tissue aggregating to 0.9 x 0.2 x 0.2 cm. Totally submitted in one cassette. B. Esophagus, Biopsy Received in formalin are multiple pieces of kim-pink, soft tissue aggregating to 1.1 x 0.2 x 0.2 cm. Totally submitted in one cassette. C. Esophagus, Biopsy Received in formalin are multiple pieces of kim-pink, soft tissue aggregating to 1.0 x 0.2 x 0.1 cm. Totally submitted in one cassette. D. Esophagus, Biopsy Received in formalin are multiple pieces of kim-pink, soft tissue aggregating to 0.8 x 0.2 x 0.1 cm. Totally submitted in one cassette. E. Esophagus, Biopsy Received in formalin are multiple pieces of kim-white, soft tissue aggregating to 1.1 x 0.3 x 0.2 cm. Totally submitted in one cassette. KDK July 02, 2024 6:50 PM Gross examination performed at [facility], [address] [place] [address] Performed By: #### L IPNF, 36188-1 #### [facility] CLIA [id number] [address] [place] [address] [place] [address] [place] HISTORY PHYSICALon HISTORY PHYSICAL HNO ID: [id number] Author: JAKY PRITCHETT PA-C Service: ? 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 States never tolerated mask, doesn't use CPAP PONV (postoperative nausea and vomiting) Assessment: reports occasional nausea, never used scopolamine, but states IV meds usually work History of prostate cancer Assessment: s/p XRT Anxiety state Assessment: Stable on RX, denies concerning symptoms, continue DULoxetine (CYMBALTA) as prescribed Lumbar disc disorder Assessment: follows with pain management, on gabapentin and tramadol 4 x daily ANESTHESIA FINDINGS: Intubation History: No history of difficult intubation. No abnormal airway history Significant Anesthesia Considerations: potential postop nausea/vomiting Airway History: No history of difficult airway No abnormal airway history Maier Activity Status Index: METS: Walk indoors, such as around the house (1.75 METs) Do light work around the house, such as dusting or washing dishes (2.70 METs) Take care of self; that is eating, dressing, bathing, using the toilet (2.75 METs) Walk a block or two on level ground (2.75 METs) Do moderate work around the house, such as vacuuming, sweeping floors, or carrying in groceries (3.50 METs) Do yardwork, such as raking leaves, weeding, or pushing a power mower (4.50 METs) Have sexual relations (5.25 METs) Climb a flight of stairs or walk up a hill (5.50 METs) Cannot participate in moderate recreational activites, such as golf, bowling, dancing, doubles tennis, or throwing a baseball or football Cannot participate in strenuous sport, such as swimming, singles tennis, football, basketball, or skiing Cannot do heavy work around the house, such as scrubbing floors, lifting or moving heavy furniture Cannot run a short distance DASI Score: 28.7 Patient denies any chest pain or undue shortness of breath with the above physical activity. Clinical Frailty Scale: 3. Well, with treated comorbid disease STOP-Bang Score: STOP-Bang Score: (+ TAMMI- doesn't wear CPAP, couldn't find comfortable mask) [id number] Score: Age: >=75 Sex: male CHF history: No Stroke/TIA/thromboembolism history: No Vascular disease history: No Diabetes history: No [id number] Score: ARISCAT Score: Age: >80 Preoperative anemia: Yes Surgical incision: upper abdominal Duration of surgery: <2 hrs Emergency procedure: No ARISCAT Score: I - PHYSICAL EVALUATION AIRWAY Patient intubated: No. Tracheostomy tube not present Mallampati: III. TM distance: >3 FB. Neck ROM: full ROM without neurological symptoms. Mouth opening: adequate. Short neck: no. Thick neck: no Lip Bite Test: II DENTAL Dental findings: missing tooth/teeth. Additional comments: + crowns, + implants. II - ANESTHESIA PLAN Anesthetic Plan: other Anesthetic plan additional comments: *PACC/TCI - anesthesia choice. Beta Comfort Monitoring Plan Post Procedure Analgesic Plan Prepared for Surgery: optimally prepared for surgery. Per PACC guidelines no other testing is required CONSULTS: Patient does not require consults for optimization at this time Planned Anesthetic: other anesthesia choice This is a virtual visit using MyChart video visit. It required patient-provider interaction for the medical decision making as documented below. REASON FOR VISIT: Robby Vera is a 83 year old male who is scheduled for EGD Diagnostic * No surgery found * at the request of Dr. Hernandez consultation. My final recommendation will be communicated back to the requesting physician by way of shared medical record or letter. 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 [facility] SINGHNon 06-22-2024 FERMÍN Telephone (PANIND) ROBBY VERA ([id number]) 1940 M Date Time Provider Department 06/22/24 JADE OLEA During your visit today, we recorded the following information about you: Jade Olea APRN.CNP 06/22/2024 7:38 PM Signed Patient was scheduled for virtual PACC appt at 7:20 pm today. Patient did not check in for visit. Did not complete regulatory requirements. Patient did not log in. Please call patient to reschedule. Jade Leyva APRN.JANITORIAL CLEANER Allergies As of Date: 06/22/2024 (No Known Allergies) Date Reviewed: 05/07/2024 Reviewed by: Kelly Brandt PA-C - Fully Assessed Reason for Visit: No Show [[id number]] Prescriptions as of 06/22/2024 - omeprazole (PRILOSEC) 40 mg capsule Take 1 capsule by mouth every afternoon. - DULoxetine (CYMBALTA) 30 mg capsule Take 1 capsule by mouth once daily. - gabapentin (NEURONTIN) 600 mg tablet Take 600 mg by mouth four times daily. - atorvastatin (LIPITOR) 40 mg tablet Take 1 tablet by mouth daily at bedtime. For cholesterol. - acetaminophen (TYLENOL ARTHRITIS PAIN ORAL) Take 2 tablets by mouth. - vitamin B complex (VITAMIN B-100 COMPLEX ORAL) Take 100 mg by mouth once daily. - Cholecalciferol, Vitamin D3, 25 mcg (1,000 unit) cap Take 1,000 Units by mouth once daily. - traMADol (ULTRAM) 50 mg tablet Take 50 mg by mouth every 6 hours as needed. - CPAP CHIN STRAP, USED WITH CPAP DEVICE Problem List As Of Date 06/22/2024 Noted Resolved Routine general medical examination at [facility]*03/28/2009 02/08/2015 Class: Chronic Kidney stone [N20.0] 03/28/2009 Hyperlipidemia [E78.5] 03/28/2009 Anxiety state [F41.1] 03/28/2009 Obstructive sleep apnea (adult) (pediatric) [G4*03/28/2009 Osteoarthrosis [M19.90] 03/28/2009 Lumbar disc disorder [M51.9] 03/28/2009 Impaired fasting glucose [R73.01] 04/13/2009 Elevated PSA [R97.20] 04/13/2009 07/27/2023 Colon polyps [K63.5] 04/29/2009 01/10/2022 Pain in joint, shoulder region [M25.519] 11/23/2009 01/10/2022 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] Low testosterone [R79.89] Personal history of colonic polyps [Z86.0100] 01/26/2014 Sciatica of right side associated with disorder*09/06/2017 Lymphocytosis [D72.820] 03/24/2018 Monocytosis [D72.821] 03/24/2018 Advance directive discussed with patient [Z71.8*07/07/2021 Back problem [M53.9] 01/10/2022 01/10/2022 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] 02/25/2018 01/10/2022 Chronic back pain [M54.9, G89.29] 01/10/2022 01/10/2022 First degree hemorrhoids [K64.0] 02/25/2018 Hemorrhoids [K64.9] 01/10/2022 01/10/2022 History of cervical spinal arthrodesis [Z98.1] 01/10/2022 01/10/2022 History of surgical procedure [Z98.890] 01/10/2022 01/10/2022 Wheelwright-Schlatter's disease [M92.529] 01/10/2022 01/10/2022 Right lower quadrant pain [R10.31] 02/25/2018 01/10/2022 Skin lesion [L98.9] 01/10/2022 01/10/2022 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 Measured values of a patient sample can vary depending on the testing procedure used. PSA values determined on patient samples by different testing procedures cannot be used interchangeably. If there is a change in PSA assays while monitoring therapy, sequential testing should be performed to confirm baseline values. PSA,Total- Diagnosticon PSA, DIAGNOSTIC 0.19 ng/mL Normal 0.00-4.00 [facility] Comment on above: Result Comment: This test was performed using the [employer] tPSA method. Measured values of a patient??sample can vary depending on the testing procedure used. PSA values determined on patient samples by different testing procedures cannot be used interchangeably. If there is a change in PSA assays while monitoring therapy, sequential testing should be performed to confirm baseline values. Performed By: #### L [id number] #### [facility] [address] [place], [address] HISTORY PHYSICALon HISTORY PHYSICAL HNO ID: [id number] Author: KELLY BRANDT PA-C Service: ? Author Type: Physician Ct Scan Special Procedures Technologist Type: H&P Filed: 05/07/2024 11:21 Note Text: [facility] HISTORY AND PHYSICAL EXAMINATION SERVICE DATE: 05/06/2024 SERVICE TIME: 11:20 AM PRIMARY CARE PHYSICIAN: Rom Newell MD Assessment Patient has the following medical conditions which may affect gricelda-operative course: PONV (postoperative nausea and vomiting) Pt reported. Obstructive sleep apnea (adult) (pediatric) TAMMI does not use CPAP. History of prostate cancer S/p radiation. 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 EGD planned. Maier Activity Status Index: METS: Walk indoors, such as around the house (1.75 METs) Do light work around the house, such as dusting or washing dishes (2.70 METs) Take care of self; that is eating, dressing, bathing, using the toilet (2.75 METs) Walk a block or two on level ground (2.75 METs) Do moderate work around the house, such as vacuuming, sweeping floors, or carrying in groceries (3.50 METs) Do yardwork, such as raking leaves, weeding, or pushing a power mower (4.50 METs) Climb a flight of stairs or walk up a hill (5.50 METs) DASI Score: 23.45 Patient denies any chest pain or undue shortness of breath with the above physical activity. Clinical Frailty Scale: 3. Well, with treated comorbid disease STOP-Bang Score: STOP-Bang Score: (TAMMI does not use CPAP. ) ANESTHESIA FINDINGS: Intubation History: No history of difficult intubation Significant Anesthesia Considerations: potential postop nausea/vomiting Airway History: No history of difficult airway I - PHYSICAL EVALUATION AIRWAY Patient intubated: No. Tracheostomy tube not present Mallampati: III. Neck ROM: full ROM without neurological symptoms. Mouth opening: adequate. Short neck: no. Thick neck: no Lip Bite Test: I DENTAL Dental findings: teeth intact. Additional comments: Crowns, implants . II - ANESTHESIA PLAN Anesthetic plan additional comments: *PACC/TCI - anesthesia choice. Beta Comfort Monitoring Plan Post Procedure Analgesic Plan Prepared for Surgery: optimally prepared for surgery. CONSULTS: Patient does not require consults for optimization at this time Planned Anesthetic: anesthesia choice The Following Tests/Procedures Have Been Initiated: Labs and EKG not indicated per PACC protocol. This is a virtual visit using UGE[employer] video visit. It required patient-provider interaction for the medical decision making as documented below. REASON FOR VISIT: Robby Vera is a 83 year old male who is scheduled for EGD at the request of Dr. Trisha Thompsonfor consultation. My final recommendation will be communicated back to the requesting physician by way of shared medical record or letter. Subjective The patient has the following: COVID-19 Immunization Status Postponed - Covid-19 Vaccine () Postponed until 01/28/2025 01/29/2024 Postponed until 01/28/2025 by Rom Newell MD (Declined at this time) 09/17/2023 Postponed until 09/16/2024 by Rom Newell MD (Declined at this time) 02/22/2023 Imm Admin: COVID-19 vaccine, age 12+ yr, season ([place]) Only the first 3 history entries have been loaded, but more history exists. CHIEF COMPLAINT: Pre-op evalution HPI: Patient is a 83 year old year old male who is scheduled for above procedure on 05/21/24. Patient has Araujo's esophagus and presents for a surveillance EGD. His GERD symptoms are well controlled on omeprazole. Denies any fevers, chills, nausea, vomiting, SOB or chest pain. This is a virtual visit. The visit was conducted using [facility] video visit. It required patient-provider interaction for the medical decision making as documented below. I have communicated my name and active licensure. The patient's identity and physical location were verified at the time of this visit. Either the patient or their legal hr representative has been informed of the risks and benefits of and alternatives to treatment through a remote evaluation and consents to proceed with the evaluation remotely. REVIEW OF SYSTEMS: General: Negative for: weight loss >10% of BW in last 6 months, malaise and fever. Neurological: No history of TIA's, stroke, SPECIAL OFFICER tumor, impaired sensorium, hemiplegia, paraplegia or quadraplegia. No neurological symptoms or problems. Negative for: delirium, dementia, seizures, TIA and strokes. Respiratory: Positive for: obstructive sleep apnea and CPAP/BiPAP noncompliant. Negative for: asthma, COPD, current cough, dyspnea and pneumonia within 6 weeks. Cardiovascular: Negative for: angina, arrhythmia, CAD, chest pain, CHF, DVT/PE, hypertension and murmur/valvular heart disease. GI: See HPI. Positive for: GERD Negative for: abdominal pain, hepatitis, inflammatory bowel disease, liver disease, nausea, (more content not included)... [facility] CNOVon 03-02-2024 [facility] ROBBY VERA ([id number]) 1940 M Date Time Provider Department 03/02/24 9:40 AM AILIN COURTNEY [facility] During your visit today, we recorded the following information about you: Pulse Respiration Blood pressure Weight 66/minute 16/minute 118/72 85.7 kg Ailin Courtney APRN.[facility] 03/02/2024 9:45 AM Signed This is a 83 year old male who presents today with: Patient presents with: Follow Up: 1 month blood pressure follow up HISTORY OF PRESENT ILLNESS: Robby Vera is a 83 year old male. Patient presents with: Follow Up: 1 month blood pressure follow up HTN: Patient is compliant with meds Yes Monitors bp at home: No. Denies side effects: No. Chest pain: No. Dyspnea: No. Edema: No. Palpitations: No. Syncope: No. Headache: No. Dizziness: No. PAST MEDICAL HISTORY: PAST MEDICAL HISTORY Diagnosis Date Cervical nerve root impingement sees Dr. Lott, pain management at [place] Colon polyp Depression Diverticulosis of colon (without [...] SING OR MULT 07/10/2022 Dr. Nestor Dahl; Araujo's, HH, gastritis NEUROPLASTY AND/TRANSPOS MEDIAN NRV CARPAL TUNNE Bilateral 08/11/[address] Shepard PAST SURGICAL HISTORY OF 2008 Left Rotator cuff, Dr. Raines, PAST SURGICAL HISTORY OF 1988, 2003 Castilol, Ventral Hernia x 2 PAST SURGICAL HISTORY OF 01/03/2015 neck surgery - fused C4,5,6 PAST SURGICAL HISTORY OF Right 06/18/2018 right knee arthroscopic partial medical lateral meniscectomy right knee arthroscopic chondroplasty UROLIFT PROSTATE PROCEDURE 11/2017 Dr.Miguel Fritz ALLERGIES Patient has no known allergies. MEDICATIONS Current Outpatient Medications Medication Sig gabapentin (NEURONTIN) 600 mg tablet Take 600 mg by mouth four times daily. DULoxetine (CYMBALTA) 30 mg capsule Take 1 capsule by mouth once daily. omeprazole (PRILOSEC) 40 mg capsule Take 1 capsule by mouth every afternoon. atorvastatin (LIPITOR) 40 mg tablet Take 1 tablet by mouth daily at bedtime. For cholesterol. acetaminophen (TYLENOL ARTHRITIS PAIN ORAL) Take 2 tablets by mouth. vitamin B complex (VITAMIN B-100 COMPLEX ORAL) [...] use: No Drug use: No EXAM: BP 148/82 (BP Site: Left Arm, BP Position: Sitting) Pulse 66 Resp 16 Wt 85.7 kg (188 lb 15 oz) SpO2 98% BMI 30.04 kg/m? PHYSICAL EXAM: Physical Exam Vitals reviewed. Constitutional: Appearance: Normal appearance. HENT: Head: Normocephalic. Neck: Vascular: No carotid bruit. Cardiovascular: Rate and Rhythm: Normal rate and regular rhythm. Pulses: Normal pulses. Heart sounds: Normal heart sounds. Pulmonary: Effort: Pulmonary effort is normal. Breath sounds: Normal breath sounds. Musculoskeletal: Cervical back: Neck supple. Right lower leg: No edema. Left lower leg: No edema. Comments: Walks w/o assistive device; having LESi Lymphadenopathy: Cervical: No cervical adenopathy. Skin: General: Skin is warm and dry. Neurological: Mental Status: He is alert and oriented to person, place, and time. LABS: ASSESSMENT/PLAN: 1. Elevated blood pressure reading without diagnosis of hypertension - ICD9: 796.2, ICD10: R03.0 (primary diagnosis) - Encouraged dietary sodium restriction/DASH diet - Recommended regular aerobic exercise. - Recommend home blood pressure monitoring, to bring results in on next v (more content not included)... [facility] PSA,Total- Diagnosticon 11-0 5-2023 PSA, DIAGNOSTIC 0.22 ng/mL Normal 0.0-4.0 [facility] Comment on above: Result Comment: This test was performed using the TPSA assay method for the [employer] chemistry system. Values obtained with different assay methods cannot be used interchangably. When changing PSA assays in the course of monitoring a patient, additional sequential testing should be carried out to confirm baseline values. Performed By: #### L [id number] #### [facility] [address] [place], [address] Radiation Oncology Visiton 1 04-12-2023 Radiation Oncology Visit [facility] [address] [place] [address] OFFICE VISIT Date of Service: 02/11/24 1027 MR#: [id number] Acct: [id number] Name: ROBBY VERA Rep #: [id number] : 1940 From: Aaron Eliu DO Age/Sex: 83/M Location: [facility] [place] Status: Signed Intake Vital Signs 10/08/23 10:18 02/11/24 10:29 Height 5 ft 8 in 5 ft 8 in Weight: 188 lb 6 oz BMI 28.6 BP 146/73 H Blood Pressure Location Lt brachial Position Sitting Respiration 16 Pulse 63 Pulse Source Monitor Temp 97.8 F Temperature Source Temporal Artery Pulse Oximetry (%) 95 Oxygen Delivery Method room air Intake Visit Reasons: 4 MONTH F/U PROSTATE, PSA PRIOR Is patient in pain?: No Allergies No Known Allergies Allergy (Verified 02/11/24 10:32) Medications ???Medication ???Instructions ???Recorded ???Confirmed ???Type B-complex with vitamin C 1 tab PO DAILY 01/17/18 02/11/24 History atorvastatin 40 mg tablet 40 mg PO DAILY 01/17/18 02/11/24 History cholecalciferol (vitamin D3) 25 1,000 unit PO DAILY 01/17/18 02/11/24 History mcg (1,000 unit) capsule tramadol 50 mg tablet 50 mg PO 4X/DAY 01/17/18 02/11/24 History gabapentin 600 mg tablet 600 mg PO 4X/DAY 08/10/20 02/11/24 History acetaminophen 650 mg 650 mg PO PRN PRN Pain 03/22/22 02/11/24 History tablet,extended release (Arthritis Pain Relief (acetaminophen) ER) duloxetine 30 mg capsule,delayed 30 mg PO DAILY 03/22/22 02/11/24 History release (Cymbalta) sertraline 25 mg tablet (Zoloft) 25 mg PO DAILY 03/14/23 02/11/24 History omeprazole 40 mg capsule,delayed See Rx Instructions .Route 03/27/23 02/11/24 Rx release .COMPLEX #90 caps Have you fallen in the past year?: No PFSH PFSH Medical History Encounter for education Prostate cancer Loss of hearing Wears glasses Depression Anxiety Skin tear Arthritis High cholesterol Neuropathy Back pain Heartburn Non-smoker CPAP (continuous positive airway pressure) dependence Personal history of colonic polyps Hemorrhoids Sleep apnea Anxiety Arthritis Back problem Home Medications ???Medication ???Instructions ???Recorded ???Last Taken ???Type B-complex with vitamin C 1 tab PO DAILY 01/17/18 Unknown History atorvastatin 40 mg tablet 40 mg PO DAILY 01/17/18 Unknown History cholecalciferol (vitamin D3) 25 1,000 unit PO DAILY 01/17/18 Unknown History mcg (1,000 unit) capsule tramadol 50 mg tablet 50 mg PO 4X/DAY 01/17/18 05/10/23 History gabapentin 600 mg tablet 600 mg PO 4X/DAY 08/10/20 05/10/23 History acetaminophen 650 mg 650 mg PO PRN PRN Pain 03/22/22 Unknown History tablet,extended release (Arthritis Pain Relief (acetaminophen) ER) duloxetine 30 mg capsule,delayed 30 mg PO DAILY 03/22/22 Unknown History release (Cymbalta) sertraline 25 mg tablet (Zoloft) 25 mg PO DAILY 03/14/23 Unknown History omeprazole 40 mg capsule,delayed See Rx Instructions .Route 03/27/23 05/10/23 Rx release .COMPLEX #90 caps Allergy/AdvReac Type Severity Reaction Status Date / Time No Known Allergies Allergy Verified 02/11/24 10:32 Family History Mother Diabetes Heart disease Brother Cancer Kidney Heart disease Surgical History History of esophagogastroduodenoscopy (EGD) Hx of colonoscopy History of Grace fundoplication Hx of rotator cuff surgery Hx of right knee surgery History of prostate surgery Hx of carpal tunnel repair Hx of fusion of cervical spine Hx of hernia repair Hx of cholecystectomy Social History Smoking Status: Never smoker second hand exposure: No alcohol intake: never substance use type: does not use caffeine: No what type of physical activity do you participate in: none frequency: does not exercise seatbelt use: always Diagnosis: Robby Vera is an 83-year-old male diagnosed with 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 From 05/27/2023 ??? 07/03/2023 he received definitive radiation therapy. History of Present Illness: 06/26/2016: Patient completed TRUS guided prostate biopsy.??? This demonstrated no evidence of malignancy. August 2017: Urolift completed 02/19/2022: Patient completed TRUS guided prostate biopsy.??? Pathology demonstrated Maria Victoria 3+3 adenocarcinoma involving less than 5% of 1/1 core in the left prostate apex.??? All remaining biopsies were negative. 07/10/2022: Colonoscopy was performed.??? There was evidence for nonthrombosed internal hemorrhoids and (more content not included)... Normal [facility]03[facility] ROBBY VERA ([id number]) 1940 M Date Time Provider Department 02/03/24 ROM NEWELL [facility] During your visit today, we recorded the following information about you: Fe Joel MA 02/03/2024 1:20 PM Signed Pt calling with questions about referral to GI. Pt was inivertantly scheudled with Mirela Marley NP here in [facility]. Pt received call from that office stating that he was incorrectly scheduled and was referred to Dr. Thompson in GI at [facility]. He now has a virtual appt with Dr. Thompson on 03/18. They do not use [employer] but state that their daughter will be able to assist in logging in and connecting for the virtual visit. They were given the [employer] help desk phone number if needed and advised that I would send this info to Dr. Newell as a FYI to be sure this is the referral he was recommending. Pt verbalized understanding. DAQUAN Horn, Rom Washington MD 02/03/2024 3:11 PM Signed It was to be Dr Thompson Allergies As of Date: 02/03/2024 (No Known Allergies) Date Reviewed: 01/29/2024 Reviewed by: Miguel Correa LPN - Fully Assessed Reason for Visit: Patient Update [1234] Prescriptions as of 02/03/2024 - gabapentin (NEURONTIN) 600 mg tablet Take 600 mg by mouth four times daily. - DULoxetine (CYMBALTA) 30 mg capsule Take 1 capsule by mouth once daily. - omeprazole (PRILOSEC) 40 mg capsule Take 1 capsule by mouth every afternoon. - atorvastatin (LIPITOR) 40 mg tablet Take 1 tablet by mouth daily at bedtime. For cholesterol. - acetaminophen (TYLENOL ARTHRITIS PAIN ORAL) Take 2 tablets by mouth. - vitamin B complex (VITAMIN B-100 COMPLEX ORAL) Take 100 mg by mouth once daily. - Cholecalciferol, Vitamin D3, 25 mcg (1,000 unit) cap Take 1,000 Units by mouth once daily. - traMADol (ULTRAM) 50 mg tablet Take 50 mg by mouth every 6 hours as needed. - CPAP CHIN STRAP, USED WITH CPAP DEVICE Problem List As Of Date 02/03/2024 Noted Resolved Routine general medical examination at [facility] [place]*03/28/2009 02/08/2015 Class: Chronic Kidney stone [N20.0] 03/28/2009 Hyperlipidemia [E78.5] 03/28/2009 Anxiety state [F41.1] 03/28/2009 Obstructive sleep apnea (adult) (pediatric) [G4*03/28/2009 Osteoarthrosis [M19.90] 03/28/2009 Lumbar disc disorder [M51.9] 03/28/2009 Impaired fasting glucose [R73.01] 04/13/2009 Elevated PSA [R97.20] 04/13/2009 07/27/2023 Colon polyps [K63.5] 04/29/2009 01/10/2022 Pain in joint, shoulder region [M25.519] 11/23/2009 01/10/2022 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] Low testosterone [R79.89] Personal history of colonic polyps [Z86.0100] 01/26/2014 Sciatica of right side associated with disorder*09/06/2017 Lymphocytosis [D72.820] 03/24/2018 Monocytosis [D72.821] 03/24/2018 Advance directive discussed with patient [Z71.8*07/07/2021 Back problem [M53.9] 01/10/2022 01/10/2022 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] 02/25/2018 01/10/2022 Chronic back pain [M54.9, G89.29] 01/10/2022 01/10/2022 First degree hemorrhoids [K64.0] 02/25/2018 Hemorrhoids [K64.9] 01/10/2022 01/10/2022 History of cervical spinal arthrodesis [Z98.1] 01/10/2022 01/10/2022 History of surgical procedure [Z98.890] 01/10/2022 01/10/2022 Albin-Schlatter's disease [M92.529] 01/10/2022 01/10/2022 Right lower quadrant pain [R10.31] 02/25/2018 01/10/2022 Skin lesion [L98.9] 01/10/2022 01/10/2022 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] 02/25/2018 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] 07/27/2023 Skin cancer [C44.90] 07/27/2023 Prostate cancer (HCC) [C61] 01/29/2024 Encounter Status:Closed by MIGUEL CORREA on 02/03/24 Normal [facility] CBC W Auto Differential pane l (Bld)on 01-29-2024 Basophils (Bld) [#/Vol] 0.05 10*3/uL Normal <0.11 [facility] Comment on above: Order Comment: Speci men Type: BLOOD SPECIMEN Ordering Facility: [facility] Address: [address] [place] [address] [place] [id number] Performed By: #### L IPNF, 90238-2 #### [facility] CLIA [id number] [address] [place] [address] [place] Basophils/100 WBC (Bld) 0.6 % Normal [facility] Comment on above: Order Comment: Speci men Type: BLOOD SPECIMEN Ordering Facility: [facility] Address: [address] [place] [address] Performed By: #### L IPNF, 39954-0 #### [facility] CLIA [id number] [address] [place] [address] [place] Differential cell count method Nom (Bld) Auto Normal [facility] Comment on above: Order Comment: Speci men Type: BLOOD SPECIMEN Ordering Facility: [facility] Address: [address] [place] [address] Performed By: #### L IPNF, 00217-8 #### [facility] CLIA [id number] [address] [place] [address] [place] Eosinophils (Bld) [#/Vol] 0.17 10*3/uL Normal <0.46 [facility] Comment on above: Order Comment: Speci men Type: BLOOD SPECIMEN Ordering Facility: [facility] Address: [address] [place] [address] Performed By: #### L IPNF, 06803-3 #### [facility] CLIA [id number] [address] [place] [address] [place] Eosinophils/100 WBC (Bld) 2.2 % Normal [facility] Comment on above: Order Comment: Speci men Type: BLOOD SPECIMEN Ordering Facility: [facility] Address: [address] [place] [address] Performed By: #### L IPNF, 92735-0 #### [facility] CLIA [id number] [address] [place] [address] [place] Erythrocyte distribution width (RBC) [Ratio] 12.6 % Normal 11.5-15.0 [facility] Comment on above: Order Comment: Speci men Type: BLOOD SPECIMEN Ordering Facility: [facility] Address: [address] [place] [address] Performed By: #### L JIMENEZ, 26798-8 #### [facility] CLIA [id number] [address] [place] [address] [place] Hematocrit (Bld) [Volume fraction] 40.6 % Normal 39.0-51.0 [facility] Comment on above: Order Comment: Speci men Type: BLOOD SPECIMEN Ordering Facility: [facility] Address: [address] [place] [address] Performed By: #### L JIMENEZ, 37588-7 #### [facility] CLIA [id number] [address] [place] [address] [place] Hemoglobin (Bld) [Mass/Vol] 13.4 g/dL Normal 13.0-17.0 [facility] Comment on above: Order Comment: Speci men Type: BLOOD SPECIMEN Ordering Facility: [facility] Address: [address] [place] [address] Performed By: #### L JIMENEZ, 56798-7 #### [facility] CLIA [id number] [address] [place] [address] [place] Immature granulocytes (Bld) [#/Vol] 0.10 10*3/uL High <0.10 [facility] Comment on above: Order Comment: Speci men Type: BLOOD SPECIMEN Ordering Facility: [facility] Address: [address] [place] [address] Performed By: #### L IPERIKA, 97061-3 #### [facility] CLIA [id number] [address] [place] [address] [place] Immature granulocytes/100 WBC (Bld) 1.3 % Normal [facility] Comment on above: Order Comment: Speci men Type: BLOOD SPECIMEN Ordering Facility: [facility] Address: [address] [place] [address] Performed By: #### L IPNF, 50304-2 #### [facility] CLIA [id number] [address] [place] [address] [place] Lymphocytes (Bld) [#/Vol] 1.43 10*3/uL Normal 1.00-4.00 [facility] Comment on above: Order Comment: Speci men Type: BLOOD SPECIMEN Ordering Facility: [facility] Address: [address] [place] [address] Performed By: #### L IPNF, 02556-0 #### [facility] CLIA [id number] [address] [place] [address] [place] Lymphocytes/100 WBC (Bld) 18.1 % Normal [facility] Comment on above: Order Comment: Speci men Type: BLOOD SPECIMEN Ordering Facility: [facility] Address: [address] [place] [address] Performed By: #### L IPNF, 21195-7 #### [facility] CLIA [id number] [address] [place] [address] [place] MCH (RBC) [Entitic mass] 31.8 pg Normal 26.0-34.0 [facility] Comment on above: Order Comment: Speci men Type: BLOOD SPECIMEN Ordering Facility: [facility] Address: [address] [place] [address] Performed By: #### L IPNF, 96520-8 #### [facility] CLIA [id number] [address] [place] [address] [place] MCHC (RBC) [Mass/Vol] 33.0 g/dL Normal 30.5-36.0 [facility] Comment on above: Order Comment: Speci men Type: BLOOD SPECIMEN Ordering Facility: [facility] Address: [address] [place] [address] Performed By: #### L IPNF, 99242-8 #### [facility] CLIA [id number] [address] [place] [address] [place] MCV (RBC) [Entitic vol] 96.2 fL Normal 80.0-100.0 [facility] Comment on above: Order Comment: Speci men Type: BLOOD SPECIMEN Ordering Facility: [facility] Address: [address] [place] [address] Performed By: #### L IPNF, 12138-5 #### [facility] CLIA [id number] [address] [place] [address] [place] Monocytes (Bld) [#/Vol] 1.12 10*3/uL High <0.87 [facility] Comment on above: Order Comment: Speci men Type: BLOOD SPECIMEN Ordering Facility: [facility] Address: [address] [place] [address] Performed By: #### L IPNF, 12993-2 #### [facility] CLIA [id number] [address] [place] [address] [place] Monocytes/100 WBC (Bld) 14.2 % Normal [facility] Comment on above: Order Comment: Speci men Type: BLOOD SPECIMEN Ordering Facility: [facility] Address: [address] [place] [address] Performed By: #### L IPNF, 92867-0 #### [facility] CLIA [id number] [address] [place] [address] [place] Neutrophils (Bld) [#/Vol] 5.01 10*3/uL Normal 1.45-7.50 [facility] Comment on above: Order Comment: Speci men Type: BLOOD SPECIMEN Ordering Facility: [facility] Address: [address] [place] [address] Performed By: #### L IPNF, 19186-0 #### [facility] CLIA [id number] [address] [place] [address] [place] Neutrophils/100 WBC (Bld) 63.6 % Normal [facility] Comment on above: Order Comment: Speci men Type: BLOOD SPECIMEN Ordering Facility: [facility] Address: [address] [place] [address] Performed By: #### L IPNF, 37020-0 #### [facility] CLIA [id number] [address] [place] [address] [place] Nucleated RBC (Bld) [#/Vol] 10*3/uL Normal <0.01 [facility] Comment on above: Order Comment: Speci men Type: BLOOD SPECIMEN Ordering Facility: [facility] Address: [address] [place] [address] Performed By: #### L IPERIKA, 45180-6 #### [facility] CLIA [id number] [address] [place] [address] [place] Nucleated RBC/100 WBC (Bld) [Ratio] 0.0 /100 WBC Normal [facility] Comment on above: Order Comment: Speci men Type: BLOOD SPECIMEN Ordering Facility: [facility] Address: [address] [place] [address] Performed By: #### L IPNF, 54108-8 #### [facility] CLIA [id number] [address] [place] [address] [place] Platelet mean volume (Bld) [Entitic vol] 9.5 fL Normal 9.0-12.7 [facility] Comment on above: Order Comment: Speci men Type: BLOOD SPECIMEN Ordering Facility: [facility] Address: [address] [place] [address] Performed By: #### L IPNF, 51873-4 #### [facility] CLIA [id number] [address] [place] [address] [place] Platelets (Bld) [#/Vol] 280 10*3/uL Normal 150-400 [facility] Comment on above: Order Comment: Speci men Type: BLOOD SPECIMEN Ordering Facility: [facility] Address: [address] [place] [address] Performed By: #### L IPNF, 38079-7 #### [facility] CLIA [id number] [address] [place] [address] [place] RBC (Bld) [#/Vol] 4.22 10*6/uL Normal 4.20-6.00 [facility] Comment on above: Order Comment: Speci men Type: BLOOD SPECIMEN Ordering Facility: [facility] Address: [address] [place] [address] Performed By: #### L IPNF, 59493-7 #### [facility] CLIA [id number] [address] [place] [address] [place] WBC (Bld) [#/Vol] 7.88 10*3/uL Normal 3.70-11.00 [facility] Comment on above: Order Comment: Speci men Type: BLOOD SPECIMEN Ordering Facility: [facility] Address: [address] [place] [address] Performed By: #### L IPNF, 71585-5 #### [facility] CLIA [id number] [address] [place] [address] [place] CNOVon 01-29-2024 [facility] ROBBY VERA ([id number]) 1940 M Date Time Provider Department 01/29/24 10:20 AM [facility]LL [facility] During your visit today, we recorded the following information about you: Pulse Blood pressure Weight 63/minute 148/82 84.9 kg Rom Newell MD 01/29/2024 10:14 AM Signed No chief complaint on file. HPI: Patient presents today for office visit for a routine 6 month exam. TAMMI: Not using CPAP. Couldn't find a mask that fit. Saw several doctors for this. Not willing to treat. HYPERLIPIDEMIA: Patient is taking medications: Yes. Patient is watching diet: Yes. Patient denies myalgias: leg cramps. Working on replacing drain tile at [facility]. Patient denies gi upset: Yes PAIN MANAGEMENT: Patient is currently taking: gabapentin and tramadol Sees Dr Shaffer. Also taking Cymbalta. Just had a hip x-ray for Dr Shaffer. Recently had a skin tear on his left hand. Is doing well. Sees Dr Hunt for derm. Last egd in 2022. Doing well. No issues with stomach. He was referred back to gi several times but has not done so. Offered to set him up again for follow up. See previous ov: Hx of Araujo's Esophagus No dysphagia. No heartburn. Did see Dr Dahl. Had him scoped in 2022. He was referred to Dr Thompson . They were debating about repeat surveillance. Now taking Omeprazole 40 mg daily Has seen urology and radiation oncology for his prostate. MEDICATIONS: Current Outpatient Medications Medication Sig gabapentin (NEURONTIN) 600 mg tablet Take 600 mg by mouth four times daily. DULoxetine (CYMBALTA) 30 mg capsule Take 1 capsule by mouth once daily. omeprazole (PRILOSEC) 40 mg capsule Take 1 capsule by mouth every afternoon. atorvastatin (LIPITOR) 40 mg tablet Take 1 tablet by mouth daily at bedtime. For cholesterol. acetaminophen (TYLENOL ARTHRITIS PAIN ORAL) Take 2 tablets by mouth. vitamin B complex (VITAMIN B-100 COMPLEX ORAL) [...] impingement sees Dr. Lott, pain management at [place] Colon polyp Depression Diverticulosis of colon (without [...] SING OR MULT 07/10/2022 Dr. Nestor Dahl; Araujo's, HH, gastritis NEUROPLASTY AND/TRANSPOS MEDIAN NRV CARPAL [...] and social history today. REVIEW OF SYSTEMS No chest pain or shortness of breath. No falls. All other reviewed and negative other than HPI. HEALTH MAINTENANCE: Reviewed health maintenance issues today and recommended the following in detail. Influenza Vaccine(1) due on 12/08/2023 Covid-19 Vaccine(2023- season) due on 12/08/2023 DTaP,Tdap,Td Vaccine(2 - Td or Tdap) due on 02/20/2024-suggested we consider. VITALS: BP 148/82 Pulse 63 Wt 84.9 kg (187 lb 2.7 oz) SpO2 (more content not included)... Normal [facility] HbA1c (Bld)on 01-29-2024 Average glucose Estimated from glycated hemoglobin (Bld) [Mass/Vol] 128 mg/dL Normal [facility] Comment on above: Order Comment: Speci men Type: BLOOD SPECIMEN Ordering Facility: [facility] Address: [address] [place] [address] Result Comment: eAG: (Estimated average glucose) is a calculated value from HgbA1c and is hr representative of the average blood glucose level in the last 2-3 month period. Performed By: #### L IPNF, 46973-0 #### [facility] CLIA [id number] [address] [place] [address] [place] HbA1c (Bld) [Mass fraction] 6.1 % High 4.3-5.6 [facility] Comment on above: Order Comment: Speci men Type: BLOOD SPECIMEN Ordering Facility: [facility] Address: [address] [place] [address] Result Comment: Amer [place] Diabetes Association guidelines indicate that patients with HgbA1c in the range 5.7-6.4% are at increased risk for development of diabetes, and intervention by lifestyle modification may be beneficial. HgbA1c greater or equal to 6.5% is considered diagnostic of diabetes. Performed By: #### L IPNF, 28875-7 #### [facility] CLIA [id number] [address] [place] [address] [place] Hips B/L min 2 views w/ Pelv raulito 01-27-2024 Hips B/L min 2 views w/ Pelvis [facility] [address] [place] [address] Hips B/L min 2 views w/ Pelvis MR#: [id number] Acct: [id number] Name: ROBBY VERA Matthieu Rep #: [id number] : 1940 M 83 From: Belem Hayden MD PCP: Dr. Rom Newell MD Status: REG CLI Study: Hips B/L min 2 views w/ Pelvis Date of Exam: 1 Exam# [id number] Ordering Dr: Garry Shaffer MD :[id number] INDICATION: RIGHT HIP PAIN EXAMINATION/TECHNIQUE: X-RAY - XR Hips Bilateral with Pelvis when performed; 2 Views COMPARISON: CT dated April 30, 2014 FINDINGS: There are degenerative changes of the visualized lower lumbar spine. PELVIC BONES: No displaced fracture, destructive or sclerotic lesions. Note that overlapping bowel shadows may however obscure fine detail. Sacroiliac joints are unremarkable. No widening of the pubic symphysis. HIPS: There are mild degenerative changes of the hips characterized by joint space narrowing and subchondral sclerosis. SOFT TISSUES: No soft tissue swelling or gas. 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 RAD/Hips B/L min 2 views w/ Pelvis IMPRESSION: Degenerative changes of the hips. Electronically Signed: Belem Hayden MD at 15:59 EDT , CC: Dr. Garry Shaffer MD; Dr. Rom Newell MD Survey Superintendent: Signed Normal [facility] PSA,Total- Diagnosticon 09-0 PSA, DIAGNOSTIC 0.02 ng/mL Normal 0.0-4.0 [facility] Comment on above: Order Comment: PER P T-JUST THIS ORDER Result Comment: This test was performed using the TPSA assay method for the [employer] On[employer] chemistry system. Values obtained with different assay methods cannot be used interchangably. When changing PSA assays in the course of monitoring a patient, additional sequential testing should be carried out to confirm baseline values. Performed By: #### L [id number] #### [facility] [address] [place], [address] Cerv Spine Obl/Flex/Ext Comp on 10-23-2023 Cerv Spine Obl/Flex/Ext Comp [facility] [address] [place] [address] Cerv Spine Obl/Flex/Ext Comp MR#: [id number] Acct: [id number] Name: ROBBY VERA Rep #: [id number] : 1940 M 82 From: Kalyan Ferrara MD PCP: Dr. Rom Newell MD Status: DEP AMB Study: Cerv Spine Obl/Flex/Ext Comp Date of Exam: Exam# [id number] Ordering Dr: Garry Shaffer MD :[id number] STUDY: X-RAY - CERVICAL SPINE REASON FOR EXAM: Male, 82 years old. PAIN TECHNIQUE: 7 view(s) of the cervical spine were obtained. COMPARISON: None FINDINGS: Normal anterior atlantoaxial articulation. Normal odontoid process. Normal cervical lordosis. Status post anterior cervical discectomy and fusion from C4 through C6 with anatomic alignment. 5 mm retrolisthesis of C3 on C4 which is unchanged on flexion and extension views. Normal vertebral bodies and endplates. Focal disc space narrowing and osteophyte formation at C3/C4. Normal visualized intervertebral neuroforamina. The soft tissue structures are unremarkable. RAD/Cerv Spine Obl/Flex/Ext Comp IMPRESSION: Status post anterior cervical discectomy and fusion from C4 through C6 with degenerative disc disease at C3/C4 5 mm retrolisthesis which is unchanged on the flexion and extension views. Electronically Signed: Kalyan Ferrara MD at 17:24 EDT , CC: Dr. Garry Shaffer MD; Dr. Rom Newell MD Survey Superintendent: Signed Normal [facility] L/S Spine Comp/w Bending Vie shakila 10-23-2023 L/S Spine Comp/w Bending Views [facility] [address] [place] [address] L/S Spine Comp/w Bending Views MR#: [id number] Acct: [id number] Name: ROBBY VERA Rep #: [id number] : 1940 M 82 From: Kalyan Ferrara MD PCP: Dr. Rom Newell MD Status: DEP AMB Study: L/S Spine Comp/w Bending Views Date of Exam: 0 10/23/23 Exam# [id number] Ordering Dr: Garry Shaffer MD :[id number] STUDY: X-RAY - LUMBOSACRAL SPINE REASON FOR EXAM: Male, 82 years old. PAIN TECHNIQUE: 7 view(s) of the lumbosacral spine were obtained. COMPARISON: None FINDINGS: Normal lumbar lordosis. Mild dextroscoliosis centered at L1. 5 mm retrolisthesis of L3 on L4 which is unchanged on the flexion and extension views. There is multilevel endplate spondylosis of the lumbar vertebrae. There is multi-level degenerative disc disease with multi-level disc space narrowing. There is multilevel facet hypertrophy. Normal bilateral sacral ala, sacroiliac joints, and visualized sacrum. Normal visualized soft tissue structures. RAD/L/S Spine Comp/w Bending Views IMPRESSION: Mild dextroscoliosis with diffuse degenerative disc disease with 5 mm retrolisthesis of L3 on L4 which is unchanged on the flexion and extension views. Electronically Signed: Kalyan Ferrara MD at 17:26 EDT , CC: Dr. Garry Shaffer MD; Dr. Rom Newell MD Survey Superintendent: Signed Normal [facility] PSA,Total- Diagnosticon PSA, DIAGNOSTIC 0.05 ng/mL Normal 0.0-4.0 [facility] Comment on above: Result Comment: This test was performed using the TPSA assay method for the [employer] chemistry system. Values obtained with different assay methods cannot be used interchangably. When changing PSA assays in the course of monitoring a patient, additional sequential testing should be carried out to confirm baseline values. Performed By: #### L [id number] #### [facility] [address] [place], [address] Radiation Oncology Visiton 0 10-08-2023 Radiation Oncology Visit [facility] [address] [place] [address] OFFICE VISIT Date of Service: 10/08/23 1013 MR#: [id number] Acct: [id number] Name: MANJUTellyMARKMISSY Sommers Rep #: [id number] : 1940 From: Aaron Nowak DO Age/Sex: 82/M Location: [facility] [place] Status: Signed Intake Vital Signs 08/05/23 13:31 10/08/23 10:18 Height 5 ft 8 in 5 ft 8 in Weight: 189 lb 2 oz BMI 28.8 BP 126/73 H Blood Pressure Location Lt brachial Position Sitting Respiration 18 Pulse 49 L Pulse Source Monitor Temp 96.9 F L Temperature Source Temporal Artery Pulse Oximetry (%) 95 Oxygen Delivery Method room air Intake Visit Reasons: 2 MONTH F/U PROSTATE, PSA PRIOR Accompanied by: Is patient in pain?: No Allergies No Known Allergies Allergy (Verified 10/08/23 10:18) Medications ???Medication ???Instructions ???Recorded ???Confirmed ???Type B-complex with vitamin C 1 tab PO DAILY 01/17/18 10/08/23 History atorvastatin 40 mg tablet 40 mg PO DAILY 01/17/18 10/08/23 History cholecalciferol (vitamin D3) 25 1,000 unit PO DAILY 01/17/18 10/08/23 History mcg (1,000 unit) capsule tramadol 50 mg tablet 50 mg PO 4X/DAY 01/17/18 10/08/23 History gabapentin 600 mg tablet 600 mg PO 4X/DAY 08/10/20 10/08/23 History acetaminophen 650 mg 650 mg PO PRN PRN Pain 03/22/22 10/08/23 History tablet,extended release (Arthritis Pain Relief (acetaminophen) ER) duloxetine 30 mg capsule,delayed 30 mg PO DAILY 03/22/22 10/08/23 History release (Cymbalta) sertraline 25 mg tablet (Zoloft) 25 mg PO DAILY 03/14/23 10/08/23 History omeprazole 40 mg capsule,delayed See Rx Instructions .Route 03/27/23 10/08/23 Rx release .COMPLEX #90 caps Have you fallen in the past year?: No PFSH PFS Medical History Encounter for education Prostate cancer Loss of hearing Wears glasses Depression Anxiety Skin tear Arthritis High cholesterol Neuropathy Back pain Heartburn Non-smoker CPAP (continuous positive airway pressure) dependence Personal history of colonic polyps Hemorrhoids Sleep apnea Anxiety Arthritis Back problem Home Medications ???Medication ???Instructions ???Recorded ???Last Taken ???Type B-complex with vitamin C 1 tab PO DAILY 01/17/18 Unknown History atorvastatin 40 mg tablet 40 mg PO DAILY 01/17/18 Unknown History cholecalciferol (vitamin D3) 25 1,000 unit PO DAILY 01/17/18 Unknown History mcg (1,000 unit) capsule tramadol 50 mg tablet 50 mg PO 4X/DAY 01/17/18 05/10/23 History gabapentin 600 mg tablet 600 mg PO 4X/DAY 08/10/20 05/10/23 History acetaminophen 650 mg 650 mg PO PRN PRN Pain 03/22/22 Unknown History tablet,extended release (Arthritis Pain Relief (acetaminophen) ER) duloxetine 30 mg capsule,delayed 30 mg PO DAILY 03/22/22 Unknown History release (Cymbalta) sertraline 25 mg tablet (Zoloft) 25 mg PO DAILY 03/14/23 Unknown History omeprazole 40 mg capsule,delayed See Rx Instructions .Route 03/27/23 05/10/23 Rx release .COMPLEX #90 caps Allergy/AdvReac Type Severity Reaction Status Date / Time No Known Allergies Allergy Verified 10/08/23 10:18 Family History Mother Diabetes Heart disease Brother Cancer Kidney Heart disease Surgical History History of esophagogastroduodenoscopy (EGD) Hx of colonoscopy History of Grace fundoplication Hx of rotator cuff surgery Hx of right knee surgery History of prostate surgery Hx of carpal tunnel repair Hx of fusion of cervical spine Hx of hernia repair Hx of cholecystectomy Social History Smoking Status: Never smoker second hand exposure: No alcohol intake: never substance use type: does not use caffeine: No what type of physical activity do you participate in: none frequency: does not exercise seatbelt use: always Diagnosis: Robby Vera is an 82-year-old male diagnosed with 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 From 05/27/2023 ??? 07/03/2023 he received definitive radiation therapy. History of Present Illness: 06/26/2016: Patient completed TRUS guided prostate biopsy.??? This demonstrated no evidence of malignancy. August 2017: Urolift completed 02/19/2022: Patient completed TRUS guided prostate biopsy.??? Pathology demonstrated [place] 3+3 adenocarcinoma involving less than 5% of 1/1 core in the left prostate apex.??? All remaining biopsies were negative. 07/10/2022: Colonoscopy was performed.??? There was evidence for nonthrombos (more content not included)... Normal [facility] CT Head WO contraston 2023 IMPRESSION: No acute abnormality. Mild chronic changes. Survey Superintendent: PSCObed Transcribe Date/Time: Sep 11 2023 9:37A Dictated by : DEQUAN CRANE MD This examination was interpreted and the report reviewed and electronically signed by: DEQUAN CRANE MD on Sep 11 2023 9:39AM [facility] DIVISION OF RADIOLOGY * * *Final Report* * * DATE OF EXAM: Sep 11 2023 8:29AM [facility] 0504 - CT BRAIN WO IVCON / PROCEDURE REASON: Transient cerebral ischemia, unspecified type * * * * Physician Interpretation * * * * EXAMINATION: CT BRAIN WO IVCON CLINICAL HISTORY: Transient cerebral ischemia TECHNIQUE: Serial axial images without IV contrast were obtained from the vertex to the foramen magnum. MQ: CTBWO_3 CT Radiation dose: Integrated Dose-Length Product (DLP) for this visit = 719 mGy*cm CT Dose Reduction Employed: Automated exposure control(AEC) and iterative recon COMPARISON: None. RESULT: Localizer images: Non-diagnostic. Post-operative change: None. Acute change: No evidence of an acute infarct or other acute parenchymal process. Hemorrhage: No evidence of acute intracranial hemorrhage. ECASS hemorrhagic transformation score: Not Applicable Mass Lesion / Mass Effect: There is no evidence of an intracranial mass or extraaxial fluid collection. No significant mass effect. 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 Mild volume loss and corresponding CSF space prominence. Parenchyma: There is mild generalized volume loss. The brain parenchyma is otherwise within normal limits for age. Ventricles: Ventricular enlargement concordant with the degree of parenchymal volume loss. Paranasal sinuses and skull base: The visualized paranasal sinuses are grossly clear. The skull base and imaged soft tissues are unremarkable. DIVISION OF RADIOLOGY Provider, [facility] - 09/11/2023 * * *Final Report* * * DATE OF EXAM: Sep 11 2023 8:29AM [facility] 0504 - CT BRAIN WO IVCON / PROCEDURE REASON: Transient cerebral ischemia, unspecified type * * * * Physician Interpretation * * * * EXAMINATION: CT BRAIN WO IVCON CLINICAL HISTORY: Transient cerebral ischemia TECHNIQUE: Serial axial images without IV contrast were obtained from the vertex to the foramen magnum. MQ: CTBWO_3 CT Radiation dose: Integrated Dose-Length Product (DLP) for this visit = 719 mGy*cm CT Dose Reduction Employed: Automated exposure control(AEC) and iterative recon COMPARISON: None. RESULT: Localizer images: Non-diagnostic. Post-operative change: None. Acute change: No evidence of an acute infarct or other acute parenchymal process. Hemorrhage: No evidence of acute intracranial hemorrhage. ECASS hemorrhagic transformation score: Not Applicable Mass Lesion / Mass Effect: There is no evidence of an intracranial mass or extraaxial fluid collection. No significant mass effect. 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 Mild volume loss and corresponding CSF space prominence. Parenchyma: There is mild generalized volume loss. The brain parenchyma is otherwise within normal limits for age. Ventricles: Ventricular enlargement concordant with the degree of parenchymal volume loss. Paranasal sinuses and skull base: The visualized paranasal sinuses are grossly clear. The skull base and imaged soft tissues are unremarkable. IMPRESSION IMPRESSION: No acute abnormality. Mild chronic changes. Survey Superintendent: PSCB Transcribe Date/Time: Sep 11 2023 9:37A Dictated by : DEQUAN CRANE MD This examination was interpreted and the report reviewed and electronically signed by: DEQUAN CRANE MD on Sep 11 2023 9:39AM EST [facility] Radiology Study observation (narrative) [facility] CT Head WO contrastOrdered B y: [facility] Provider on 09-11-2023 [facility] Comprehensive metabolic 2000 panelon 09-04-2023 Albumin [Mass/Vol] 4.0 g/dL 3.9 - 4.9 g/dL [facility] ALP [Catalytic activity/Vol] 66 U/L 38 - 113 U/L [facility] ALT [Catalytic activity/Vol] 29 U/L 10 - 54 U/L [facility] Anion gap [Moles/Vol] 14 mmol/L 9 - 18 mmol/L [facility] AST [Catalytic activity/Vol] 32 U/L 14 - 40 U/L [facility] Bilirubin [Mass/Vol] 0.5 mg/dL 0.2 - 1 .3 mg/dL [facility] Calcium [Mass/Vol] 9.3 mg/dL 8.5 - 10. 2 mg/dL [facility] Chloride [Moles/Vol] 104 mmol/L 97 - 10 5 mmol/L [facility] CO2 [Moles/Vol] 23 mmol/L 22 - 30 mmol/L [facility] Creatinine [Mass/Vol] 1.06 mg/dL 0.73 - 1.22 mg/dL [facility] GFR/1.73 sq M.predicted among non-blacks MDRD (S/P/Bld) [Vol rate/Area] 69 mL/min/{1.73_m2} - PINF [facility] Comment on above: Estimated Glomerular Filtration Rate (eGFR) is calculated using the 2020 CKD-EPI creatinine equation. This equation utilizes serum creatinine, sex, and age as parameters. The creatinine assay has traceable calibration to isotope dilution-mass spectrometry. Refer to KDIGO guidelines for clinical interpretation. In patients with unstable renal function, e.g. those with acute kidney injury, the eGFR may not accurately reflect actual GFR. Glucose [Mass/Vol] 98 mg/dL 74 - 99 mg/dL [facility] Comment on above: The [place] Diabete s Association (ADA) provides guidance for cutoff values for fasting glucose and random glucose. The ADA defines fasting as no caloric intake for at least 8 hours. Fasting plasma glucose results between 100 to 125 mg/dL indicate increased risk for diabetes (prediabetes). Fasting plasma glucose results greater than or equal to 126 mg/dL meet the criteria for diagnosis of diabetes. In the absence of unequivocal hyperglycemia, results should be confirmed by repeat testing. In a patient with classic symptoms of hyperglycemia or hyperglycemic crisis, random plasma glucose results greater than or equal to 200 mg/dL meet the criteria for diagnosis of diabetes. Reference: Standards of Medical Care in Diabetes 2016, [place] Diabetes Association. Diabetes Care. 2016.39(Suppl 1). Interpretation and review of laboratory results Normal [facility] Potassium [Moles/Vol] 4.0 mmol/L 3.7 - 5.1 mmol/L [facility] Protein [Mass/Vol] 6.8 g/dL 6.3 - 8.0 g/dL [facility] Sodium [Moles/Vol] 141 mmol/L 136 - 144 mmol/L [facility] Urea nitrogen [Mass/Vol] 20 mg/dL 9 - 24 mg/dL [facility] LIPID PANEL, NONFASTINGon Cholesterol [Mass/Vol] 208 mg/dL High NINF - 200 mg/dL [facility] Comment on above: <200 mg/dL, Desirabl e 200-239 mg/dL, Borderline high >239 mg/dL, High HDL Cholesterol, Nonfasting 42 mg/dL 39 - PINF mg/dL [facility] Comment on above: 40-59 mg/dL, Accepta ble >59 mg/dL, High: Negative risk factor for coronary heart disease <40 mg/dL, Low: Positive risk factor for coronary heart disease Interpretation and review of laboratory results Abnormal [facility] LDL Cholesterol, Nonfasting 97 mg/dL NINF - 100 mg/dL [facility] Comment on above: <100 mg/dL, Optimal 100-129 mg/dL, Near optimal/above optimal 130-159 mg/dL, Borderline high 160-189 mg/dL, High >189 mg/dL, Very high Secondary prevention optimal LDL Cholesterol levels are recommended to be < 70 mg/dL LDL/HDL Ratio, Nonfasting 2.31 mg/dL NINF - 2.54 mg/dL [facility] Comment on above: Reference: 1. National Cholesterol Education Program ATP III Guideline At-A-Glance Quick Desk Reference: National Heart, Lung, and Blood [place]. National Institutes of Health. 2001: NIH Publication No. 01-3305. 2. An International Atherosclerosis Society position paper: global recommendations for the management of dyslipidemia: executive summary, Atherosclerosis. 2014: 232(2):410-413. Non HDL Cholesterol, Nonfasting 166 mg/dL High NINF - 130 mg/dL [facility] Comment on above: <130 mg/dL, Optimal 130-159 mg/dL, Near optimal/above optimal 160-189 mg/dL, Borderline high 190-219 mg/dL, High >219 mg/dL, Very high Secondary prevention optimal non HDL Cholesterol levels are recommended to be <100 mg/dL Total Chol/HDL Ratio, Nonfasting 4.95 mg/dL NINF - 5.10 mg/dL [facility] Triglycerides, Nonfasting 343 mg/dL High NINF - 150 mg/dL [facility] Comment on above: <150 mg/dL, Normal 150-199 mg/dL, Borderline high 200-499 mg/dL, High >499 mg/dL, Very high VLDL Cholesterol, Nonfasting 69 mg/dL High NINF - 30 mg/dL [facility] No Panel Informationon 09-03 Interpretation and review of laboratory results Normal [facility] THYROID STIMULATING HORMONEo n 09-04-2023 TSH Qn 1.470 m[IU]/L [facility] VITAMIN B12on 09-04-2023 Cobalamin (Vitamin B12) [Mass/Vol] 374 pg/mL 232 - 1245 pg/mL [facility] CBC W Auto Differential pane l (Bld)on 09-03-2023 Basophils (Bld) [#/Vol] 0.04 10*3/uL [facility] Basophils/100 WBC (Bld) 0.5 % [facility] Differential cell count method Nom (Bld) Auto [facility] Eosinophils (Bld) [#/Vol] 0.15 10*3/uL [facility] Eosinophils/100 WBC (Bld) 2.0 % [facility] Erythrocyte distribution width (RBC) [Ratio] 12.6 % 11.5 - 15.0 % [facility] Hematocrit (Bld) [Volume fraction] 39.9 % 39.0 - 51.0 % [facility] Hemoglobin (Bld) [Mass/Vol] 13.5 g/dL 13.0 - 17.0 g/dL [facility] Immature granulocytes (Bld) [#/Vol] 0.15 10*3/uL High [facility] Immature granulocytes/100 WBC (Bld) 2.0 % [facility] Interpretation and review of laboratory results Abnormal [facility] Lymphocytes (Bld) [#/Vol] 1.21 10*3/uL [facility] Lymphocytes/100 WBC (Bld) 16.4 % [facility] MCH (RBC) [Entitic mass] 33.3 pg 26.0 - 34.0 pg [facility] MCHC (RBC) [Mass/Vol] 33.8 g/dL 30.5 - 36.0 g/dL [facility] MCV (RBC) [Entitic vol] 98.3 fL 80.0 - 100.0 fL [facility] Monocytes (Bld) [#/Vol] 1.01 10*3/uL High [facility] Monocytes/100 WBC (Bld) 13.7 % [facility] Neutrophils (Bld) [#/Vol] 4.81 10*3/uL [facility] Neutrophils/100 WBC (Bld) 65.4 % [facility] Nucleated RBC (Bld) [#/Vol] [facility] Nucleated RBC/100 WBC (Bld) [Ratio] 0.0 % /100 WBC [facility] Platelet mean volume (Bld) [Entitic vol] 10.0 fL 9.0 - 12.7 fL [facility] Platelets (Bld) [#/Vol] 268 10*3/uL [facility] RBC (Bld) [#/Vol] 4.06 10*6/uL Low 4.20 - 6.00 m/uL [facility] WBC (Bld) [#/Vol] 7.37 10*3/uL [facility] Basophil percentageOrdered B y: Álvaro Fritz on 06-08-2023 Basophil percentage 18.50 ng/mL 0.0-4.0 [facility] Comment on above: This test was perfor med using the TPSA assay method for theDimension chemistry system. Values obtained with differentassay methods cannot be used interchangably.When changing PSA assays in the course of monitoring apatient, additional sequential testing should be carriedout to confirm baseline values. Basophil percentageOrdered B y: Aaron Nowak on 05-16-2023 Basophil percentage < 1.0 mg/dL 0.70-1.30 [facility] No Panel InformationOrdered By: Aaron Holderston on 05-16-2023 Bedside Estimated GFR (eGFR) > 60.0000 mL/min >60 [facility] No Panel InformationOrdered By: lÁvaro Fritz on 03-01-2023 Prostate Specific Antigen Total 22.00 ng/mL 0.0-4.0 [facility] Comment on above: This test was perfor med using the TPSA assay method for theDimension chemistry system. Values obtained with differentassay methods cannot be used interchangably.When changing PSA assays in the course of monitoring apatient, additional sequential testing should be carriedout to confirm baseline values. No Panel InformationOrdered By: Dr. Fritz on 08-30-2022 Prostate Specific Antigen Total 18.10 ng/mL 0.0-4.0 [facility] Comment on above: This test was perfor med using the TPSA assay method for theDimension chemistry system. Values obtained with differentassay methods cannot be used interchangably.When changing PSA assays in the course of monitoring apatient, additional sequential testing should be carriedout to confirm baseline values. CT ABD/PEL W IVCONon 023 Radiology Result ACTIONABLE Abnormal [facility] No Panel Informationon 01-19 Prostate Specific Antigen Total 16.70 ng/mL 0.0-4.0 [facility] Work Phone: Comment on above: This test was perfor med using the TPSA assay method for theDimension chemistry system. Values obtained with differentassay methods cannot be used interchangably.When changing PSA assays in the course of monitoring apatient, additional sequential testing should be carriedout to confirm baseline values. Nayeli 02-04-2020 CNPN Telephone (UROLAG) ROBBY VERA ([id number]) 1940 M Date Time Provider Department 02/04/20 OTHER (HIST) UROLAG During your visit today, we recorded the following information about you: Rivka HANNAH 02/04/2020 11:32 AM Signed Left message a message to call back and schedule for an elevated psa Anay Montgomery 02/04/2020 2:18 PM Signed Spoke to pt and he said he sees Dr. Fritz who is a urologist in [place]. He thinks that maybe his PCP wasn't aware he was already seeing one for this issue. Anay Montgomery Allergies As of Date: 02/04/2020 (No Known Allergies) Date Reviewed: 11/13/2019 Reviewed by: Gabriela Garcia Ma - Fully Assessed Reason for Visit: Referral appointment [Other] Prescriptions as of 02/04/2020 Sig: GABAPENTIN 600 MG TABLET Take 600 mg by mouth four tao* SERTRALINE 50 MG TABLET Take 0.5 tablets by mouth onc* ATORVASTATIN 40 MG TABLET Take 1 tablet by mouth daily * VITAMIN B-100 COMPLEX ORAL Take 100 mg by mouth once torito* CHOLECALCIFEROL (VITAMIN D3) * Take 1,000 Units by mouth onc* GABAPENTIN 400 MG CAPSULE Take 600 mg by mouth four tao* TRAMADOL 50 MG TABLET Take 50 mg by mouth every 6 h* CPAP AutoBiPAP EEP min EPAP 8, max* CPAP CHIN STRAP, USED WITH CPAP DE* Problem List As Of Date 02/04/2020 Noted Resolved Routine general medical examination at [facility]*03/28/2009 02/08/2015 Class: Chronic More... Kidney stone [N20.0] 03/28/2009 More... Hyperlipidemia [E78.5] 03/28/2009 Anxiety state [F41.1] 03/28/2009 Sleep apnea [G47.30] 03/28/2009 More... Osteoarthrosis [M19.90] 03/28/2009 More... Lumbar disc disorder [M51.9] 03/28/2009 More... Impaired fasting glucose [R73.01] 04/13/2009 More... Elevated PSA [R97.20] 04/13/2009 More... Colon polyps [K63.5] 04/29/2009 More... Pain in joint, shoulder region [M25.519] 11/23/2009 More... 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 Low testosterone [R79.89] Personal history of colonic polyps [Z86.010] 01/26/2014 Sciatica of right side associated with disorder*09/06/2017 Lymphocytosis [D72.820] 03/24/2018 More... Monocytosis [D72.821] 03/24/2018 More... Encounter Status:Closed by RIVKA BHARDWAJ on 02/04/20 Normal [facility] Vital Signs Date Time Vital Sign Value Performing Clinician Facility 11-18-2024 13:58-0400 Body mass index (BMI) [Ratio] 27.29 kg/m2 Rom Newell MD Work Phone: [facility] 11-18-2024 13:58-0400 Body weight 81.38 kg Rom Newell MD Work Phone: [facility] 11-18-2024 13:58-0400 Diastolic blood pressure 70 mm[Hg] Rom Newell MD Work Phone: [facility] 11-18-2024 13:58-0400 Heart rate 80 /min Rom Newell MD Work Phone: [facility] 11-18-2024 13:58-0400 SaO2% (BldA) [Mass fraction] 97 % Rom Newell MD Work Phone: [facility] 11-18-2024 13:58-0400 Systolic blood pressure 110 mm[Hg] Rom Newell MD Work Phone: [facility] 08-05-2024 09:36-0400 Body mass index (BMI) [Ratio] 27.38 kg/m2 Rom Newell MD Work Phone: [facility] 08-05-2024 09:36-0400 Body weight 81.65 kg Rom Newell MD Work Phone: [facility] 08-05-2024 09:36-0400 Diastolic blood pressure 68 mm[Hg] Rom Newell MD Work Phone: [facility] 08-05-2024 09:36-0400 Heart rate 64 /min Rom Newell MD Work Phone: [facility] 08-05-2024 09:36-0400 SaO2% (BldA) [Mass fraction] 98 % Rom Newell MD Work Phone: [facility] 08-05-2024 09:36-0400 Systolic blood pressure 122 mm[Hg] Rom Newell MD Work Phone: [facility] 07-15-2024 14:35-0400 Body height 172.7 cm Rom Newell MD Work Phone: [facility] 07-15-2024 14:35-0400 Body mass index (BMI) [Ratio] 27.38 kg/m2 Rom Newell MD Work Phone: [facility] 07-15-2024 14:35-0400 Body weight 81.65 kg Rom Newell MD Work Phone: [facility] 07-15-2024 14:35-0400 Diastolic blood pressure 62 mm[Hg] Rom Newell MD Work Phone: [facility] 07-15-2024 14:35-0400 Heart rate 76 /min Rom Newell MD Work Phone: [facility] 07-15-2024 14:35-0400 SaO2% (BldA) [Mass fraction] 97 % Rom Newell MD Work Phone: [facility] 07-15-2024 14:35-0400 Systolic blood pressure 126 mm[Hg] Rom Newell MD Work Phone: [facility] 07-07-2024 12:51-0400 Body mass index (BMI) [Ratio] 28.14 kg/m2 Ailin Suppan [employer]ARLY [employer] Work Phone: [facility] 07-07-2024 12:51-0400 Body weight 83.92 kg Ailin Suppan [employer]ARLY [employer]IL[employer] Work Phone: [facility] 07-07-2024 12:51-0400 Diastolic blood pressure 80 mm[Hg] Ailin Suppan EARLY [employer]IL[employer]ER Work Phone: [facility] 07-07-2024 12:51-0400 Heart rate 76 /min Ailin Suppan [employer]ARLY [employer]IL[employer] Work Phone: [facility] 07-07-2024 12:51-0400 SaO2% (BldA) [Mass fraction] 95 % Ailin Suppan [employer]ARLY [employer]IL[employer]ER Work Phone: [facility] 07-07-2024 12:51-0400 Systolic blood pressure 146 mm[Hg] Ailin Suppan [employer]ARLY [employer]IL[employer] Work Phone: [facility] 07-05-2024 11:00-0400 Body temperature 97.5 [degF] Dr. Rom Newell MD Work Phone: [facility] 07-05-2024 11:00-0400 Diastolic blood pressure 78 mm[Hg] Dr. Rom Newell MD Work Phone: [facility] 07-05-2024 11:00-0400 Heart rate 70 /min Dr. Rom Newell MD Work Phone: [facility] 07-05-2024 11:00-0400 Respiratory rate 16 /min Dr. Rom Newell MD Work Phone: [facility] 07-05-2024 11:00-0400 SaO2% (BldA) [Mass fraction] 95 % Dr. Rom Newell MD Work Phone: [facility] 07-05-2024 11:00-0400 Systolic blood pressure 142 mm[Hg] Dr. Rom Newell MD Work Phone: [facility] 07-05-2024 08:03-0400 Body height 172.[address] Rom Newell MD Work Phone: [facility] 07-05-2024 08:03-0400 Body mass index (BMI) [Ratio] 27.6 kg/m2 Dr. Rom Newell MD Work Phone: [facility] 07-05-2024 08:03-0400 Body weight 82.[address] Rom Newell MD Work Phone: [facility] 07-02-2024 15:00-0400 Heart rate 65 /min Trisha Thompson MD Work Phone: [facility] 07-02-2024 15:00-0400 Respiratory rate 16 /min Trisha Thompson MD Work Phone: [facility] 07-02-2024 15:00-0400 SaO2% (BldA) [Mass fraction] 96 % Trisha Thompson MD Work Phone: [facility] 07-02-2024 14:50-0400 Diastolic blood pressure 79 mm[Hg] Trisha Thompson MD Work Phone: [facility] 07-02-2024 14:50-0400 Systolic blood pressure 149 mm[Hg] Trisha Thompson MD Work Phone: [facility] 07-02-2024 14:17-0400 Body temperature 96.8 [degF] Trisha Thompson MD Work Phone: [facility] 07-02-2024 13:08-0400 Body height 172.7 cm Trisha Thompson MD Work Phone: [facility] 07-02-2024 13:08-0400 Body mass index (BMI) [Ratio] 27.38 kg/m2 Trisha Thompson MD Work Phone: [facility] 07-02-2024 13:08-0400 Body weight 81.65 kg Trisha Thompson MD Work Phone: [facility] 06-23-2024 13:58-0400 Body height 172.7 cm [facility] Work Phone: [facility] Comment on above: per pt 06-23-2024 13:58-0400 Body mass index (BMI) [Ratio] 27.37 kg/m2 [facility] Work Phone: [facility] 06-23-2024 13:58-0400 Body weight 81.65 kg [facility] Work Phone: [facility] Comment on above: per pt 05-07-2024 10:35-0500 Body height 172.7 cm [facility] Comment on above: Pt reported 05-07-2024 10:35-0500 Body mass index (BMI) [Ratio] 27.37 kg/m2 [facility] 05-07-2024 10:35-0500 Body weight 81.65 kg [facility] Comment on above: Pt reported 05-07-2024 10:35-0500 Heart rate 66 /min [facility] Comment on above: Pt reported 03-02-2024 09:39-0500 Diastolic blood pressure 72 mm[Hg] Ailin Suppan [employer]ARLY [employer] Work Phone: [facility] 03-02-2024 09:39-0500 Systolic blood pressure 118 mm[Hg] Ailin Suppan [employer]ARLY [employer]IL[employer] Work Phone: [facility] 03-02-2024 09:30-0500 Body mass index (BMI) [Ratio] 30.04 kg/m2 Ailin Suppan EARLY [employer]IL[employer] Work Phone: [facility] 03-02-2024 09:30-0500 Body weight 85.7 kg Ailin Suppan EARLY CHIL[employer]ER Work Phone: [facility] 03-02-2024 09:30-0500 Heart rate 66 /min Ailin Suppan EARLY [employer]IL[employer]ER Work Phone: [facility] 03-02-2024 09:30-0500 Respiratory rate 16 /min Ailin Suppan EARLY [employer]IL[employer]ER Work Phone: [facility] 03-02-2024 09:30-0500 SaO2% (BldA) [Mass fraction] 98 % Ailin Maloneysteven SIMON Work Phone: [facility] 01-29-2024 09:52-0400 Body mass index (BMI) [Ratio] 29.76 kg/m2 Rom Newell MD Work Phone: [facility] 01-29-2024 09:52-0400 Body weight 84.9 kg Rom Newell MD Work Phone: [facility] 01-29-2024 09:52-0400 Diastolic blood pressure 82 mm[Hg] Rom Newell MD Work Phone: [facility] 01-29-2024 09:52-0400 Heart rate 63 /min Rom Newell MD Work Phone: [facility] 01-29-2024 09:52-0400 SaO2% (BldA) [Mass fraction] 97 % Rom Newell MD Work Phone: [facility] 01-29-2024 09:52-0400 Systolic blood pressure 148 mm[Hg] Rom Newell MD Work Phone: [facility] 10-16-2023 11:39-0400 Diastolic blood pressure 80 mm[Hg] Rom Newell MD Work Phone: [facility] 10-16-2023 11:39-0400 Systolic blood pressure 134 mm[Hg] Rom Newell MD Work Phone: [facility] 10-16-2023 10:55-0400 Body height 168.9 cm Rom Newell MD Work Phone: [facility] 10-16-2023 10:55-0400 Body mass index (BMI) [Ratio] 29.89 kg/m2 Rom Newell MD Work Phone: [facility] 10-16-2023 10:55-0400 Body weight 85.28 kg Rom Newell MD Work Phone: [facility] 10-16-2023 10:55-0400 Heart rate 59 /min Rom Newell MD Work Phone: [facility] 10-16-2023 10:55-0400 SaO2% (BldA) [Mass fraction] 97 % Rom Newell MD Work Phone: [facility] 09-17-2023 14:17-0400 Body height 168.9 cm Rom Newell MD Work Phone: [facility] 09-17-2023 14:17-0400 Body mass index (BMI) [Ratio] 30.21 kg/m2 Rom Newell MD Work Phone: [facility] 09-17-2023 14:17-0400 Body weight 86.18 kg Rom Newell MD Work Phone: [facility] 09-17-2023 14:17-0400 Diastolic blood pressure 70 mm[Hg] Rom Newell MD Work Phone: [facility] 09-17-2023 14:17-0400 Heart rate 68 /min Rom Newell MD Work Phone: [facility] 09-17-2023 14:17-0400 SaO2% (BldA) [Mass fraction] 99 % Rom Newell MD Work Phone: [facility] 09-17-2023 14:17-0400 Systolic blood pressure 154 mm[Hg] Rom Newell MD Work Phone: [facility] 09-03-2023 13:51-0400 Body mass index (BMI) [Ratio] 30.05 kg/m2 Ailin Courtney [employer]ARLY CHIL[employer]SPECIAL OFFICER Work Phone: [facility] 09-03-2023 13:51-0400 Body weight 85.73 kg Ailin Suppan [employer]ARLY [employer]SPECIAL OFFICER Work Phone: [facility] 09-03-2023 13:51-0400 Diastolic blood pressure 84 mm[Hg] Ailin Courtney [employer]ARLY [employer]IL[employer].SPECIAL OFFICER Work Phone: [facility] 09-03-2023 13:51-0400 Heart rate 78 /min Ailin Maloneyan [employer]ARLY CHIL[employer].SPECIAL OFFICER Work Phone: [facility] 09-03-2023 13:51-0400 Respiratory rate 16 /min Ailin Courtney [employer]ARLY CHILDHO[employer].SPECIAL OFFICER Work Phone: [facility] 09-03-2023 13:51-0400 SaO2% (BldA) [Mass fraction] 97 % Ailin Courtney [employer]ARLY [employer]IL[employer].SPECIAL OFFICER Work Phone: [facility] 09-03-2023 13:51-0400 Systolic blood pressure 150 mm[Hg] Ailin Courtney EARLY CHIL[employer].SPECIAL OFFICER Work Phone: [facility] 07-27-2023 10:12-0400 Body height 168.9 cm Rom Newell MD Work Phone: [facility] 07-27-2023 10:12-0400 Body weight 83.92 kg Rom Newell MD Work Phone: [facility] 07-27-2023 10:12-0400 Diastolic blood pressure 76 mm[Hg] Rom Newell MD Work Phone: [facility] 07-27-2023 10:12-0400 Heart rate 66 /min Rom Newell MD Work Phone: [facility] 07-27-2023 10:12-0400 Systolic blood pressure 139 mm[Hg] Rom Newell MD Work Phone: [facility] 06-12-2023 10:34-0500 Body height 172.[address] Rom Newell Work Phone: [facility] 06-12-2023 10:34-0500 Body mass index (BMI) [Ratio] 28.2 kg/m2 Dr. Rom Newell Work Phone: [facility] 06-12-2023 10:34-0500 Body temperature 97.8 [degF] Dr. Rom Newell Work Phone: [facility] 06-12-2023 10:34-0500 Body weight 84.[address] Rom Newell Work Phone: [facility] 06-12-2023 10:34-0500 Diastolic blood pressure 90 mm[Hg] Dr. Rom Newell Work Phone: 2(849)758-636598 [place] [address] 06-12-2023 10:34-0500 Heart rate 69 /min Dr. Rom Newell Work Phone: 9(039)971-293530 [place] [address] 06-12-2023 10:34-0500 Respiratory rate 18 /min Dr. Rom Newell Work Phone: 1(491)996-327230 [place] [address] 06-12-2023 10:34-0500 SaO2% (BldA) [Mass fraction] 96 % Dr. Rom Newell Work Phone: 0(050)529-983930 [place] [address] 06-12-2023 10:34-0500 Systolic blood pressure 163 mm[Hg] Dr. Rom Newell Work Phone: 5(868)359-414930 [place] [address] 06-05-2023 10:32-0500 Body mass index (BMI) [Ratio] 28.5 kg/m2 Dr. Rom Newell Work Phone: 9(868)895-478630 [place] [address] 06-05-2023 10:32-0500 Body temperature 98.2 [degF] Dr. Rom Newell Work Phone: 3(980)992-571730 [place] [address] 06-05-2023 10:32-0500 Body weight 85.[address] Rom Newell Work Phone: 4(620)819-551630 [place] [address] 06-05-2023 10:32-0500 Diastolic blood pressure 87 mm[Hg] Dr. Rom Newell Work Phone: 7(038)410-353130 [place] [address] 06-05-2023 10:32-0500 Heart rate 74 /min Dr. Rom Newell Work Phone: 6(293)637-685230 [place] [address] 06-05-2023 10:32-0500 Respiratory rate 18 /min Dr. Rom Newell Work Phone: 8(920)853-544130 [place] [address] 06-05-2023 10:32-0500 SaO2% (BldA) [Mass fraction] 96 % Dr. Rom Newell Work Phone: 0(490)591-045630 [place] [address] 06-05-2023 10:32-0500 Systolic blood pressure 156 mm[Hg] Dr. Rom Newell Work Phone: 8(664)310-343130 [place] [address] 05-31-2023 10:26-0500 Body mass index (BMI) [Ratio] 28.6 kg/m2 Dr. Rom Newell Work Phone: 3(721)734-532398 [place] [address] 05-31-2023 10:26-0500 Body temperature 97.6 [degF] Dr. Rom Newell Work Phone: 8(749)831-200530 [place] [address] 05-31-2023 10:26-0500 Body weight 85.[address] Rom Newell Work Phone: 6(091)371-189630 [place] [address] 05-31-2023 10:26-0500 Diastolic blood pressure 88 mm[Hg] Dr. Rom Newell Work Phone: 8(464)374-745230 [place] [address] 05-31-2023 10:26-0500 Heart rate 64 /min Dr. Rom Newell Work Phone: 6(817)369-691030 [place] [address] 05-31-2023 10:26-0500 Respiratory rate 16 /min Dr. Rom Newell Work Phone: 4(637)259-451030 [place] [address] 05-31-2023 10:26-0500 SaO2% (BldA) [Mass fraction] 95 % Dr. Rom Newell Work Phone: 7(148)483-154930 [place] [address] 05-31-2023 10:26-0500 Systolic blood pressure 158 mm[Hg] Dr. Rom Newell Work Phone: 0(842)910-439230 [place] [address] 05-10-2023 13:57-0500 Body temperature 97.8 [degF] Dr. Rom Newell Work Phone: 7(378)987-098930 [place] [address] 05-10-2023 13:57-0500 Diastolic blood pressure 85 mm[Hg] Dr. Rom Newell Work Phone: 5(916)175-305730 [place] [address] 05-10-2023 13:57-0500 Heart rate 71 /min Dr. Rom Newell Work Phone: 5(073)302-256030 [place] [address] 05-10-2023 13:57-0500 Respiratory rate 16 /min Dr. Rom Newell Work Phone: 6(159)937-217430 [place] [address] 05-10-2023 13:57-0500 SaO2% (BldA) [Mass fraction] 93 % Dr. Rom Newell Work Phone: 3(069)898-143198 [place] [address] 05-10-2023 13:57-0500 Systolic blood pressure 132 mm[Hg] Dr. Rom Newell Work Phone: 0(661)794-525130 [place] [address] 05-10-2023 11:24-0500 Body height 172.[address] Rom Newell Work Phone: 8(177)348-486830 [place] [address] 05-10-2023 11:24-0500 Body mass index (BMI) [Ratio] 28.4 kg/m2 Dr. Rom Newell Work Phone: 0(407)263-644230 [place] [address] 05-10-2023 11:24-0500 Body weight 84.[address] Rom Newell Work Phone: 4(300)670-832430 [place] [address] 03-14-2023 14:02-0500 Body mass index (BMI) [Ratio] 28.8 kg/m2 Dr. Rom Newell Work Phone: 6(457)548-442230 [place] [address] 03-14-2023 14:02-0500 Body temperature 98.7 [degF] Dr. Rom Newell Work Phone: 0(002)623-417430 [place] [address] 03-14-2023 14:02-0500 Body weight 86.[address] Rom Newell Work Phone: 9(919)780-426930 [place] [address] 03-14-2023 14:02-0500 Diastolic blood pressure 81 mm[Hg] Dr. Rom Newell Work Phone: 6(820)115-604530 [place] [address] 03-14-2023 14:02-0500 Heart rate 76 /min Dr. Rom Newell Work Phone: 7(088)955-002030 [place] [address] 03-14-2023 14:02-0500 Respiratory rate 18 /min Dr. Rom Newell Work Phone: 9(101)678-178830 [place] [address] 03-14-2023 14:02-0500 SaO2% (BldA) [Mass fraction] 94 % Dr. Rom Newell Work Phone: 6(362)583-124730 [place] [address] 03-14-2023 14:02-0500 Systolic blood pressure 131 mm[Hg] Dr. Rom Newell Work Phone: 1(926)268-830798 [place] [address] 07-10-2022 09:25-0400 Diastolic blood pressure 77 mm[Hg] Dr. Rom Newell Work Phone: 5(587)781-682298 [place] [address] 07-10-2022 09:25-0400 Heart rate 58 /min Dr. Rom Newell Work Phone: 9(867)064-231630 [place] [address] 07-10-2022 09:25-0400 Respiratory rate 18 /min Dr. Rom Newell Work Phone: 1(140)708-726030 [place] [address] 07-10-2022 09:25-0400 SaO2% (BldA) [Mass fraction] 98 % Dr. Rom Newell Work Phone: 7(230)857-554030 [place] [address] 07-10-2022 09:25-0400 Systolic blood pressure 115 mm[Hg] Dr. Rom Newell Work Phone: 3(082)160-704930 [place] [address] 07-10-2022 09:10-0400 Body temperature 97 [degF] Dr. Rom Newell Work Phone: 8(190)656-813430 [place] [address] 07-10-2022 08:01-0400 Body height 172.[address] Rom Newell Work Phone: 9(285)751-949030 [place] [address] 07-10-2022 08:01-0400 Body mass index (BMI) [Ratio] 27.1 kg/m2 Dr. Rom Newell Work Phone: 8(045)765-442930 [place] [address] 07-10-2022 08:01-0400 Body weight 80.[address] Rom Newell Work Phone: 8(439)029-587730 [place] [address] 06-19-2022 14:23-0400 Body mass index (BMI) [Ratio] 28.7 kg/m2 Dr. Rom Newell Work Phone: 1(125)644-228930 [place] [address] 06-19-2022 14:23-0400 Body temperature 97.8 [degF] Dr. Rom Newell Work Phone: 5(165)936-811230 [place] [address] 06-19-2022 14:23-0400 Body weight 85.[address] Rom Newell Work Phone: 3(425)048-088530 [place] [address] 06-19-2022 14:23-0400 Diastolic blood pressure 88 mm[Hg] Dr. Rom Newell Work Phone: [facility] 06-19-2022 14:23-0400 Heart rate 84 /min Dr. Rom Newell Work Phone: [facility] 06-19-2022 14:23-0400 Respiratory rate 18 /min Dr. Rom Newell Work Phone: [facility] 06-19-2022 14:23-0400 SaO2% (BldA) [Mass fraction] 97 % Dr. Rom Newell Work Phone: [facility] 06-19-2022 14:23-0400 Systolic blood pressure 146 mm[Hg] Dr. Rom Newell Work Phone: [facility] 06-09-2022 09:12-0500 Body weight 84.37 kg Rom Newell MD Work Phone: [facility] 06-09-2022 09:12-0500 Diastolic blood pressure 82 mm[Hg] Rom Newell MD Work Phone: [facility] 06-09-2022 09:12-0500 Heart rate 70 /min Rom Newell MD Work Phone: [facility] 06-09-2022 09:12-0500 SaO2% (BldA) [Mass fraction] 97 % Rom Newell MD Work Phone: [facility] 06-09-2022 09:12-0500 Systolic blood pressure 122 mm[Hg] Rom Newell MD Work Phone: [facility] 05-07-2022 15:35-0500 Body height 168.9 cm Rom Newell MD Work Phone: [facility] 05-07-2022 15:35-0500 Body weight 84.37 kg Rom Newell MD Work Phone: [facility] 05-07-2022 15:35-0500 Diastolic blood pressure 66 mm[Hg] Rom Newell MD Work Phone: [facility] 05-07-2022 15:35-0500 Heart rate 71 /min Rom Newell MD Work Phone: [facility] 05-07-2022 15:35-0500 SaO2% (BldA) [Mass fraction] 99 % Rom Newell MD Work Phone: [facility] 05-07-2022 15:35-0500 Systolic blood pressure 130 mm[Hg] Rom Newell MD Work Phone: [facility] 04-16-2022 14:15-0500 Body temperature 97.5 [degF] Rom Mendieta Jr., MD Work Phone: [facility] 04-16-2022 14:15-0500 Body weight 84.01 kg Rom Mendieta Jr., MD Work Phone: [facility] 04-16-2022 14:15-0500 Diastolic blood pressure 72 mm[Hg] Rom Mendieta Jr., MD Work Phone: [facility] 04-16-2022 14:15-0500 Heart rate 72 /min Rom Mendieta Jr., MD Work Phone: [facility] 04-16-2022 14:15-0500 Respiratory rate 16 /min Rom Mendieta Jr., MD Work Phone: [facility] 04-16-2022 14:15-0500 SaO2% (BldA) [Mass fraction] 96 % Rom Mendieta Jr., MD Work Phone: [facility] 04-16-2022 14:15-0500 Systolic blood pressure 146 mm[Hg] Rom Mendieta Jr., MD Work Phone: [facility] 03-22-2022 14:23-0500 Body mass index (BMI) [Ratio] 28.1 kg/m2 Dr. Rom Newell Work Phone: [facility] 03-22-2022 14:23-0500 Body weight 84.[address] Rom Newell Work Phone: [facility] 03-22-2022 14:23-0500 Diastolic blood pressure 77 mm[Hg] Dr. Rom Newell Work Phone: [facility] 03-22-2022 14:23-0500 Heart rate 87 /min Dr. Rom Newell Work Phone: [facility] 03-22-2022 14:23-0500 Respiratory rate 17 /min Dr. Rom Newell Work Phone: [facility] 03-22-2022 14:23-0500 SaO2% (BldA) [Mass fraction] 96 % Dr. Rom Newell Work Phone: [facility] 03-22-2022 14:23-0500 Systolic blood pressure 154 mm[Hg] Dr. Rom Newell Work Phone: [facility] 03-19-2022 10:38-0500 Diastolic blood pressure 86 mm[Hg] Justina Haagen EARLY CHIL[employer] Work Phone: [facility] 03-19-2022 10:38-0500 Heart rate 63 /min Justina Haagen EARLY CHILDHO[employer].J[employer] CLEANER Work Phone: [facility] 03-19-2022 10:38-0500 Respiratory rate 18 /min Justina Haagen EARLY CHILDHOOD [employer].J[employer]IAL CLE[employer]ER Work Phone: [facility] 03-19-2022 10:38-0500 SaO2% (BldA) [Mass fraction] 97 % Justina Haagen EARLY CHILDHO[employer].J[employer]IAL CLEANER Work Phone: [facility] 03-19-2022 10:38-0500 Systolic blood pressure 134 mm[Hg] Justina Haagen EARLY CHILDHOOD A[employer].J[employer]IAL CLEANER Work Phone: [facility] 02-12-2022 10:16-0500 Body weight 83.01 kg Justina Haagen EARLY CHILDHO[employer].J[employer]IAL CLEANER Work Phone: [facility] 02-12-2022 10:16-0500 Diastolic blood pressure 90 mm[Hg] Justina Haagen EARLY CHILDHO[employer].J[employer]IAL CLEANER Work Phone: [facility] 02-12-2022 10:16-0500 Heart rate 64 /min Justina Haagen EARLY CHILDHO[employer].J[employer]IAL CLEANER Work Phone: [facility] 02-12-2022 10:16-0500 Respiratory rate 16 /min Justina Carrasco EARLY CHILDHO[employer].J[employer]IAL CLEANER Work Phone: [facility] 02-12-2022 10:16-0500 Systolic blood pressure 142 mm[Hg] Justina Carrasco EARLY CHIL[employer]ER Work Phone: [facility] 01-10-2022 10:30-0400 Diastolic blood pressure 82 mm[Hg] Rom Newell MD Work Phone: [facility] 01-10-2022 10:30-0400 Systolic blood pressure 130 mm[Hg] Rom Newell MD Work Phone: [facility] 01-10-2022 10:05-0400 Body height 168.9 cm Rom Newell MD Work Phone: [facility] 01-10-2022 10:05-0400 Body weight 82.92 kg Rom Newell MD Work Phone: [facility] 01-10-2022 10:05-0400 Heart rate 57 /min Rom Newell MD Work Phone: [facility] 01-10-2022 10:05-0400 SaO2% (BldA) [Mass fraction] 97 % Rom Newell MD Work Phone: [facility] 07-07-2021 10:29-0400 Body weight 83.92 kg Rom Newell MD Work Phone: [facility] 07-07-2021 10:29-0400 Diastolic blood pressure 78 mm[Hg] Rom Newell MD Work Phone: [facility] 07-07-2021 10:29-0400 Heart rate 64 /min Rom Newell MD Work Phone: [facility] 07-07-2021 10:29-0400 Systolic blood pressure 138 mm[Hg] Rom Newell MD Work Phone: [facility] Encounters Encounter Date Encounter Type Care Provider Facility Start: 11-27-2024 End: 11-27-2024 Telephone encounter Rom Newell MD Work Phone: [facility] Comment on above: Results Start: 11-25-2024 ambulatory ROM [place] REECE Facility :[facility] Start: 11-25-2024 End: 11-25-2024 Subsequent hospital visit by physician Janae [facility] ([facility] Work Phone: [facility] Comment on above: Left lower quadrant abdominal pain [R10.32] Start: 11-18-2024 End: 11-18-2024 Patient encounter procedure Rom Newell MD Work Phone: [facility] [place] Comment on above: Left lower quadrant abdominal pain (Primary Dx); Intra-abdominal and pelvic swelling, mass and lump, unspecified site; Screening for nephropathy Start: 11-18-2024 End: 11-18-2024 ambulatory ROM NEWELL Facility:[facility] Start: 09-25-2024 End: 09-25-2024 ambulatory Rom Newell MD Work Phone: [facility] [place] Comment on above: Symptoms; Leg Pain Start: 09-11-2024 End: 09-11-2024 Refill Rom Newell MD Work Phone: [facility] [place] Comment on above: Refill Request Start: 08-11-2024 End: 08-11-2024 ambulatory Rom Newell Facility:[facility] [place] [facility] Start: 08-06-2024 End: 10-06-2024 Follow-up encounter Rom Newell MD Work Phone: Pulmonology [facility] Start: 08-05-2024 End: 08-05-2024 Patient encounter procedure Rom Newell MD Work Phone: [facility] [place] Comment on above: Obstructive sleep ap al (adult) (pediatric) (Primary Dx); Mixed hyperlipidemia; 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; Skin cancer; History of prostate cancer; Anxiety state; Impaired fasting glucose Start: 08-05-2024 End: 08-05-2024 ambulatory ROM NEWELL Facility:[facility] Start: 08-03-2024 End: 10-03-2024 Follow-up encounter Rom Newell MD Work Phone: [facility] [place] Start: 07-31-2024 ambulatory [facility] Facility :[facility] Start: 07-20-2024 End: 09-19-2024 Follow-up encounter Rom Newell MD Work Phone: [facility] Start: 07-20-2024 End: 07-23-2024 Telephone encounter Rom Newell MD Work Phone: [facility] Comment on above: Results Start: 07-15-2024 End: 07-15-2024 Subsequent hospital visit by physician Pam [facility] Work Phone: Radiology Comment on above: Radicular pain [M54. 10] Start: 07-15-2024 End: 07-15-2024 ambulatory [facility] Facility:[facility] Start: 07-15-2024 End: 07-15-2024 Patient encounter procedure Rom Newell MD Work Phone: [facility] Comment on above: Radicular pain (Prim silviano Dx) Start: 07-15-2024 End: 07-16-2024 Telephone encounter Rom Newell MD Work Phone: [facility] Comment on above: Patient Update Start: 07-07-2024 End: 07-07-2024 ambulatory [facility] Facility:[facility] Start: 07-07-2024 End: 07-07-2024 Office outpatient visit 15 minutes Ailin Courtney APRN.CNP Work Phone: [facility] Comment on above: Diverticulitis (Prim silviano Dx); Abdominal pain, unspecified abdominal location Start: 07-05-2024 End: 07-05-2024 Emergency department patient visit Dr. Rom Newell MD Work Phone: -Emergency Department Work Phone: Start: 07-02-2024 End: 07-02-2024 ambulatory [facility] Facility:[facility] Start: 07-02-2024 End: 07-02-2024 Subsequent hospital visit by physician Trihsa Thompson MD Work Phone: Gastroenterology Start: 06-25-2024 End: 06-25-2024 ambulatory Karena Jernigan RNmold shop supervisor Start: 06-23-2024 End: 06-23-2024 Admission to establishment Pac Sargent [facility] Work Phone: Pre Anesthesia Start: 06-23-2024 End: 06-23-2024 Anesthesia consultation Jaky Bard MEJIA Work Phone: Pre Anesthesia Comment on above: Pre-Anesthesia Instr uctions Pre-op evaluation (P rimary Dx); Cervical nerve root impingement; Obstructive sleep apnea (adult) (pediatric); PONV (postoperative nausea and vomiting); History of prostate cancer; Anxiety state; Lumbar disc disorder Start: 06-23-2024 End: 06-23-2024 E-mail encounter from caregiver Jaky Bard MEJIA Work Phone: Pre Anesthesia Start: 06-23-2024 End: 06-23-2024 Preprocedural examination done Pac Sargent Virtual Work Phone: [facility] Work Phone: Start: 06-22-2024 End: 06-22-2024 Telephone encounter Jade Olea ALFRED Work Phone: Pre Anesthesia Comment on above: No Show Start: 06-11-2024 End: 06-11-[address] Rom Newell MD Work Phone: [facility] Work Phone: Start: 06-11-2024 End: 06-11-[address] 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 Start: 05-07-2024 End: 05-07-2024 [facility] Work Phone: Start: 04-27-2024 End: 04-27-2024 Refill Rom Newell MD Work Phone: [facility] Comment on above: Refill Request Start: 04-22-2024 End: 04-22-2024 ambulatory Trisha Thompson MD Work Phone: Gastroenterology Comment on above: Araujo's esophagus with dysplasia (Primary Dx) Start: 04-22-2024 End: 04-22-2024 Telemedicine consultation with patient Trisha Thompson MD Work Phone: Gastroenterology Start: 03-23-2024 End: 03-23-2024 Refill Rom Newell MD Work Phone: [facility] Comment on above: Refill Request Start: 03-02-2024 End: 03-02-2024 ambulatory ROM NEWELL Facility:[facility] Start: 03-02-2024 End: 03-02-2024 Office outpatient visit 15 minutes Ailin Courtney APRN.CNP Work Phone: [facility] [place] Comment on above: Elevated blood press ure reading without diagnosis of hypertension (Primary Dx); Obstructive sleep apnea (adult) (pediatric) Start: 02-11-2024 End: 02-11-2024 ambulatory Rom Newell Facility:[facility] Start: 02-03-2024 End: 02-03-2024 Telephone encounter Rom Newell MD Work Phone: [facility] Comment on above: Patient Update Start: 01-29-2024 End: 01-29-2024 ambulatory ROM NEWELL Facility:[facility] Start: 01-29-2024 End: 01-29-2024 Patient encounter procedure Rom Newell MD Work Phone: [facility] [place] Comment on above: Mixed hyperlipidemia (Primary Dx); Obstructive sleep apnea (adult) (pediatric); 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; Skin cancer; Impaired fasting glucose; Low testosterone; Anxiety state; Prostate cancer (HCC) Start: 01-27-2024 End: 01-27-2024 ambulatory [facility] Facility:[facility] Start: 12-11-2023 End: 12-11-2023 ambulatory [facility] Facility:[facility] Start: 10-23-2023 End: 10-23-2023 ambulatory Antonio Duran Facility:[facility] Start: 10-16-2023 End: 10-16-2023 Patient encounter procedure Rom Newell MD Work Phone: [facility] Comment on above: Dizziness (Primary D x); Double vision Start: 10-08-2023 End: 10-08-2023 ambulatory Aaron Nowak Facility:[facility] Start: 09-17-2023 End: 09-17-2023 Patient encounter procedure Rom Newell MD Work Phone: [facility] Comment on above: Weakness with dizzin ess (Primary Dx); Vision changes; Orthostasis Start: 09-16-2023 Telephone encounter Rom Newell MD Work Phone: [facility] Comment on above: Medication Problem ( Stop Lyrica return to Gabapentin) Start: 09-11-2023 End: 09-11-2023 Subsequent hospital visit by physician Janae [facility] Work Phone: Cat Scan Comment on above: Transient cerebral i schemia, unspecified type [G45.9] Start: 09-09-2023 Refill Rom Newell MD Work Phone: [facility] Comment on above: Refill Request Start: 09-03-2023 End: 09-03-2023 Office outpatient visit 15 minutes Ailin Courtney EARLY CHILDHOOD AIDE CLASSROOM.SPECIAL OFFICER Work Phone: [facility] Comment on above: Transient cerebral i schemia, unspecified type (Primary Dx); Screening for diabetes mellitus (DM); Weakness with dizziness; Vitamin D deficiency Start: 08-28-2023 Telephone encounter Rom Newell MD Work Phone: [facility] Comment on above: Orders Start: 08-19-2023 ambulatory Joe Dahl Facility :[facility] Start: 07-27-2023 End: 07-27-2023 Patient encounter procedure Rom Newell MD Work Phone: [facility] Comment on above: Obstructive sleep ap al (adult) (pediatric) (Primary Dx); Mixed hyperlipidemia; Kidney stone; Impaired fasting glucose; Prostate cancer (HCC); 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 Rom Newell Work Phone: [facility] Work Phone: Start: 06-08-2023 End: 06-08-[address] Rom Newell Work Phone: [facility] Work Phone: Start: 06-08-2023 End: 06-08-[address] Rom Newell Work Phone: [facility]-Laboratory Work Phone: Start: 06-05-2023 End: 06-05-[address] Rom Newell Work Phone: [facility] Work Phone: Start: 05-31-2023 End: 05-31-[address] Rom Newell Work Phone: [facility] Work Phone: Start: 05-27-2023 End: 05-28-2023 ambulatory JOE RAMIRES MD Facility:[facility] Start: 05-27-2023 End: 05-27-2023 Patient encounter procedure JOE RAMIRES MD [facility] Start: 05-24-2023 Non-patient / Non-visit Dr. Maria Victoria Newell Work Phone: [facility] Start: 05-23-2023 Non-patient / Non-visit Dr. Maria Victoria Newell Work Phone: [facility] Start: 05-16-2023 Non-patient / Non-visit Dr. Maria Victoria Neewll Work Phone: [facility] Start: 05-16-2023 End: 05-16-[address] Rom Newell Work Phone: [facility] Work Phone: Start: 05-16-2023 End: 05-16-[address] Rom Newell Work Phone: [facility] Work Phone: Start: 05-16-[address] Nick Newell Work Phone: [facility]-Radiation Oncology Start: 05-10-2023 End: 05-10-2023 Admission to same day surgery center Dr. Rom Newell Work Phone: [facility] Start: 04-17-[address] Natalie Newell Work Phone: [facility] Start: 03-27-2023 Telephone encounter Rom Newell MD Work Phone: [facility] Comment on above: Rx refill; not on me d list Start: 03-14-2023 End: 03-14-[address] Rom Newell Work Phone: [facility] Work Phone: Start: 03-01-2023 End: 03-01-2023 ambulatory [facility] Work Phone: Start: 03-01-2023 End: 03-01-2023 Patient encounter procedure [facility]-Laboratory Work Phone: Start: 02-25-2023 End: 11-21-2023 ambulatory ROM NEWELL MD Facility:[facility] Start: 02-25-2023 End: 02-25-2023 Patient encounter procedure JOE RAMIRES MD [facility] Start: 01-02-2023 End: 01-03-2023 ambulatory ROM NEWELL MD Facility:[facility] Start: 01-02-2023 End: 01-02-2023 Patient encounter procedure CRISTINO Porter MERCHANT EARLY CHILDHOOD AIDE CLASSROOM-JANITORIAL CLEANER [facility] Start: 10-18-2022 Telephone encounter M Lex Brown PA-C Work Phone: [facility] Comment on above: Orders Start: 09-25-2022 Telephone encounter Trisha Thompson MD Work Phone: Gastroenterology Comment on above: Received Outside [facility] Start: 09-24-2022 End: 09-25-2022 ambulatory ROM NEWELL MD Facility:[facility] Start: 09-24-2022 End: 09-24-2022 Patient encounter procedure JOE RAMIRES MD [facility] Start: 08-30-2022 End: 08-30-[address] Rom Newell Work Phone: [facility] Work Phone: Start: 08-30-2022 End: 08-30-[address] Rom Newell Work Phone: [facility]-Laboratory Start: 08-06-2022 End: 08-06-2022 Patient encounter procedure Trisha Thompson MD Work Phone: Gastroenterology Comment on above: Gastroesophageal ref lux disease without esophagitis (Primary Dx); Araujo's esophagus with dysplasia Start: 08-03-2022 End: 08-04-2022 ambulatory ROM NEWELL MD Facility:[facility] Start: 08-03-2022 Telephone encounter Rom Newell MD Work Phone: [facility] Comment on above: Consult Start: 08-03-2022 End: 08-03-2022 Patient encounter procedure RAJI SMITH APRN-JANITORIAL CLEANER [facility] Start: 07-26-2022 Telephone encounter Trisha Thompson MD Work Phone: Gastroenterology Comment on above: Received Outside [facility] Records Start: 07-18-2022 End: 07-18-[address] Rom Newell Work Phone: [facility] Start: 07-10-2022 Non-patient / Non-visit Dr. Maria Victoria Newell Work Phone: [facility] Start: 07-10-2022 End: 07-10-2022 Admission to same day surgery center Dr. Rom Newell Work Phone: [facility]-Endoscopy Start: 07-10-2022 End: 07-10-[address] Rom Newell Work Phone: [facility] Work Phone: Start: 06-29-2022 Refill Rom Newell MD Work Phone: [facility] Comment on above: Refill Request Start: 06-19-2022 End: 06-19-[address] Rom Newell Work Phone: [facility] Start: 06-11-2022 Telephone encounter Rom Newell MD Work Phone: [facility] Comment on above: Results Start: 06-09-2022 End: 06-09-2022 Patient encounter procedure Rom Newell MD Work Phone: [facility] Comment on above: RUQ pain (Primary Dx ); RLQ abdominal pain; GERD without esophagitis Start: 06-05-2022 End: 06-06-2022 ambulatory ROM NEWELL MD Facility:[facility] Start: 06-05-2022 End: 06-05-2022 Patient encounter procedure RAJI SMITH EARLY CHILDHOOD AIDE CLASSROOM-JANITORIAL CLEANER [facility] Start: 05-28-2022 Telephone encounter Rom Newell MD Work Phone: [facility] Comment on above: Results Start: 05-22-2022 End: 05-22-2022 Subsequent hospital visit by physician Ct Prep [facility] Cat [facility] Comment on above: Chronic RLQ pain [R1 0.31, G89.29] Start: 05-07-2022 End: 05-07-2022 Patient encounter procedure Rom Newell MD Work Phone: [facility] Comment on above: Chronic RLQ pain (Pr imary Dx); GERD without esophagitis; Infection in abdomen (HCC) Start: 04-16-2022 End: 04-16-2022 Patient encounter procedure Rom Mendieta MD Work Phone: Neurology Comment on above: Obstructive sleep ap al (adult) (pediatric) (Primary Dx) Start: 03-22-2022 End: 03-22-[address] Rom Newell Work Phone: [facility] Start: 03-19-2022 End: 03-19-2022 Office outpatient visit 15 minutes Justina Carrasco EARLY CHILDHOOD AIDE CLASSROOM.JANITORIAL CLEANER Work Phone: [facility] Comment on above: Depression, unspecif ied depression type (Primary Dx) Start: 03-12-2022 End: 03-12-[address] JOE ROSALES DO [facility] Start: 02-19-2022 End: 02-19-2022 ambulatory [facility] Work Phone: Start: 02-19-2022 End: 02-19-2022 Patient encounter procedure [facility]Laboratory, Specimen Start: 02-12-2022 End: 02-12-2022 Office outpatient visit 15 minutes Justina Carrasco EARLY CHILDHOOD AIDE CLASSROOM.JANITORIAL CLEANER Work Phone: [facility] Comment on above: Depression, unspecif ied depression type (Primary Dx) Start: 01-19-2022 End: 01-19-2022 ambulatory [facility] Work Phone: Start: 01-19-2022 End: 01-19-2022 Patient encounter procedure [facility] Start: 01-10-2022 End: 01-10-2022 Patient encounter procedure Rom Newell MD Work Phone: [facility] Comment on above: Cervical nerve root impingement (Primary Dx); Mixed hyperlipidemia; Depression, unspecified depression type; Hyperglycemia Start: 12-12-2021 End: 12-12-[address] JOE ROSALES DO [facility] Start: 10-03-2021 End: 10-03-2021 Patient encounter procedure RAJI RICEWITT EARLY CHILDHOOD AIDE CLASSROOM-JANITORIAL CLEANER [facility] Start: 07-19-2021 End: 07-19-2021 Patient encounter procedure RAJI HAMILTONTT EARLY CHILDHOOD AIDE CLASSROOM-JANITORIAL CLEANER [facility] Start: 07-07-2021 End: 07-07-2021 Patient encounter procedure Rom Newell MD Work Phone: [facility] Comment on above: Monocytosis (Primary Dx); Depression, unspecified depression type; Grief; Hyperglycemia; Sleep apnea, unspecified type; Mixed hyperlipidemia; Advance directive discussed with patient Start: 06-30-2021 Telephone encounter Rom Newell MD Work Phone: [facility] Comment on above: Orders Start: 04-21-2021 End: 04-21-[address] JOE ROSALES DO [facility] Start: 01-27-2021 End: 01-27-[address] JOE ROSALES DO [facility] Start: 03-28-2009 End: 02-08-2015 Patient encounter status Rom Newell MD Work Phone: [facility] Procedures Date Procedure Procedure Detail Performing Clinician Start: 07-05-2024 CT of abdomen and pelvis without contrast Dr. Rom Newell MD Work Phone: Start: 07-02-2024 Esophagogastroduodenoscopy transoral diagnostic Trisha Thompson MD Work Phone: Start: 09-11-2023 Ct head/brain w/o contrast material Ailin Courtney EARLY CHILDHOOD AIDE CLASSROOM.SPECIAL OFFICER Work Phone: Start: 07-27-2023 Adult depression screening assessment Rom Newell MD Work Phone: Start: 05-16-2023 MRI of pelvis with contrast Dr. Rom Newell Work Phone: Start: 03-26-2023 Positron emission tomography with computed tomography Dr. Rom Newell Work Phone: Start: 12-24-2022 Biopsy JOE RAMIRES MD Start: 07-10-[address] Rom Newell Work Phone: Start: 05-22-2022 Ct abdomen & pelvis w/contrast material Rom Newell MD Work Phone: Start: 01-10-2022 End: 01-10-2022 H/O: surgery History of surgical procedure Rom Newell MD Work Phone: Start: 07-22-2020 2019-nCoV vaccination DR JOE ROSALES DO Comment on above: Phizer 2nd injection Start: 11-03-[address] JOE ROSALES DO Comment on above: lubricating injection to right knee Start: 10-27-[address] JOE ROSALES DO Comment on above: lubricating injection to right knee Start: 09-08-[address] JOE LEHMAN DO Comment on above: right knee Start: 04-24-2018 Injection into lumbar epidural space DR JOE ROSALES DO Start: 04-03-2018 Lumbar epidural steroid injection DR LORNA ROSALES DO Cholecystectomy DR JOE LOWRY DO Decompression of median nerve DR JOE ROSALES DO Comment on above: BILATERAL H/O: surgery History of prost ate surgery Comment on above: Urolift- 08/22/[address] JOE LEHMAN DO Comment on above: ABDOMINAL History of cholecystectomy Hx of cholecys tectomy History of decompres milton of median nerve Hx of carpal tunnel repair Comment on above: BILAT Klippel-Feil sequence (disorder) DR JOE ROSALES DO Prostatic structure (body structure) DR JOE ROSALES DO Comment on above: CLIPS Repair of musculoten dinous cuff of shoulder DR JOE ROSALES DO Comment on above: LEFT Plan of Treatment Date Care Activity Detail Author Start: 08-06-2027 Diabetes Screening Diabetes Screening [facility] Start: 01-28-2027 Diabetes Screening Diabetes Screening [facility] Start: 09-02-2026 Diabetes Screening Diabetes Screening [facility] Start: 06-09-2025 DIABETES SCREEN DIABETES SCREEN [facility] Start: 06-09-2025 Diabetes Screening Diabetes Screening [facility] Start: 05-22-2025 DIABETES SCREEN DIABETES SCREEN [facility] Start: 02-12-2025 End: 02-12-2025 Patient encounter procedure 02/12/2025 10:00 AM EST Office Visit Family [facility] [address] [place] [address] Rom Newell MD [address] [place] [id number] 6 month follow up Family [facility] Comment on above: 6 month follow up Start: 02-01-2025 DIABETES SCREEN DIABETES SCREEN [facility] Start: 01-28-2025 Covid-19 Vaccine ( season) Covid-19 Vaccine ( season) [facility] Comment on above: Postponed from 12/08/2023 (Declined at t his time) Start: 12-07-2024 Influenza vaccination Influenza Vaccine (#1) [facility] Start: 11-25-2024 End: 11-25-2024 Patient encounter procedure Cat Scan Comment on above: Left lower quadrant abdominal pain [R10. 32]; Intra-abdominal and pelvic swelling, mass and lump, unspecified site [R19.00] Start: 11-18-2024 End: 02-16-2025 Creatinine and Glomerular filtration rate.predicted panel - Serum, Plasma or Blood [facility] Comment on above: Expected: 11/18/2024, Expires: Start: 10-05-2024 Influenza vaccination Influenza Vaccine (#1) [facility] Comment on above: Postponed from 12/08/2023 (Declined at t his time) Start: 10-01-2024 End: 10-01-2024 Patient encounter procedure 10/01/2024 2:00 PM EDT Office [facility] [address] [place], [place] [id number] Ailin Courtney, EARLY CHILDHOOD AIDE CLASSROOM.JANITORIAL CLEANER [address] [place], [place] [phone] bilateral leg cramping at night; see nurse triage note [facility] [place] Comment on above: bilateral leg cramping at night; see jamir se triage note Start: 09-16-2024 Covid-19 Vaccine ( season) Covid-19 Vaccine () [facility] Comment on above: Postponed from 06/23/2023 (Declined at t his time) Start: 09-01-2024 DIABETES SCREEN DIABETES SCREEN [facility] Start: 08-05-2024 End: 11-04-2024 Comprehensive metabolic 2000 panel - Serum or Plasma [facility] Work Phone: Comment on above: Expected: 08/05/2024, Expires: Start: 08-05-2024 End: 11-04-2024 Hemoglobin A1c in Blood [facility] Comment on above: Expected: 08/05/2024, Expires: Start: 08-05-2024 End: 11-04-2024 LIPID PANEL, NONFASTING [facility] Comment on above: Expected: 08/05/2024, Expires: Start: 08-05-2024 End: 08-05-2024 Patient encounter procedure [facility] [place] Comment on above: 6 month follow up-labs 6 month follow up-la bs. Discuss tetanus and repeating shingles vaccine? Start: 07-26-2024 Depression Screening Depression Screening [facility] Start: 07-26-2024 RSV Vaccine (1 - 1-dose 60+ series) RSV Vaccine (1 - 1-dose 60+ series) [facility] Comment on above: Postponed from 1998 (Declined at t his time) Start: 07-26-2024 RSV Vaccine (1 - 1-dose 75+ series) RSV Vaccine (1 - 1-dose 75+ series) [facility] Comment on above: Postponed from 2013 (Declined at t his time) Start: 07-05-2024 [facility] Start: 07-02-2024 End: 07-02-2024 Patient encounter procedure 07/02/2024 2:00 PM EDT Appointment Gastroenterology [address] [address] Trisha Thompson MD [address] [place] [id number] THOMPSON Gastroenterology Comment on above: EGD WITH DR. THOMPSON Start: 05-21-2024 End: 05-21-2024 Patient encounter procedure 05/21/2024 10:00 AM EST Appointment Gastroenterology [address] [address] Trisha Thompson MD [address] [place] [id number] HX BARRETTS WITH DYSPLASIA Gastroenterology Comment on above: HX BARRETTS WITH DYSPLASIA Start: 05-07-2024 End: 05-07-2024 Anesthesia consultation 05/07/2024 10:30 AM EST PAT Pre Anesthesia [address] [place] [id number] PRE EGD - HX BARRETTS W DYSPLASIA Pre Anesthesia Comment on above: PRE EGD - HX BARRETTS W DYSPLASIA Start: 04-22-2024 End: 04-22-2024 ambulatory 04/22/2024 11:[address] 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] Gastroenterology Comment on above: 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 [K 22.70] Start: 03-02-2024 End: 03-02-2024 Patient encounter procedure 03/02/2024 9:40 AM EST Office Visit [facility] [address] [place] [address] Ailin Courtney APRN.JANITORIAL CLEANER [address] [place] [address] 1 month follow up-blood pressure [facility] Comment on above: 1 month follow up-blood pressure Start: 02-20-2024 Urine microalbumin profile [facility] Start: 02-05-2024 End: 02-05-2024 Patient encounter procedure 02/05/2024 1:15 PM EDT Office Visit General Surgery [address] [place], [place] [id number] Kalyan Matthew MD [address] [address] 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] General Surgery Comment on above: 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 [K 22.70] Start: 01-29-2024 End: 04-29-2024 CBC W Auto Differential panel - Blood [facility] Work Phone: Comment on above: Expected: 01/29/2024, Expires: Start: 01-29-2024 End: 04-29-2024 Hemoglobin A1c in Blood [facility] Comment on above: Expected: 01/29/2024, Expires: Start: 01-29-2024 End: 01-29-2024 Patient encounter procedure 01/29/2024 10:20 AM EDT Office Visit Family Kwaku Cole [address] [place], [place] [id number] Rom Newell MD [address] [place] [address] 6 mo follow up [facility] [place] Comment on above: 6 mo follow up Start: 01-07-2024 DIABETES SCREEN DIABETES SCREEN [facility] Start: 12-08-2023 Influenza vaccination Influenza Vacc[facility] (#[facility] Start: 10-16-2023 End: 10-16-2023 Patient encounter procedure 10/16/2023 11:20 AM EDT Office Visit [facility] Kwaku Cole [address] [place] [address] Rom Newell MD [address] [place] [address] 4 week follow up [facility] Kwaku Cole Comment on above: 4 week follow up Start: 10-04-2023 End: 10-04-2023 Patient encounter procedure 10/04/2023 10:00 AM EDT Office Visit Family Kwaku Cole [address] [place] [address] Ailin Courtney APRN.SPECIAL OFFICER [address] [place], [place] [id number] 1 month follow up [facility] Comment on above: 1 month follow up Start: 09-17-2023 End: 09-17-2023 Patient encounter procedure 09/17/2023 2:20 PM EDT Office Visit [facility] [place] [address] [facility] [place], [place] [id number] Rom Newell MD [address] [facility] [place], [place] [id number] See phone note 09/16/23 re: med changes [facility] [place] Comment on above: See phone note 09/16/23 re: med changes Start: 09-11-2023 End: 09-11-2023 Patient encounter procedure 09/11/2023 8:00 AM EDT Appointment Cat Scan [address] [place], [place] [id number] Transient cerebral ischemia, unspecified type [G45.9] Cat Scan Comment on above: Transient cerebral ischemia, unspecified type [G45.9] Start: 09-10-2023 End: 10-02-2024 CT Head WO contrast CT BRAIN WO IVCON Radiology Routine Transient cerebral ischemia, unspecified type Expected: 09/10/2023, Expires: 10/02/2024 [facility] Comment on above: Expected: 09/10/2023, Expires: 5 Start: 09-03-2023 End: 12-03-2023 25-hydroxyvitamin D3 [Mass/volume] in Serum or Plasma [facility] Comment on above: Expected: 09/03/2023, Expires: 4 Start: 09-03-2023 End: 12-03-2023 Hemoglobin A1c in Blood [facility] Work Phone: Comment on above: Expected: 09/03/2023, Expires: 4 Start: 07-27-2023 End: 10-26-2023 CBC W Auto Differential panel - Blood COMPLETE BLOOD COUNT AND DIFFERENTIAL Lab Routine Mixed hyperlipidemia Expected: 07/27/2023, Expires: 10/26/2023 [facility] Work Phone: Comment on above: Expected: 07/27/2023, Expires: Start: 07-27-2023 End: 10-26-2023 Comprehensive metabolic 2000 panel - Serum or Plasma COMPREHENSIVE METABOLIC PANEL Lab Routine Mixed hyperlipidemia Expected: 07/27/2023, Expires: 10/26/2023 [facility] Work Phone: Comment on above: Expected: 07/27/2023, Expires: Start: 07-27-2023 End: 10-26-2023 Hemoglobin A1c in Blood HEMOGLOBIN A1C Lab Routine Impaired fasting glucose Expected: 07/27/2023, Expires: 10/26/2023 [facility] Work Phone: Comment on above: Expected: 07/27/2023, Expires: Start: 07-27-2023 End: 10-26-2023 Lipid 1996 panel - Serum or Plasma LIPID PANEL BASIC Lab Routine Mixed hyperlipidemia Expected: 07/27/2023, Expires: 10/26/2023 [facility] Work Phone: Comment on above: Expected: 07/27/2023, Expires: Start: 06-23-2023 Covid-19 Vaccine () Covid-19 Vaccine () [facility] Start: 05-10-2023 Anes integ extremities ant trunk & perineum nos ANESTH SKIN EXT/PER/ATRUNK [facility] Start: 05-10-2023 Plmt interstitial dev radiat tx prostate 1/mult PLACE RT DEVICE/MARKER PROS [facility] Start: 05-10-2023 Transperineal plmt biodegradable matrl 1/career development associate njx TPRNL PLMT BIODEGRDABL MATRL [facility] Start: 05-10-2023 Ambulation without limitation [facility] Start: 05-10-2023 Medical regimen orders management [facility] Start: 05-10-2023 Medication education [facility] Start: 05-10-2023 Patient discharge [facility] Start: 05-10-2023 Taking patient vital signs [facility] Start: 05-10-2023 [facility] Start: 04-08-2023 Advance Directive Discussion Advance Directive Discussion [facility] Start: 04-08-2023 Depression Assessment Depression Assessment [facility] Start: 12-07-2022 Covid-19 Vaccine ( season) Covid-19 Vaccine () [facility] Start: 12-07-2022 Influenza vaccination [facility] Start: 10-05-2022 Influenza vaccination INFLUENZA (#1) [facility] Comment on above: Postponed from 12/07/2021 (Declined at t his time) Start: 07-18-2022 Patient referral [facility] Work Phone: Start: 07-10-2022 Colonoscopy w/biopsy single/multiple COLONOSCOPY AND BIOPSY [facility] Start: 07-10-2022 Colsc flx w/rmvl of tumor polyp lesion snare tq COLONOSCOPY W/LESION REMOVAL [facility] Start: 07-10-2022 Egd transoral biopsy single/multiple EGD BIOPSY SINGLE/MULTIPLE [facility] Start: 07-10-2022 Patient discharge [facility] Start: 06-09-2022 End: 08-09-2022 Bacteria identified in Urine by Culture [facility] Work Phone: Comment on above: Expected: 06/09/2022, Expires: 3 Start: 06-09-2022 End: 08-09-2022 CBC W Auto Differential panel - Blood [facility] Work Phone: Comment on above: Expected: 06/09/2022, Expires: 3 Start: 06-09-2022 End: 08-09-2022 Comprehensive metabolic 2000 panel - Serum or Plasma [facility] Work Phone: Comment on above: Expected: 06/09/2022, Expires: 3 Start: 06-09-2022 End: 08-09-2022 Lipase [Enzymatic activity/volume] in Serum or Plasma [facility] Work Phone: Comment on above: Expected: 06/09/2022, Expires: 3 Start: 06-09-2022 End: 08-09-2022 Urinalysis complete panel - Urine [facility] Work Phone: Comment on above: Expected: 06/09/2022, Expires: Start: 05-22-2022 COVID-19 VACCINE (7 - Pfizer series) COVID-19 VACCINE (7 - Pfizer series) [facility] Start: 05-07-2022 End: 07-07-2022 Bacteria identified in Urine by Culture URINE CULTURE Microbiology Routine Chronic RLQ pain Expected: 05/07/2022, Expires: 07/07/2022 [facility] Work Phone: Comment on above: Expected: 05/07/2022, Expires: 3 Start: 05-07-2022 End: 07-07-2022 Basic metabolic 2000 panel - Serum or Plasma BASIC METABOLIC PNL Lab Routine Chronic RLQ pain Expected: 05/07/2022, Expires: 07/07/2022 [facility] Work Phone: Comment on above: Expected: 05/07/2022, Expires: 3 Start: 05-07-2022 End: 07-07-2022 CBC W Auto Differential panel - Blood CBC + DIFF Lab Routine Chronic RLQ pain Expected: 05/07/2022, Expires: 07/07/2022 [facility] Work Phone: Comment on above: Expected: 05/07/2022, Expires: 3 Start: 05-07-2022 End: 07-07-2022 Urinalysis complete panel - Urine URINALYSIS, WITH MICROSCOPIC Lab Routine Chronic RLQ pain Expected: 05/07/2022, Expires: 07/07/2022 [facility] Work Phone: Comment on above: Expected: 05/07/2022, Expires: 3 Start: 04-08-2022 ADVANCE DIRECTIVE DISCUSSION ADVANCE DIRECTIVE DISCUSSION [facility] Start: 04-08-2022 DEPRESSION ASSESSMENT DEPRESSION ASSESSMENT [facility] Start: 01-10-2022 End: 01-10-2023 CBC W Auto Differential panel - Blood CBC + DIFF Lab Routine Depression, unspecified depression type Expected: 01/10/2022, Expires: 01/10/2023 [facility] Work Phone: Comment on above: Expected: 01/10/2022, Expires: 3 Start: 01-10-2022 End: 01-10-2023 Comprehensive metabolic 2000 panel - Serum or Plasma COMP METABOLIC PANEL Lab Routine Mixed hyperlipidemia Expected: 01/10/2022, Expires: 01/10/2023 [facility] Work Phone: Comment on above: Expected: 01/10/2022, Expires: 3 Start: 01-10-2022 End: 03-12-2022 Hemoglobin A1c in Blood HGB A1C Lab Routine Hyperglycemia Expected: 01/10/2022, Expires: 03/12/2022 [facility] Work Phone: Comment on above: Expected: 01/10/2022, Expires: 2 Start: 01-10-2022 End: 01-10-2023 Lipid 1996 panel - Serum or Plasma LIPID PANEL BASIC Lab Routine Mixed hyperlipidemia Expected: 01/10/2022, Expires: 01/10/2023 [facility] Work Phone: Comment on above: Expected: 01/10/2022, Expires: 3 Start: 08-18-2021 End: 10-18-2021 CBC W Auto Differential panel - Blood CBC + DIFF Lab Routine Monocytosis Expected: 08/18/2021, Expires: 10/18/2021 [facility] Work Phone: Comment on above: Expected: 08/18/2021, Expires: 2 Start: 08-18-2021 End: 10-18-2021 Hemoglobin A1c/Hemoglobin.total in Blood HGB A1C Lab Routine Hyperglycemia Expected: 08/18/2021, Expires: 10/18/2021 [facility] Work Phone: Comment on above: Expected: 08/18/2021, Expires: 2 Start: 06-30-2021 End: 08-30-2021 CBC W Auto Differential panel - Blood [facility] Work Phone: Comment on above: Expected: 06/30/2021, Expires: 2 Start: 04-08-2021 ADVANCE DIRECTIVE DISCUSSION ADVANCE DIRECTIVE DISCUSSION [facility] Start: 2013 RSV Vaccine (1 - 1-dose 75+ series) RSV Vaccine (1 - 1-dose 75+ series) [facility] Start: 02-16-2013 SHINGRIX VACCINE (2 of 3) SHINGRIX VACCINE (2 of 3) [facility] Start: 11-07-2003 Medicare Annual Wellness Visit Medicare Annual Wellness Visit [facility] Start: 1998 RSV Vaccine (1 - 1-dose 60+ series) RSV Vaccine (1 - 1-dose 60+ series) [facility] End: 06-06-2023 Ct abdomen & pelvis w/contrast material CT ABD/PEL W IVCON Radiology Routine Chronic RLQ pain 1 Occurrences starting 05/07/2022 until 06/06/2023 [facility] Work Phone: Comment on above: 1 Occurrences starting 05/07/2022 until 06/06/2023 End: 12-18-2025 CT Abdomen and Pelvis W contrast IV CT ABD/PEL W IVCON Radiology Routine Left lower quadrant abdominal pain Intra-abdominal and pelvic swelling, mass and lump, unspecified site 1 Occurrences starting 11/18/2024 until 12/18/2025 [facility] Work Phone: Comment on above: 1 Occurrences starting 11/18/2024 until 12/18/2025 CT Abdomen and Pelvi s W contrast IV CT ABD/PEL W IVCON Radiology Routine Left lower quadrant abdominal pain Intra-abdominal and pelvic swelling, mass and lump, unspecified site 11/25/2024 11:22 AM EDT [facility] Work Phone: End: 04-22-2025 EGD DIAGNOSTIC EGD DIAGNOSTIC Endoscopy Routine 1 Occurrences starting 04/22/2024 until 04/22/2025 [facility] Work Phone: Comment on above: 1 Occurrences starting 04/22/2024 until 04/22/2025 End: 08-19-2025 NM Bone 3 Phase Views NM BONE 3 PHASE Radiology Routine Abnormal findings on diagnostic imaging of other parts of musculoskeletal system History of prostate cancer 1 Occurrences starting 07/20/2024 until 08/19/2025 [facility] Work Phone: Comment on above: 1 Occurrences starting 07/20/2024 until 08/19/2025 Patient Education ED Flank Pain, Uncertain Cause [facility] Work Phone: Patient referral [facility] Work Phone: End: 04-16-2023 Polysomnogram POLYSOMNOGRAM (PSG) Procedures Routine Obstructive sleep apnea (adult) (pediatric) 1 Occurrences starting 04/16/2022 until 04/16/2023 [facility] Work Phone: Comment on above: 1 Occurrences starting 04/16/2022 until 04/16/2023 Positron emission tomography with computed tomography [facility] Tissue Pathology biopsy report [facility] Work Phone: Comment on above: Release Upon Ordering for 1 Occurrences starting 07/02/2024, 1 completed End: 08-14-2025 XR Lumbar spine 3 Views XR LUMBAR GENERAL 3V AP/LAT/L5-S1 Radiology Routine Radicular pain 1 Occurrences starting 07/15/2024 until 08/14/2025 [facility] Work Phone: Comment on above: 1 Occurrences starting 07/15/2024 until 08/14/2025 XR Lumbar spine 3 Views XR LUMBAR GENERAL 3V AP/LAT/L5-S1 Radiology Routine Radicular pain 07/15/2024 3:46 PM EDT [facility] Immunizations Immunization Date Immunization Notes Care Provider Nat brito 01-29-2024 influenza, high dose seasonal, preservative-free Rom Newell MD Work Phone: [facility] 01-29-2024 influenza virus vacc ine, unspecified formulation Rom Newell MD Work Phone: [facility] 02-02-2023 influenza (HD-IIV4) vaccine, age 65+ yr, high dose, quadrivalent, PF (FLUZONE HIGH-DOSE) Ailin Courtney EARLY CHILDHOOD AIDE CLASSROOM.SPECIAL OFFICER Work Phone: [facility] 02-02-2023 influenza virus vacc ine, unspecified formulation Rom Newell MD Work Phone: [facility] 01-19-2022 influenza (HD-IIV4) vaccine, age 65+ yr, high dose, quadrivalent, PF (FLUZONE HIGH-DOSE) Rom Newell MD Work Phone: [facility] 01-19-2022 influenza virus vacc ine, unspecified formulation Ct Wstr [facility] 10-05-2021 COVID-19 original vaccine, age 12+ yr, monovalent (PFIZER-BIONTECH - SINGH TOP) Rom Newell MD Work Phone: [facility] 02-10-2021 COVID-19 vaccine, ag e 12+ yr (PFIZER-BIONTECH - PURPLE TOP) Rom Newell MD Work Phone: [facility] 01-14-2021 influenza, high dose seasonal, preservative-free Rom Newell MD Work Phone: [facility] 01-14-2021 influenza, high-dose , quadrivalent vaccine (FLUZONE HIGH DOSE QUADRIVALENT) Rom Newell MD Work Phone: [facility] 08-16-2020 zoster vaccine, recombinant, adjuvanted, (SHINGRIX, PF,) 50 mcg/0.5 mL injection Rom Newell MD Work Phone: [facility] Work Phone: Comment on above: Inject 0.5 mL intram uscularly now and repeat 2nd dose in 2-6 months 07-05-2020 COVID-19 vaccine, ag e 12+ yr (PFIZER-BIONTECH - PURPLE TOP) Rom Newell MD Work Phone: [facility] 06-16-2020 COVID-19 vaccine, ag e 12+ yr (PFIZER-BIONTECH - PURPLE TOP) Rom Newell MD Work Phone: [facility] 06-15-2020 COVID-19 vaccine, ag e 12+ yr (PFIZER-BIONTGient - PURPLE TOP) Rom Newell MD Work Phone: [facility] 01-13-2020 influenza, high dose seasonal, preservative-free Rom Newell MD Work Phone: [facility] 01-13-2020 influenza, high-dose , quadrivalent vaccine (FLUZONE HIGH DOSE QUADRIVALENT) Rom Newell MD Work Phone: [facility] 01-27-2019 influenza, high dose seasonal, preservative-free Rom Newell MD Work Phone: [facility] Work Phone: 12-30-2017 influenza, high dose seasonal, preservative-free Rom Newell MD Work Phone: [facility] 01-14-2017 pneumococcal conjuga te vaccine, 13 valent Rom Newell MD Work Phone: [facility] 01-03-2017 influenza, high dose seasonal, preservative-free Rom Newell MD Work Phone: [facility] 02-03-2016 influenza, high dose seasonal, preservative-free Rom Newell MD Work Phone: [facility] 10-07-2015 pneumococcal polysaccharide vaccine, 23 valent Rom Newell MD Work Phone: [facility] 01-08-2015 influenza, high dose seasonal, preservative-free Rom Newell MD Work Phone: [facility] 02-19-2014 pneumococcal polysaccharide vaccine, 23 valent Rom Newell MD Work Phone: [facility] 02-19-2014 tetanus toxoid, redu floresita diphtheria toxoid, and acellular pertussis vaccine, adsorbed Rom Newell MD Work Phone: [facility] 01-06-2014 influenza, seasonal, injectable Rom Newell MD Work Phone: [facility] 12-22-2012 zoster vaccine, live Rom Newell MD Work Phone: [facility] Payers Date Payer Category Payer Self-pay [id number] 2015 Private Health Insurance HUMANA HUMANA MEDICARE SUPPLEMENT [id number] 2015-Present [phone] [address] [address] [place] [address] Indemnity [id number] 2015 Private Health Insurance [id number] 2015 Private Health Insurance [id number] 2003 Medicare MEDICARE MEDICAR E A AND B [id number] 2003-Present [phone] [address] [address] [place] [address] Medicare [id number] 2003 Medicare [id number] 2003 Medicare [id number] 1938 Unknown [id number] .2. 1938 Unknown [id number] .2.62 1938 Unknown [id number] .2.62 1938 Unknown [id number] .[id number] 1938 Unknown [id number] [id number] .2. 1938 Unknown [id number] .2.627 Unknown [id number] .2.462 Unknown [id number] .2.462 Unknown [id number] .2.462 Unknown [id number] .2.462 Unknown [id number] .2.462 Unknown [id number] .2.462 Unknown [id number] .2.462 Unknown [id number] [id number] .2.462 Unknown [id number] .2.462 Unknown [id number] .[id number] Social History Date Type Detail Facility Start: 03-18-2020 End: 01-10-2022 Never smoked tobacco (finding) [facility] Start: 1940 Sex Assigned At Male A [facility] Start: 01-06-2021 End: 11-18-2024 Alcohol intake Current non-drinker of alcohol (finding) [facility] Start: 1940 Sex Assigned At Not on file C [facility] Start: 06-27-2021 End: 02-12-2022 Exposure to SARS-CoV-2 (event) Not sure [facility] Start: 01-10-2022 Tobacco use and exposure Smoke less tobacco non-user [facility] Start: 09-14-2020 End: 05-01-2023 Tobacco smoking status ALIS Unknown if ever smoked [facility] Start: 07-10-2022 End: 10-22-2022 History of Social function [facility] Work Phone: Start: 07-10-2022 End: 10-22-2022 Tobacco use panel [facility] Work Phone: Start: 03-09-2012 Adult Depression Screening Assessment 2 [facility] Work Phone: Start: 06-22-2024 End: 07-05-2024 Sex Male (finding) [facility] Do you belong to any clubs or organizations such as confucianism groups, unions, fraternal or athletic groups, or school groups? Yes [facility] Are you now , , , , never or living with a partner? [facility] Do you feel stress - tense, restless, nervous, or anxious, or unable to sleep at night because your mind is troubled all the time - these days [OSQ] Not at all [facility] (I/We) worried wheth er (my/our) food would run out before (I/we) got money to buy more. Never true [facility] In the past 12 month s, was there a time when you were not able to pay the mortgage or rent on time? No [facility] Medical Equipment Procedure Code Equipment Code Equipment Origin al Text Equipment Identifier Dates HYDROGEL, 10ML FDA Start: 05-10-2023 MARKERS, FIDUCIA L GOLD FDA Start: 05-10-2023 HYDROGEL, 10ML FDA Start: 05-10-2023 MARKERS, FIDUCIA L GOLD FDA Start: 05-10-2023 HYDROGEL, 10ML FDA Start: 05-10-2023 MARKERS, FIDUCIA L GOLD FDA Start: 05-10-2023 HYDROGEL, 10ML FDA Start: 05-10-2023 MARKERS, FIDUCIA L GOLD FDA Start: 05-10-2023 Goals Date Patient Goal Desired Activity /State Functional Status Date Assessment Result Facility 08-05-2024 Total score [AUDIT-C] -1 025 8:31 AM EDT User, Saeid [facility] 08-05-2024 Within the last year , have you been humiliated or emotionally abused in other ways by your partner or ex-partner? No 08/05/2024 8:31 AM EDT UserSault No [facility] 08-05-2024 Within the last year , have you been afraid of your partner or ex-partner? No 08/05/2024 8:31 AM EDT UserSault No [facility] 08-05-2024 Within the last year , have you been raped or forced to have any kind of sexual activity by your partner or ex-partner? No 08/05/2024 8:31 AM EDT User, Sault No [facility] 08-05-2024 Within the last year , have you been kicked, hit, slapped, or otherwise physically hurt by your partner or ex-partner? No 08/05/2024 8:31 AM EDT User, [place] No [facility] 08-05-2024 Functional status Patient declin ed 08/05/2024 8:31 AM EDT User, Saeid Patient declined [facility] 08-20-2014 Are you deaf, or do you have serious difficulty hearing No 08/20/2014 9:13 AM EDT Keren Banerjee LPN No [facility] 08-20-2014 Are you blind, or do you have serious difficulty seeing, even when wearing glasses No 08/20/2014 9:13 AM Keren Shell LPN No [facility] 08-20-2014 Do you have serious difficulty walking or climbing stairs No 08/20/2014 9:13 AM Keren Shell LPN No [facility] 08-20-2014 Do you have difficul ty dressing or bathing No 08/20/2014 9:13 AM ROMELT Keren Banerjee LPN No [facility] 08-20-2014 Because of a physica l, mental, or emotional condition, do you have difficulty doing errands alone such as visiting a physician's office or shopping No 08/20/2014 9:13 AM Keren Shell LPN No [facility] Mental Status Date Assessment Result Facility 05-10-2023 Cognitive function Level Of Cons ciousness Awake;Appropriate [facility] Work Phone: 07-10-2022 Cognitive function Level Of Cons ciousness Sedated [facility] Work Phone: 07-10-2022 Cognitive function Voice/Name [facility] Work Phone: 08-20-2014 Because of a physica l, mental, or emotional condition, do you have serious difficulty concentrating, remembering, or making decisions No 08/20/2014 9:13 AM EDT Keren Banerjee LPN No [facility] Clinical Notes 03-28-2009 to 11-27-2024 Telephone Encounter - Ryann Garcia RN - 11/27/2024 2:46 PM EDTTelephone Encounter - Ryann Garcia RN - 11/27/2024 2:46 PM EDTReef Aracely Tucker, (R) - 11/25/2024 10:40 AM EDT Note Date & Type Note Facility 11-27-2024 Telephone encounter Note Spouse calls and notified of results and providers instructions. Spouse verbalizes understanding and will discuss with patient. Spouse reports that patient will probably not want a referral for surgery so she will only call back if he does. Ryann Garcia RN [facility] 11-27-2024 Miscellaneous Notes Spouse calls and notified of results and providers instructions. Spouse verbalizes understanding and will discuss with patient. Spouse reports that patient will probably not want a referral for surgery so she will only call back if he does. Ryann Garcia RN Ct is ok. Shows very small groin hernias. Not likely causing issues. We can send him to surgery if he is willing. Let me know. documented in this encounter [facility] 11-27-[address] is ok. Shows very small groin hernias. Not likely causing issues. We can send him to surgery if he is willing. Let me know. [facility] 11-25-2024 History of Presen t illness Narrative Radiology Service Progress Note DATE OF SERVICE: November 25, 2024 TIME: 2:29 PM PATIENT IDENTITY VERIFICATION COMPLETED USING TWO (2) STANDARD IDENTIFIERS: Name and Date of confirmed by patient verbally. FALL SCREENING: Has the patient had 2 falls in the last year or 1 fall with injury or currently using an Ambulatory Assistive Device (Walker, Cane, Wheelchair, Crutches, etc.)? No PATIENT GENDER DATA: Assigned male at PATIENT RELEVANT IMPLANT DATA REVIEWED: Yes PATIENT PRESENTS WITH AN IMPLANTABLE OR ATTACHED GLASS SANDER BELT: No ALLERGIES: Reviewed and unchanged CONTRAST ALLERGY: NO. EXAM: CT -CONTRAST INDUCED NEPHROPATHY RISK FACTORS: Patient age > 60 years CREATININE: Creatinine Date Value Ref Range Status 11/18/2024 1.12 0.73 - 1.22 mg/dL Final 08/05/2024 1.06 0.73 - 1.22 mg/dL Final 09/03/2023 1.06 0.73 - 1.22 mg/dL Final Estimated Glomerular Filtration Rate Date Value Ref Range Status 11/18/2024 64 >=60 mL/min/1.73m Final Comment: Estimated Glomerular Filtration [...] RESULTS: POC done: Yes, See Lab Tab November 25, 2024 TREATMENT: N/A PERIPHERAL IV DATA: Ambulatory: A peripheral IV was started in the Left antecubital site with a Angio cath: 22 gauge. RADIOLOGY DEPARTMENT: CT; Exam(s) Completed: Abdomen/Pelvis SIGNATURE: SUHA Perkins) PATIENT NAME: Robby Vera DATE: November 25, 2024 TIME: 2:29 PM documented in this encounter [facility] 11-25-2024 Note HNO ID: [id number] Author: ARACELY JOHNSON RT(R) Service: ? Author Type: Cut Off Machine Unloader Type: Progress Notes Filed: 11/25/2024 14:30 Note Text: Radiology Service Progress Note DATE OF SERVICE: November 25, 2024 TIME: 2:29 PM PATIENT IDENTITY VERIFICATION COMPLETED USING TWO (2) STANDARD IDENTIFIERS: Name and Date of confirmed by patient verbally. FALL SCREENING: Has the patient had 2 falls in the last year or 1 fall with injury or currently using an Ambulatory Assistive Device (Walker, Cane, Wheelchair, Crutches, etc.)? No PATIENT GENDER DATA: Assigned male at PATIENT RELEVANT IMPLANT DATA REVIEWED: Yes PATIENT PRESENTS WITH AN IMPLANTABLE OR ATTACHED GLASS SANDER BELT: No ALLERGIES: Reviewed and unchanged CONTRAST ALLERGY: NO. EXAM: CT -CONTRAST INDUCED NEPHROPATHY RISK FACTORS: Patient age > 60 years CREATININE: Creatinine Date Value Ref Range Status 11/18/2024 1.12 0.73 - 1.22 mg/dL Final 08/05/2024 1.06 0.73 - 1.22 mg/dL Final 09/03/2023 1.06 0.73 - 1.22 mg/dL Final Estimated Glomerular Filtration Rate Date Value Ref Range Status 11/18/2024 64 >=60 mL/min/1.73m? Final Comment: Estimated Glomerular Filtration [...] RESULTS: POC done: Yes, See Lab Tab November 25, 2024 TREATMENT: N/A PERIPHERAL IV DATA: Ambulatory: A peripheral IV was started in the Left antecubital site with a Angio cath: 22 gauge. RADIOLOGY DEPARTMENT: CT; Exam(s) Completed: Abdomen/Pelvis SIGNATURE: RT Gregorio(R) PATIENT NAME: Robby Vera DATE: November 25, 2024 TIME: 2:29 PM [facility] 11-18-2024 Note HNO ID: [id number] Author: ROM NEWELL MD Service: ? Author Type: Physician Type: Progress Notes Filed: 11/18/2024 14:42 Note Text: Yahir Vera is an 83-year-old male with a history of degenerative disc disease, presenting for evaluation of a left-sided abdominal lump. HPI Left-Sided Abdominal Lump: - Yahir noticed a protuberant area above the rim of the pelvis on the left side. - Denies pain, changes in bowel movements, or urinary issues. - No swelling in the groin area. - Denies unexpected weight loss, hematochezia, or melena. - Yahir has had several abdominal surgeries, including cholecystectomy and hernia repairs. Left Flank Pain: - Previously experienced left-sided flank pain, described as sharp and worse in certain positions. - Pain has resolved. - Seen in the ED on 07/05/2024 for this issue; CT scan without contrast showed no acute abdominal or pelvic findings. - Followed up with urology; no urinary cause identified. - Treated with cefdinir and metronidazole for suspected diverticulitis. - X-ray of the lumbar spine on 07/19 showed advanced multi-level degenerative disease - Bone scan showed no concerning findings and a rib fracture on the left 10th rib. - Managed with tramadol and gabapentin. - now better. MEDICATIONS: Current Outpatient Medications Medication Sig atorvastatin (LIPITOR) 40 mg tablet Take 1 tablet by mouth daily at bedtime. For cholesterol. DULoxetine (CYMBALTA) 60 mg capsule Take 1 capsule by mouth once daily. omeprazole (PRILOSEC) 40 mg capsule Take 1 capsule by mouth every afternoon. gabapentin (NEURONTIN) 600 mg tablet Take 600 mg by mouth four times daily. acetaminophen (TYLENOL ARTHRITIS PAIN ORAL) Take 2 tablets by mouth. vitamin B complex (VITAMIN B-100 COMPLEX ORAL) Take 100 mg by mouth once daily. Cholecalciferol, Vitamin D3, 25 mcg (1,000 unit) cap Take 1,000 Units by mouth once daily. traMADol (ULTRAM) 50 mg tablet Take 50 mg by mouth every 6 hours as needed. iv contrast (will be provided with radiology test) CT ABD/PEL -Inject, intravenously, once for 1 dose.No IV access, insert saline lock prior to the beginning of sedation, infusion, injection of imaging exam. Discontinue saline lock post exam. If Pt. has a central line or IVAD, may access for administration according to line specific nursing protocol. Once exam is complete flush line and de-access according to line specific nursing protocol in theCT contrast administration guidelines link. enteric contrast (will be provided with radiology test) For CT ABD/PEL W IVCON Routine order Administer, As Directed One Time Only, via Oral, Rectal, both Oral and Rectal, Enteric Tube, Stoma or Indwelling Catheter, Enteric Contrast as designated per enteric contrast guidelines CPAP CHIN STRAP, USED WITH CPAP DEVICE (Patient not taking: Reported on 11/18/2024) No current facility-administered medications for this visit. ALLERGIES: ALLERGIES No Known Allergies PAST MEDICAL HISTORY Diagnosis Date Arthritis Cervical nerve root impingement sees Dr. Lott, pain management at [place] Colon polyp Depression Diverticulosis of colon (without mention of hemorrhage) Elevated PSA sees Dr Boswell History of prostate cancer 05/07/2024 Hyperlipidemia Kidney disease Low testosterone Obstructive sleep apnea Osteoarthrosis Personal history of colonic polyps PONV (postoperative nausea and vomiting) 05/07/2024 Sleep apnea Snoring PAST SURGICAL HISTORY Procedure [...] DX W/COLLJ SPEC WHEN PFRMD 02/25/2015 CYSTOSCOPY,+URETEROSCOPY 1994 stone removed EGD BIOPSY SING OR MULT 07/10/2022 Dr. Nestor Dahl; [facility], HH, gastritis NEUROPLASTY AND/TRANSPOS MEDIAN NRV CARPAL [...] FAMILY HISTORY Problem Relation Age of Onset Coronary Artery Disease Mother early 60's Diabetes Mother None Father Coronary Artery Disease Brother Cancer Brother kidney Heart disease Brother Colon Cancer Other none Anesthesia Prob (more content not included)... [facility] 11-18-2024 History of Presen t illness Narrative Yahir Vera is an 83-year-old male with a history of degenerative disc disease, presenting for evaluation of a left-sided abdominal lump. HPI Left-Sided Abdominal Lump: - Yahir noticed a protuberant area above the rim of the pelvis on the left side. - Denies pain, changes in bowel movements, or urinary issues. - No swelling in the groin area. - Denies unexpected weight loss, hematochezia, or melena. - Yahir has had several abdominal surgeries, including cholecystectomy and hernia repairs. Left Flank Pain: - Previously experienced left-sided flank pain, described as sharp and worse in certain positions. - Pain has resolved. - Seen in the ED on 07/05/2024 for this issue; CT scan without contrast showed no acute abdominal or pelvic findings. - Followed up with urology; no urinary cause identified. - Treated with cefdinir and metronidazole for suspected diverticulitis. - X-ray of the lumbar spine on 07/19 showed advanced multi-level degenerative disease - Bone scan showed no concerning findings and a rib fracture on the left 10th rib. - Managed with tramadol and gabapentin. - now better. MEDICATIONS: Current Outpatient Medications Medication Sig atorvastatin (LIPITOR) 40 mg tablet Take 1 tablet by mouth daily at bedtime. For cholesterol. DULoxetine (CYMBALTA) 60 mg capsule Take 1 capsule by mouth once daily. omeprazole (PRILOSEC) 40 mg capsule Take 1 capsule by mouth every afternoon. gabapentin (NEURONTIN) 600 mg tablet Take 600 mg by mouth four times daily. acetaminophen (TYLENOL ARTHRITIS PAIN ORAL) Take 2 tablets by mouth. vitamin B complex (VITAMIN B-100 COMPLEX ORAL) Take 100 mg by mouth once daily. Cholecalciferol, Vitamin D3, 25 mcg (1,000 unit) cap Take 1,000 Units by mouth once daily. traMADol (ULTRAM) 50 mg tablet Take 50 mg by mouth every 6 hours as needed. iv contrast (will be provided with radiology test) CT ABD/PEL -Inject, intravenously, once for 1 dose.No IV access, insert saline lock prior to the beginning of sedation, infusion, injection of imaging exam. Discontinue saline lock post exam. If Pt. has a central line or IVAD, may access for administration according to line specific nursing protocol. Once exam is complete flush line and de-access according to line specific nursing protocol in theCT contrast administration guidelines link. enteric contrast (will be provided with radiology test) For CT ABD/PEL W IVCON Routine order Administer, As Directed One Time Only, via Oral, Rectal, both Oral and Rectal, Enteric Tube, Stoma or Indwelling Catheter, Enteric Contrast as designated per enteric contrast guidelines CPAP CHIN STRAP, USED WITH CPAP DEVICE (Patient not taking: Reported on 11/18/2024) No current facility-administered medications for this visit. ALLERGIES: ALLERGIES No Known Allergies PAST MEDICAL HISTORY Diagnosis Date Arthritis Cervical nerve root impingement sees Dr. Lott, pain management at [place] Colon polyp Depression Diverticulosis of colon (without mention of hemorrhage) Elevated PSA sees Dr Boswell History of prostate cancer 05/07/2024 Hyperlipidemia Kidney disease Low testosterone Obstructive sleep apnea Osteoarthrosis Personal history of colonic polyps PONV (postoperative nausea and vomiting) 05/07/2024 Sleep apnea Snoring PAST SURGICAL HISTORY Procedure [...] BIOPSY SING OR MULT 07/10/2022 Dr. Nestor Dhal; [facility], HH, gastritis NEUROPLASTY &/TRANSPOS MEDIAN NRV CARPAL [...] FAMILY HISTORY Problem Relation Age of Onset Coronary Artery Disease Mother early 60's Diabetes Mother None Father Coronary Artery Disease Brother Cancer Brother kidney Heart disease Brother Colon Cancer Other none Anesthesia Problems No Family History SOCIAL HISTORY[1] Reviewed current medications, allergies, past medical history, surgical history, family history and social history today. REVIEW OF SYSTEMS Constitutional: (-) unintentional weight loss Gastrointestinal: (-) bowel habit changes, (-) hematochezia, (-) melena Genitourinary: (-) urinary difficulties Musculoskeletal: (-) flank pain Skin: (+) left abdominal wall lump, (-) groin swelling HEALTH MAINTENANCE: Reviewed health maintenance issues today and recommended the following in detail. Medicare Annual Wellness Visit Never done RSV Vaccine(1 - 1-dose 75+ series) Never done DTaP,Tdap,Td Vaccine(2 - Td or Tdap) due on 02/20/2024 Advance Directive Discussion due on 04/08/2024 Depression Screening due on 07/26/2024 LAB REVIEWED: Labs: Tests: Imaging: (07/19) X-ray Lumbar Spine: Advanced multi-level degenerative disease. Possible bone island in the iliac bone. (07/05/2024) CT Abdomen and Pelvis Without Contrast: No acute abdominal or pelvic abnormalities identified. Bone Scan: No concerning findings. Left tenth rib fracture identified. VITALS: BP 110/70 Pulse 80 Wt 81.4 kg (179 lb 6.4 oz) SpO2 97% BMI 27.29 kg/m Last 4 Encounter Wt Readings: Date: Wt: 11/18/2024 81.4 kg (179 lb 6.4 oz) 08/05/2024 81.6 kg (180 lb) 07/15/2024 81.6 kg (180 lb) 07/07/2024 83.9 kg (185 lb) PHYSICAL EXAMINATION: GENERAL: NAD, alert and oriented. SKIN: Unremarkable, no rash or skin lesions. HEAD: Normocephalic. LUNGS: Clear to auscultation bilaterally, no wheezes/rhonchi/rales. HEART: Regular rate and rhythm, no murmurs. No ectopy. EXTREMITIES: Normal, no deformities, no skin discoloration, no edema. ABDOMEN: Soft, non-tender. Midline incision and right upper quadrant incision noted. Protuberant area above the rim of the left pelvis, approximately 3 inches in length, non-tender. No groin hernia detected. ASSESSMENT AND PLAN 1. Left lower quadrant abdominal pain (R10.32) 2. Intra-abdominal and pelvic swelling, mass and lump, unspecified site (R19.00) - Left-sided abdominal pain previously evaluated with non-contrast CT on 07/05/2024 (no acute findings) and lumbar spine X-ray on 07/19/2024 (advanced multi-level degenerative disease, left 10th rib fracture). - Pain has resolved; currently no pain, bowel, or urinary changes. - New palpable, non-tender, elongated protuberance (~3 inches) above the left pelvic rim; not palpable when supine, no associated groin swelling. - Differential includes benign muscle prominence, hernia, or other soft tissue mass. - Order CT abdomen and pelvis with contrast to further evaluate the mass. - Order kidney function labs prior to CT with contrast. - Educated patient on signs and symptoms to monitor (increase in size, swelling, bowel or urinary changes) and to report any changes promptly. 3. Screening for nephropathy (Z13.89) check creatinine. (See patient after visit summary for additional instructions to patient) Rom Newell MD Recording using [employer] software for draft documentation of the visit was discussed with the patient/authorized hr representative; all questions welcomed and answered. Patient/authorized hr representative agreed to proceed [1] Social History Tobacco Use Smoking status: Never Smokeless tobacco: Never Vaping Use Vaping status: Never Used Substance Use Topics Alcohol use: No Drug use: No documented in this encounter [facility] 11-18-2024 Instructions Rom Newell MD - 11/18/2024 2:16 PM EDT - Monitor the small lump on the left side of your pelvis/abdominal wall for any changes. - Contact our office if the lump grows, becomes painful or swollen, or if you develop any new bowel or urinary changes. - When you re ready to proceed with further testing, we will first check your kidney function with a blood draw and then schedule a contrast-enhanced CT scan to assess the area more clearly. - Avoid rolling onto tools or other hard objects that could stress this area. documented in this encounter [facility] 09-25-2024 Telephone encounter Note Patient call in for bilateral leg cramping at night which has been going on for awhile. Patient asking if there is medication to help with leg cramping. Nurse Triage assessment completed with protocol recommending for disposition of see PCP in 2 weeks. Patient scheduled to see [facility] 10/01/2024. Care advice reviewed with patient, patient stated understanding. Patient advised to contact office or seek evaluation in urgent care or ER if symptoms persist or gets worse. Reason for Disposition Leg pain or muscle cramp is a chronic symptom (recurrent or ongoing AND present > 4 weeks) Answer Assessment - Initial Assessment Questions 1. ONSET: Patient has been having leg cramping for quite a while at night. 2. LOCATION: Where is the pain located? Bilateral Legs 3. PAIN: Leg cramping does interfer with sleep. Patient has to get up and walk, and rub legs out to get cramping to stop. 4. WORK OR EXERCISE: Denies 5. CAUSE: Unsure. 6. OTHER SYMPTOMS: Neuropathy in legs which is normal for patient. Protocols used: Leg [id number] [facility] 09-25-2024 Miscellaneous Notes Patient call in for bilateral leg cramping at night which has been going on for awhile. Patient asking if there is medication to help with leg cramping. Nurse Triage assessment completed with protocol recommending for disposition of see PCP in 2 weeks. Patient scheduled to see [facility] 10/01/2024. Care advice reviewed with patient, patient stated understanding. Patient advised to contact office or seek evaluation in urgent care or ER if symptoms persist or gets worse. Reason for Disposition Leg pain or muscle cramp is a chronic symptom (recurrent or ongoing AND present > 4 weeks) Answer Assessment - Initial Assessment Questions 1. ONSET: Patient has been having leg cramping for quite a while at night. 2. LOCATION: Where is the pain located? Bilateral Legs 3. PAIN: Leg cramping does interfer with sleep. Patient has to get up and walk, and rub legs out to get cramping to stop. 4. WORK OR EXERCISE: Denies 5. CAUSE: Unsure. 6. OTHER SYMPTOMS: Neuropathy in legs which is normal for patient. Protocols used: Leg [id number] TC patient, left message for patient to call back and speak with a triage nurse regarding symptoms. Susana Montenegro RN Yahir's is calling Rom Newell MD today with concern regarding leg pain that starts after he goes to bed. It interrupts his sleep throughout the night. Please call and advise. Patient has been identified by name and birthdate. Duration of symptoms: N/A Person calling: spouse: Call patient at: on cell [phone] (cell) Was an appointment scheduled: No Closing statement: Symptom Call: Thank you for calling [facility], your call is very important. A nurse will call in approximately 2-4 hours during business hours. If this is an emergency, please contact 911. Domenica Cruz documented in this encounter [facility] 09-25-2024 Telephone encounter Note TC patient, left message for patient to call back and speak with a triage nurse regarding symptoms. Susana Montenegro RN T [facility] 09-25-2024 Telephone encounter Note Yahir's is calling Rom Newell MD today with concern regarding leg pain that starts after he goes to bed. It interrupts his sleep throughout the night. Please call and advise. Patient has been identified by name and birthdate. Duration of symptoms: N/A Person calling: spouse: Call patient at: on cell [phone] (cell) Was an appointment scheduled: No Closing statement: Symptom Call: Thank you for calling [facility], your call is very important. A nurse will call in approximately 2-4 hours during business hours. If this is an emergency, please contact 911. Domenica Cruz [facility] 09-11-2024 Telephone encounter Note 90 day rx with refills for a year was sent to pharmacy on 08/05/24. Pt is not due for refill. Pt notified of the same. He verbalized understanding. Wilfrid Leal LPN [facility] 09-11-2024 Miscellaneous Notes 90 day rx with refills for a year was sent to pharmacy on 08/05/24. Pt is not due for refill. Pt notified of the same. He verbalized understanding. Wilfrid Leal LPN Prescription Refill Information The patient has been identified by name and date of : Yes Caregiver verified no other encounters exist for this prescription request: Yes Caregiver confirmed with patient/requestor that no other refills are due, in the near future, with this provider at this time: Yes The last office visit in the department: 07/09/2024 Does the patient have a future office visit with this provider/department: Yes Requested Prescriptions Pending Prescriptions Disp Refills atorvastatin (LIPITOR) 40 mg tablet 90 tablet 3 Sig: Take 1 tablet by mouth daily at bedtime. For cholesterol. Shirley Love September 11, 2024 11:15 AM documented in this encounter [facility] 09-11-2024 Telephone encounter Note Prescription Refill Information The patient has been identified by name and date of : Yes Caregiver verified no other encounters exist for this prescription request: Yes Caregiver confirmed with patient/requestor that no other refills are due, in the near future, with this provider at this time: Yes The last office visit in the department: 07/09/2024 Does the patient have a future office visit with this provider/department: Yes Requested Prescriptions Pending Prescriptions Disp Refills atorvastatin (LIPITOR) 40 mg tablet 90 tablet 3 Sig: Take 1 tablet by mouth daily at bedtime. For cholesterol. Shirley Love September 11, 2024 11:15 AM [facility] 08-05-2024 Note HNO ID: [id number] Author: ROM NEWELL MD Service: ? Author Type: Physician Type: Progress Notes Filed: 08/05/2024 10:10 Note Text: Patient presents with: 6 Month Exam HPI: Patient presents today for office visit for follow up. Feeling better after ATB side pain is gone now. I felt it was likely more radicular. TAMMI: States does not use CPAP. Pain management seeing Dr Shaffer. Getting tramadol and gabapentin. Just got back bone scan. Shows rib fracture but area seen on lumbar xray was ok. Did show left rib fracture. May have had a fall or rolled on tools working on his car. Red flags for re-assessment reviewed with patient in detail. HLD:no new myalgias. Still seeing Dr Hunt for derm. Recently had egd. Biopsy was ok. Discussed whether we continue to pursue follow up. Urology:still seeing Dr Fritz. Due for some labs. No chest pain or shortness of breath. MEDICATIONS: Current Outpatient Medications Medication Sig DULoxetine (CYMBALTA) 60 mg capsule Take 1 capsule by mouth once daily. omeprazole (PRILOSEC) 40 mg capsule Take 1 capsule by mouth every afternoon. gabapentin (NEURONTIN) 600 mg tablet Take 600 mg by mouth four times daily. vitamin B complex (VITAMIN B-100 COMPLEX ORAL) Take 100 mg by mouth once daily. Cholecalciferol, Vitamin D3, 25 mcg (1,000 unit) cap Take 1,000 Units by mouth once daily. traMADol (ULTRAM) 50 mg tablet Take 50 mg by mouth every 6 hours as needed. atorvastatin (LIPITOR) 40 mg tablet Take 1 tablet by mouth daily at bedtime. For cholesterol. acetaminophen (TYLENOL ARTHRITIS PAIN ORAL) Take 2 tablets by mouth. CPAP CHIN STRAP, USED WITH CPAP DEVICE No current facility-administered medications for this visit. ALLERGIES: ALLERGIES No Known Allergies PAST MEDICAL HISTORY Diagnosis Date Arthritis Cervical nerve root impingement sees Dr. Lott, pain management at [place] Colon polyp Depression Diverticulosis of colon (without mention of hemorrhage) Elevated PSA sees Dr Boswell History of prostate cancer 05/07/2024 Hyperlipidemia Kidney disease Low testosterone Obstructive sleep apnea Osteoarthrosis Personal history of colonic polyps PONV (postoperative nausea and vomiting) 05/07/2024 Sleep apnea Snoring PAST SURGICAL HISTORY Procedure [...] SING OR MULT 07/10/2022 Dr. Nestor Dahl; [facility], HH, gastritis NEUROPLASTY AND/TRANSPOS MEDIAN NRV CARPAL TUNNE Bilateral 08/11/[address] Shepard PAST SURGICAL HISTORY OF 2009 Left Rotator cuff, Dr. Raines, PAST SURGICAL HISTORY OF 1988, 2003 Castillo, Ventral Hernia x 2 PAST SURGICAL HISTORY OF 01/03/2015 neck surgery - fused C4,5,6 PAST SURGICAL HISTORY OF Right 06/18/2018 right knee arthroscopic partial medical lateral meniscectomy right knee arthroscopic chondroplasty UROLIFT PROSTATE PROCEDURE 11/2017 Dr.Miguel Fritz FAMILY HISTORY Problem Relation Age of Onset Coronary Artery Disease Mother early 60's Diabetes Mother None Father Coronary Artery Disease Brother Cancer Brother kidney Heart disease Brother Colon Cancer Other none Anesthesia Problems No Family History Social History Tobacco Use Smoking status: Never Smokeless tobacco: Never Vaping Use Vaping status: Never Used Substance Use Topics Alcohol use: No Drug use: No Reviewed current medications, allergies, past medical history, surgical history, family history and social history today. REVIEW OF SYSTEMS All other reviewed and negative other than HPI. VITALS: BP 122/68 Pulse 64 Wt 81.6 kg (180 lb) SpO2 98% BMI 27.38 kg/m? Last 4 Encounter Wt Readings: Date: Wt: 07/15/2024 81.6 kg (180 lb) 07/07/2024 83.9 kg (185 lb) 07/02/2024 81.6 kg (180 lb) 06/23/2024 81.6 kg (180 lb) PHYSICAL EXAMINATION: General appearance: Well appearing, [...] No deformities, edema, skin discoloration, clubbing or cyanosis (more content not included)... [facility] 08-05-2024 History of Presen t illness Narrative Patient presents with: 6 Month Exam HPI: Patient presents today for office visit for follow up. Feeling better after ATB side pain is gone now. I felt it was likely more radicular. TAMMI: States does not use CPAP. Pain management seeing Dr Shaffer. Getting tramadol and gabapentin. Just got back bone scan. Shows rib fracture but area seen on lumbar xray was ok. Did show left rib fracture. May have had a fall or rolled on tools working on his car. Red flags for re-assessment reviewed with patient in detail. HLD:no new myalgias. Still seeing Dr Hunt for derm. Recently had egd. Biopsy was ok. Discussed whether we continue to pursue follow up. Urology:still seeing Dr Fritz. Due for some labs. No chest pain or shortness of breath. MEDICATIONS: Current Outpatient Medications Medication Sig DULoxetine (CYMBALTA) 60 mg capsule Take 1 capsule by mouth once daily. omeprazole (PRILOSEC) 40 mg capsule Take 1 capsule by mouth every afternoon. gabapentin (NEURONTIN) 600 mg tablet Take 600 mg by mouth four times daily. vitamin B complex (VITAMIN B-100 COMPLEX ORAL) Take 100 mg by mouth once daily. Cholecalciferol, Vitamin D3, 25 mcg (1,000 unit) cap Take 1,000 Units by mouth once daily. traMADol (ULTRAM) 50 mg tablet Take 50 mg by mouth every 6 hours as needed. atorvastatin (LIPITOR) 40 mg tablet Take 1 tablet by mouth daily at bedtime. For cholesterol. acetaminophen (TYLENOL ARTHRITIS PAIN ORAL) Take 2 tablets by mouth. CPAP CHIN STRAP, USED WITH CPAP DEVICE No current facility-administered medications for this visit. ALLERGIES: ALLERGIES No Known Allergies PAST MEDICAL HISTORY Diagnosis Date Arthritis Cervical nerve root impingement sees Dr. Lott, pain management at [place] Colon polyp Depression Diverticulosis of colon (without mention of hemorrhage) Elevated PSA sees Dr Boswell History of prostate cancer 05/07/2024 Hyperlipidemia Kidney disease Low testosterone Obstructive sleep apnea Osteoarthrosis Personal history of colonic polyps PONV (postoperative nausea and vomiting) 05/07/2024 Sleep apnea Snoring PAST SURGICAL HISTORY Procedure [...] SING OR MULT 07/10/2022 Dr. Nestor Dahl; Araujo's, HH, gastritis NEUROPLASTY &/TRANSPOS MEDIAN NRV CARPAL [...] FAMILY HISTORY Problem Relation Age of Onset Coronary Artery Disease Mother early 60's Diabetes Mother None Father Coronary Artery Disease Brother Cancer Brother kidney Heart disease Brother Colon Cancer Other none Anesthesia Problems No Family History Social History Tobacco Use Smoking status: Never Smokeless tobacco: Never Vaping Use Vaping status: Never Used Substance Use Topics Alcohol use: No Drug use: No Reviewed current medications, allergies, past medical history, surgical history, family history and social history today. REVIEW OF SYSTEMS All other reviewed and negative other than HPI. VITALS: BP 122/68 Pulse 64 Wt 81.6 kg (180 lb) SpO2 98% BMI 27.38 kg/m Last 4 Encounter Wt Readings: Date: Wt: 07/15/2024 81.6 kg (180 lb) 07/07/2024 83.9 kg (185 lb) 07/02/2024 81.6 kg (180 lb) 06/23/2024 81.6 kg (180 lb) PHYSICAL EXAMINATION: General appearance: Well appearing, [...] joint swelling, deformity, or tenderness ASSESSMENT/PLAN: 1. Obstructive sleep apnea (adult) (pediatric) - ICD9: 327.23, ICD10: G47.33 (primary diagnosis) - stay. 2. Mixed hyperlipidemia - ICD9: 272.2, ICD10: E78.2 - Controlled - ATORVASTATIN 40 MG TABLET - COMPLETE BLOOD COUNT AND DIFFERENTIAL - COMPREHENSIVE METABOLIC PANEL - LIPID PANEL, NONFASTING 3. 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 4. Skin cancer - ICD9: 173.90, ICD10: C44.90 - per derm 5. History of prostate cancer - ICD9: V10.46, ICD10: Z85.46 - per urology. 6. Anxiety state - ICD9: 300.00, ICD10: F41.1 - stable. 7. Impaired fasting glucose - ICD9: 790.21, ICD10: R73.01 - HEMOGLOBIN A1C Rom Newell MD documented in this encounter [facility] 07-31-2024 Note HNO ID: [id number] Author: NIMA SANTILLAN RT(R) Service: Nuclear Medicine Author Type: Technologist Type: Progress Notes Filed: 07/31/2024 11:17 Note Text: RADIOLOGY SERVICE PROGRESS NOTE SERVICE DATE: 07/31/2024 SERVICE TIME: 10:30 AM PATIENT IDENTITY VERIFICATION COMPLETED USING TWO (2) STANDARD IDENTIFIERS: Name and Date of confirmed by patient verbally FALL SCREENING: Has the patient had 2 falls in the last year or 1 fall with injury or currently using an Ambulatory Assistive Device (Walker, Cane, Wheelchair, Crutches, etc.)? No PATIENT GENDER DATA: .male ALLERGIES: Reviewed and unchanged MEDICATIONS REVIEWED: No PATIENT RELEVANT IMPLANT DATA REVIEWED: Not Applicable PATIENT PRESENTS WITH AN IMPLANTABLE OR ATTACHED GLASS SANDER BELT: n/a CREATININE: Creatinine Date Value Ref Range Status 09/03/2023 1.06 0.73 - 1.22 mg/dL Final 06/09/2022 1.19 0.73 - 1.22 mg/dL Final 05/22/2022 1.05 0.73 - 1.22 mg/dL Final Estimated Glomerular Filtration Rate Date Value Ref Range Status 09/03/2023 69 >=60 mL/min/1.73m? Final Comment: Estimated Glomerular Filtration [...] Range Status 12/21/2020 >60 Final P.O.C.T. RESULTS: N/A July 31, [address] PERFORMED: No IV SITE: Ambulatory: A peripheral IV was started in the Right antecubital site with a Angio cath: 24 gauge. POST EXAM PIV STATUS: Discontinued PROCEDURE TYPE: NM INJECT: Three Phase Bone Scan . 22.3 mCi Tc99m MDP. No other medications given.. ADMINISTRATION TIME: 10:44 PATIENT DISCHARGED TO: Ambulatory patient, left [place] department area. Is this a therapy: No A Diagnostic radioactive procedure has taken place, with no further precautions necessary other than routine body substance precautions. More information regarding radiation safety can be found using this link: [email or web address] SIGNATURE: RT Kait(R) PATIENT NAME: Robby Vera DATE: July 31, 2024 TIME: 11:16 AM PAGER/CONTACT #: [facility] 07-23-2024 Telephone encounter Note Patient notified of results and provider's instructions. Patient verbalizes understanding. Susana Montenegro RN [facility] 07-23-2024 Miscellaneous Notes Patient notified of results and provider's instructions. Patient verbalizes understanding. Susana Montenegro RN Message left for pt to call back for results. Sirena Reyes MA His xray shows a lot of degenerative disc disease. It also shows an area on his pelvis that may be things like a bone cyst etc which are ok but need better pictures. Recommend a bone scan to evaluate it. documented in this encounter [facility] 07-20-2024 Telephone encounter Note Message left for pt to call back for results. Sirena Reyes MA [facility] 07-20-2024 Telephone encounter Note His xray shows a lot of degenerative disc disease. It also shows an area on his pelvis that may be things like a bone cyst etc which are ok but need better pictures. Recommend a bone scan to evaluate it. [facility] 07-16-2024 Telephone encounter Note Patient and spouse returns call and below reviewed. Patient agreeable to increase in Cymbalta and aware for any concerns or questions to contact office immediately. Patient pleasant and thankful. No concern for self harm noted.Will start Cymbalta increased dose tonight at bedtime. Spouse also agreeable to contact office for any questions or concerns. Ryann Garcia RN [facility] 07-16-2024 Miscellaneous Notes Patient and spouse returns call and below reviewed. Patient agreeable to increase in Cymbalta and aware for any concerns or questions to contact office immediately. Patient pleasant and thankful. No concern for self harm noted.Will start Cymbalta increased dose tonight at bedtime. Spouse also agreeable to contact office for any questions or concerns. Ryann Garcia RN Called and spoke with daughter Radha and informed her of the medication increase and need for a follow up appointment in 4 weeks. I explained to her that I would need to discuss this with the patient as well. Radha asked that we make it seem like it was Dr. Newell's idea for the medication increase as she wishes for the patient to not know she spoke with us concerning these things. I advised her that legally and ethically we cannot lie to the patient. She verbalized understanding. Placed call to patient with no answer. Left message for call back. Nuha Gómez MA Sorry for their loss. Increase the cymbalta to 60 mg a day and follow up with one of us in four weeks. If he is having significant issues or they worry he may hurt himself-see statement below. Let us know immediately. Patient's daughter, Radha, returned to the manager front wanting to share some concerns re: patient. She is wanting to see if the Cymbalta could be increased. One of the brother's of the patient just and another brother isn't doing well. Patient stated to daughter maybe I should just go to the grave. Please advise. Susana Ch documented in this encounter [facility] 07-15-2024 Telephone encounter Note Called and spoke with daughter Radha and informed her of the medication increase and need for a follow up appointment in 4 weeks. I explained to her that I would need to discuss this with the patient as well. Radha asked that we make it seem like it was Dr. Newell's idea for the medication increase as she wishes for the patient to not know she spoke with us concerning these things. I advised her that legally and ethically we cannot lie to the patient. She verbalized understanding. Placed call to patient with no answer. Left message for call back. Nuha Gómez MA [facility] 07-15-2024 Telephone encounter Note Sorry for their loss. Increase the cymbalta to 60 mg a day and follow up with one of us in four weeks. If he is having significant issues or they worry he may hurt himself-see statement below. Let us know immediately. [facility] 07-15-2024 Telephone encounter Note Patient's daughter, Radha, returned to the manager front wanting to share some concerns re: patient. She is wanting to see if the Cymbalta could be increased. One of the brother's of the patient just and another brother isn't doing well. Patient stated to daughter maybe I should just go to the grave. Please advise. Susana Ch [facility] 07-15-2024 History of Presen t illness Narrative Radiology Service Progress Note PATIENT NAME: Robby Vera DATE OF SERVICE: July 15, 2024 TIME: 3:30 PM PATIENT IDENTITY VERIFICATION COMPLETED USING TWO (2) IDENTIFIERS: Name and Date of confirmed by patient verbally. FALL SCREENING: Has the patient had 2 falls in the last year or 1 fall with injury or currently using an Ambulatory Assistive Device (Walker, Cane, Wheelchair, Crutches, etc.)? No PATIENT GENDER DATA: Assigned male at PATIENT RELEVANT IMPLANT DATA REVIEWED: Not Applicable PATIENT PRESENTS WITH AN IMPLANTABLE OR ATTACHED GLASS SANDER BELT: No RADIOLOGY DEPARTMENT: General X-ray: Exam(s) Completed: Spine X-Ray(s): Lumbar AP / LAT / L5-S1 PERIPHERAL IV DATA: Not applicable SIGNED BY: Jt Rivera July 15, 2024 3:30 PM documented in this encounter [facility] 07-15-2024 Note HNO ID: [id number] Author: HERLINDA KIRAN Tech Service: ? Author Type: Technologist Type: Progress Notes Filed: 07/15/2024 15:46 Note Text: Radiology Service Progress Note PATIENT NAME: Robby Vera DATE OF SERVICE: July 15, 2024 TIME: 3:30 PM PATIENT IDENTITY VERIFICATION COMPLETED USING TWO (2) IDENTIFIERS: Name and Date of confirmed by patient verbally. FALL SCREENING: Has the patient had 2 falls in the last year or 1 fall with injury or currently using an Ambulatory Assistive Device (Walker, Cane, Wheelchair, Crutches, etc.)? No PATIENT GENDER DATA: Assigned male at PATIENT RELEVANT IMPLANT DATA REVIEWED: Not Applicable PATIENT PRESENTS WITH AN IMPLANTABLE OR ATTACHED GLASS SANDER BELT: No RADIOLOGY DEPARTMENT: General X-ray: Exam(s) Completed: Spine X-Ray(s): Lumbar AP / LAT / L5-S1 PERIPHERAL IV DATA: Not applicable SIGNED BY: Jt Rivera July 15, 2024 3:30 PM [facility] 07-15-2024 Note HNO ID: [id number] Author: ROM NEWELL MD Service: ? Author Type: Physician Type: Progress Notes Filed: 07/15/2024 15:22 Note Text: Patient presents with: Follow Up HPI: Patient presents today for office visit for follow up. Complains today of ongoing lower left abdominal pain that radiates to his left mid-back. Pain is sharp when comes on. Standing up relives the pain. Refers to a pulling if he lays flat on his back. Laying on his back makes it worse. See below. Urology did not feel it was a urinary issues. Thought it was superfical and followed a dermatomal pattern. [facility] empirically covered for possible diverticulitis-ct was negative, however was without contrast. Was in [facility] ER on 07/05/24 due to lower abdominal pain on the left side that radiates upward into the left flank. Pain comes and goes. Refers to pain coming on sharp and then subsides. No injury. Basic blood work and urine was unremarkable. No obvious infection. Normal white count. CT of abdomen showed no acute abdominopelvic findings. He is feeling better than it was. He initially says it did not help but now says maybe it helped. Discomfort is just aggravating at this point. Is 1 to 2 at this point. Does have DDD and sees Dr Bower and gets injections. No recent injury. No recent falls. Did have to lift a garage door when the spring broke. [place] it aggravated it. Wraps around his left side and comes and goes. No burning No numbness. No rash. Comes and goes. Movement makes makes it worse. Bowels are currently good. Using prune juice and butter. No urinary symptoms. No bloody or black stools. Pain is similar to when he has needed injections Saw [facility] Courtney for follow up on 07/07/24 Copy and pasted. See note: This is a 83 year old male who presents today with: Patient presents with: ED Follow-up: [facility] ER 07/05/24 Flank pain. HISTORY OF PRESENT ILLNESS: Robby Vera is a 83 year old male. Patient presents with: ED Follow-up: [facility] ER 07/05/24 Flank pain. Pain in left lower quadrant of abdomen that wraps around left side of abd and Left flank.. Started 1 week ago around noon. Real sharp. Saturday went to ER because it was real bad. Real deep stabbing pain. No nausea- maybe a couple times. Checked in ER for kidney stones. Saw urologist today. Prostate cancer. Always took Miralax. Given percocet from ER. Constipation worse. Urinating ok. No blood in urine. Last colonoscopy positive for diverticulosis in the sigmoid colon. ASSESSMENT/PLAN: 1. Diverticulitis - ICD9: 562.11, ICD10: K57.92 (primary diagnosis) Likely cause diverticulitis, kidney stone ruled out, shingles doubtful - METRONIDAZOLE 500 MG TABLET - CEFDINIR 300 MG CAPSULE 2. Abdominal pain, unspecified abdominal location - ICD9: 789.00, ICD10: R10.9 Differential Diagnosis includes Constipation, Diverticulitis, Kidney stones/colic, and shingles - METRONIDAZOLE 500 MG TABLET - CEFDINIR 300 MG CAPSULE - avoid percocet - warm prune juice with 1 Tbsp. Of butter - Miralax daily - Liquid diet for 24 -48 hours, then advance to soft food for 24 - 48 hours - If symptoms worsen, go to ER- rigid abdomen, fevers, nausea and vomiting MEDICATIONS: Current Outpatient Medications Medication Sig oxyCODONE-acetaminophen (PERCOCET) 5-325 mg tablet Take 1 tablet by mouth every 6 hours as needed. (Patient not taking: Reported on 07/15/2024) omeprazole (PRILOSEC) 40 mg capsule Take 1 capsule by mouth every afternoon. DULoxetine (CYMBALTA) 30 mg capsule Take 1 capsule by mouth once daily. gabapentin (NEURONTIN) 600 mg tablet Take 600 mg by mouth four times daily. atorvastatin (LIPITOR) 40 mg tablet Take 1 tablet by mouth daily at bedtime. For cholesterol. acetaminophen (TYLENOL ARTHRITIS PAIN ORAL) Take 2 tablets by mouth. vitamin B complex (VITAMIN B-100 COMPLEX ORAL) Take 100 mg by mouth once daily. Cholecalciferol, Vitamin D3, 25 mcg (1,000 unit) cap Take 1,000 Units by mouth once daily. traMADol (ULTRAM) 50 mg tablet Take 50 mg by mouth every 6 hours as needed. CPAP CHIN STRAP, USED WITH CPAP DEVICE amoxicillin (AMOXIL) 500 mg capsule 500 mg. (Patient not taking: Reported on 07/15/2024) No current facility-administered medications for this visit. ALLERGIES: ALLERGIES No Known Allergies PAST MEDICAL HISTORY Diagnosis Date Arthritis Cervical nerve root impingement sees Dr. Lott, pain management at [place] Colon polyp Depression Diverticulosis of colon (without mention of hemorrhage) Elevated PSA sees Dr Boswell History of prostate cancer 05/07/2024 Hyperlipidemia Kidney disease Low testosterone Obstructive sleep apnea Osteoarthrosis Personal history of colonic polyps PONV (postoperative nausea and vomiting) 05/07/2024 Sleep apnea Snoring PAST SURGICAL HISTORY Procedure Laterality Date CHOLECYSTECTOMY 1986 Cholecystectomy, open (Dr. Rayo) COLONOSCOPY AND POLYPECTOMY late (more content not included)... [facility] 07-15-2024 History of Presen t illness Narrative Patient presents with: Follow Up HPI: Patient presents today for office visit for follow up. Complains today of ongoing lower left abdominal pain that radiates to his left mid-back. Pain is sharp when comes on. Standing up relives the pain. Refers to a pulling if he lays flat on his back. Laying on his back makes it worse. See below. Urology did not feel it was a urinary issues. Thought it was superfical and followed a dermatomal pattern. [place] empirically covered for possible diverticulitis-ct was negative, however was without contrast. Was in [facility] ER on 07/05/24 due to lower abdominal pain on the left side that radiates upward into the left flank. Pain comes and goes. Refers to pain coming on sharp and then subsides. No injury. Basic blood work and urine was unremarkable. No obvious infection. Normal white count. CT of abdomen showed no acute abdominopelvic findings. He is feeling better than it was. He initially says it did not help but now says maybe it helped. Discomfort is just aggravating at this point. Is 1 to 2 at this point. Does have DDD and sees Dr Bower and gets injections. No recent injury. No recent falls. Did have to lift a garage door when the spring broke. [place] it aggravated it. Wraps around his left side and comes and goes. No burning No numbness. No rash. Comes and goes. Movement makes makes it worse. Bowels are currently good. Using prune juice and butter. No urinary symptoms. No bloody or black stools. Pain is similar to when he has needed injections Saw [facility] Courtney for follow up on 07/07/24 Copy and pasted. See note: This is a 83 year old male who presents today with: Patient presents with: ED Follow-up: [facility] ER 07/05/24 Flank pain. HISTORY OF PRESENT ILLNESS: Robby Vera is a 83 year old male. Patient presents with: ED Follow-up: [facility] ER 07/05/24 Flank pain. Pain in left lower quadrant of abdomen that wraps around left side of abd and Left flank.. Started 1 week ago around noon. Real sharp. Saturday went to ER because it was real bad. Real deep stabbing pain. No nausea- maybe a couple times. Checked in ER for kidney stones. Saw urologist today. Prostate cancer. Always took Miralax. Given percocet from ER. Constipation worse. Urinating ok. No blood in urine. Last colonoscopy positive for diverticulosis in the sigmoid colon. ASSESSMENT/PLAN: 1. Diverticulitis - ICD9: 562.11, ICD10: K57.92 (primary diagnosis) Likely cause diverticulitis, kidney stone ruled out, shingles doubtful - METRONIDAZOLE 500 MG TABLET - CEFDINIR 300 MG CAPSULE 2. Abdominal pain, unspecified abdominal location - ICD9: 789.00, ICD10: R10.9 Differential Diagnosis includes Constipation, Diverticulitis, Kidney stones/colic, and shingles - METRONIDAZOLE 500 MG TABLET - CEFDINIR 300 MG CAPSULE - avoid percocet - warm prune juice with 1 Tbsp. Of butter - Miralax daily - Liquid diet for 24 -48 hours, then advance to soft food for 24 - 48 hours - If symptoms worsen, go to ER- rigid abdomen, fevers, nausea and vomiting MEDICATIONS: Current Outpatient Medications Medication Sig oxyCODONE-acetaminophen (PERCOCET) 5-325 mg tablet Take 1 tablet by mouth every 6 hours as needed. (Patient not taking: Reported on 07/15/2024) omeprazole (PRILOSEC) 40 mg capsule Take 1 capsule by mouth every afternoon. DULoxetine (CYMBALTA) 30 mg capsule Take 1 capsule by mouth once daily. gabapentin (NEURONTIN) 600 mg tablet Take 600 mg by mouth four times daily. atorvastatin (LIPITOR) 40 mg tablet Take 1 tablet by mouth daily at bedtime. For cholesterol. acetaminophen (TYLENOL ARTHRITIS PAIN ORAL) Take 2 tablets by mouth. vitamin B complex (VITAMIN B-100 COMPLEX ORAL) Take 100 mg by mouth once daily. Cholecalciferol, Vitamin D3, 25 mcg (1,000 unit) cap Take 1,000 Units by mouth once daily. traMADol (ULTRAM) 50 mg tablet Take 50 mg by mouth every 6 hours as needed. CPAP CHIN STRAP, USED WITH CPAP DEVICE amoxicillin (AMOXIL) 500 mg capsule 500 mg. (Patient not taking: Reported on 07/15/2024) No current facility-administered medications for this visit. ALLERGIES: ALLERGIES No Known Allergies PAST MEDICAL HISTORY Diagnosis Date Arthritis Cervical nerve root impingement sees Dr. Lott, pain management at [place] Colon polyp Depression Diverticulosis of colon (without mention of hemorrhage) Elevated PSA sees Dr Boswell History of prostate cancer 05/07/2024 Hyperlipidemia Kidney disease Low testosterone Obstructive sleep apnea Osteoarthrosis Personal history of colonic polyps PONV (postoperative nausea and vomiting) 05/07/2024 Sleep apnea Snoring PAST SURGICAL HISTORY Procedure [...] SING OR MULT 07/10/2022 Dr. Nestor Dahl; [facility], HH, gastritis NEUROPLASTY &/TRANSPOS MEDIAN NRV CARPAL [...] FAMILY HISTORY Problem Relation Age of Onset Coronary Artery Disease Mother early 60's Diabetes Mother None Father Coronary Artery Disease Brother Cancer Brother kidney Heart disease Brother Colon Cancer Other none Anesthesia Problems No Family History Social History Tobacco Use Smoking status: Never Smokeless tobacco: Never Vaping Use Vaping status: Never Used Substance Use Topics Alcohol use: No Drug use: No Reviewed current medications, allergies, past medical history, surgical history, family history and social history today. REVIEW OF SYSTEMS All other reviewed and negative other than HPI. VITALS: BP 126/62 Pulse 76 Ht 172.7 cm (5' 7.99) Wt 81.6 kg (180 lb) SpO2 97% BMI 27.38 kg/m Last 4 Encounter Wt Readings: Date: Wt: 07/07/2024 83.9 kg (185 lb) 07/02/2024 81.6 kg (180 lb) 06/23/2024 81.6 kg (180 lb) 05/07/2024 81.6 kg (180 lb) PHYSICAL EXAMINATION: General appearance: Well appearing, alert, in no acute distress, well-hydrated, well nourished. Skin: Skin color, texture, turgor normal, no suspicious rashes or lesions Head: Normocephalic, no masses, lesions, tenderness or abnormalities Eyes: Anicteric sclera. Pupils are equally round and reactive to light. Extraocular movements are intact. BACK: Normal curvature of spine. No spine tenderness. Straight leg test negative. Deep tendon reflexes 2+/4 at patellas. Normal lower extremity strength. Area of discomfort is upper lumbar extending around abd in a radicular pattern. Abdomen: Normal abdominal exam, Abdomen soft, non-tender. Bowel sounds normal. No masses, organomegaly, Negative CVA tenderness, Negative findings: no masses palpable, no organomegaly, and aorta normal Extremities: No deformities, edema, skin discoloration, clubbing or cyanosis. Good capillary refill. ASSESSMENT/PLAN: 1. Radicular pain - ICD9: 729.2, ICD10: M54.10 - Discussed risks and benefits of new medication with the patient. Advised them to call if any side effects or questions. Red flags for re-assessment reviewed with patient in detail. Call if symptoms worsen at all or if not better in one to two weeks Reviewed diagnosis and treatment options in detail. Questions were answered. Patient expressed understanding of treatment plan. Ice prn Consider pain management if continues. - PREDNISONE 20 MG TABLET - XR LUMBAR GENERAL 3V AP/LAT/L5-S1 Rom Newell MD documented in this encounter [facility] 07-07-2024 Instructions Ailin Courtney APRN.[employer] - 07/07/2024 1:25 PM EDT - See Dr. Newell 08/05/24 - METRONIDAZOLE 500 MG TABLET - CEFDINIR 300 MG CAPSULE - avoid percocet - warm prune juice with 1 Tbsp. Of butter - Miralax daily - Liquid diet for 24 -48 hours, then advance to soft food for 24 - 48 hours - If symptoms worsen, go to ER- rigid abdomen, fevers, nausea and vomiting documented in this encounter [facility] 07-07-2024 Note HNO ID: [id number] Author: AILIN COURTNEY APRN.SINGH Service: ? Author Type: Nurse Practitioner Type: Progress Notes Filed: 07/07/2024 14:17 Note Text: This is a 83 year old male who presents today with: Patient presents with: ED Follow-up: [facility] ER 07/05/24 Flank pain. HISTORY OF PRESENT ILLNESS: Robby Vera is a 83 year old male. Patient presents with: ED Follow-up: [facility] ER 07/05/24 Flank pain. Pain in left lower quadrant of abdomen that wraps around left side of abd and Left flank.. Started 1 week ago around noon. Real sharp. Saturday went to ER because it was real bad. Real deep stabbing pain. No nausea- maybe a couple times. Checked in ER for kidney stones. Saw urologist today. Prostate cancer. Always took Miralax. Given percocet from ER. Constipation worse. Urinating ok. No blood in urine. Last colonoscopy positive for diverticulosis in the sigmoid colon. PAST MEDICAL HISTORY: PAST MEDICAL HISTORY Diagnosis Date Arthritis Cervical nerve root impingement sees Dr. Lott, pain management at [place] Colon polyp Depression Diverticulosis of colon (without mention of hemorrhage) Elevated PSA sees Dr Boswell History of prostate cancer 05/07/2024 Hyperlipidemia Kidney disease Low testosterone Obstructive sleep apnea Osteoarthrosis Personal history of colonic polyps PONV (postoperative nausea and vomiting) 05/07/2024 Sleep apnea Snoring PAST SURGICAL HISTORY Procedure [...] SING OR MULT 07/10/2022 Dr. Nestor Dahl; Araujo's, HH, gastritis NEUROPLASTY AND/TRANSPOS MEDIAN NRV CARPAL [...] allergies. MEDICATIONS Current Outpatient Medications Medication Sig oxyCODONE-acetaminophen (PERCOCET) 5-325 mg tablet Take 1 tablet by mouth every 6 hours as needed. omeprazole (PRILOSEC) 40 mg capsule Take 1 capsule by mouth every afternoon. DULoxetine (CYMBALTA) 30 mg capsule Take 1 capsule by mouth once daily. gabapentin (NEURONTIN) 600 mg tablet Take 600 mg by mouth four times daily. atorvastatin (LIPITOR) 40 mg tablet Take 1 tablet by mouth daily at bedtime. For cholesterol. acetaminophen (TYLENOL ARTHRITIS PAIN ORAL) Take 2 tablets by mouth. vitamin B complex (VITAMIN B-100 COMPLEX ORAL) Take 100 mg by mouth once daily. Cholecalciferol, Vitamin D3, 25 mcg (1,000 unit) cap Take 1,000 Units by mouth once daily. traMADol (ULTRAM) 50 mg tablet Take 50 mg by mouth every 6 hours as needed. amoxicillin (AMOXIL) 500 mg capsule 500 mg. CPAP CHIN STRAP, USED WITH CPAP DEVICE No current facility-administered medications for this visit. FAMILY HISTORY Problem Relation Age of Onset Coronary Artery Disease Mother early 60's Diabetes Mother None Father Coronary Artery Disease Brother Cancer Brother kidney Heart disease Brother Colon Cancer Other none Anesthesia Problems No Family History Social History Tobacco Use Smoking status: Never Smokeless tobacco: Never Vaping Use Vaping status: Never Used Substance Use Topics Alcohol use: No Drug use: No EXAM: BP 146/80 Pulse 76 Wt 83.9 kg (185 lb) SpO2 95% BMI 28.14 kg/m? PHYSICAL EXAM: Physical Exam Vitals reviewed. Constitutional: Appearance: Normal appearance. HENT: Head: Normocephalic. Cardiovascular: Rate and Rhythm: Normal rate and regular rhythm. Pulses: Normal pulses. Heart sounds: Normal heart sounds. Pulmonary: Effort: Pulmonary effort is normal. Breath sounds: Normal breath sounds. Abdominal: Palpations: Abdomen is soft. Tenderness: There is abdominal tenderness. There is guarding and rebound. Comments: Small area of warmth in area mid left abdomen and tender to touch. Hypoactive MICKEY Musculoskeletal: General: Normal range of motion. Comments: Moves all ext., walks w/o assistive device Skin: General: Skin is warm and dry. Neurological: Mental Status: He is alert and (more content not included)... [facility] 07-07-2024 History of Presen t illness Narrative This is a 83 year old male who presents today with: Patient presents with: ED Follow-up: [facility] ER 07/05/24 Flank pain. HISTORY OF PRESENT ILLNESS: Robby Vera is a 83 year old male. Patient presents with: ED Follow-up: [facility] ER 07/05/24 Flank pain. Pain in left lower quadrant of abdomen that wraps around left side of abd and Left flank.. Started 1 week ago around noon. Real sharp. Saturday went to ER because it was real bad. Real deep stabbing pain. No nausea- maybe a couple times. Checked in ER for kidney stones. Saw urologist today. Prostate cancer. Always took Miralax. Given percocet from ER. Constipation worse. Urinating ok. No blood in urine. Last colonoscopy positive for diverticulosis in the sigmoid colon. PAST MEDICAL HISTORY: PAST MEDICAL HISTORY Diagnosis Date Arthritis Cervical nerve root impingement sees Dr. Lott, pain management at [place] Colon polyp Depression Diverticulosis of colon (without mention of hemorrhage) Elevated PSA sees Dr Boswell History of prostate cancer 05/07/2024 Hyperlipidemia Kidney disease Low testosterone Obstructive sleep apnea Osteoarthrosis Personal history of colonic polyps PONV (postoperative nausea and vomiting) 05/07/2024 Sleep apnea Snoring PAST SURGICAL HISTORY Procedure [...] SING OR MULT 07/10/2022 Dr. Nestor Dahl; Araujo's, HH, gastritis NEUROPLASTY &/TRANSPOS MEDIAN NRV CARPAL [...] allergies. MEDICATIONS Current Outpatient Medications Medication Sig oxyCODONE-acetaminophen (PERCOCET) 5-325 mg tablet Take 1 tablet by mouth every 6 hours as needed. omeprazole (PRILOSEC) 40 mg capsule Take 1 capsule by mouth every afternoon. DULoxetine (CYMBALTA) 30 mg capsule Take 1 capsule by mouth once daily. gabapentin (NEURONTIN) 600 mg tablet Take 600 mg by mouth four times daily. atorvastatin (LIPITOR) 40 mg tablet Take 1 tablet by mouth daily at bedtime. For cholesterol. acetaminophen (TYLENOL ARTHRITIS PAIN ORAL) Take 2 tablets by mouth. vitamin B complex (VITAMIN B-100 COMPLEX ORAL) Take 100 mg by mouth once daily. Cholecalciferol, Vitamin D3, 25 mcg (1,000 unit) cap Take 1,000 Units by mouth once daily. traMADol (ULTRAM) 50 mg tablet Take 50 mg by mouth every 6 hours as needed. amoxicillin (AMOXIL) 500 mg capsule 500 mg. CPAP CHIN STRAP, USED WITH CPAP DEVICE No current facility-administered medications for this visit. FAMILY HISTORY Problem Relation Age of Onset Coronary Artery Disease Mother early 60's Diabetes Mother None Father Coronary Artery Disease Brother Cancer Brother kidney Heart disease Brother Colon Cancer Other none Anesthesia Problems No Family History Social History Tobacco Use Smoking status: Never Smokeless tobacco: Never Vaping Use Vaping status: Never Used Substance Use Topics Alcohol use: No Drug use: No EXAM: BP 146/80 Pulse 76 Wt 83.9 kg (185 lb) SpO2 95% BMI 28.14 kg/m PHYSICAL EXAM: Physical Exam Vitals reviewed. Constitutional: Appearance: Normal appearance. HENT: Head: Normocephalic. Cardiovascular: Rate and Rhythm: Normal rate and regular rhythm. Pulses: Normal pulses. Heart sounds: Normal heart sounds. Pulmonary: Effort: Pulmonary effort is normal. Breath sounds: Normal breath sounds. Abdominal: Palpations: Abdomen is soft. Tenderness: There is abdominal tenderness. There is guarding and rebound. Comments: Small area of warmth in area mid left abdomen and tender to touch. Hypoactive MICKEY Musculoskeletal: General: Normal range of motion. Comments: Moves all ext., walks w/o assistive device Skin: General: Skin is warm and dry. Neurological: Mental Status: He is alert and oriented to person, place, and time. LABS: ASSESSMENT/PLAN: 1. Diverticulitis - ICD9: 562.11, ICD10: K57.92 (primary diagnosis) Likely cause diverticulitis, kidney stone ruled out, shingles doubtful - METRONIDAZOLE 500 MG TABLET - CEFDINIR 300 MG CAPSULE 2. Abdominal pain, unspecified abdominal location - ICD9: 789.00, ICD10: R10.9 Differential Diagnosis includes Constipation, Diverticulitis, Kidney stones/colic, and shingles - METRONIDAZOLE 500 MG TABLET - CEFDINIR 300 MG CAPSULE - avoid percocet - warm prune juice with 1 Tbsp. Of butter - Miralax daily - Liquid diet for 24 -48 hours, then advance to soft food for 24 - 48 hours - If symptoms worsen, go to ER- rigid abdomen, fevers, nausea and vomiting Discussed treatment plan and patient voices understanding. Patient's questions answered appropriately. Medications and potential side effects were discussed and patient voices understanding. Return to the office as scheduled or as needed for worsening/no improvement. Ailin Courtney APRN.CNP documented in this encounter [facility] 07-05-2024 Radiology Diagnostic study note [facility] Imaging Services [address] [place] [address] Abdomen/Pelvis without Cont MR#: [id number] Acct: [id number] Name: ROBBY VERA Rep #: [id number] : 1940 M 83 From: Mary Jane Amezcua MD PCP: Dr. Rom Newell MD Status: PRE E R Study:Abdomen/Pelvis without Cont Date of Exa m: 07/05/24 Exam# [id number] Ordering Dr: Matthieu Boyle DO PROCEDURE: ABDOMEN/PELVIS WITHOUT CONT N/A REASON FOR EXAM: 83-year-old male, KIDNEY STONE TECHNIQUE: Abdomen and pelvis CT without intravenous contrast. Noncontrast technique limits evaluation of the abdominal and pelvic viscera. Coronal and Sagittal reconstruction series were provided. One or more dose reduction techniques were used (e.g., Automated exposure control, adjustment of the mA and/or kV according to patient size, use of iterative reconstruction technique). PATIENT PREPARATION: Per protocol ORAL CONTRAST TYPE: None. COMPARISON: CT abdomen pelvis 05/22/2022. FINDINGS: Visualization is limited without the use of IV contrast. Lung bases: Bibasilar atelectasis/scarring. The heart is normal in size with coronary artery and aortic valvular calcifications. Liver: The unopacified liver is normal in size. No biliary ductal dilation. Gallbladder: Prior cholecystectomy. Spleen: Unremarkable. Pancreas: Diffuse fatty atrophy. Adrenals: Unremarkable. Kidneys: No hydronephrosis or nephrolithiasis. Bladder: Minimally distended and unremarkable. Reproductive Organs: Fiducial markers within the prostate. Bowel: The bowel loops are normal in caliber. No ascites or pneumoperitoneum. No inflammatory mass in the expected region of the appendix. Lymph nodes: No suspicious lymphadenopathy. Vasculature: Calcific plaque of the aortoiliac vessels. Bones: Diffuse osseous demineralization. Thoracolumbar spondylosis. CT/Abdomen/Pelvis without Cont IMPRESSION: No acute abdominopelvic finding on noncontrast examination. Reading Location: [id number] CC: Dr. Dequan Boyle DO; Dr. Rom Newell MD ~ Survey Superintendent: Signed [facility] 07-02-2024 Note Q3 Patient Name: Robby Vera Procedure Date: 07/02/2024 1:35 PM Date of : 1940 Admit Type: Outpatient Age: 83 Gender: Male Note Status: Finalized Attending MD: Trisha Thompson MD, [id number] Procedure: Upper GI endoscopy Indications: Surveillance for malignancy due to personal history of Araujo's esophagus Providers: Trisha Thompson MD Referring Physician: Trisha Thompson MD (Referring MD) Medicines: Monitored Anesthesia Care Complications: No immediate complications. Requesting Provider: Procedure: Pre-Anesthesia Assessment: - Prior to the procedure, a History and Physical was performed, and patient medications and allergies were reviewed. The patient's tolerance of previous anesthesia was also reviewed. The risks and benefits of the procedure and the sedation options and risks were discussed with the patient. All questions were answered, and informed consent was obtained. Prior Anticoagulants: The patient has taken no anticoagulant or antiplatelet agents. ASA Grade Assessment: III - A patient with severe systemic disease. After reviewing the risks and benefits, the patient was deemed in satisfactory condition to undergo the procedure. After obtaining informed consent, the endoscope was passed under direct vision. Throughout the procedure, the patient's blood pressure, pulse, and oxygen saturations were monitored continuously. The Endoscope was introduced through the mouth, and advanced to the second part of duodenum. The upper GI endoscopy was accomplished with ease. The patient tolerated the procedure well. Moderate Sedation: MAC anesthesia was administered by the anesthesia team. Findings: The esophagus and gastroesophageal junction were examined with white light and narrow band imaging (NBI) from a forward view and retroflexed position. There were esophageal mucosal changes classified as Araujo's stage C2-M4 per [place] criteria. These changes involved the mucosa at the upper extent of the gastric folds (36 cm from the incisors) extending to the Z-line (32 cm from the incisors). Circumferential salmon-colored mucosa was present from 34 to 36 cm and four tongues of salmon-colored mucosa were present from 32 to 34 cm. The maximum longitudinal extent of these esophageal mucosal changes was 4 cm in length. Mucosa was biopsied with a cold forceps for histology in 4 quadrants at intervals of 1 cm at 32, 33, 34, 35 and 36 cm from the incisors. A total of 5 specimen bottles were sent to pathology. A 3 cm hiatal hernia was present. The entire examined stomach was normal. The first portion of the duodenum and second portion of the duodenum were normal. Impression: - Esophageal mucosal changes classified as Araujo's stage C2-M4 per [place] criteria. Biopsied. - 3 cm hiatal hernia. - Normal stomach. - Normal first portion of the duodenum and second portion of the duodenum. Estimated Blood Loss: Estimated blood loss was minimal. Recommendation: - Discharge patient to home (ambulatory). - Resume previous diet PRN. - Await pathology results. - Patient has a contact number available for emergencies. The signs and symptoms of potential delayed complications were discussed with the patient. Return to normal activities tomorrow. Written discharge instructions were provided to the patient. Procedure Code(s): --- Professional --- 78896 CPT copyright 2020 [employer]. All rights reserved. Attending Participation: I personally performed the entire procedure. Scope In: 1:51:59 PM Scope Out: 2:05:[address] Trisha Thompson MD, MPH Trisha Thompson MD 07/02/2024 2:10:30 PM This report has been signed electronically by Trisha Thompson MD Number of Addenda: 0 Note Initiated On: 07/02/2024 1:35 PM [facility] 07-02-2024 History and physical note HISTORY AND PHYSICAL Robby Vera, 83 year old male Current history and physical on file: No Is a new History and Physical required for today's visit? Yes Indication for procedure: Araujo's esophagus PROCEDURE(S) SCHEDULED FOR: EGD (Esophagogastroduodenoscopy) with or without biopsies, removal of polyps or lesions, dilation ( any means), treatment of bleeding ( any means), Barrx treatment of Armando's Esophagus, image tube placement or cryo therapy treatment based on clinical findings. BASELINE BEHAVIOR: Calm BASELINE ORIENTATION: A & O x3 All medications and allergies reviewed: Yes Skin Assessment: Warm dry mucus membranes pink Airway/Respiratory Assessment: Airway: visualization of the uvula- Yes Mouth: opening greater than 2 fingerbreadths- Yes Neck: full range of motion- Yes Breath sounds clear/equal- Yes Cardiac Assessment: Regular rate and rhythm without murmur Abdominal Assessment: Abdomen soft, non-tender, no masses or organomegaly. Sedation Plan: MAC Additional Comments: None Trisha Thompson II, MD [facility] 07-02-2024 History and physical note HISTORY AND PHYSICAL Robby Vera, 83 year old male Current history and physical on file: No Is a new History and Physical required for today's visit? Yes Indication for procedure: Araujo's esophagus PROCEDURE(S) SCHEDULED FOR: EGD (Esophagogastroduodenoscopy) with or without biopsies, removal of polyps or lesions, dilation ( any means), treatment of bleeding ( any means), Barrx treatment of Armando's Esophagus, image tube placement or cryo therapy treatment based on clinical findings. BASELINE BEHAVIOR: Calm BASELINE ORIENTATION: A & O x3 All medications and allergies reviewed: Yes Skin Assessment: Warm dry mucus membranes pink Airway/Respiratory Assessment: Airway: visualization of the uvula- Yes Mouth: opening greater than 2 fingerbreadths- Yes Neck: full range of motion- Yes Breath sounds clear/equal- Yes Cardiac Assessment: Regular rate and rhythm without murmur Abdominal Assessment: Abdomen soft, non-tender, no masses or organomegaly. Sedation Plan: MAC Additional Comments: None Trisha Thompson II, MD documented in this encounter [facility] 07-02-2024 Note Q3 Patient Name: Robby Vera Procedure Date: 07/02/2024 1:35 PM Date of : 1940 Admit Type: Outpatient Age: 83 Gender: Male Note Status: Finalized Attending MD: Trisha Thompson MD, [id number] Procedure: Upper GI endoscopy Indications: Surveillance for malignancy due to personal history of Araujo's esophagus Providers: Trisha Thompson MD Referring Physician: Trisha Thompson MD (Referring MD) Medicines: Monitored Anesthesia Care Complications: No immediate complications. Requesting Provider: Procedure: Pre-Anesthesia Assessment: - Prior to the procedure, a History and Physical was performed, and patient medications and allergies were reviewed. The patient's tolerance of previous anesthesia was also reviewed. The risks and benefits of the procedure and the sedation options and risks were discussed with the patient. All questions were answered, and informed consent was obtained. Prior Anticoagulants: The patient has taken no anticoagulant or antiplatelet agents. ASA Grade Assessment: III - A patient with severe systemic disease. After reviewing the risks and benefits, the patient was deemed in satisfactory condition to undergo the procedure. After obtaining informed consent, the endoscope was passed under direct vision. Throughout the procedure, the patient's blood pressure, pulse, and oxygen saturations were monitored continuously. The Endoscope was introduced through the mouth, and advanced to the second part of duodenum. The upper GI endoscopy was accomplished with ease. The patient tolerated the procedure well. Moderate Sedation: MAC anesthesia was administered by the anesthesia team. Findings: The esophagus and gastroesophageal junction were examined with white light and narrow band imaging (NBI) from a forward view and retroflexed position. There were esophageal mucosal changes classified as Araujo's stage C2-M4 per [place] criteria. These changes involved the mucosa at the upper extent of the gastric folds (36 cm from the incisors) extending to the Z-line (32 cm from the incisors). Circumferential salmon-colored mucosa was present from 34 to 36 cm and four tongues of salmon-colored mucosa were present from 32 to 34 cm. The maximum longitudinal extent of these esophageal mucosal changes was 4 cm in length. Mucosa was biopsied with a cold forceps for histology in 4 quadrants at intervals of 1 cm at 32, 33, 34, 35 and 36 cm from the incisors. A total of 5 specimen bottles were sent to pathology. A 3 cm hiatal hernia was present. The entire examined stomach was normal. The first portion of the duodenum and second portion of the duodenum were normal. Impression: - Esophageal mucosal changes classified as Araujo's stage C2-M4 per [place] criteria. Biopsied. - 3 cm hiatal hernia. - Normal stomach. - Normal first portion of the duodenum and second portion of the duodenum. Estimated Blood Loss: Estimated blood loss was minimal. Recommendation: - Discharge patient to home (ambulatory). - Resume previous diet PRN. - Await pathology results. - Patient has a contact number available for emergencies. The signs and symptoms of potential delayed complications were discussed with the patient. Return to normal activities tomorrow. Written discharge instructions were provided to the patient. Procedure Code(s): --- Professional --- 83226 CPT copyright 2020 [employer]. All rights reserved. Attending Participation: I personally performed the entire procedure. Scope In: 1:51:59 PM Scope Out: 2:05:[address] Trisha Thompson MD, MPH Trisha Thompson MD 07/02/2024 2:10:30 PM This report has been signed electronically by Trisha Thompson MD Number of Addenda: 0 Note Initiated On: 07/02/2024 1:35 PM [facility] 07-02-2024 Nurse Note PRE OP LEARNING ASSESSMENT PROCEDURE/SURGERY: GI PROCEDURES: EGD READINESS TO LEARN COGNITIVE ABILITY: Alert and oriented MOTIVATION TO LEARN: Interested FAMILY SUPPORT: High - Very involved in pt care PATIENT LEARNS BEST BY: Individual Instruction Written Instruction - Hand-outs Verbal Instruction FACTORS AFFECTING LEARNING: None PHYSICAL LIMITATIONS AFFECTING LEARNING: None Electronically Signed By: Ana Gautam RN In Department: GASTROENTEROLOGY [facility] 07-02-2024 Nurse Note PRE OP LEARNING ASSESSMENT PROCEDURE/SURGERY: GI PROCEDURES: EGD READINESS TO LEARN COGNITIVE ABILITY: Alert and oriented MOTIVATION TO LEARN: Interested FAMILY SUPPORT: High - Very involved in pt care PATIENT LEARNS BEST BY: Individual Instruction Written Instruction - Hand-outs Verbal Instruction FACTORS AFFECTING LEARNING: None PHYSICAL LIMITATIONS AFFECTING LEARNING: None Electronically Signed By: Ana Gautam RN In Department: GASTROENTEROLOGY documented in this encounter [facility] 06-23-2024 History and physical note Images from the original note were not included. 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 States never tolerated mask, doesn't use CPAP PONV (postoperative nausea and vomiting) Assessment: reports occasional nausea, never used scopolamine, but states IV meds usually work History of prostate cancer Assessment: s/p XRT Anxiety state Assessment: Stable on RX, denies concerning symptoms, continue DULoxetine (CYMBALTA) as prescribed Lumbar disc disorder Assessment: follows with pain management, on gabapentin and tramadol 4 x daily ANESTHESIA FINDINGS: Intubation History: No history of difficult intubation. No abnormal airway history Significant Anesthesia Considerations: potential postop nausea/vomiting Airway History: No history of difficult airway No abnormal airway history Maier Activity Status Index: METS: Walk indoors, such as around the house (1.75 METs) Do light work around the house, such as dusting or washing dishes (2.70 METs) Take care of self; that is eating, dressing, bathing, using the toilet (2.75 METs) Walk a block or two on level ground (2.75 METs) Do moderate work around the house, such as vacuuming, sweeping floors, or carrying in groceries (3.50 METs) Do yardwork, such as raking leaves, weeding, or pushing a power mower (4.50 METs) Have sexual relations (5.25 METs) Climb a flight of stairs or walk up a hill (5.50 METs) Cannot participate in moderate recreational activites, such as golf, bowling, dancing, doubles tennis, or throwing a baseball or football Cannot participate in strenuous sport, such as swimming, singles tennis, football, basketball, or skiing Cannot do heavy work around the house, such as scrubbing floors, lifting or moving heavy furniture Cannot run a short distance DASI Score: 28.7 Patient denies any chest pain or undue shortness of breath with the above physical activity. Clinical Frailty Scale: 3. Well, with treated comorbid disease STOP-Bang Score: STOP-Bang Score: (+ TAMMI- doesn't wear CPAP, couldn't find comfortable mask) [id number] Score: Age: >=75 Sex: male CHF history: No Stroke/TIA/thromboembolism history: No Vascular disease history: No Diabetes history: No [id number] Score: ARISCAT Score: Age: >80 Preoperative anemia: Yes Surgical incision: upper abdominal Duration of surgery: <2 hrs Emergency procedure: No ARISCAT Score: I - PHYSICAL EVALUATION AIRWAY Patient intubated: No. Tracheostomy tube not present Mallampati: III. TM distance: >3 FB. Neck ROM: full ROM without neurological symptoms. Mouth opening: adequate. Short neck: no. Thick neck: no Lip Bite Test: II DENTAL Dental findings: missing tooth/teeth. Additional comments: + crowns, + implants. II - ANESTHESIA PLAN Anesthetic Plan: other Anesthetic plan additional comments: *PACC/TCI - anesthesia choice. Beta Comfort Monitoring Plan Post Procedure Analgesic Plan Prepared for Surgery: optimally prepared for surgery. Per PACC guidelines no other testing is required CONSULTS: Patient does not require consults for optimization at this time Planned Anesthetic: other anesthesia choice This is a virtual visit using [facility] video visit. It required patient-provider interaction for the medical decision making as documented below. REASON FOR VISIT: Robby Vera is a 83 year old male who is scheduled for EGD Diagnostic * No surgery found * at the request of Dr. Hernandez consultation. My final recommendation will be communicated back to the requesting physician by way of shared medical record or letter. 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 CHIEF COMPLAINT: Pre-anesthesia optimization HPI: Robby Vera is a 83 year old male presenting for pre-anesthesia consultation. Pt has history of Araujo's, due for surveillance EGD. Above procedure recommended to manage symptoms. Procedure scheduled on 07[facility] This is a virtual visit. The visit was conducted using [facility] video visit. It required patient-provider interaction for the medical decision making as documented below. I have communicated my name and active licensure. The patient's identity and physical location were verified at the time of this visit. Either the patient or their legal hr representative has been informed of the risks and benefits of and alternatives to treatment through a remote evaluation and consents to proceed with the evaluation remotely. REVIEW OF SYSTEMS: General: No weight loss, malaise or fevers. Neurological: No history of TIA's, stroke, SPECIAL OFFICER tumor, impaired sensorium, hemiplegia, paraplegia or quadraplegia. No neurological symptoms or problems. Respiratory: Positive for: obstructive sleep apnea and CPAP/BiPAP noncompliant. Negative for: asthma, COPD, current cough, dyspnea, tobacco use and URI < 2 weeks. Cardiovascular: Positive for: hyperlipidemia Negative for: arrhythmia, atrial fibrillation, CAD, chest pain, DVT/PE, hypertension and murmur/valvular heart disease. GI: See HPI. Positive for: GERD (h/o hiatal hernia s/p Grace) Negative for: dysphagia, heartburn, irritable bowel syndrome, inflammatory bowel disease, liver disease and ETOH >2 drinks/day. : Positive for: nephrolithiasis (remote hx, s/p litho). Negative for: dysuria, hematuria, renal failure and urinary tract infection. Endocrine: No history of diabetes. Has not taken steroids within the past 30 days. No history of endocrinological symptoms or problems. Hematology: No history of bleeding or clotting disorder. Patient is not taking anti-coagulation or platelet medications. No history of hematological symptoms or problems. Oncology: + h/o prostate CA- s/p XRT, skin CA. No history of CA metastasis, chemo within 30 days, or radiotherapy within 90 days. No history of oncological symptoms or problems. Psych: Positive for: anxiety and depression. Musculoskeletal: Negative for joint pain or swelling, back pain or muscle pain. Negative for: back pain (h/o cervical fusion). Skin: Negative for lesions, rash and itching. Implanted Devices: No implanted devices. PAST MEDICAL HISTORY Diagnosis Date Cervical nerve root impingement sees Dr. Lott, pain management at [place] Colon polyp Depression Diverticulosis of colon (without mention of hemorrhage) Elevated PSA sees Dr Boswell History of prostate cancer 05/07/2024 Hyperlipidemia Kidney disease Low testosterone Obstructive sleep apnea Osteoarthrosis Personal history of colonic polyps PONV (postoperative nausea and vomiting) 05/07/2024 Sleep apnea Snoring PAST SURGICAL HISTORY Procedure [...] DX W/COLLJ SPEC WHEN PFRMD 02/25/2015 CYSTOSCOPY,+URETEROSCOPY 1994 stone removed EGD BIOPSY SING OR MULT 07/10/2022 Dr. Nestor Dahl; Araujo's, HH, gastritis NEUROPLASTY &/TRANSPOS MEDIAN NRV CARPAL [...] FAMILY HISTORY Problem Relation Age of Onset Coronary Artery Disease Mother early 60's Diabetes Mother None Father Coronary Artery Disease Brother Cancer Brother kidney Heart disease Brother Colon Cancer Other none Anesthesia Problems No Family History Social History Tobacco Use Smoking status: Never Smokeless tobacco: Never Substance Use Topics Alcohol use: No Drug use: No Prior to Admission medications as of 06/23/24 1355 Medication Sig Last Dose Taking amoxicillin (AMOXIL) 500 mg capsule 500 mg. Yes omeprazole (PRILOSEC) 40 mg capsule Take 1 capsule by mouth every afternoon. Yes DULoxetine (CYMBALTA) 30 mg capsule Take 1 capsule by mouth once daily. Yes gabapentin (NEURONTIN) 600 mg tablet Take 600 mg by mouth four times daily. Yes atorvastatin (LIPITOR) 40 mg tablet Take 1 tablet by mouth daily at bedtime. For cholesterol. Yes acetaminophen (TYLENOL ARTHRITIS PAIN ORAL) Take 2 tablets by mouth. Yes vitamin B complex (VITAMIN B-100 COMPLEX ORAL) Take 100 mg by mouth once daily. Yes Cholecalciferol, Vitamin D3, 25 mcg (1,000 unit) cap Take 1,000 Units by mouth once daily. Yes traMADol (ULTRAM) 50 mg tablet Take 50 mg by mouth every 6 hours as needed. Yes CPAP CHIN STRAP, USED WITH CPAP DEVICE No medication comments found. ALLERGIES No Known Allergies Objective PHYSICAL EXAM: (if completed, exam performed via video enabled technology) General: alert and oriented and healthy appearance. Pertinent negatives noted - not distressed. Skin: No rashes noted. HEENT: Normocephalic. EOM intact, no injection, visual acuity is grossly normal. External nose normal without rhinorrhea. Moist mucous membranes. Full neck ROM, no cervical LNs noted.. Cardiovascular: Patient appears pink and well hydrated/oxygenated on video. Capillary refill <3 seconds in bilateral upper extremities.. Respiratory: Breathing non-labored, equal chest rise with normal respiratory effort.. Abdomen: Deferred.. Extremities: No gross deformities of extremities.. Neurological: No obvious deficits.. PAIN ASSESSMENT: VITALS: Ht 5' 8[per pt[ (1.73m) Wt 180 lb (81.6kg) BMI 27.38 kg/(m^2). Diagnostic tests reviewed for today's visit: Lab Value Units Date High Low HB 13.4 g/dL 01/29/2024 17.0 13.0 HCT 40.6 % 01/29/2024 51.0 39.0 WBC 7.88 k/uL 01/29/2024 11.00 3.70 PLT 280 k/uL 01/29/2024 400 150 NA No results within date range. K No results within date range. GLUC No results within date range. BUN No results within date range. CREAT No results within date range. PTSEC No results within date range. INR No results within date range. APTT No results within date range. ALT No results within date range. AST No results within date range. TBILI No results within date range. TSH No results within date range. Lab Value Units Date High Low HCGQT No results within date range. UHCG No results within date range. HCG, BODY* No results within date range. Lab Value Units Date High Low ABORHD No results within date range. ABSCREEN No results within date range. Hemoglobin A1C (%) Date Value 01/29/2024 6.1 09/03/2023 5.8 02/01/2022 6.0 09/01/2021 6.1 01/06/2021 5.9 02/24/2018 6.0 07/18/2017 5.8 HBA1C, [place] (%) Date Value 06/25/2011 5.6 06/05/2010 5.8 07/21/2009 6.2 No results found for this or any previous visit (from the past 8760 hours). No results found for this or any previous visit (from the past 44076 hours). The Following Tests/Procedures Have Been Initiated: Orders Placed This Encounter amoxicillin (AMOXIL) 500 mg capsule Si mg. Instructions Given to Patient: Instructions located in the after visit summary. Patient given verbal and written preop instructions and voices comprehension and compliance. SIGNATURE: Jaky Pritchett PA-C PATIENT NAME: Robby Vera DATE: 06/23/2024 TIME: 8:34 AM PAGER/CONTACT #: I spent 20 minutes in the visit, with more than 50% of the total [id number] time of the visit in counseling / coordination of care. [facility] 06-23-2024 History and physical note Images from the original note were not included. 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 States never tolerated mask, doesn't use CPAP PONV (postoperative nausea and vomiting) Assessment: reports occasional nausea, never used scopolamine, but states IV meds usually work History of prostate cancer Assessment: s/p XRT Anxiety state Assessment: Stable on RX, denies concerning symptoms, continue DULoxetine (CYMBALTA) as prescribed Lumbar disc disorder Assessment: follows with pain management, on gabapentin and tramadol 4 x daily ANESTHESIA FINDINGS: Intubation History: No history of difficult intubation. No abnormal airway history Significant Anesthesia Considerations: potential postop nausea/vomiting Airway History: No history of difficult airway No abnormal airway history Maier Activity Status Index: METS: Walk indoors, such as around the house (1.75 METs) Do light work around the house, such as dusting or washing dishes (2.70 METs) Take care of self; that is eating, dressing, bathing, using the toilet (2.75 METs) Walk a block or two on level ground (2.75 METs) Do moderate work around the house, such as vacuuming, sweeping floors, or carrying in groceries (3.50 METs) Do yardwork, such as raking leaves, weeding, or pushing a power mower (4.50 METs) Have sexual relations (5.25 METs) Climb a flight of stairs or walk up a hill (5.50 METs) Cannot participate in moderate recreational activites, such as golf, bowling, dancing, doubles tennis, or throwing a baseball or football Cannot participate in strenuous sport, such as swimming, singles tennis, football, basketball, or skiing Cannot do heavy work around the house, such as scrubbing floors, lifting or moving heavy furniture Cannot run a short distance DASI Score: 28.7 Patient denies any chest pain or undue shortness of breath with the above physical activity. Clinical Frailty Scale: 3. Well, with treated comorbid disease STOP-Bang Score: STOP-Bang Score: (+ TAMMI- doesn't wear CPAP, couldn't find comfortable mask) [id number] Score: Age: >=75 Sex: male CHF history: No Stroke/TIA/thromboembolism history: No Vascular disease history: No Diabetes history: No [id number] Score: ARISCAT Score: Age: >80 Preoperative anemia: Yes Surgical incision: upper abdominal Duration of surgery: <2 hrs Emergency procedure: No ARISCAT Score: I - PHYSICAL EVALUATION AIRWAY Patient intubated: No. Tracheostomy tube not present Mallampati: III. TM distance: >3 FB. Neck ROM: full ROM without neurological symptoms. Mouth opening: adequate. Short neck: no. Thick neck: no Lip Bite Test: II DENTAL Dental findings: missing tooth/teeth. Additional comments: + crowns, + implants. II - ANESTHESIA PLAN Anesthetic Plan: other Anesthetic plan additional comments: *PACC/TCI - anesthesia choice. Beta Comfort Monitoring Plan Post Procedure Analgesic Plan Prepared for Surgery: optimally prepared for surgery. Per PACC guidelines no other testing is required CONSULTS: Patient does not require consults for optimization at this time Planned Anesthetic: other anesthesia choice This is a virtual visit using [facility] video visit. It required patient-provider interaction for the medical decision making as documented below. REASON FOR VISIT: Robby Vera is a 83 year old male who is scheduled for EGD Diagnostic * No surgery found * at the request of Dr. Hernandez consultation. My final recommendation will be communicated back to the requesting physician by way of shared medical record or letter. 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 CHIEF COMPLAINT: Pre-anesthesia optimization HPI: Robby Vera is a 83 year old male presenting for pre-anesthesia consultation. Pt has history of Araujo's, due for surveillance EGD. Above procedure recommended to manage symptoms. Procedure scheduled on 07/[facility]/27 [facility] This is a virtual visit. The visit was conducted using [facility] video visit. It required patient-provider interaction for the medical decision making as documented below. I have communicated my name and active licensure. The patient's identity and physical location were verified at the time of this visit. Either the patient or their legal hr representative has been informed of the risks and benefits of and alternatives to treatment through a remote evaluation and consents to proceed with the evaluation remotely. REVIEW OF SYSTEMS: General: No weight loss, malaise or fevers. Neurological: No history of TIA's, stroke, SPECIAL OFFICER tumor, impaired sensorium, hemiplegia, paraplegia or quadraplegia. No neurological symptoms or problems. Respiratory: Positive for: obstructive sleep apnea and CPAP/BiPAP noncompliant. Negative for: asthma, COPD, current cough, dyspnea, tobacco use and URI < 2 weeks. Cardiovascular: Positive for: hyperlipidemia Negative for: arrhythmia, atrial fibrillation, CAD, chest pain, DVT/PE, hypertension and murmur/valvular heart disease. GI: See HPI. Positive for: GERD (h/o hiatal hernia s/p Grace) Negative for: dysphagia, heartburn, irritable bowel syndrome, inflammatory bowel disease, liver disease and ETOH >2 drinks/day. : Positive for: nephrolithiasis (remote hx, s/p litho). Negative for: dysuria, hematuria, renal failure and urinary tract infection. Endocrine: No history of diabetes. Has not taken steroids within the past 30 days. No history of endocrinological symptoms or problems. Hematology: No history of bleeding or clotting disorder. Patient is not taking anti-coagulation or platelet medications. No history of hematological symptoms or problems. Oncology: + h/o prostate CA- s/p XRT, skin CA. No history of CA metastasis, chemo within 30 days, or radiotherapy within 90 days. No history of oncological symptoms or problems. Psych: Positive for: anxiety and depression. Musculoskeletal: Negative for joint pain or swelling, back pain or muscle pain. Negative for: back pain (h/o cervical fusion). Skin: Negative for lesions, rash and itching. Implanted Devices: No implanted devices. PAST MEDICAL HISTORY Diagnosis Date Cervical nerve root impingement sees Dr. Lott, pain management at [place] Colon polyp Depression Diverticulosis of colon (without mention of hemorrhage) Elevated PSA sees Dr Boswell History of prostate cancer 05/07/2024 Hyperlipidemia Kidney disease Low testosterone Obstructive sleep apnea Osteoarthrosis Personal history of colonic polyps PONV (postoperative nausea and vomiting) 05/07/2024 Sleep apnea Snoring PAST SURGICAL HISTORY Procedure [...] SING OR MULT 07/10/2022 Dr. Nestor Dahl; Araujo's, HH, gastritis NEUROPLASTY &/TRANSPOS MEDIAN NRV CARPAL [...] FAMILY HISTORY Problem Relation Age of Onset Coronary Artery Disease Mother early 60's Diabetes Mother None Father Coronary Artery Disease Brother Cancer Brother kidney Heart disease Brother Colon Cancer Other none Anesthesia Problems No Family History Social History Tobacco Use Smoking status: Never Smokeless tobacco: Never Substance Use Topics Alcohol use: No Drug use: No Prior to Admission medications as of 06/23/24 1355 Medication Sig Last Dose Taking amoxicillin (AMOXIL) 500 mg capsule 500 mg. Yes omeprazole (PRILOSEC) 40 mg capsule Take 1 capsule by mouth every afternoon. Yes DULoxetine (CYMBALTA) 30 mg capsule Take 1 capsule by mouth once daily. Yes gabapentin (NEURONTIN) 600 mg tablet Take 600 mg by mouth four times daily. Yes atorvastatin (LIPITOR) 40 mg tablet Take 1 tablet by mouth daily at bedtime. For cholesterol. Yes acetaminophen (TYLENOL ARTHRITIS PAIN ORAL) Take 2 tablets by mouth. Yes vitamin B complex (VITAMIN B-100 COMPLEX ORAL) Take 100 mg by mouth once daily. Yes Cholecalciferol, Vitamin D3, 25 mcg (1,000 unit) cap Take 1,000 Units by mouth once daily. Yes traMADol (ULTRAM) 50 mg tablet Take 50 mg by mouth every 6 hours as needed. Yes CPAP CHIN STRAP, USED WITH CPAP DEVICE No medication comments found. ALLERGIES No Known Allergies Objective PHYSICAL EXAM: (if completed, exam performed via video enabled technology) General: alert and oriented and healthy appearance. Pertinent negatives noted - not distressed. Skin: No rashes noted. HEENT: Normocephalic. EOM intact, no injection, visual acuity is grossly normal. External nose normal without rhinorrhea. Moist mucous membranes. Full neck ROM, no cervical LNs noted.. Cardiovascular: Patient appears pink and well hydrated/oxygenated on video. Capillary refill <3 seconds in bilateral upper extremities.. Respiratory: Breathing non-labored, equal chest rise with normal respiratory effort.. Abdomen: Deferred.. Extremities: No gross deformities of extremities.. Neurological: No obvious deficits.. PAIN ASSESSMENT: VITALS: Ht 5' 8[per pt[ (1.73m) Wt 180 lb (81.6kg) BMI 27.38 kg/(m^2). Diagnostic tests reviewed for today's visit: Lab Value Units Date High Low HB 13.4 g/dL 01/29/2024 17.0 13.0 HCT 40.6 % 01/29/2024 51.0 39.0 WBC 7.88 k/uL 01/29/2024 11.00 3.70 PLT 280 k/uL 01/29/2024 400 150 NA No results within date range. K No results within date range. GLUC No results within date range. BUN No results within date range. CREAT No results within date range. PTSEC No results within date range. INR No results within date range. APTT No results within date range. ALT No results within date range. AST No results within date range. TBILI No results within date range. TSH No results within date range. Lab Value Units Date High Low HCGQT No results within date range. UHCG No results within date range. HCG, BODY* No results within date range. Lab Value Units Date High Low ABORHD No results within date range. ABSCREEN No results within date range. Hemoglobin A1C (%) Date Value 01/29/2024 6.1 09/03/2023 5.8 02/01/2022 6.0 09/01/2021 6.1 01/06/2021 5.9 02/24/2018 6.0 07/18/2017 5.8 HBA1C, [place] (%) Date Value 06/25/2011 5.6 06/05/2010 5.8 07/21/2009 6.2 No results found for this or any previous visit (from the past 8760 hours). No results found for this or any previous visit (from the past 82181 hours). The Following Tests/Procedures Have Been Initiated: Orders Placed This Encounter amoxicillin (AMOXIL) 500 mg capsule Si mg. Instructions Given to Patient: Instructions located in the after visit summary. Patient given verbal and written preop instructions and voices comprehension and compliance. SIGNATURE: Jaky Pritchett PA-C PATIENT NAME: Robby Vera DATE: 06/23/2024 TIME: 8:34 AM PAGER/CONTACT #: I spent 20 minutes in the visit, with more than 50% of the total [id number] time of the visit in counseling / coordination of care. documented in this encounter [facility] 06-23-2024 Instructions Jaky Pritchett PA-C - 06/23/2024 1:56 PM EDT Images from the original note were not included. [facility] PATIENT PREOPERATIVE INSTRUCTIONS Trisha Thompson MD has scheduled you for your procedure at this surgery center: [facility] [place] Scheduling Office: [phone] --[address] [place] [id number]. Arrival Time for Surgery: - To obtain your arrival time for surgery, call your physician's office the day before your surgery. - If you have received different instructions about finding out your arrival time from your surgeon, please follow those instructions. - If your surgery is scheduled for Saturday, call the Saturday before. Your surgeon s rehabilitation aide/scheduler will tell you what time to call the office. - If you have not reached the departmental rehabilitation aide/scheduler by 5 P.M., call [phone] after 5 P.M. the day before your surgery. Please be aware that emergency situations arise, which may delay or change your surgical time. If this happens, we will notify you as soon as possible and regret any inconvenience. Please read below carefully for your personalized instructions. Dietary Restrictions: - No solid food after midnight. - You may have 12 ounces of clear liquids (water, clear juices such as apple juice or gatorade, carbonated beverages, clear tea, black coffee, jello) until 2 hours before scheduled arrival at facility. - Do not drink any alcohol after midnight the night before your surgery. - No Milk/Dairy - No Pulp Juices Medications: Unless instructed differently below, stay on all of your medications until your surgery. Approved medications to take the morning of surgery with a sip of water: DULoxetine (CYMBALTA), gabapentin (NEURONTIN), tramadol if needed If you are currently using a [id number] injectable or oral medication for diabetes or weight loss such as Dulaglutide (Trulicity), Exenatide (Byetta, Bydureon), Liraglutide (Victoza, Saxenda), Semaglutide (Ozempic, Wegovy, Rybelsus), or Tirzepatide (Mounjaro), the medicine should be stopped at least 7 days before surgery. These medicines can cause food to remain in your stomach for a very long time and increase the risks from surgery and anesthesia. Not stopping the medication for a long enough time may result in your surgery being rescheduled. If you start any new medications after today's visit, please contact the surgeon's office. Blood Thinning Medications: - Stop NSAIDS (Ibuprofen, Advil, Aleve, Motrin, Celebrex, Mobic, etc.) 7 days before surgery, as directed by your surgeon. - Stop Aspirin 7 days before surgery, as directed by your surgeon. - Stop herbals and dietary supplements 7 days before surgery. Ok to continue vitamins, but hold day of surgery. - You may take Tylenol (Acetaminophen) or any of your pain medications that do not contain aspirin or NSAIDS as needed. IF YOUR SURGEON HAS PROVIDED YOU WITH MORE RESTRICTIVE INSTRUCTIONS REGARDING MEDICATIONS OR DIET, THEN PLEASE FOLLOW THOSE. Important Reminders: - Candy, mints, and tobacco products are NOT permitted the morning of surgery. - Hearing aids, dentures and glasses may be worn the morning of surgery. - NO jewelry, body piercings, makeup, hairpins or contacts are to be worn the day of surgery. If you develop symptoms such as a fever, cold, or flu, or have other changes to your health within TWO DAYS of scheduled surgery or the morning of surgery, please contact the surgery center above. Personal Belongings: -Please have photo ID and insurance cards. -If you do not have a copy of advance directives on file with us, please bring a copy with you on the day of surgery. - Leave ALL valuables and money at home or with family members. For Outpatient Procedures: - YOU MUST HAVE A RESPONSIBLE COLD PATCHER TAKE YOU HOME. A INSTRUCTOR SUBSTITUTE COSMETOLOGY OR SOAKER HELPER CANNOT BE MADE A RESPONSIBLE COLD PATCHER. - We recommend that a responsible person stays with you overnight to take care of you. - You cannot stay in a hotel alone after outpatient surgery. You will not be permitted to have your surgery, if you do not have someone to take care of you. If you already have an Advance Directive, please fax a copy to [phone] or email to for it to be added to your chart. If you do not have an Advance Directive, you can find the appropriate form and more information at [email or web address]. We recommend that you complete the Advance Directive form found on the website and bring it with you the day of your surgery. It can be witnessed and scanned into your chart that day. Jaky Pritchett PA-C [facility] documented in this encounter [facility] 06-22-2024 Telephone encounter Note Patient was scheduled for virtual PACC appt at 7:20 pm today. Patient did not check in for visit. Did not complete regulatory requirements. Patient did not log in. Please call patient to reschedule. Jade Leyva APRN.JANITORIAL CLEANER [facility] Work Phone: 06-22-2024 Miscellaneous Notes Patient was scheduled for virtual PACC appt at 7:20 pm today. Patient did not check in for visit. Did not complete regulatory requirements. Patient did not log in. Please call patient to reschedule. Jade Leyva APRN.JANITORIAL CLEANER documented in this encounter [facility] 05-07-2024 Instructions Kelly Brandt PA-C - 05/07/2024 10:47 AM EST Images from the original note were not included. [facility] PATIENT PREOPERATIVE INSTRUCTIONS No ref. provider found has scheduled you for your procedure at this surgery center: [facility] Scheduling Office: [phone] --[address] [place] [address]. Please read below carefully for your personalized instructions. Dietary Restrictions: - No solid food after midnight. - You may have 12 ounces of clear liquids (water, clear juices such as apple juice or gatorade, carbonated beverages, clear tea, black coffee, jello) until 2 hours before scheduled arrival at facility. Medications: Unless instructed differently below, stay on all of your medications until your surgery. If you start any new medications after today's visit, please contact your surgeon. Pre-Surgery Med Instructions Medication Instructions omeprazole (PRILOSEC) 40 mg capsule Take the day of surgery with a small sip of water DULoxetine (CYMBALTA) 30 mg capsule Take the day of surgery with a small sip of water gabapentin (NEURONTIN) 600 mg tablet Take the day of surgery with a small sip of water atorvastatin (LIPITOR) 40 mg tablet Take the day of surgery with a small sip of water vitamin B complex (VITAMIN B-100 COMPLEX ORAL) Do not take the day of surgery Cholecalciferol, Vitamin D3, 25 mcg (1,000 unit) cap Do not take the day of surgery traMADol (ULTRAM) 50 mg tablet Take the day of surgery with a small sip of water if needed. If you take any medications for erectile dysfunction-Cialis (Tadalafil), Levitra, Staxyn (Vardenafil) Viagra (Sildenenafil please do not take these for 48 hours before surgery. If you start any new medications after today's visit, please contact the surgeon's office. If you are currently using a [id number] injectable or oral medication for diabetes or weight loss such as Dulaglutide (Trulicity), Exenatide (Byetta, Bydureon), Liraglutide (Victoza, Saxenda), Semaglutide (Ozempic, Wegovy, Rybelsus), or Tirzepatide (Mounjaro), the medicine should be stopped at least 7 days before surgery. These medicines can cause food to remain in your stomach for a very long time and increase the risks from surgery and anesthesia. Not stopping the medication for a long enough time may result in your surgery being rescheduled. Blood Thinning Medications: - Stop NSAIDS (Ibuprofen, Advil, Aleve, Motrin, Celebrex, Mobic, etc.) 7 days before surgery, as directed by your surgeon. - Stop Aspirin 7 days before surgery, as directed by your surgeon. - Stop ALL herbal and dietary supplements 7 days before surgery. - You may take Tylenol (Acetaminophen) or any of your pain medications that do not contain aspirin or NSAIDS as needed. Important Reminders: - Candy, mints, and tobacco products are NOT permitted the morning of surgery. - Hearing aids, dentures and glasses may be worn the morning of surgery. - NO jewelry, body piercings, makeup, hairpins or contacts are to be worn the day of surgery. If you develop symptoms such as a fever, cold, or flu, or have other changes to your health within TWO DAYS of scheduled surgery or the morning of surgery, please contact the surgery center above. Personal Belongings: -Please have photo ID and insurance cards. -If you do not have a copy of advance directives on file with us, please bring a copy with you on the day of surgery. - Leave ALL valuables and money at home or with family members. - Please bring high-quality footwear, such as sneakers, to the hospital for ambulating post-surgery. For Outpatient Procedures: - YOU MUST HAVE A RESPONSIBLE COLD PATCHER TAKE YOU HOME. A INSTRUCTOR SUBSTITUTE COSMETOLOGY OR SOAKER HELPER CANNOT BE MADE A RESPONSIBLE COLD PATCHER. - We recommend that a responsible person stays with you overnight to take care of you. - You cannot stay in a hotel alone after outpatient surgery. You will not be permitted to have your surgery, if you do not have someone to take care of you. Arrival Time for Surgery: - To obtain your arrival time for surgery, call your physician's office the day before your surgery. - If you have received different instructions about finding out your arrival time from your surgeon, please follow those instructions. - If your surgery is scheduled for Saturday, call the Saturday before. Your surgeon s rehabilitation aide/scheduler will tell you what time to call the office. - If you have not reached the departmental rehabilitation aide/scheduler by 5 P.M., call [phone] after 5 P.M. the day before your surgery. Please be aware that emergency situations arise, which may delay or change your surgical time. If this happens, we will notify you as soon as possible and regret any inconvenience. If you already have an Advance Directive, please fax a copy to [phone] or email to for it to be added to your chart. If you do not have an Advance Directive, you can find the appropriate form and more information at [email or web address]. We recommend that you complete the Advance Directive form found on the website and bring it with you the day of your surgery. It can be witnessed and scanned into your chart that day. Kelly Brandt PA-C documented in this encounter [facility] 05-07-2024 History and physical note Images from the original note were not included. [facility] HISTORY AND PHYSICAL EXAMINATION SERVICE DATE: 05/06/2024 SERVICE TIME: 11:20 AM PRIMARY CARE PHYSICIAN: Rom Newell MD Assessment Patient has the following medical conditions which may affect gricelda-operative course: PONV (postoperative nausea and vomiting) Pt reported. Obstructive sleep apnea (adult) (pediatric) TAMMI does not use CPAP. History of prostate cancer S/p radiation. 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 EGD planned. [place]ier Activity Status Index: METS: Walk indoors, such as around the house (1.75 METs) Do light work around the house, such as dusting or washing dishes (2.70 METs) Take care of self; that is eating, dressing, bathing, using the toilet (2.75 METs) Walk a block or two on level ground (2.75 METs) Do moderate work around the house, such as vacuuming, sweeping floors, or carrying in groceries (3.50 METs) Do yardwork, such as raking leaves, weeding, or pushing a power mower (4.50 METs) Climb a flight of stairs or walk up a hill (5.50 METs) DASI Score: 23.45 Patient denies any chest pain or undue shortness of breath with the above physical activity. Clinical Frailty Scale: 3. Well, with treated comorbid disease STOP-Bang Score: STOP-Bang Score: (TAMMI does not use CPAP. ) ANESTHESIA FINDINGS: Intubation History: No history of difficult intubation Significant Anesthesia Considerations: potential postop nausea/vomiting Airway History: No history of difficult airway I - PHYSICAL EVALUATION AIRWAY Patient intubated: No. Tracheostomy tube not present Mallampati: III. Neck ROM: full ROM without neurological symptoms. Mouth opening: adequate. Short neck: no. Thick neck: no Lip Bite Test: I DENTAL Dental findings: teeth intact. Additional comments: Crowns, implants . II - ANESTHESIA PLAN Anesthetic plan additional comments: *PACC/TCI - anesthesia choice. Beta Comfort Monitoring Plan Post Procedure Analgesic Plan Prepared for Surgery: optimally prepared for surgery. CONSULTS: Patient does not require consults for optimization at this time Planned Anesthetic: anesthesia choice The Following Tests/Procedures Have Been Initiated: Labs and EKG not indicated per PACC protocol. This is a virtual visit using [employer] video visit. It required patient-provider interaction for the medical decision making as documented below. REASON FOR VISIT: Robby Vera is a 83 year old male who is scheduled for EGD at the request of Dr. Trisha Thompsonfor consultation. My final recommendation will be communicated back to the requesting physician by way of shared medical record or letter. Subjective The patient has the following: COVID-19 Immunization Status Postponed - Covid-19 Vaccine () Postponed until 01/28/2025 01/29/2024 Postponed until 01/28/2025 by Rom Newell MD (Declined at this time) 09/17/2023 Postponed until 09/16/2024 by Rom Newell MD (Declined at this time) 02/22/2023 Imm Admin: COVID-19 vaccine, age 12+ yr, season ([place]) Only the first 3 history entries have been loaded, but more history exists. CHIEF COMPLAINT: Pre-op evalution HPI: Patient is a 83 year old year old male who is scheduled for above procedure on 05/21/24. Patient has Araujo's esophagus and presents for a surveillance EGD. His GERD symptoms are well controlled on omeprazole. Denies any fevers, chills, nausea, vomiting, SOB or chest pain. This is a virtual visit. The visit was conducted using [facility] video visit. It required patient-provider interaction for the medical decision making as documented below. I have communicated my name and active licensure. The patient's identity and physical location were verified at the time of this visit. Either the patient or their legal hr representative has been informed of the risks and benefits of and alternatives to treatment through a remote evaluation and consents to proceed with the evaluation remotely. REVIEW OF SYSTEMS: General: Negative for: weight loss >10% of BW in last 6 months, malaise and fever. Neurological: No history of TIA's, stroke, SPECIAL OFFICER tumor, impaired sensorium, hemiplegia, paraplegia or quadraplegia. No neurological symptoms or problems. Negative for: delirium, dementia, seizures, TIA and strokes. Respiratory: Positive for: obstructive sleep apnea and CPAP/BiPAP noncompliant. Negative for: asthma, COPD, current cough, dyspnea and pneumonia within 6 weeks. Cardiovascular: Negative for: angina, arrhythmia, CAD, chest pain, CHF, DVT/PE, hypertension and murmur/valvular heart disease. GI: See HPI. Positive for: GERD Negative for: abdominal pain, hepatitis, inflammatory bowel disease, liver disease, nausea, vomiting and ETOH >2 drinks/day. : Negative for: BPH, dysuria, hematuria, nephrolithiasis and renal failure. Endocrine: Negative for: diabetes mellitus, hyperthyroidism, hypothyroidism and steroid for chronic problem. Hematology: Negative for: anemia and chronic anti-coagulation/platelet meds. Oncology: Prostate cancer Skin cancer Psych: Positive for: anxiety. Musculoskeletal: Negative for joint pain or swelling, back pain or muscle pain. Skin: Negative for lesions, rash and itching. PAST MEDICAL HISTORY Diagnosis Date Cervical nerve root impingement sees Dr. Lott, pain management at [place] Colon polyp Depression Diverticulosis of colon (without mention of hemorrhage) Elevated PSA sees Dr Boswell History of prostate cancer 05/07/2024 Hyperlipidemia Kidney disease Low testosterone Obstructive sleep apnea Osteoarthrosis Personal history of colonic polyps PONV (postoperative nausea and vomiting) 05/07/2024 Sleep apnea Snoring PAST SURGICAL HISTORY Procedure [...] SING OR MULT 07/10/2022 Dr. Nestor Dahl; Araujo's, HH, gastritis NEUROPLASTY &/TRANSPOS MEDIAN NRV CARPAL [...] FAMILY HISTORY Problem Relation Age of Onset Coronary Artery Disease Mother early 60's Diabetes Mother None Father Coronary Artery Disease Brother Cancer Brother kidney Heart disease Brother Colon Cancer Other none Anesthesia No Family History Social History Tobacco Use Smoking status: Never Smokeless tobacco: Never Substance Use Topics Alcohol use: No Drug use: No Prior to Admission medications as of 05/07/24 1038 Medication Sig Last Dose Taking omeprazole (PRILOSEC) 40 mg capsule Take 1 capsule by mouth every afternoon. Taking Yes DULoxetine (CYMBALTA) 30 mg capsule Take 1 capsule by mouth once daily. Taking Yes gabapentin (NEURONTIN) 600 mg tablet Take 600 mg by mouth four times daily. Taking Yes atorvastatin (LIPITOR) 40 mg tablet Take 1 tablet by mouth daily at bedtime. For cholesterol. Taking Yes vitamin B complex (VITAMIN B-100 COMPLEX ORAL) Take 100 mg by mouth once daily. Taking Yes Cholecalciferol, Vitamin D3, 25 mcg (1,000 unit) cap Take 1,000 Units by mouth once daily. Taking Yes traMADol (ULTRAM) 50 mg tablet Take 50 mg by mouth every 6 hours as needed. Taking Yes acetaminophen (TYLENOL ARTHRITIS PAIN ORAL) Take 2 tablets by mouth. CPAP CHIN STRAP, USED WITH CPAP DEVICE No medication comments found. ALLERGIES No Known Allergies Objective PHYSICAL EXAM: (if completed, exam performed via video enabled technology) General: alert and oriented and healthy appearance. Pertinent negatives noted - not distressed. Skin: No rash noted. HEENT: Normocephalic head, no abnormality or lesion noted Eyes with no injection and visual acuity is grossly normal. Cardiovascular: Self palpated radial pulse, regular when counted aloud by patient's daughter . Respiratory: breathing non-labored. Equal chest rise with normal respiratory effort . Abdomen: Unable to examine. Extremities: No obvious deformity. Neurological: No obvious defect. PAIN ASSESSMENT: VITALS: Pulse 66[Pt reported[ Ht 5' 8[Pt reported[ (1.73m) Wt 180 lb (81.6kg) BMI 27.38 kg/(m^2). Diagnostic tests reviewed for today's visit: Lab Value Units Date High Low HB 13.4 g/dL 01/29/2024 17.0 13.0 HCT 40.6 % 01/29/2024 51.0 39.0 WBC 7.88 k/uL 01/29/2024 11.00 3.70 PLT 280 k/uL 01/29/2024 400 150 NA No results within date range. K No results within date range. GLUC No results within date range. BUN No results within date range. CREAT No results within date range. PTSEC No results within date range. INR No results within date range. APTT No results within date range. ALT No results within date range. AST No results within date range. TBILI No results within date range. TSH No results within date range. Lab Value Units Date High Low HCGQT No results within date range. UHCG No results within date range. HCG, BODY* No results within date range. Lab Value Units Date High Low ABORHD No results within date range. ABSCREEN No results within date range. Hemoglobin A1C (%) Date Value 01/29/2024 6.1 09/03/2023 5.8 02/01/2022 6.0 09/01/2021 6.1 01/06/2021 5.9 02/24/2018 6.0 07/18/2017 5.8 HBA1C, [place] (%) Date Value 06/25/2011 5.6 06/05/2010 5.8 07/21/2009 6.2 No results found for this or any previous visit (from the past 8760 hour(s)). No results found for this or any previous visit (from the past 92177 hour(s)). Instructions Given to Patient: Instructions located in the after visit summary. Patient given verbal and written preop instructions and voices comprehension and compliance. SIGNATURE: Kelly Brandt PA-C PATIENT NAME: Robby Vera DATE: May 06, 2024 TIME: 2:22 PM PAGER/CONTACT #: [facility] 05-07-2024 History and physical note Images from the original note were not included. [facility] HISTORY AND PHYSICAL EXAMINATION SERVICE DATE: 05/06/2024 SERVICE TIME: 11:20 AM PRIMARY CARE PHYSICIAN: Rom Newell MD Assessment Patient has the following medical conditions which may affect gricelda-operative course: PONV (postoperative nausea and vomiting) Pt reported. Obstructive sleep apnea (adult) (pediatric) TAMMI does not use CPAP. History of prostate cancer S/p radiation. 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 EGD planned. Maier Activity Status Index: METS: Walk indoors, such as around the house (1.75 METs) Do light work around the house, such as dusting or washing dishes (2.70 METs) Take care of self; that is eating, dressing, bathing, using the toilet (2.75 METs) Walk a block or two on level ground (2.75 METs) Do moderate work around the house, such as vacuuming, sweeping floors, or carrying in groceries (3.50 METs) Do yardwork, such as raking leaves, weeding, or pushing a power mower (4.50 METs) Climb a flight of stairs or walk up a hill (5.50 METs) DASI Score: 23.45 Patient denies any chest pain or undue shortness of breath with the above physical activity. Clinical Frailty Scale: 3. Well, with treated comorbid disease STOP-Bang Score: STOP-Bang Score: (TAMMI does not use CPAP. ) ANESTHESIA FINDINGS: Intubation History: No history of difficult intubation Significant Anesthesia Considerations: potential postop nausea/vomiting Airway History: No history of difficult airway I - PHYSICAL EVALUATION AIRWAY Patient intubated: No. Tracheostomy tube not present Mallampati: III. Neck ROM: full ROM without neurological symptoms. Mouth opening: adequate. Short neck: no. Thick neck: no Lip Bite Test: I DENTAL Dental findings: teeth intact. Additional comments: Crowns, implants . II - ANESTHESIA PLAN Anesthetic plan additional comments: *PACC/TCI - anesthesia choice. Beta Comfort Monitoring Plan Post Procedure Analgesic Plan Prepared for Surgery: optimally prepared for surgery. CONSULTS: Patient does not require consults for optimization at this time Planned Anesthetic: anesthesia choice The Following Tests/Procedures Have Been Initiated: Labs and EKG not indicated per PACC protocol. This is a virtual visit using [employer] video visit. It required patient-provider interaction for the medical decision making as documented below. REASON FOR VISIT: Robby Vera is a 83 year old male who is scheduled for EGD at the request of Dr. Trisha Thompsonfor consultation. My final recommendation will be communicated back to the requesting physician by way of shared medical record or letter. Subjective The patient has the following: COVID-19 Immunization Status Postponed - Covid-19 Vaccine () Postponed until 01/28/2025 01/29/2024 Postponed until 01/28/2025 by Rom Newell MD (Declined at this time) 09/17/2023 Postponed until 09/16/2024 by Rom Newell MD (Declined at this time) 02/22/2023 Imm Admin: COVID-19 vaccine, age 12+ yr, ([place]) Only the first 3 history entries have been loaded, but more history exists. CHIEF COMPLAINT: Pre-op evalution HPI: Patient is a 83 year old year old male who is scheduled for above procedure on 05/21/24. Patient has Araujo's esophagus and presents for a surveillance EGD. His GERD symptoms are well controlled on omeprazole. Denies any fevers, chills, nausea, vomiting, SOB or chest pain. This is a virtual visit. The visit was conducted using [facility] video visit. It required patient-provider interaction for the medical decision making as documented below. I have communicated my name and active licensure. The patient's identity and physical location were verified at the time of this visit. Either the patient or their legal hr representative has been informed of the risks and benefits of and alternatives to treatment through a remote evaluation and consents to proceed with the evaluation remotely. REVIEW OF SYSTEMS: General: Negative for: weight loss >10% of BW in last 6 months, malaise and fever. Neurological: No history of TIA's, stroke, SPECIAL OFFICER tumor, impaired sensorium, hemiplegia, paraplegia or quadraplegia. No neurological symptoms or problems. Negative for: delirium, dementia, seizures, TIA and strokes. Respiratory: Positive for: obstructive sleep apnea and CPAP/BiPAP noncompliant. Negative for: asthma, COPD, current cough, dyspnea and pneumonia within 6 weeks. Cardiovascular: Negative for: angina, arrhythmia, CAD, chest pain, CHF, DVT/PE, hypertension and murmur/valvular heart disease. GI: See HPI. Positive for: GERD Negative for: abdominal pain, hepatitis, inflammatory bowel disease, liver disease, nausea, vomiting and ETOH >2 drinks/day. : Negative for: BPH, dysuria, hematuria, nephrolithiasis and renal failure. Endocrine: Negative for: diabetes mellitus, hyperthyroidism, hypothyroidism and steroid for chronic problem. Hematology: Negative for: anemia and chronic anti-coagulation/platelet meds. Oncology: Prostate cancer Skin cancer Psych: Positive for: anxiety. Musculoskeletal: Negative for joint pain or swelling, back pain or muscle pain. Skin: Negative for lesions, rash and itching. PAST MEDICAL HISTORY Diagnosis Date Cervical nerve root impingement sees Dr. Lott, pain management at [place] Colon polyp Depression Diverticulosis of colon (without mention of hemorrhage) Elevated PSA sees Dr Boswell History of prostate cancer 05/07/2024 Hyperlipidemia Kidney disease Low testosterone Obstructive sleep apnea Osteoarthrosis Personal history of colonic polyps PONV (postoperative nausea and vomiting) 05/07/2024 Sleep apnea Snoring PAST SURGICAL HISTORY Procedure [...] SING OR MULT 07/10/2022 Dr. Nestor Dahl; Araujo's, HH, gastritis NEUROPLASTY &/TRANSPOS MEDIAN NRV CARPAL [...] FAMILY HISTORY Problem Relation Age of Onset Coronary Artery Disease Mother early 60's Diabetes Mother None Father Coronary Artery Disease Brother Cancer Brother kidney Heart disease Brother Colon Cancer Other none Anesthesia No Family History Social History Tobacco Use Smoking status: Never Smokeless tobacco: Never Substance Use Topics Alcohol use: No Drug use: No Prior to Admission medications as of 05/07/24 1038 Medication Sig Last Dose Taking omeprazole (PRILOSEC) 40 mg capsule Take 1 capsule by mouth every afternoon. Taking Yes DULoxetine (CYMBALTA) 30 mg capsule Take 1 capsule by mouth once daily. Taking Yes gabapentin (NEURONTIN) 600 mg tablet Take 600 mg by mouth four times daily. Taking Yes atorvastatin (LIPITOR) 40 mg tablet Take 1 tablet by mouth daily at bedtime. For cholesterol. Taking Yes vitamin B complex (VITAMIN B-100 COMPLEX ORAL) Take 100 mg by mouth once daily. Taking Yes Cholecalciferol, Vitamin D3, 25 mcg (1,000 unit) cap Take 1,000 Units by mouth once daily. Taking Yes traMADol (ULTRAM) 50 mg tablet Take 50 mg by mouth every 6 hours as needed. Taking Yes acetaminophen (TYLENOL ARTHRITIS PAIN ORAL) Take 2 tablets by mouth. CPAP CHIN STRAP, USED WITH CPAP DEVICE No medication comments found. ALLERGIES No Known Allergies Objective PHYSICAL EXAM: (if completed, exam performed via video enabled technology) General: alert and oriented and healthy appearance. Pertinent negatives noted - not distressed. Skin: No rash noted. HEENT: Normocephalic head, no abnormality or lesion noted Eyes with no injection and visual acuity is grossly normal. Cardiovascular: Self palpated radial pulse, regular when counted aloud by patient's daughter . Respiratory: breathing non-labored. Equal chest rise with normal respiratory effort . Abdomen: Unable to examine. Extremities: No obvious deformity. Neurological: No obvious defect. PAIN ASSESSMENT: VITALS: Pulse 66[Pt reported[ Ht 5' 8[Pt reported[ (1.73m) Wt 180 lb (81.6kg) BMI 27.38 kg/(m^2). Diagnostic tests reviewed for today's visit: Lab Value Units Date High Low HB 13.4 g/dL 01/29/2024 17.0 13.0 HCT 40.6 % 01/29/2024 51.0 39.0 WBC 7.88 k/uL 01/29/2024 11.00 3.70 PLT 280 k/uL 01/29/2024 400 150 NA No results within date range. K No results within date range. GLUC No results within date range. BUN No results within date range. CREAT No results within date range. PTSEC No results within date range. INR No results within date range. APTT No results within date range. ALT No results within date range. AST No results within date range. TBILI No results within date range. TSH No results within date range. Lab Value Units Date High Low HCGQT No results within date range. UHCG No results within date range. HCG, BODY* No results within date range. Lab Value Units Date High Low ABORHD No results within date range. ABSCREEN No results within date range. Hemoglobin A1C (%) Date Value 01/29/2024 6.1 09/03/2023 5.8 02/01/2022 6.0 09/01/2021 6.1 01/06/2021 5.9 02/24/2018 6.0 07/18/2017 5.8 HBA1C, Kelsey (%) Date Value 06/25/2011 5.6 06/05/2010 5.8 07/21/2009 6.2 No results found for this or any previous visit (from the past 8760 hour(s)). No results found for this or any previous visit (from the past 92198 hour(s)). Instructions Given to Patient: Instructions located in the after visit summary. Patient given verbal and written preop instructions and voices comprehension and compliance. SIGNATURE: Kelly Brandt PA-C PATIENT NAME: Robby Vera DATE: May 06, 2024 TIME: 2:22 PM PAGER/CONTACT #: documented in this encounter [facility] 04-27-2024 Telephone encounter Note Patient calls for refill on medication. Patient states that Dr. Dahl had previously ordered this and states that Dr. Newell had said that he would order. Called and spoke with [employer] at [facility]. Dr. Joe Dahl was the last to order medication and medication prescription is . The patient has been identified by name and date of : Yes Caregiver verified no other encounters exist for this prescription request: Yes Caregiver confirmed with patient/requestor that no other refills are due, in the near future, with this provider at this time: Yes The last office visit in the department: 03/02/2024 Does the patient have a future office visit with this provider/department: Yes 08/05/2024 Requested Prescriptions Pending Prescriptions Disp Refills omeprazole (PRILOSEC) 40 mg capsule 30 capsule 11 Sig: Take 1 capsule by mouth every afternoon. Susana Montenegro RN April 27, 2024 9:17 AM [facility] 04-27-2024 Miscellaneous Notes Patient calls for refill on medication. Patient states that Dr. Dahl had previously ordered this and states that Dr. Newell had said that he would order. Called and spoke with Al[facility] at [facility]. Dr. Joe Dahl was the last to order medication and medication prescription is . The patient has been identified by name and date of : Yes Caregiver verified no other encounters exist for this prescription request: Yes Caregiver confirmed with patient/requestor that no other refills are due, in the near future, with this provider at this time: Yes The last office visit in the department: 03/02/2024 Does the patient have a future office visit with this provider/department: Yes 08/05/2024 Requested Prescriptions Pending Prescriptions Disp Refills omeprazole (PRILOSEC) 40 mg capsule 30 capsule 11 Sig: Take 1 capsule by mouth every afternoon. Susana Montenegro RN April 27, 2024 9:17 AM documented in this encounter [facility] 04-22-2024 History of Presen t illness Narrative VIRTUAL VISIT PROGRESS NOTE This is a virtual visit using [employer] Video Visit. It required patient-provider interaction for the medical decision making as documented below. I have communicated my name and active licensure. The patient's identity and physical location were verified at the time of this visit. Either the patient or their legal hr representative has been informed of the risks and benefits of -- and alternatives to -- treatment through a remote evaluation and consents to proceed with the evaluation remotely. Robby Vera is a 83-year-old male who is being seen in follow up. 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 At the time, an upper endoscopy was performed on July 10 which revealed A 6 centimeter segment of Araujo's esophagus as well as a medium sized hiatal hernia. Biopsies were reportedly indefinite for dysplasia. We attempted to obtain the biopsies for results but were not successful. Presently discussion with patient and family Orders placed for EGD at [facility] with Dr. Thompson No pulmonary or Cardiac issues No dysphagia Takes omeprazole daily - GERD under control per patient Past medical history: prostate cancer, hearing loss, depression, anxiety, arthritis, neuropathy, gastroesophageal reflux disease, colonic polyps, sleep apnea, Past surgical history: Maximino fundoplication, rotator cuff surgery, right knee surgery, carpal tunnel repair, prostate surgery, fusion of cervical spine, Destini cystectomy, Medications: vitamin B complex with vitamin C, atorvastatin, vitamin D3, tramadol, gabapentin, acetaminophen, Cymbalta, Zoloft, omeprazole 40 mg. No known drug allergies Social history: no tobacco or alcohol HISTORY REVIEWED (electronic chart updated): PAST MEDICAL HISTORY Diagnosis Date Cervical nerve root impingement sees Dr. Lott, pain management at [place] Colon polyp Depression Diverticulosis of colon (without [...] SING OR MULT 07/10/2022 Dr. Nestor Dahl; Araujo's, HH, gastritis NEUROPLASTY &/TRANSPOS MEDIAN NRV CARPAL [...] Topics Alcohol use: No Drug use: No Current Outpatient Medications Medication Sig DULoxetine (CYMBALTA) 30 mg capsule Take 1 capsule by mouth once daily. gabapentin (NEURONTIN) 600 mg tablet Take 600 mg by mouth four times daily. omeprazole (PRILOSEC) 40 mg capsule Take 1 capsule by mouth every afternoon. atorvastatin (LIPITOR) 40 mg tablet Take 1 tablet by mouth daily at bedtime. For cholesterol. acetaminophen (TYLENOL ARTHRITIS PAIN ORAL) Take 2 tablets by mouth. vitamin B complex (VITAMIN B-100 COMPLEX ORAL) Take 100 mg by mouth once daily. Cholecalciferol, Vitamin D3, 25 mcg (1,000 unit) cap Take 1,000 Units by mouth once daily. traMADol (ULTRAM) 50 mg tablet Take 50 mg by mouth every 6 hours as needed. CPAP CHIN STRAP, USED WITH CPAP DEVICE No current facility-administered medications for this visit. ALLERGIES No Known Allergies REVIEW OF SYSTEMS: GENERAL: feeling well without fatigue, no recent change in weight ASSESSMENT PLAN: Assessment and plan: 79-year-old male with a history of Araujo s esophagus which was indefinite for dysplasia in 2022. I am recommending a surveillance examination at the [facility] with [place] protocol biopsies.Will obtain PACC clearance. There are no Patient Instructions on file for this visit. I spent a total of 32 minutes on the date of the service which included preparing to see the patient and [id number] patient care Answers submitted by the patient for this visit: Review of Systems Gastroenterology (Submitted on 04/21/2024) Fever: No Chills: No Night Sweats: No Unitentional Weight Change: No A Cough: No Chest Pain: No Belly pain: No A feeling of fullness or have belly pain after eating: No Food getting stuck in your throat or chest after eating: Yes Nausea - that is, a feeling like you could vomit: Yes Regurgitation - that is, food or liquid coming back up into your throat or mouth without vomiting, or feel burning behind your breast bone: Yes Loss of appetite: No To throw up or vomit: No Blood in your stools: No Black tarry stools: No Loose or watery stools: No The feeling like you need to empty your bowels right away - that is, feel as if you would have an accident: No Bowel incontinence - that is, have an accident because you cannot make it to the bathroom in time: No Problems with straining while having bowel movements , hard or lumpy stools, or feel unfinished (that you have not passed all your stool): No Pain in rectum or anus during bowel movements: No Problems with jaundice - that is, yellow discoloration of your skin or eyes, now or in the past: No Problems with having to flush the toilet more than two times due to oily stool, or see stool floating with oil: No documented in this encounter [facility] 04-22-2024 Note HNO ID: [id number] Author: TRISHA THOMPSON MD Service: ? Author Type: Physician Type: Progress Notes Filed: 04/22/2024 11:53 Note Text: VIRTUAL VISIT PROGRESS NOTE This is a virtual visit using [employer] Video Visit. It required patient-provider interaction for the medical decision making as documented below. I have communicated my name and active licensure. The patient's identity and physical location were verified at the time of this visit. Either the patient or their legal hr representative has been informed of the risks and benefits of -- and alternatives to -- treatment through a remote evaluation and consents to proceed with the evaluation remotely. Robby Vera is a 83-year-old male who is being seen in follow up. 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 At the time, an upper endoscopy was performed on July 10 which revealed A 6 centimeter segment of Araujo's esophagus as well as a medium sized hiatal hernia. Biopsies were reportedly indefinite for dysplasia. We attempted to obtain the biopsies for results but were not successful. Presently discussion with patient and family Orders placed for EGD at [facility] with Dr. Thompson No pulmonary or Cardiac issues No dysphagia Takes omeprazole daily - GERD under control per patient Past medical history: prostate cancer, hearing loss, depression, anxiety, arthritis, neuropathy, gastroesophageal reflux disease, colonic polyps, sleep apnea, Past surgical history: Maximino fundoplication, rotator cuff surgery, right knee surgery, carpal tunnel repair, prostate surgery, fusion of cervical spine, Destini cystectomy, Medications: vitamin B complex with vitamin C, atorvastatin, vitamin D3, tramadol, gabapentin, acetaminophen, Cymbalta, Zoloft, omeprazole 40 mg. No known drug allergies Social history: no tobacco or alcohol HISTORY REVIEWED (electronic chart updated): PAST MEDICAL HISTORY Diagnosis Date Cervical nerve root impingement sees Dr. Lott, pain management at [place] Colon polyp Depression Diverticulosis of colon (without [...] SING OR MULT 07/10/2022 Dr. Nestor Dahl; Araujo's, HH, gastritis NEUROPLASTY AND/TRANSPOS MEDIAN NRV CARPAL [...] Topics Alcohol use: No Drug use: No Current Outpatient Medications Medication Sig DULoxetine (CYMBALTA) 30 mg capsule Take 1 capsule by mouth once daily. gabapentin (NEURONTIN) 600 mg tablet Take 600 mg by mouth four times daily. omeprazole (PRILOSEC) 40 mg capsule Take 1 capsule by mouth every afternoon. atorvastatin (LIPITOR) 40 mg tablet Take 1 tablet by mouth daily at bedtime. For cholesterol. acetaminophen (TYLENOL ARTHRITIS PAIN ORAL) Take 2 tablets by mouth. vitamin B complex (VITAMIN B-100 COMPLEX ORAL) Take 100 mg by mouth once daily. Cholecalciferol, Vitamin D3, 25 mcg (1,000 unit) cap Take 1,000 Units by mouth once daily. traMADol (ULTRAM) 50 mg tablet Take 50 mg by mouth every 6 hours as needed. CPAP CHIN STRAP, USED WITH CPAP DEVICE No current facility-administered medications for this visit. ALLERGIES No Known Allergies REVIEW OF SYSTEMS: GENERAL: feeling well without fatigue, no recent change in weight ASSESSMENT PLAN: Assessment and plan: 79-year-old male with a history of Araujo?s esophagus which was indefinite (more content not included)... [facility] 03-23-2024 Telephone encounter Note The patient has been identified by name and date of : Yes Caregiver verified no other encounters exist for this prescription request: Yes Caregiver confirmed with patient/requestor that no other refills are due, in the near future, with this provider at this time: Yes The last office visit in the department: 03/02/2024 Does the patient have a future office visit with this provider/department: Yes 08/05/2024 Requested Prescriptions Pending Prescriptions Disp Refills DULoxetine (CYMBALTA) 30 mg capsule 90 capsule 1 Sig: Take 1 capsule by mouth once daily. Mary Horowitz RN March 23, 2024 10:37 AM [facility] 03-23-2024 Miscellaneous Notes The patient has been identified by name and date of : Yes Caregiver verified no other encounters exist for this prescription request: Yes Caregiver confirmed with patient/requestor that no other refills are due, in the near future, with this provider at this time: Yes The last office visit in the department: 03/02/2024 Does the patient have a future office visit with this provider/department: Yes 08/05/2024 Requested Prescriptions Pending Prescriptions Disp Refills DULoxetine (CYMBALTA) 30 mg capsule 90 capsule 1 Sig: Take 1 capsule by mouth once daily. Mary Horowitz RN March 23, 2024 10:37 AM documented in this encounter [facility] 03-02-2024 Instructions Ailin Courtney APRN.CNP - 03/02/2024 9:45 AM EST 1) See Dr. Newell 08/05/24 as scheduled 2) No change in medication- BP 118/72 documented in this encounter [facility] 03-02-2024 Note HNO ID: [id number] Author: AILIN COURTNEY APRN.CNP Service: ? Author Type: Clinical Nurse Specialist Type: Progress Notes Filed: 03/02/2024 09:45 Note Text: This is a 83 year old male who presents today with: Patient presents with: Follow Up: 1 month blood pressure follow up HISTORY OF PRESENT ILLNESS: Garlan Scheibe is a 83 year old male. Patient presents with: Follow Up: 1 month blood pressure follow up HTN: Patient is compliant with meds Yes Monitors bp at home: No. Denies side effects: No. Chest pain: No. Dyspnea: No. Edema: No. Palpitations: No. Syncope: No. Headache: No. Dizziness: No. PAST MEDICAL HISTORY: PAST MEDICAL HISTORY Diagnosis Date Cervical nerve root impingement sees Dr. Lott, pain management at [place] Colon polyp Depression Diverticulosis of colon (without [...] SING OR MULT 07/10/2022 Dr. Nestor Dahl; Araujo's, HH, gastritis NEUROPLASTY AND/TRANSPOS MEDIAN NRV CARPAL [...] allergies. MEDICATIONS Current Outpatient Medications Medication Sig gabapentin (NEURONTIN) 600 mg tablet Take 600 mg by mouth four times daily. DULoxetine (CYMBALTA) 30 mg capsule Take 1 capsule by mouth once daily. omeprazole (PRILOSEC) 40 mg capsule Take 1 capsule by mouth every afternoon. atorvastatin (LIPITOR) 40 mg tablet Take 1 tablet by mouth daily at bedtime. For cholesterol. acetaminophen (TYLENOL ARTHRITIS PAIN ORAL) Take 2 tablets by mouth. vitamin B complex (VITAMIN B-100 COMPLEX ORAL) [...] use: No Drug use: No EXAM: BP 148/82 (BP Site: Left Arm, BP Position: Sitting) Pulse 66 Resp 16 Wt 85.7 kg (188 lb 15 oz) SpO2 98% BMI 30.04 kg/m? PHYSICAL EXAM: Physical Exam Vitals reviewed. Constitutional: Appearance: Normal appearance. HENT: Head: Normocephalic. Neck: Vascular: No carotid bruit. Cardiovascular: Rate and Rhythm: Normal rate and regular rhythm. Pulses: Normal pulses. Heart sounds: Normal heart sounds. Pulmonary: Effort: Pulmonary effort is normal. Breath sounds: Normal breath sounds. Musculoskeletal: Cervical back: Neck supple. Right lower leg: No edema. Left lower leg: No edema. Comments: Walks w/o assistive device; having LESi Lymphadenopathy: Cervical: No cervical adenopathy. Skin: General: Skin is warm and dry. Neurological: Mental Status: He is alert and oriented to person, place, and time. LABS: ASSESSMENT/PLAN: 1. Elevated blood pressure reading without diagnosis of hypertension - ICD9: 796.2, ICD10: R03.0 (primary diagnosis) - Encouraged dietary sodium restriction/DASH diet - Recommended regular aerobic exercise. - Recommend home blood pressure monitoring, to bring results in on next visit - Goal of BP <130/80 2. Obstructive sleep apnea (adult) (pediatric) - ICD9: 327.23, ICD10: G47.33 Intolerant of CPAP- tried 5 different sleep providers Discussed treatment plan and patient voices understanding. Patient's questions answered appropriate (more content not included)... [facility] 03-02-2024 History of Presen t illness Narrative This is a 83 year old male who presents today with: Patient presents with: Follow Up: 1 month blood pressure follow up HISTORY OF PRESENT ILLNESS: Robby Vera is a 83 year old male. Patient presents with: Follow Up: 1 month blood pressure follow up HTN: Patient is compliant with meds Yes Monitors bp at home: No. Denies side effects: No. Chest pain: No. Dyspnea: No. Edema: No. Palpitations: No. Syncope: No. Headache: No. Dizziness: No. PAST MEDICAL HISTORY: PAST MEDICAL HISTORY Diagnosis Date Cervical nerve root impingement sees Dr. Lott, pain management at [place] Colon polyp Depression Diverticulosis of colon (without [...] SING OR MULT 07/10/2022 Dr. Nestor Dahl; Araujo's, HH, gastritis NEUROPLASTY &/TRANSPOS MEDIAN NRV CARPAL [...] allergies. MEDICATIONS Current Outpatient Medications Medication Sig gabapentin (NEURONTIN) 600 mg tablet Take 600 mg by mouth four times daily. DULoxetine (CYMBALTA) 30 mg capsule Take 1 capsule by mouth once daily. omeprazole (PRILOSEC) 40 mg capsule Take 1 capsule by mouth every afternoon. atorvastatin (LIPITOR) 40 mg tablet Take 1 tablet by mouth daily at bedtime. For cholesterol. acetaminophen (TYLENOL ARTHRITIS PAIN ORAL) Take 2 tablets by mouth. vitamin B complex (VITAMIN B-100 COMPLEX ORAL) [...] use: No Drug use: No EXAM: BP 148/82 (BP Site: Left Arm, BP Position: Sitting) Pulse 66 Resp 16 Wt 85.7 kg (188 lb 15 oz) SpO2 98% BMI 30.04 kg/m PHYSICAL EXAM: Physical Exam Vitals reviewed. Constitutional: Appearance: Normal appearance. HENT: Head: Normocephalic. Neck: Vascular: No carotid bruit. Cardiovascular: Rate and Rhythm: Normal rate and regular rhythm. Pulses: Normal pulses. Heart sounds: Normal heart sounds. Pulmonary: Effort: Pulmonary effort is normal. Breath sounds: Normal breath sounds. Musculoskeletal: Cervical back: Neck supple. Right lower leg: No edema. Left lower leg: No edema. Comments: Walks w/o assistive device; having LESi Lymphadenopathy: Cervical: No cervical adenopathy. Skin: General: Skin is warm and dry. Neurological: Mental Status: He is alert and oriented to person, place, and time. LABS: ASSESSMENT/PLAN: 1. Elevated blood pressure reading without diagnosis of hypertension - ICD9: 796.2, ICD10: R03.0 (primary diagnosis) - Encouraged dietary sodium restriction/DASH diet - Recommended regular aerobic exercise. - Recommend home blood pressure monitoring, to bring results in on next visit - Goal of BP <130/80 2. Obstructive sleep apnea (adult) (pediatric) - ICD9: 327.23, ICD10: G47.33 Intolerant of CPAP- tried 5 different sleep providers Discussed treatment plan and patient voices understanding. Patient's questions answered appropriately. Medications and potential side effects were discussed and patient voices understanding. Return to the office as scheduled or as needed for worsening/no improvement. Ailin Courtney APRN.SINGH documented in this encounter [facility] 02-03-2024 Telephone encounter Note It was to be Dr Thompson [facility] 02-03-2024 Miscellaneous Notes It was to be Dr Thompson Pt calling with questions about referral to GI. Pt was inivertantly scheudled with Mirela Marley NP here in [facility] surgery. Pt received call from that office stating that he was incorrectly scheduled and was referred to Dr. Thompson in GI at [facility]. He now has a virtual appt with Dr. Thompson on 03/18. They do not use [employer] but state that their daughter will be able to assist in logging in and connecting for the virtual visit. They were given the [employer] help desk phone number if needed and advised that I would send this info to Dr. Newell as a FYI to be sure this is the referral he was recommending. Pt verbalized understanding. Fe Joel MA documented in this encounter [facility] 02-03-2024 Telephone encounter Note Pt calling with questions about referral to GI. Pt was inivertantly scheudled with Mirela Marley NP here in [facility] surgery. Pt received call from that office stating that he was incorrectly scheduled and was referred to Dr. Thompson in GI at [facility]. He now has a virtual appt with Dr. Thompson on 03/18. They do not use [employer] but state that their daughter will be able to assist in logging in and connecting for the virtual visit. They were given the [employer] help desk phone number if needed and advised that I would send this info to Dr. Newell as a FYI to be sure this is the referral he was recommending. Pt verbalized understanding. Fe Joel MA [facility] 01-29-2024 History of Presen t illness Narrative No chief complaint on file. HPI: Patient presents today for office visit for a routine 6 month exam. TAMMI: Not using CPAP. Couldn't find a mask that fit. Saw several doctors for this. Not willing to treat. HYPERLIPIDEMIA: Patient is taking medications: Yes. Patient is watching diet: Yes. Patient denies myalgias: leg cramps. Working on replacing drain tile at [facility]. Patient denies gi upset: Yes PAIN MANAGEMENT: Patient is currently taking: gabapentin and tramadol Sees Dr Shaffer. Also taking Cymbalta. Just had a hip x-ray for Dr Shaffer. Recently had a skin tear on his left hand. Is doing well. Sees Dr Hunt for derm. Last egd in 2022. Doing well. No issues with stomach. He was referred back to gi several times but has not done so. Offered to set him up again for follow up. See previous ov: Hx of Araujo's Esophagus No dysphagia. No heartburn. Did see Dr Dahl. Had him scoped in 2022. He was referred to Dr Thompson . They were debating about repeat surveillance. Now taking Omeprazole 40 mg daily Has seen urology and radiation oncology for his prostate. MEDICATIONS: Current Outpatient Medications Medication Sig gabapentin (NEURONTIN) 600 mg tablet Take 600 mg by mouth four times daily. DULoxetine (CYMBALTA) 30 mg capsule Take 1 capsule by mouth once daily. omeprazole (PRILOSEC) 40 mg capsule Take 1 capsule by mouth every afternoon. atorvastatin (LIPITOR) 40 mg tablet Take 1 tablet by mouth daily at bedtime. For cholesterol. acetaminophen (TYLENOL ARTHRITIS PAIN ORAL) Take 2 tablets by mouth. vitamin B complex (VITAMIN B-100 COMPLEX ORAL) [...] impingement sees Dr. Lott, pain management at [place] Colon polyp Depression Diverticulosis of colon (without [...] SING OR MULT 07/10/2022 Dr. Nestor Dahl; Araujo's, HH, gastritis NEUROPLASTY &/TRANSPOS MEDIAN NRV CARPAL [...] and social history today. REVIEW OF SYSTEMS No chest pain or shortness of breath. No falls. All other reviewed and negative other than HPI. HEALTH MAINTENANCE: Reviewed health maintenance issues today and recommended the following in detail. Influenza Vaccine(1) due on 12/08/2023 Covid-19 Vaccine( season) due on 12/08/2023 DTaP,Tdap,Td Vaccine(2 - Td or Tdap) due on 02/20/2024-suggested we consider. VITALS: BP 148/82 Pulse 63 Wt 84.9 kg (187 lb 2.7 oz) SpO2 97% BMI 29.76 kg/m Last 4 Encounter Wt Readings: Date: Wt: 10/16/2023 85.3 kg (188 lb) 09/17/2023 86.2 kg (190 lb) 09/03/2023 85.7 kg (189 lb) 07/27/2023 83.9 kg (185 lb) PHYSICAL EXAMINATION: General [...] or cyanosis. Good capillary refill. ASSESSMENT/PLAN: 1. Mixed hyperlipidemia - ICD9: 272.2, ICD10: E78.2 (primary diagnosis) - Controlled - Continue current medications 2. Obstructive sleep apnea (adult) (pediatric) - ICD9: 327.23, ICD10: G47.33 - does not treat 3. 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 Skin cancer - ICD9: 173.90, ICD10: C44.90 - per derm 5. Impaired fasting glucose - ICD9: 790.21, ICD10: R73.01 Follow labs. 6. Low testosterone - ICD9: 790.99, ICD10: R79.89 - would not pursue. 7. Anxiety state - ICD9: 300.00, ICD10: F41.1 - stable. 8. Prostate cancer (HCC) - ICD9: 185, ICD10: C61 - per urology. Radiation oncology. Stable. Rom Newell MD Bp check in one month documented in this encounter [facility] 01-29-2024 Note HNO ID: [id number] Author: ROM NEWELL MD Service: ? Author Type: Physician Type: Progress Notes Filed: 01/29/2024 10:14 Note Text: No chief complaint on file. HPI: Patient presents today for office visit for a routine 6 month exam. TAMMI: Not using CPAP. Couldn't find a mask that fit. Saw several doctors for this. Not willing to treat. HYPERLIPIDEMIA: Patient is taking medications: Yes. Patient is watching diet: Yes. Patient denies myalgias: leg cramps. Working on replacing drain tile at [facility]. Patient denies gi upset: Yes PAIN MANAGEMENT: Patient is currently taking: gabapentin and tramadol Sees Dr Shaffer. Also taking Cymbalta. Just had a hip x-ray for Dr Shaffer. Recently had a skin tear on his left hand. Is doing well. Sees Dr Hunt for derm. Last egd in 2022. Doing well. No issues with stomach. He was referred back to gi several times but has not done so. Offered to set him up again for follow up. See previous ov: Hx of Araujo's Esophagus No dysphagia. No heartburn. Did see Dr Dahl. Had him scoped in 2022. He was referred to Dr Thompson . They were debating about repeat surveillance. Now taking Omeprazole 40 mg daily Has seen urology and radiation oncology for his prostate. MEDICATIONS: Current Outpatient Medications Medication Sig gabapentin (NEURONTIN) 600 mg tablet Take 600 mg by mouth four times daily. DULoxetine (CYMBALTA) 30 mg capsule Take 1 capsule by mouth once daily. omeprazole (PRILOSEC) 40 mg capsule Take 1 capsule by mouth every afternoon. atorvastatin (LIPITOR) 40 mg tablet Take 1 tablet by mouth daily at bedtime. For cholesterol. acetaminophen (TYLENOL ARTHRITIS PAIN ORAL) Take 2 tablets by mouth. vitamin B complex (VITAMIN B-100 COMPLEX ORAL) [...] impingement sees Dr. Lott, pain management at [place] Colon polyp Depression Diverticulosis of colon (without [...] BIOPSY SING OR MULT 07/10/2022 Dr. Nestor Dhal; Araujo's, HH, gastritis NEUROPLASTY AND/TRANSPOS MEDIAN NRV CARPAL [...] and social history today. REVIEW OF SYSTEMS No chest pain or shortness of breath. No falls. All other reviewed and negative other than HPI. HEALTH MAINTENANCE: Reviewed health maintenance issues today and recommended the following in detail. Influenza Vaccine(1) due on 12/08/2023 Covid-19 Vaccine( season) due on 12/08/2023 DTaP,Tdap,Td Vaccine(2 - Td or Tdap) due on 02/20/2024-suggested we consider. VITALS: BP 148/82 Pulse 63 Wt 84.9 kg (187 lb 2.7 oz) SpO2 97% BMI 29.76 kg/m? Last 4 Encounter Wt Readings: Date: Wt: 10/16/2023 85.3 kg (188 lb) 09/17/2023 86.2 kg (190 lb) 09/03/2023 85.7 kg (189 lb) 07/27/2023 83.9 kg (185 lb) PHYSICAL EXAMINATION: General appearance: Well appearing, alert, in (more content not included)... [facility] 10-16-2023 History of Presen t illness Narrative Patient presents with: Follow Up HPI: Patient presents today for office visit for follow up of weaning off Lyrica to Gabapentin. Doing much better. Completely weaned off Lyrica and back on Gabapentin 600 mg QID. Still with some mild double vision. Has eye appt with Dr. Hua. Sees Dr. Shaffer next week for pain mgt. Overall is doing well. Weaned things well. Still with the double vision but improving. Dizziness is better. No headaches. No neuro issues. Feels his gabapentin is working well. Note was copied and pasted, without alteration from:previous note: Patient presents today for office visit to discuss weaning off his Lyrica and going back on Gabapentin. He mentions he thinks the Lyrica is causing dizziness and double vision. He recently saw Soco Courtney on 09/03/23 for workup of dizziness and double vision that has been ongoing for months which precedes the Lyrica and makes it very unlikely to be the issue. Discussed this with patient. CT was negative. Did have some mild orthostatic bp changes. Did discussed getting up slowly and wearing support socks. Switching pain mgt physicians. Was seeing Dr. Ramires. Going to be seeing Dr. Shaffer on 10/22/23. Dr. Ramires called in Gabapentin 600 mg QID on 09/16/23. He has not picked up Rx yet. Needs to know how to wean from Lyrica and start Gabapentin. They feel many of the symptoms got worse because they did not wean meds and just switched immediately. Would like to wean and increase dose. MEDICATIONS: Current Outpatient Medications Medication Sig gabapentin (NEURONTIN) 600 mg tablet Take 600 mg by mouth four times daily. DULoxetine (CYMBALTA) 30 mg capsule Take 1 capsule by mouth once daily. omeprazole (PRILOSEC) 40 mg capsule Take 1 capsule by mouth every afternoon. atorvastatin (LIPITOR) 40 mg tablet Take 1 tablet by mouth daily at bedtime. For cholesterol. acetaminophen (TYLENOL ARTHRITIS PAIN ORAL) Take 2 tablets by mouth. vitamin B complex (VITAMIN B-100 COMPLEX ORAL) [...] impingement sees Dr. Lott, pain management at [place] Colon polyp Depression Diverticulosis of colon (without [...] SING OR MULT 07/10/2022 Dr. Nestor Dahl; Araujo's, HH, gastritis NEUROPLASTY &/TRANSPOS MEDIAN NRV CARPAL [...] to display for this patient. VITALS: BP 134/80 Pulse (!) 59 Ht 168.9 cm (5' 6.5) Wt 85.3 kg (188 lb) SpO2 97% BMI 29.89 kg/m Last 4 Encounter Wt Readings: Date: Wt: 10/16/2023 85.3 kg (188 lb) 09/17/2023 86.2 kg (190 lb) 09/03/2023 85.7 kg (189 lb) 07/27/2023 83.9 kg (185 lb) PHYSICAL EXAMINATION: General [...] joint swelling, deformity, or tenderness ASSESSMENT/PLAN: 1. Dizziness - ICD9: 780.4, ICD10: R42 (primary diagnosis) - call if recurs 2. Double vision - ICD9: 368.2, ICD10: H53.2 - call If recurs. Follow with optho. Rom Newell MD Keep next appt documented in this encounter [facility] 09-17-2023 Instructions Rom Newell MD - 09/17/2023 2:40 PM EDT Change lyrica to twice a day three days then once a day for three days. Then begin gabapentin once at bedtime for three days, then twice a day for three days, then one tab three times a day for three days, then one tab four times a day after. Call if any issues. documented in this encounter [facility] 09-17-2023 History of Presen t illness Narrative Patient presents with: Medication Problem HPI: Patient presents today for office visit to discuss weaning off his Lyrica and going back on Gabapentin. He mentions he thinks the Lyrica is causing dizziness and double vision. He recently saw Soco Courtney on 09/03/23 for workup of dizziness and double vision that has been ongoing for months which precedes the Lyrica and makes it very unlikely to be the issue. Discussed this with patient. CT was negative. Did have some mild orthostatic bp changes. Did discussed getting up slowly and wearing support socks. Switching pain mgt physicians. Was seeing Dr. Ramires. Going to be seeing Dr. Shaffer on 10/22/23. Dr. Ramires called in Gabapentin 600 mg QID on 09/16/23. He has not picked up Rx yet. Needs to know how to wean from Lyrica and start Gabapentin. They feel many of the symptoms got worse because they did not wean meds and just switched immediately. Would like to wean and increase dose. See note 09/03/23: copied and pasted from Soco's note. HISTORY OF PRESENT ILLNESS: Robby Vera is a 82 year old male. Patient presents with: Blurred Vision: Double vision at a distance Balance/Incoordination Dizziness Noticed 4-5 months ago, he has been stumbling intermittent Some double vision lately Recently yellow and white lines on the road were double and fractured, overlapping and going marlene crossed. Has yearly eye appointment in November No headaches No eye pain No passing out or near syncope Labs looked pretty good. Blood counts are improving. Red blood cells are slightly decreased. Will monitor. Kidney function and liver function are normal. Thyroid normal, B12 normal, and his prediabetes is stable (may be even slightly improved not seeing this). Vitamin D level is slightly decreased at 26.6. May want to consider adding [id number] vitamin D3 at 1000 units daily. Triglycerides were slightly elevated at 343 but that is because they were kiran nonfasting. Cholesterol is 42. That is very good, anything over 44 man is considered preventative for strokes and heart attacks. LDL is good at 97. CT of head was normal. Some mild age-related changes Saw [facility] on 09/04/23 for urgent appt. See findings from note below: Esotropia is chronic but worsening. Combined form of age-related cataract; both eyes Posterior vitreous detachment; both eyes Acquired ptosis of both eyelids Dry eye syndrome of both eyes They are considering to rule out myasthenia gravis Had follow up appt today 09/17/[address] Hua thinks Mamadou could be contributing to this. CT: Localizer images: Non-diagnostic. Post-operative change: None. Acute change: No evidence of an acute infarct or other acute parenchymal process. Hemorrhage: No evidence of acute intracranial hemorrhage. ECASS hemorrhagic transformation score: Not Applicable Mass Lesion / Mass Effect: There is no evidence of an intracranial mass or extraaxial fluid collection. No significant mass effect. 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 Mild volume loss and corresponding CSF space prominence. Parenchyma: There is mild generalized volume loss. The brain parenchyma is otherwise within normal limits for age. Ventricles: Ventricular enlargement concordant with the degree of parenchymal volume loss. Paranasal sinuses and skull base: The visualized paranasal sinuses are grossly clear. The skull base and imaged soft tissues are unremarkable. Latest Ref Rng 09/03/2023 WBC 3.70 - 11.00 k/uL 7.37 RBC 4.20 - 6.00 m/uL 4.06 (L) Hemoglobin 13.0 - 17.0 g/dL 13.5 Hematocrit 39.0 - 51.0 % 39.9 MCV 80.0 - 100.0 fL 98.3 MCH 26.0 - 34.0 pg 33.3 MCHC 30.5 - 36.0 g/dL 33.8 RDW-CV 11.5 - 15.0 % 12.6 Platelet Count 150 - 400 k/uL 268 MPV 9.0 - 12.7 fL 10.0 Neut% % 65.4 Abs Neut (ANC) 1.45 - 7.50 k/uL 4.81 Lymph% % 16.4 Abs Lymph 1.00 - 4.00 k/uL 1.21 Wright% % 13.7 Abs Wright <0.87 k/uL 1.01 (H) Eosin% % 2.0 Abs Eosin <0.46 k/uL 0.15 Baso% % 0.5 Abs Baso <0.11 k/uL 0.04 Immature Gran % % 2.0 IMMATURE GRANS (ABS) <0.10 k/uL 0.15 (H) NRBC /100 WBC 0.0 Absolute nRBC <0.01 k/uL <0.01 DTYPE Auto Protein, Total 6.3 - 8.0 g/dL 6.8 Albumin 3.9 - 4.9 g/dL 4.0 Calcium 8.5 - 10.2 mg/dL 9.3 Bilirubin, Total 0.2 - 1.3 mg/dL 0.5 Alkaline Phosphatase 38 - 113 U/L 66 AST 14 - 40 U/L 32 ALT 10 - 54 U/L 29 Glucose 74 - 99 mg/dL 98 BUN 9 - 24 mg/dL 20 Creatinine 0.73 - 1.22 mg/dL 1.06 Sodium 136 - 144 mmol/L 141 Potassium 3.7 - 5.1 mmol/L 4.0 Chloride 97 - 105 mmol/L 104 CO2 22 - 30 mmol/L 23 Anion Gap 9 - 18 mmol/L 14 eGFR >=60 mL/min/1.73m 69 Total Cholesterol, Nonfasting <200 mg/dL 208 (H) Triglycerides, Nonfasting <150 mg/dL 343 (H) HDL Cholesterol, Nonfasting >39 mg/dL 42 LDL Cholesterol, Nonfasting <100 mg/dL 97 Non HDL Cholesterol, Nonfasting <130 mg/dL 166 (H) VLDL Cholesterol, Nonfasting <30 mg/dL 69 (H) Total Chol/HDL Ratio, Nonfasting <5.10 mg/dL 4.95 LDL/HDL Ratio, Nonfasting <2.54 mg/dL 2.31 Hemoglobin A1C 4.3 - 5.6 % 5.8 (H) Estimated Average Glucose mg/dL 120 TSH 0.270 - 4.200 mIU/L 1.470 Vitamin B12 232 - 1,245 pg/mL 374 Vitamin D 25 Hydroxy 31.0 - 80.0 ng/mL 26.6 (L) Legend: (L) Low (H) High MEDICATIONS: Current Outpatient Medications Medication Sig gabapentin (NEURONTIN) 600 mg tablet Take 600 mg by mouth four times daily. DULoxetine (CYMBALTA) 30 mg capsule Take 1 capsule by mouth once daily. pregabalin (LYRICA) 150 mg capsule Take 150 mg by mouth three times a day. omeprazole (PRILOSEC) 40 mg capsule Take 1 capsule by mouth every afternoon. atorvastatin (LIPITOR) 40 mg tablet Take 1 tablet by mouth daily at bedtime. For cholesterol. acetaminophen (TYLENOL ARTHRITIS PAIN ORAL) Take 2 tablets by mouth. vitamin B complex (VITAMIN B-100 COMPLEX ORAL) [...] impingement sees Dr. Lott, pain management at [place] Colon polyp Depression Diverticulosis of colon (without [...] SING OR MULT 07/10/2022 Dr. Nestor Dahl; Araujo's, HH, gastritis NEUROPLASTY &/TRANSPOS MEDIAN NRV CARPAL [...] today and recommended the following in detail. Covid-19 Vaccine( season) due on 06/23/2023 VITALS: BP 154/70 Pulse 68 Ht 168.9 cm (5' 6.5) Wt 86.2 kg (190 lb) SpO2 99% BMI 30.21 kg/m Last 4 Encounter Wt Readings: Date: Wt: 09/03/2023 85.7 kg (189 lb) 07/27/2023 83.9 kg (185 lb) 06/09/2022 84.4 kg (186 lb) 05/07/2022 84.4 kg (186 lb) PHYSICAL EXAMINATION: General appearance: Well appearing, alert, in no acute distress, well-hydrated, well nourished. Skin: Skin color, texture, turgor normal, no suspicious rashes or lesions Head: Normocephalic, no masses, lesions, tenderness or abnormalities Eyes: Anicteric sclera. Pupils are equally round and reactive to light. Extraocular movements are intact. No nystagmus. Neck: Supple, no adenopathy; thyroid symmetric, normal size, no bruits Lungs: Lungs clear to auscultation. No wheezing, rhonchi, rales Heart: RRR without murmur, gallop, or rubs. No ectopy Abdomen: Normal abdominal exam, Abdomen soft, non-tender. Bowel sounds normal. No masses, organomegaly Extremities: No deformities, edema, skin discoloration, clubbing or cyanosis. Good capillary refill. Musculoskeletal: No joint swelling, deformity, or tenderness Peripheral pulses: Normal Neuro: Gait normal. Reflexes normal and symmetric. Sensation grossly intact., Negative findings: cranial nerves 2-12 intact, Romberg negative, muscle tone normal, muscle strength normal ASSESSMENT/PLAN: 1. Weakness with dizziness - ICD9: 780.79, 780.4, ICD10: R53.1, R42 (primary diagnosis) - will monitor first with med change. Get up slowly. Consider support stockings. Wean and stop lyrica and increase gabapentin. Consider mri or neuro eval if continues. Continue to follow with optho. Close follow up. Change lyrica to twice a day three days then once a day for three days. Then begin gabapentin once at bedtime for three days, then twice a day for three days, then one tab three times a day for three days, then one tab four times a day after. Call if any issues. 2. Vision changes - ICD9: 368.9, ICD10: H53.9 -as above. 3. Orthostasis - ICD9: 458.0, ICD10: I95.1 - as above. Rom Newell MD RTO in four weeks. documented in this encounter [facility] 09-16-2023 Telephone encounter Note Pt calling in again as pt is still confused about his medications and wants to make an appt with Dr. Newell so he can help him figure things out. States Dr. Ramires will not help him anymore with his medications as he signed papers to see Dr. Shaffer. His appt with Dr. Shaffer is not until October 21. In the meantime, pt would like to switch over to his Gabapentin but does not know how to wean himself off Lyrica or how to switch to the Gabapentin. Spoke with Miguel and appt given to see Dr. Newell tomorrow at 220 pm to see if he is able to help them with medications until appt with Dr. Shaffer. [facility] 09-16-2023 Miscellaneous Notes Pt calling in again as pt is still confused about his medications and wants to make an appt with Dr. Newell so he can help him figure things out. States Dr. Ramires will not help him anymore with his medications as he signed papers to see Dr. Shaffer. His appt with Dr. Shaffer is not until October 21. In the meantime, pt would like to switch over to his Gabapentin but does not know how to wean himself off Lyrica or how to switch to the Gabapentin. Spoke with Miguel and appt given to see Dr. Newell tomorrow at 220 pm to see if he is able to help them with medications until appt with Dr. Shaffer. States that was only on the lyrica for 1 month. Is switching pain management to Dr Bower. Having trouble with vision also. Dr Hua is currently treating this. Patient is wanting to go back on the gabapentin. Advised patient that should ask prescribing physician about taper and starting instructions. We do not prescribe the lyrica, was prescribed by another provider, Dr Ramires, needs to discuss with them. He just saw Soco for dizziness that she is working him up for that has been going on for months, which precedes the lyrica and makes it very unlikely to be the issue. Is this worse than what he saw her for? Any other symptoms? Yahir is calling Rom Newell MD today with concern regarding the Lyrica medication is causing dizziness and double vision. He wants to stop this medication and return to taking Gabapentin. Please call him today and try both numbers to reach him. Patient has been identified by name and birthdate. Duration of symptoms: Person calling: self Call patient at: at home [phone] (home) [phone] (cell) Was an appointment scheduled: No Closing statement: Results or non-symptom based questions: Thank you for calling [facility], your call will be returned within the next business day. Andreea Love documented in this encounter [facility] 09-16-2023 Telephone encounter Note States that was only on the lyrica for 1 month. Is switching pain management to Dr Bower. Having trouble with vision also. Dr Hua is currently treating this. Patient is wanting to go back on the gabapentin. Advised patient that should ask prescribing physician about taper and starting instructions. [facility] 09-16-2023 Telephone encounter Note We do not prescribe the lyrica, was prescribed by another provider, Dr Ramires, needs to discuss with them. He just saw Soco for dizziness that she is working him up for that has been going on for months, which precedes the lyrica and makes it very unlikely to be the issue. Is this worse than what he saw her for? Any other symptoms? [facility] 09-16-2023 Telephone encounter Note Yahir is calling Rom Newell MD today with concern regarding the Lyrica medication is causing dizziness and double vision. He wants to stop this medication and return to taking Gabapentin. Please call him today and try both numbers to reach him. Patient has been identified by name and birthdate. Duration of symptoms: Person calling: self Call patient at: at home [phone] (home) [phone] (cell) Was an appointment scheduled: No Closing statement: Results or non-symptom based questions: Thank you for calling [facility], your call will be returned within the next business day. nAdreea Love [facility] 09-11-2023 History of Presen t illness Narrative Radiology Service Progress Note PATIENT NAME: Robby Vera DATE OF SERVICE: September 11, 2023 TIME: 4:10 PM PATIENT IDENTITY VERIFICATION COMPLETED USING TWO (2) IDENTIFIERS: Name and Date of confirmed by patient verbally. FALL SCREENING: Has the patient had 2 falls in the last year or 1 fall with injury or currently using an Ambulatory Assistive Device (Walker, Cane, Wheelchair, Crutches, etc.)? No PATIENT GENDER DATA: Male PATIENT RELEVANT IMPLANT DATA REVIEWED: Yes PATIENT PRESENTS WITH AN IMPLANTABLE OR ATTACHED GLASS SANDER BELT: No RADIOLOGY DEPARTMENT: CT; Exam(s) Completed: Brain PERIPHERAL IV DATA: Not applicable SIGNED BY: RT Gregorio(R) September 11, 2023 4:10 PM documented in this encounter [facility] 09-09-2023 Telephone encounter Note Patient has been identified by name and date of : Yes, Ryann Garcia RN Date 09/09/2023 Time 10:08 am Spouse phones for refill(s): Requested Prescriptions Pending Prescriptions Disp Refills DULoxetine (CYMBALTA) 30 mg capsule 90 capsule 1 Sig: Take 1 capsule by mouth once daily. Date of last office visit in primary care: 09/03/2023 Date of next office visit in primary care: 10/04/2023 Please advise. Thank you. Ryann Garcia RN. [facility] 09-09-2023 Miscellaneous Notes Patient has been identified by name and date of : Yes, Ryann Garcia RN Date 09/09/2023 Time 10:08 am Spouse phones for refill(s): Requested Prescriptions Pending Prescriptions Disp Refills DULoxetine (CYMBALTA) 30 mg capsule 90 capsule 1 Sig: Take 1 capsule by mouth once daily. Date of last office visit in primary care: 09/03/2023 Date of next office visit in primary care: 10/04/2023 Please advise. Thank you. Ryann Garcia RN. documented in this encounter [facility] 09-03-2023 Instructions Ailin Courtney APRN.CNS - 09/03/2023 2:24 PM EDT 1) Check labs 2) Schedule CT of head 3) Call for urgent eye appointment- check vision 4) Drink 8- 8 oz glasses of water daily 5) Follow up in 1 month documented in this encounter [facility] 09-03-2023 History of Presen t illness Narrative This is a 82 year old male who presents today with: Patient presents with: Blurred Vision: Double vision at a distance Balance/Incoordination Dizziness HISTORY OF PRESENT ILLNESS: Robby Vera is a 82 year old male. Patient presents with: Blurred Vision: Double vision at a distance Balance/Incoordination Dizziness Noticed 4-5 months ago, he has been stumbling intermittent Some double vision lately Recently yellow and white lines on the road were double and fractured, overlapping and going marlene crossed. Has yearly eye appointment in November No headaches No eye pain No passing out or near syncope PAST MEDICAL HISTORY: PAST MEDICAL HISTORY Diagnosis Date Cervical nerve root impingement sees Dr. Lott, pain management at [place] Colon polyp Depression Diverticulosis of colon (without [...] SING OR MULT 07/10/2022 Dr. Nestor Dahl; Araujo's, HH, gastritis NEUROPLASTY &/TRANSPOS MEDIAN NRV CARPAL [...] allergies. MEDICATIONS Current Outpatient Medications Medication Sig pregabalin (LYRICA) 150 mg capsule Take 150 mg by mouth three times a day. omeprazole (PRILOSEC) 40 mg capsule Take 1 capsule by mouth every afternoon. atorvastatin (LIPITOR) 40 mg tablet Take 1 tablet by mouth daily at bedtime. For cholesterol. DULoxetine (CYMBALTA) 30 mg capsule Take 1 capsule by mouth once daily. acetaminophen (TYLENOL ARTHRITIS PAIN ORAL) Take 2 tablets by mouth. vitamin B complex (VITAMIN B-100 COMPLEX ORAL) Take 100 mg by mouth once daily. Cholecalciferol, Vitamin D3, 25 mcg (1,000 unit) cap Take 1,000 Units by mouth once daily. traMADol (ULTRAM) 50 mg tablet Take 50 mg by mouth every 6 hours as needed. gabapentin (NEURONTIN) 600 mg tablet Take 600 mg by mouth four times daily. gabapentin (NEURONTIN) 400 mg capsule Take [...] use: No Drug use: No EXAM: BP 150/84 Pulse 78 Resp 16 Wt 85.7 kg (189 lb) SpO2 97% BMI 30.05 kg/m PHYSICAL EXAM: Physical Exam Vitals and nursing note reviewed. Constitutional: Appearance: Normal appearance. HENT: Head: Normocephalic. Right Ear: There is impacted cerumen. Left Ear: Ear canal normal. There is no impacted cerumen. Nose: Nose normal. Mouth/Throat: Mouth: Mucous membranes are dry. Eyes: Pupils: Pupils are equal, round, and reactive to light. Cardiovascular: Rate and Rhythm: Normal rate and regular rhythm. Heart sounds: Normal heart sounds. No murmur heard. No gallop. Pulmonary: Effort: Pulmonary effort is normal. Breath sounds: Normal breath sounds. Abdominal: General: Abdomen is flat. Musculoskeletal: General: Normal range of motion. Cervical back: Normal range of motion and neck supple. Skin: General: Skin is warm and dry. Neurological: General: No focal deficit present. Mental Status: He is alert and oriented to person, place, and time. Cranial Nerves: No cranial nerve deficit. Sensory: No sensory deficit. Motor: No weakness. Gait: Gait normal. Deep Tendon Reflexes: Reflexes normal. Psychiatric: Mood and Affect: Mood normal. Behavior: Behavior normal. 150/80 sitting, 130/70 standing LABS: labs today ASSESSMENT/PLAN: 1. Transient cerebral ischemia, unspecified type - ICD9: 435.9, ICD10: G45.9 (primary diagnosis) Ataxia intermittent- possibly r/t dehydration - COMPLETE BLOOD COUNT AND DIFFERENTIAL - COMPREHENSIVE METABOLIC PANEL - HEMOGLOBIN A1C - LIPID PANEL, NONFASTING - THYROID STIMULATING HORMONE - VITAMIN B12 - CT BRAIN WO IVCON - VITAMIN D 25 HYDROXY - Encouraged fluids 2. Screening for diabetes mellitus (DM) - ICD9: V77.1, ICD10: Z13.1 Ataxia & visual disturbance - HEMOGLOBIN A1C 3. Weakness with dizziness - ICD9: 780.79, 780.4, ICD10: R53.1, R42 Ataxia, weakness, and visual disturbance - THYROID STIMULATING HORMONE 4. Vitamin D deficiency - ICD9: 268.9, ICD10: E55.9 On replacement - VITAMIN D 25 HYDROXY Discussed treatment plan and patient voices understanding. Patient's questions answered appropriately. Medications and potential side effects were discussed and patient voices understanding. Return to the office as scheduled or as needed for worsening/no improvement. Ailin Courtney APRN.SPECIAL OFFICER documented in this encounter [facility] 08-28-2023 Telephone encounter Note Order and facesheet faxed to [facility] at [phone]. Pt notified. Dara Doran MA [facility] 08-28-2023 Miscellaneous Notes Order and facesheet faxed to [facility] at [phone]. Pt notified. Dara Doran MA Thank you! Ordered signed. Please fax, as requested. Justina Carrasco APRN.JANITORIAL CLEANER Spoke with patient, currently not happy with Maryan PM. Was previously seeing Dr. Esquivel, but he has since retired. Now seeing Dr. Ramires and not happy with care. ALEXANDRA was 08/19/23 and scanned into chart. Pt being seen for chronic back pain and hx of C4-6 fusion. Order pended, please review and file if agreeable. Pt informed that we will contact him once we fax order to Dr. Shaffer. Dara Doran MA I can certainly put the referral in. I just need a little more info. What has he been going to pain management for? (Back? Neck?). (Dr. Newell is out this week and just need a little more info). Justina Carrasco APRN.SINGH Patient calling, asking for a referral to Dr. Bower for pain management. States he is switching from the [place] doctor that he has been seeing. Please advise. documented in this encounter [facility] 08-28-2023 Telephone encounter Note Thank you! Ordered signed. Please fax, as requested. Justina Carrasco APRN.JANITORIAL CLEANER [facility] 08-28-2023 Telephone encounter Note Spoke with patient, currently not happy with Maryan PM. Was previously seeing Dr. Esquivel, but he has since retired. Now seeing Dr. Ramires and not happy with care. ALEXANDRA was 08/19/23 and scanned into chart. Pt being seen for chronic back pain and hx of C4-6 fusion. Order pended, please review and file if agreeable. Pt informed that we will contact him once we fax order to Dr. Shaffer. Dara Doran MA [facility] 08-28-2023 Telephone encounter Note I can certainly put the referral in. I just need a little more info. What has he been going to pain management for? (Back? Neck?). (Dr. Newell is out this week and just need a little more info). Justina Carrasco APRN.JANITORIAL CLEANER [facility] 08-28-2023 Telephone encounter Note Patient calling, asking for a referral to Dr. Bower for pain management. States he is switching from the [place] doctor that he has been seeing. Please advise. [facility] 07-27-2023 History of Presen t illness Narrative Patient presents with: Follow Up HPI: Patient presents today for office visit for follow up. Follows with Hem/Onc. Dr. Nowak. Just completed 28 rounds of radiation for prostate cancer. Doing well. Saw Dermatology and had skin cancer removed from right cheek. Just done last Saturday. HLD: Continues on Atorvastatin 40 mg daily qhs No myalgias PSYCH: Continues on Duloxetine 30 mg daily Moods are rough sometimes but feels he is doing ok. Has some situational stress. (Minimal Depression) Continuing current treatment plan and Medication management Appetite is good. Not sleeping well. Had sleep studies in the past. Could never get used to using a CPAP. Had been encouraged in the past to see gi. Due for labs. No chest pain or shortness of breath. No edema. Hx of Araujo's Esophagus No dysphagia. No heartburn. Did see Dr Dahl. Had him scoped in 2022. He was referred to Dr Thompson . They were debating about repeat surveillance. Now taking Omeprazole 40 mg daily MEDICATIONS: Current Outpatient Medications Medication Sig omeprazole (PRILOSEC) 40 mg capsule Take 1 capsule by mouth every afternoon. atorvastatin (LIPITOR) 40 mg tablet Take 1 tablet by mouth daily at bedtime. For cholesterol. DULoxetine (CYMBALTA) 30 mg capsule Take 1 capsule by mouth once daily. acetaminophen (TYLENOL ARTHRITIS PAIN ORAL) Take 2 [...] impingement sees Dr. Lott, pain management at [place] Colon polyp Depression Diverticulosis of colon (without [...] SING OR MULT 07/10/2022 Dr. Nestor Dahl; Araujo's, HH, gastritis NEUROPLASTY &/TRANSPOS MEDIAN NRV CARPAL [...] today and recommended the following in detail. RSV Vaccine(1 - 1-dose 60+ series) Never done Covid-19 Vaccine(2022- season) due on 12/07/2022 Advance Directive Discussion-has surrogate, son and daughter. Behavioral Health Screening Never done VITALS: BP 139/76 Pulse 66 Ht 168.9 cm (5' 6.5) Wt 83.9 kg (185 lb) BMI 29.41 kg/m Last 4 Encounter Wt Readings: Date: Wt: 06/09/2022 84.4 kg (186 lb) 05/07/2022 84.4 kg (186 lb) 04/16/2022 84 kg (185 lb 3.2 oz) 02/12/2022 83 kg (183 lb) PHYSICAL EXAMINATION: General appearance: Well appearing, alert, in no acute distress, well-hydrated, well nourished. Skin: scar on face Lungs: Lungs clear to auscultation. No wheezing, rhonchi, rales Heart: RRR without murmur, gallop, or rubs. No ectopy Abdomen: Normal abdominal exam, Abdomen soft, non-tender. Bowel sounds normal. No masses, organomegaly Extremities: No deformities, edema, skin discoloration, clubbing or cyanosis. Good capillary refill. ASSESSMENT/PLAN: 1. Obstructive sleep apnea (adult) (pediatric) - ICD9: 327.23, ICD10: G47.33 (primary diagnosis) - have recommended sleep med in the past. 2. Mixed hyperlipidemia - ICD9: 272.2, ICD10: E78.2 - Control undetermined, due for labs - Counseled on healthy diet and regular exercise - COMPLETE BLOOD COUNT AND DIFFERENTIAL - COMPREHENSIVE METABOLIC PANEL - LIPID PANEL BASIC 3. Kidney stone - ICD9: 592.0, ICD10: N20.0 - stable 4. Impaired fasting glucose - ICD9: 790.21, ICD10: R73.01 - check labs. - HEMOGLOBIN A1C 5. Prostate cancer (HCC) - ICD9: 185, ICD10: C61 - per urology and radiation oncology 6. 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 - CONSULT TO GASTROENTEROLOGY 7. Skin cancer - ICD9: 173.90, ICD10: C44.90 - per Derm Rom Newell MD RTO in six months documented in this encounter [facility] 06-19-2023 Miscellaneous Notes Addended by: ROM NEWELL on: 06/19/2023 02:45 PM Modules accepted: Orders Patient has been identified by name and date of : Yes Patient's spouse phones for refill(s): Requested Prescriptions Pending Prescriptions Disp Refills atorvastatin (LIPITOR) 40 mg tablet 90 tablet 3 Sig: Take 1 tablet by mouth daily at bedtime. For cholesterol. Date of last office visit in primary care: 06/09/2022 Date of next office visit in primary care: Visit date not found Scheduled a visit for next week. Please advise. Thank you. Domenica Cruz. documented in this encounter [facility] 03-27-2023 Miscellaneous Notes Omeprazole 40mg prescribed by Dr. Joe Dahl and was last dispensed today, 03/27/23 by [facility]. Pt notified. Wilfrid Leal Patient called to refill omeprazole 40 mg; once a day. Not on med list. Please review. Uses [facility] in [place]. documented in this encounter [facility] 10-18-2022 Miscellaneous Notes Faxed consult to [facility] as requested. Molly Nunez Ma Right nasal lesion noted while here with . Has lesion on right nostril with central scabbed depression, nodular border with telangiectasial vessels. Recheck walk in without appt in 2 weeks. Please send consult to Dr. Milo Hunt Telephone on 10/18/22 CONSULT TO DERMATOLOGY External nasal lesion (primary encounter diagnosis) Thanks, Erick Brown PA-C documented in this encounter [facility] 10-02-2022 Miscellaneous Notes Records reviewed. Patient with a 6 cm segment of Araujo's. History of a previous fundoplication. Biopsies revealed indefinite for low-grade dysplasia. 1. We will obtain esophageal biopsy slides for review. 2. We will arrange for a virtual visit. Records received and uploaded under scanned doc. Please review and advise Denisha Hensley Solar Process Engineer documented in this encounter [facility] 08-06-2022 History of Presen t illness Narrative New Patient/Consult REASON FOR VISIT Robby Vera is a 81 year old male who is scheduled for a consult at the request of . CHIEF COMPLAINT No chief complaint on file. My final recommendations will be communicated back to the requesting physician by the way of the shared medical record, fax, or via US Mail. HISTORY OF PRESENT ILLNESS 81-year-old male who was referred for Araujo's esophagus. Records indicate biopsy proven Araujo's esophagus with indeterminate for dysplasia. An upper endoscopy was performed on July 10. Long segment Barretts of 6 cm in length was notable as well as a medium sized hiatal hernia. Long history of GERD (years) Placed on omeprazole, pyrosis is under control [...] impingement sees Dr. Lott, pain management at [place] Colon polyp Depression Diverticulosis of colon (without [...] DX W/COLLJ SPEC WHEN PFRMD 02/25/2015 CYSTOSCOPY,+URETEROSCOPY 1994 stone removed EGD BIOPSY SING OR MULT 07/10/2022 Dr. Nestor Dahl; Araujo's, HH, gastritis NEUROPLASTY &/TRANSPOS MEDIAN NRV CARPAL [...] and plan: 81-year-old male with long segment Araujo s esophagus. Comments in the biopsy states indeterminate Araujo's dysplasia with possible endoscopic ablation. We will first have these biopsies reviewed and if necessary, perform either another surveillance examination or ablation of the Barretts esophagus. This will all depend on the findings of our pathology team. Trisha Thompson II, MD August 06, 2022 11:06 AM documented in this encounter [facility] 08-03-2022 Miscellaneous Notes Faxed referral over as requested. Ok to do PT is needing referral for Pain Management his previous one has retired (Dr. Lott) he is wanting to go to Dr. Ramires at [facility]. Please assist and advise. Kori LOVE documented in this encounter [facility] 07-26-2022 Miscellaneous Notes Records received uploaded under scanned doc. Pt needs to be seen for Araujo's I will call and schedule. Please review and advise Denisha Hensley Solar Process Engineer documented in this encounter [facility] 07-10-2022 History and physical note Note Date/Time July 10, 2022 7:47am [facility] Medical Records Department [address] [place] [address] History & Physical Exam 07/10/2246 MR#: [id number] Acct: [id number] Name: ROBBY VERA Rep #:[id number] : 1940 81 From: Joe Dahl MD PCP: Dr. Rom Newell MD Status:REG S DC Location: [place] [address] History and Physical Date of Admission: 07/10/22 Visit Reasons:?RUQ PAIN & GERD Chief Complaint: right abd pain On Site Nurse Required: No Is patient in pain?: No Allergies No Known Allergies Allergy (Verified 06/19/22 14:23) Medications B-complex with vitamin C 1 tab PO DAILY 01/17/18 [History Confirmed 06/19/22] atorvastatin 40 mg tablet 40 mg PO DAILY 01/17/18 [History Confirmed 06/19/22] cholecalciferol (vitamin D3) 25 mcg (1,000 unit) capsule 1,000 unit PO DAILY 01/17/18 [History Confirmed 06/19/22] tramadol 50 mg tablet 50 mg PO Q6H PRN Pain 01/17/18 [History Confirmed 06/19/22] gabapentin 600 mg tablet 600 mg PO Q6H 08/10/20 [History Confirmed 06/19/22] acetaminophen 650 mg tablet,extended release (Arthritis Pain Relief (acetaminophen) ER) 650 mg PO Q12H 03/22/22 [History Confirmed 06/19/22] duloxetine 30 mg capsule,delayed release (Cymbalta) 30 mg PO DAILY 03/22/22 [History Confirmed 06/19/22] PFSH Medical History?(Updated 06/19/22 @ 15:[address] Joe Dahl MD) Anxiety Arthritis Back problem Hemorrhoids Personal history of colonic polyps Sleep apnea Surgical History? History of prostate surgery Hx of carpal tunnel repair Hx of cholecystectomy Hx of fusion of cervical spine Hx of hernia repair Family History? Mother Diabetes Heart diseaseBrother Cancer ?? ? Kidney Heart disease Social History? Smoking Status:? Never smoker second hand exposure:? No alcohol intake:? never substance use type:? does not use caffeine:? No what type of physical activity do you participate in:? none frequency:? does not exercise seatbelt use:? always HPI HPI HPI: 81-year-old gentleman is being referred by Dr. Rom Newell for surgical consultation regarding abdominal pain.? The patient is complaining of acid he indigestion and nervous stomach.? Complaining of more of discomfort in the right upper quadrant.? Nothing seems to improve it.? This been ongoing for over 6 months.? By report a CT scan from the clinic showed nonspecific findings of appendix filled with air and stool no inflammation.? I have personally reviewed those images.? No evidence of bowel obstruction.? Fatty change of the liver.? Chronic medications include famotidine 20 mg daily and Cymbalta 30 mg daily.? Mercedes have a previous history of colon polyp and diverticulosis of the colon.? Aditi had a previous cholecystectomy in 1986.? It would appear that his most recent colonoscopy was February 2015. As of June 09, 2022 total protein was 7.2 and albumin was 4.4 and calcium was 9.6 and total bilirubin was 0.7 and alkaline phosphatase was 76 and AST was 26 and ALT was 28 and glucose was 102 and BUN was 17 and creatinine 1.19 and lipasewas 21 His white blood cell count was 11.76 with a hemoglobin 15.3 and hematocrit 46.9 and a platelet count of 284,000 with no left shift The patient states that he has had this intermittent right lower quadrant abdominal pain for at least a year and a half.? Claims that the sharp pain he can lie down to take a deep breath and usually is able to get it to resolve within about 5 minutes.? No fever chills or sweats.? He has had a history of multiple kidney stones but he points more to the right flank area.? 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 He claims that when he has the pain that he feels full but he does not vomit.? There is been no bright red blood per rectum or melena.? No unexpected weight loss. Previous colonoscopy was January 2018 He points more to the right mid to lower abdomen as the etiologic source.? He isnot having discomfort at this time.? He does not describe the pain as a constantachy dull pain. ROS General General: No weight change, appetite, fatigue, colon cancer, breast cancer or weakness HEENT HEENT: No difficulty swallowing, eye injury, eye surgery, swollen glands or hoarseness Endo Endocrine: No thyroid disease, diabetes mellitus, thyroid cancer, Hair loss, heat intolerance or cold intolerance Musc Musculoskeletal: Yes back problems and arthritis; No rheumatoid arthritis, gout or joint pain Cardio Cardiovascular: No murmur, pacemaker, heart disease, atrial fibrillation, high blood pressure, heart attack, heart stent, palpitations, shortness of breat withexertion or chest pain Psych Psychiatric: Yes anxiety; No depression or hearing voices Resp Respiratory: No shortness of breath, Yes sleep apnea, No cough, No COPD, No asthma, No emphysema and No wheezing Gastro Gastrointestinal: Yes abdominal pain, No nausea or vomiting, No diarrhea, No constipation, No blood in stool, Yes acid reflux, No hemorrhoids, No ulcers, No gallbladder problem and No black,tarry stools Armando Hematologic: No blood thinners, No blood disorders, No bleeding, No anemia and No blood clots Neuro Neurologic: No weakness Exam Const General: cooperative, comfortable and no acute distress [facility] Head: normal to inspection Eyes General: appearance normal, both eyes and all related structures Neck Other: Decreased range of motion Chest Other: Slightly increased anterior posterior diameter Resp Effort & Inspection: normal respiratory effort Auscultation: clear to auscultation bilaterally Cardio Rate: regular rate Rhythm: regular rhythm GI Inspection: normal to inspection Other: Well-healed long right subcostal incision.? Well-healed midline epigastric incision.? No hepatosplenomegaly.? No mass.? No focal tenderness.? Bowel sounds present unremarkable Skin General: no rashes or lesions noted Neuro General: patient alert and patient awake Extrem General: no calf tenderness Psych Appearance: grossly normal Assessment and Plan Assessment and Plan (1) Abdominal pain: ?Status:?Acute Plan 1-1/2-year history of intermittent sharp right mid to lower quadrant abdominal pain of undetermined etiology.? He has a history of kidney stones but states that he does not feel that this discomfort is similar.? Apparently on 1 occasionhe was noted to have some blood in his urine on analysis.? The pain is rather transient and about [address] imaging exam suggested a visibly unusual appendix with air and stool noted within a fairly large orifice.? There is additional some concern as to whether his discomfort could be peptic ulcer in origin. I propose for him a combined esophagogastroduodenoscopy with possible biopsy andcolonoscopy with possible biopsy or polypectomy as indicated and he is aware of technique, benefit, risk and alternatives.? Careful inspection for peptic ulcer issues and careful inspection particularly of the appendiceal orifice will be pursued. If these exams are unremarkable then I would remain suspicious about potentiallydegenerative disease of his back with transient nerve impingement or perhaps less likely intermittent kidney stone pain but I think that is less likely to the quite transient nature of his discomfort. I appreciate the opportunity of assisting with the surgical care. Copy: Dr. Rom Dahl M.D., F.A.C.S I have examined the patient and the H&P has been reviewed. There are no clinicalchanges since date of exam. Joe Dahl M.D., F.A.C.S. 07/10/22 0747 <Electronically signed by Joe Dahl MD> Cosigner Signature (if applicable): CC: Dr. Joe Dahl MD; Dr. Rom Newell MD~ Signed [facility] Work Phone: [phone]) 228-980904-04-2023 Procedure [facility] 07-10-2022 Procedure [facility]04-04-2023 Procedure note [facility]04-04-2023 Procedure [facility] 06-29-2022 Miscellaneous Notes* Telephone Encounter - Anay Grey [facility] - 06/29/2022 12:48 PM EDT Pharmacy verified in Epic Patient has been identified by name and [...] advise. Anay Wheeler Pss [facility] Miscellaneous Notes* Telephone Encounter - Yary Lindsay RN - 06/13/2022 3:46 PM EST Spoke with patient. Given message from provider's office. Patient verbalizes understanding. Patientstates he has an appointment with Dr. Joe Dahl on 06/19. He says I'm doing about the same. Yary Lindsay RN * Telephone Encounter - Wilfrid Leal LPN - 06/13/2022 3:35 PM EST TC to pt, left message to return call to office. FYI- pt cancelled appt with Gen Surg (pt was advised by PCP at on 06/09/22 to keep appt with Gen Surg) * Telephone Encounter - Molly Nunez Ma - 06/11/2022 5:15 PM EST Left message for patient to return call. Molly Nunez Ma * Telephone Encounter - Matilda Brown PA-C - 06/11/2022 2:37 PM EST Result message sent 05/31/22: Please let him know CT showed no surgical issues. Appendix non-specific findings with air and stoolpresent. How is he doing? Please give my apology as I don't know why message did not reach him. He also saw Dr. Newell 06/09/2022 whose note reflects reviewing results. Thanks, Erick Brown PA-C * Telephone Encounter - Yessenia Yee SOCK LINING EXAMINER - 06/11/2022 8:58 AM EST Images from the original note were not included. Patient calling asking to have CT results. Results CT ABD/PEL W IVCON (Order [id number]) Patient Info Patient Name Sex Robby Gore ([id number]) Male 1940 Imaging Findings Finding Acuity Linked [...] Radiology, [place] Physician [place] Date [facility] [place] Provider 05/25/2022 05/25/2022 11:21 PM - Radiology, [...] be communicated with the ordering provider via NONO staff message or phone message by Imaging Support Services within 2 business days of report finalization. Algorithms for management of incidental imaging findings can be found on the [facility] Intranet Sharepoint site at: [email or web address] ngs%[email or web address].[email or web address] Survey Superintendent: JOSE Transcribe Date/Time: May 25 2022 11:14P Dictated by : VENTURA KENNY MD This examination was interpreted and the report reviewed and electronically signed by: VENTURA KENNY MD on May 25 2022 11:19PM EST Results-Findings * * *Final Report* * * DATE OF EXAM: May 22 2022 11:19AM [facility] 0530 - CT ABD/PEL W IVCON / [...] hiatal hernia. Lower thorax: No additional findings Core Loader (topogram) images: No additional findings. Result History CT ABD/PEL W IVCON (Order #[id number]) on 05/25/2022 - Order Result History Report Result Information Status Provider Status Actionable Final result (05/25/2022 11:21 PM) Reviewed Exam Performed Date and Time 05/22/2022 11:19 AM [facility] DIVISION OF RADIOLOGY [address] [facility] [address] CT ABD/PEL W IVCON: Result Notes M [...] CT results, office notes, labs faxed to [phone] as requested. Patient said trying to get appt with Dr Nestor Dahl and will not get set up until items are faxed to them. [facility] Miscellaneous Notes* Telephone Encounter - Yessenia Yee LPN - 06/11/2022 8:56 AM EST Patient calling asking for results. Went over results, notes from Dr Newell with understanding. Patient said he has seen Dr Fritz in the past wanted referral faxed to his office. Printed consult, facesheet, insurance card copy, urine results, office notes and CT results faxed to [phone] as requested. * Telephone Encounter - Rom Newell MD - 06/11/2022 8:10 AM EST Urine shows blood in urine. In addition to the surgery consult we placed Saturday. Refer to urologyfor hematuria. [facility] Instructions* Patient Instructions* Rom Newell MD - 06/09/2022 9:39 AM EST Get labs and urine today. Make sure you follow up with surgery for follow up. [facility] History of Present illness Narrative* Rom Newell MD - 06/09/2022 9:11 AM EST Patient presents with: Follow Up HPI: Patient presents today for office visit for follow up. Still getting the pain in his abd. Has the full feeling. Taking the famotidine and maybe slightly helpful. Is watching diet but doesn't seem to matter what he eats and still will get acid indigestion at night. Describes as a bad case of nervous stomach. His pain he indicates now is more [...] while to go away. Feels like he's full. No bloody or black stools. No constipation [...] Abs Lymph 1.00 - 4.00 k/uL 3.39 Wright% % 10.3 Abs Wright <0.87 k/uL 1.08 (H) Eosin% % 1.1 [...] impingement sees Dr. Lott, pain management at [place] Colon polyp Depression Diverticulosis of colon (without [...] history andsocial history today. REVIEW OF SYSTEMS All other [...] continue meds. - CONSULT TO GENERAL SURGERY Rom Newell documented in [facility] encounter[facility]23 Miscellaneous Notes* Telephone Encounter - Yessenia Yee LPN - 05/28/2022 2:13 PM EST Patient returned call and went over results, notes from Erick KURTZ with understanding. Patient said he is feeling the same, no changes still having pain right lower quadrant. He has follow up appt with Dr Newell on 06/09/2022. * Telephone Encounter - Nuha Gómez - 05/28/2022 1:52 PM EST Message left for patient to return call. Nuha Gómez * Telephone Encounter - Nuha Gómez - 05/28/2022 1:47 PM EST ----- Message from Matilda Brown PA-C sent at 05/26/2022 9:13 AM EST ----- Please let hi know CT showed no surgical issues. Appendix non-specific findings with air and stool present. How is he doing? Thanks, Erick Brown PA-C documented in this encounterOhiohealth [facility] Hospital02-14-2023 History of Present illness Narrative* Aracely Johnson, RT(R) - 05/22/2022 10:20 AM EST Radiology Service Progress Note DATE OF SERVICE: [...] creatinine assay has traceable calibration to isotope dilution- mass spectrometry. Refer to KDIGO guidelines for clinical interpretation. In patients with unstable renal function, e.g. those with acute kidney injury, the eGFRmay not accurately reflect actual GFR. eGFR- Date Value Ref Range Status 12/21/2020 >60 Final P.O.C.T. RESULTS: POC done: Yes, See Lab Tab May 22, 2022 TREATMENT: N/A PERIPHERAL IV DATA: Ambulatory: A peripheral IV was started in the Left antecubital site with a Angio cath: 22 gauge. RADIOLOGY DEPARTMENT: CT; Exam(s) Completed: Abdomen/Pelvis SIGNATURE: RT Gregorio(R) PATIENT NAME: Robby Vera DATE: May 22, 2022 TIME: 2:44 PM documented in this encounterOhiohealth Berger Hospital01-30-2023 History of Present illness Narrative* Rom Newell MD - 05/07/2022 3:35 PM EST Patient presents with: Abdominal Pain HPI: Patient presents today for office visit for abdominal pain. Complains of a shooting/sharp pain in lower right sided abdomen. Intermittent over the past 6+ months. Hurts more in the morning. When episodes come on it takes a little while to go away. Feels like he's full. No bloody or black stools. No constipation [...] impingement sees Dr. Lott, pain management at [facility] Colon polyp Depression Diverticulosis of colon (without [...] history andsocial history today. REVIEW OF SYSTEMS As above. HEALTH MAINTENANCE: Reviewed health maintenance issues today and recommended the following in detail. DEPRESSION ASSESSMENT due on 04/08/2022 Has dpoa, his and children are his dpoa. VITALS: BP 130/66 Pulse 71 Ht 168.9 cm (5' 6.5) Wt 84.4 kg (186 lb) SpO2 99% [...] for re-assessment reviewed with patient in detail. Rom Newell MD RTO in four weeks. documented in this encounterOhiohealth Berger Hospital01-09-2023 History of Present illness Narrative* Rom Mendieta Jr., MD - 04/16/2022 2:31 PM EST NEW PATIENT (CONSULT) HISTORY AND PHYSICAL EXAM PRIMARY CARE PHYSICIAN: Rom Newell MD REASON FOR CONSULT: TAMMI REFERRING PHYSICIAN: Rom Newell MD CHIEF COMPLAINT: TAMMI Consultation requested by Rom Newell MD for an opinion regarding chief complaint of Patient presents with: New Patient: Sleep apnea; non-CPAP user and my final recommendations will be communicated back to the requesting physician by way of sharedmedical record or letter via US mail. HISTORY OF PRESENT ILLNESS: Robby Vera is a 81 year old male, BMI 29.44 kg/m2 with a PMH significant for TAMMI for which he was dx'd at [facility] via split night sleep study showing severe [...] he was set at (he thinks it wasup to 20 cmH2O). Thus, they lowered the pressure down to 8 cmH2O, but what good was that doing. Describes sleep as being up and down quite a bit during the night. States lots of disruption fromenvironment ( moving, dog). States he could never [...] impingement sees Dr. Lott, pain management at [place] Colon polyp Depression Diverticulosis of colon (without [...] supine and in REM sleep. Currently not treateddue to PAP intolerance and mask leak as above. However, pt willing to try treating again. Continuesto have symptoms of TAMMI, with greater risk [...] >5 given prior dx of TAMMI and othermed conditions. However, rather than trail CPAP through [...] loss, and continued compliance with other medications. Rom Mendieta MD I spent a total of 45 minutes on the date of the service which included preparing to see the patient, [id number] patient care, completing clinical documentation, obtaining and/or reviewing separately obtained history, performing a medically appropriate examination, counseling and educating the pat ient/family/caregiver, ordering medications, tests, or procedures, and communicating results to thepatient/family/caregiver. documented in this encounterOhiohealth Berger Hospital12-12-2022 Instructions* Patient Instructions* Justina Carrasco APRN.CNP - 03/19/2022 11:01 AM EST Continue the same dose of medication. Recheck with Dr. Newell in June. Let us know sooner if you feel that the dose of medication needs to be increased. documented in this encounterOhiohealth Berger Hospital12-12-2022 History of Present illness Narrative* Justina Carrasco APRN.CNP - 03/19/2022 10:51 AM EST This is a 81 year old male who presents today with: Patient presents with: Recheck: 1 month follow up HISTORY OF PRESENT ILLNESS: Robby Vera is a 81 year old male. Patient [...] impingement sees Dr. Lott, pain management at [place] Colon polyp Depression Diverticulosis of colon (without [...] improvement. Justina Carrasco APRN.CNP documented in this encounterOhiohealth Berger Hospital11-07-2022 Instructions* Patient Instructions* Justina Carrasco APRN.CNP - 02/12/2022 10:45 AM EST Continue the same medication. Recheck in 1 month for a recheck. 3. Let us know sooner if any problems/concerns. documented in this encounterOhiohealth Berger Hospital11-07-2022 History of Present illness Narrative* Justina Carrasco, LESLEY.JANITORIAL CLEANER - 02/12/2022 10:20 AM EST This is a 81 year old male who presents today with: Patient presents with: Recheck HISTORY OF PRESENT ILLNESS: Robby Vera is a 81 year old male. Patient [...] impingement sees Dr. Lott, pain management at [place] Colon polyp Depression Diverticulosis of colon (without [...] needed for worsening/no improvement. Justina Carrasco APRN.SINGH The patient indicates understanding of these issues and agrees with the plan. I spent a total of 24 minutes on the date of the service which included preparing to see the patient, [id number] patient care, completing clinical documentation, performing a medically appropriate examination, and counseling and educating the patient/family/caregiver. documented in this encounterOhiohealth Berger Hospital10-05-2022 History of Past illness Narrative* Problem [...] of this encounter (statuses as of 01/10/2022) [facility] History of Past illness Narrative* Problem [...] Routine [facility] 03/28/2009 02/08/2015 Overview: 03/28/2009, establish care 06/13/2010, yearly check-up documented as of this encounter (statuses as of 02/12/2022) [facility] History of Past illness Narrative* Problem [...] of this encounter (statuses as of 03/19/2022) [facility] History of Past illness Narrative* Problem [...] Colon polyps 04/29/2009 01/10/2022 Overview: Dr. Miranda, kourtney 3 year scopes Routine general medical exam ination at [facility] [place] [facility] 03/28/2009 02/08/2015 Overview: 03/28/2009, establish care 06/13/2010, yearly check-up documented as of this encounter (statuses as of 04/16/2022) [facility] of Past illness Narrative* Problem Noted Date Resolved Date Back problem 01/10/2022 01/10/2022 Chronic back pain 01/10/2022 01/10/2022 Hemorrhoids 01/10/2022 01/10/2022 History of cervical spinal arthrodesis 2 01/10/2022 History of surgical procedure 01/10/2022 Wheelwright-Schlatter's disease 01/10/202201/10 Skin lesion 01/10/2022 01/10/2022 Benign [...] of this encounter (statuses as of 05/08/2022) [facility] of Past illness Narrative* Problem Noted Date Resolved Date Back problem 01/10/2022 01/10/2022 Chronic back pain 01/10/2022 01/10/2022 Hemorrhoids 01/10/2022 01/10/2022 History of cervical spinal arthrodesis 2 01/10/2022 History of surgical procedure 01/10/2022 Wheelwright-Schlatter's disease 01/10/202201/10 Skin lesion 01/10/2022 01/10/2022 Benign [...] of this encounter (statuses as of 06/09/2022) [facility] of Past illness Narrative* Problem [...] Routine [facility] 03/28/2009 02/08/2015 Overview: 03/28/2009, establish care 06/13/2010, yearly check-up documented as of this encounter (statuses as of 06/11/2022) [facility] of Past illness Narrative* Problem Noted Date Resolved Date Back problem 01/10/2022 01/10/2022 Chronic back pain 01/10/2022 01/10/2022 Hemorrhoids 01/10/2022 01/10/2022 History of cervical spinal arthrodesis 2 01/10/2022 History of surgical procedure 01/10/2022 Wheelwright-Schlatter's disease 01/10/202201/10 Skin lesion 01/10/2022 01/10/2022 Benign [...] of this encounter (statuses as of 06/29/2022) [facility] of Past illness Narrative* Problem Noted Date Resolved Date Back problem 01/10/2022 01/10/2022 Chronic back pain 01/10/2022 01/10/2022 Hemorrhoids 01/10/2022 01/10/2022 History of cervical spinal arthrodesis 2 01/10/2022 History of surgical procedure 01/10/2022 Wheelwright-Schlatter's disease 01/10/202201/10 Skin lesion 01/10/2022 01/10/2022 Benign [...] of this encounter (statuses as of 07/27/2022) [facility] of Past illness Narrative* Problem [...] of this encounter (statuses as of 07/28/2022) [facility] of Past illness Narrative* Problem Noted Date Resolved Date Back problem 01/10/2022 01/10/2022 Chronic back pain 01/10/2022 01/10/2022 Hemorrhoids 01/10/2022 01/10/2022 History of cervical spinal arthrodesis 01/10/2022 History of surgical procedure 01/10/2022 Wheelwright-Schlatter's disease 01/10/202201/10 Skin lesion 01/10/2022 01/10/2022 Benign [...] of this encounter (statuses as of 08/03/2022) [facility] of [facility] illness Narrative* Problem [...] of this encounter (statuses as of 08/07/2022) [facility] of Past illness Narrative* Problem [...] of this encounter (statuses as of 08/16/2022) [facility] of Past illness Narrative* Problem [...] of this encounter (statuses as of 10/03/2022) [facility] of Past illness Narrative* Problem [...] Routine general medical exam in[facility] [place] [facility] 03/28/2009 02/08/2015 Overview: [facility]/28/2009[facility], yearly check-up documented as of this encounter (statuses as of 10/18/2022) [facility] Past illness Narrative* Problem [...] of this encounter (statuses as of 02/10/2023) [facility] of [facility] illness Narrative* Problem Noted Date Diagnosed Date Resolved Date Back problem 01/10/2022 01/10/2022 Chronic back pain 01/10/2022 01/10/2022 Hemorrhoids 01/10/2022 01/10/2022 History of cervical spinal arthrodesis 01/10/2022 01/10/2022 History of surgical procedure 01/10/2022 01/10/2022 Wheelwright-Schlatter's disease 01/10/2022 1 Skin lesion 01/10/2022 01/10/2022 Benign neoplasm of transverse colon 02/25/2018 01/10/2022 Right lower quadrant pain 02/25/2018 Pain in joint, shoulder region 11/23/2009 01/10/2022 Overview: Left rotator cuff Colon polyps 04/29/2009 01/10/2022 Overview: Dr. Miranda, q 3 year scopes Routine general medical exam ination at [facility] [place] [facility] 03/28/2009 02/08/2015 Overview: 03/28/2009, establish care 06/13/2010, yearly check-up documented as of this encounter (statuses as of 02/10/2023) [facility] of [facility] Narrative* Problem Noted Date Diagnosed Date Resolved Date Back problem 01/10/2022 01/10/2022 Chronic back pain 01/10/2022 01/10/2022 Hemorrhoids 01/10/2022 01/10/2022 History of cervical spinal arthrodesis 01/10/2022 01/10/2022 History of surgical procedure 01/10/2022 01/10/2022 Wheelwright-Schlatter's disease 01/10/2022 1 Skin lesion 01/10/2022 01/10/2022 [...] of this encounter (statuses as of 03/28/2023) [facility] of [facility] illness Narrative* Problem Noted Date Diagnosed Date Resolved Date Back problem 01/10/2022 01/10/2022 Chronic back pain 01/10/2022 01/10/2022 Hemorrhoids 01/10/2022 01/10/2022 History of cervical spinal arthrodesis 01/10/2022 01/10/2022 History of surgical procedure 01/10/2022 01/10/2022 Wheelwright-Schlatter's disease 01/10/2022 1 Skin lesion 01/10/2022 01/10/2022 [...] as of this encounter (statuses as of 06/20/2023) [facility] of [facility] Narrative* Problem Noted Date Diagnosed Date Resolved Date Back problem 01/10/2022 01/10/2022 Chronic back pain 01/10/2022 01/10/2022 Hemorrhoids 01/10/2022 01/10/2022 History of cervical spinal arthrodesis 01/10/2022 01/10/2022 History of surgical procedure 01/10/2022 01/10/2022 Wheelwright-Schlatter's disease 01/10/2022 1 Skin lesion 01/10/2022 01/10/2022 Benign neoplasm of transverse colon 02/25/2018 01/10/2022 Right lower quadrant pain 02/25/2018 Pain in joint, shoulder region 11/23/2009 01/10/2022 Overview: Left rotator cuff Colon polyps 04/29/2009 01/10/2022 Overview: Dr. Miranda, q 3 year scopes Elevated PSA 04/13/2009 07/27/2023 Overview: Dr. Boswell 4.4; 3.80 02/26/07, 2.56 02/22/06 Radiation tx Now seeing Dr. Fritz. Routine general medical exam ination at a health care facility 03/28/2009 02/08/2015 Overview: 03/28/2009, establish care 06/13/2010, yearly check-up documented as of this encounter (statuses as of 07/27/2023) [facility] of Present illness Narrative* Rom Newell MD - 01/10/2022 10:05 AM EDT Patient [...] impingement sees Dr. Lott, pain management at [place] Colon polyp Depression Diverticulosis of colon (without [...] INFLUENZA(1) due on 12/07/2021-will be getting at [employer] VITALS: BP 130/82 Pulse (!) 57 Ht 168.9 cm (5' 6.5) Wt 82.9 kg (182 lb 12.8 oz) [...] MG CAPSULE,DELAYED RELEASE 4. Hyperglycemia Check labs. Rom Newlel MD RTO in four weeks. documented in this encounterOhio[facility] Hospital04-01-2022 History of Present illness Narrative* Rom Newell MD - 07/07/2021 10:46 AM EDT Patient [...] impingement sees Dr. Lott, pain management at [place] Colon polyp Depression Diverticulosis of colon (without [...] with patient - ICD9: V65.49, ICD10: Z71.89 Rom Newell RTO in six months and prn. documented in this encounterOhiohealth Berger Hospital03-25-2022 Miscellaneous Notes* Telephone Encounter - Nusrat Garcia Ma - 06/30/2021 8:[address] orders for cbc with diff with patient. documented in this encounterOhiohealth Berger Hospital12-21-2009 History of Past illness Narrative* Problem Noted Date Resolved Date Routine general medical exam ination at a health care facility 03/28/2009 02/08/2015 Overview: 03/28/2009, establish care 06/13/2010, yearly check-up documented as of this encounter (statuses as of 06/30/2021) [facility] of [facility] illness Narrative* Problem Noted Date Resolved Date Routine general medical exam ination at a health care facility 03/28/2009 02/08/2015 Overview: 03/28/2009, establish care 06/13/2010, yearly check-up documented as of this encounter (statuses as of 07/07/2021) [facility] No data available for this section [facility] Evaluation + Plan note Future Appointments Appointment Date:10/03/2021 10:00:00 AM Scheduled Provider:RAJI SMITH Location:PM Office Appointment Type:PM OV SARAH VERONICA [facility] Evaluation + Plan note Future Appointments Appointment Date:12/12/2021 01:30:00 PM Scheduled Provider:JOE ROSALES DO Location:PM Office Appointment Type:PM OV [facility] Evaluation + Plan note Future Appointments Appointment Date:08/03/2022 10:00:00 AM Scheduled Provider:RAJI SMITH Location:PM Office Appointment Type:PM OV SMITH [facility] Evaluation + Plan note Future Appointments Appointment Date:12/31/2022 08:15:00 AM Scheduled Provider:JOE RAMIRES MD Location:[facility] PM Appointment Type:PM OV [facility] Evaluation + Plan note Future Appointments Appointment Date:02/25/2023 01:30:00 PM Scheduled Provider:JOE RAMIRES MD Location:[facility] PM Appointment Type:PM OV [facility] evaluswodf + Plan note Future Appointments Appointment Date:05/27/2023 12:15:00 PM Scheduled Provider:JOE RAMIRES MD Location:[facility] PM Appointment Type:PM OV [facility] evaluation + Plan note Future Appointments Appointment Date:08/19/2023 10:00:00 AM Scheduled Provider:JOE RAMIRES MD Location:[facility] PM Appointment Type:PM OV [facility] evaluation note* Diagnosis Sleep apnea, unspecified type- Primary documented in this [facility]* Diagnosis Monocytosis- Primary Monocytosis (symptomatic) Depression, unspecified depression type Grief Adjustment disorder with depressed mood Hyperglycemia Other abnormal glucose Sleep apnea, unspecified type Mixed hyperlipidemia Advance directive discussed with patient Other specified counseling documented in this encounter [facility] note* Diagnosis Cervical nerve root impingement- Primary Brachial neuritis or radiculitis nos Mixed hyperlipidemia Depression, unspecified depression type Hyperglycemia Other abnormal glucose documented in this encounter [facility] noteNo assessment information availableWWood County [facility] Work Phone: evaluation note* Diagnosis Depression, unspecified depression type- Primary documented in this encounter [facility] note* Diagnosis Obstructive sleep apnea (adult) (pediatric)- Primary documented in this encounter [facility] note* Diagnosis Chronic RLQ pain- Primary Abdominal pain, right lower quadrant GERD without esophagitis Esophageal reflux Infection in abdomen (HCC) Unspecified peritonitis documented in this encounter [facility] note* Diagnosis RUQ pain- Primary Abdominal pain, right upper quadrant RLQ abdominal pain Abdominal pain, right lower quadrant GERD without esophagitis Esophageal reflux documented in this encounter [facility] note* Diagnosis Microscopic hematuria- Primary documented in this encounter [facility] note* Diagnosis Mixed hyperlipidemia GERD without esophagitis Esophageal reflux documented in this encounter [facility] note* Diagnosis Onset Date Resolution Status Personal history of colonic polyps acute Abdominal pain acute [facility] Work Phone: Evaluation note* Diagnosis Cervical nerve root impingement- Primary Brachial neuritis or radiculitis nos 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 documented in this encounter [facility] note* Diagnosis Gastroesophageal reflux disease without esophagitis- Primary Esophageal reflux Araujo's esophagus with dysplasia Araujo's esophagus documented in this encounter [facility] note* Diagnosis Onset Date Resolution Status Abdominal pain acute Barretts esophagus acute Personal history of colonic polyps acute [facility] Work Phone: Evaluation note* Diagnosis 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- Primary Araujo's esophagus documented in this encounter [facility] note* Diagnosis External nasal lesion- Primary Unspecified disorder of skin and subcutaneous tissue documented in this encounter [facility] note* Diagnosis Chronic RLQ pain Abdominal pain, right lower quadrant documented in this encounter [facility] note* Diagnosis Onset Date Resolution Status [id number] acute [facility] Work Phone: Evaluation note* Diagnosis Onset Date Resolution Status [id number] acute [id number] acute [id number] acute [id number] acute [facility] Work Phone: Evaluation note* Diagnosis Mixed hyperlipidemia documented in this encounter [facility] note* Diagnosis Obstructive sleep apnea (adult) (pediatric)- Primary Mixed hyperlipidemia Kidney stone Calculus of kidney Impaired fasting glucose Prostate cancer (HCC) Malignant neoplasm of prostate 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 Araujo's esophagus Skin cancer Unspecified malignant neoplasm of skin, site unspecified [facility] encounter [facility]* Diagnosis Chronic low back pain, unspecified back pain laterality, unspecified whether sciatica present- Primary DDD (degenerative disc disease), lumbar Degeneration of lumbar or lumbosacral intervertebral disc Albin-Schlatter's disease of knees, bilateral Lumbar back pain with radiculopathy affecting right lower extremity Cervical nerve root impingement Brachial neuritis or radiculitis nos documented [facility] this encounter [facility]* Diagnosis Transient cerebral ischemia, unspecified type- Primary Screening for diabetes mellitus (DM) Screening for diabetes mellitus Weakness with dizziness Vitamin D deficiency Unspecified vitamin D deficiency [facility] encounter [facility]* Diagnosis Transient cerebral ischemia, unspecified type [facility] Weakness with dizziness- Primary Vision changes Unspecified visual disturbance Orthostasis Orthostatic hypotension [facility] Diagnosis Dizziness- Primary Dizziness and giddiness Double vision Diplopia [facility] Diagnosis Mixed hyperlipidemia- Primary Obstructive sleep apnea (adult) (pediatric) 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 Araujo's esophagus Skin cancer Unspecified malignant neoplasm of skin, site unspecified Impaired fasting glucose Low testosterone Other testicular hypofunction Anxiety state Anxiety state, unspecified Prostate cancer (HCC) Malignant neoplasm of prostate [facility] Diagnosis Elevated blood pressure reading without diagnosis of hypertension- Primary Obstructive sleep apnea (adult) (pediatric) [facility] Diagnosis Araujo's esophagus with dysplasia- Primary Araujo's esophagus 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 EGD planned. * Assessment & Plan Note - Kelly Brandt PA-C - 05/07/2024 10:43 AM EST Associated Problem(s): History of prostate cancer S/p radiation. * Assessment & Plan Note - Kelly Brandt PA-C - 05/07/2024 10:40 AM EST Associated Problem(s): Obstructive sleep apnea (adult) (pediatric) TAMMI does not use CPAP. * Assessment & Plan Note - Kelly Brandt PA-C - 05/07/2024 10:39 AM EST Associated Problem(s): PONV (postoperative nausea and vomiting) Pt reported. 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 Araujo's esophagus Pre-op evaluation- Primary Preoperative examination, unspecified Cervical nerve root impingement Brachial neuritis or radiculitis nos Obstructive sleep apnea (adult) (pediatric) PONV (postoperative nausea and vomiting) Nausea with vomiting History of prostate cancer Personal history of malignant neoplasm of prostate Anxiety state Anxiety state, unspecified Lumbar disc disorder Other and unspecified disc disorder of lumbar region * Assessment & Plan Note - Jaky Pritchett PA-C - 06/23/2024 2:16 PM EDTAssociated Problem(s): Lumbar disc disorder Assessment: follows with pain management, on gabapentin and tramadol 4 x daily * Assessment & Plan Note - Jaky Pritchett PA-C - 06/23/2024 2:16 PM EDTAssociated Problem(s): Anxiety state Assessment: Stable on RX, denies concerning symptoms, continue DULoxetine (CYMBALTA) as prescribed * Assessment & Plan Note - Jaky Pritchett PA-C - 06/23/2024 2:15 PM EDTAssociated Problem(s): History of prostate cancer Assessment: s/p XRT * Assessment & Plan Note - Jaky Pritchett PA-C - 06/23/2024 2:15 PM EDTAssociated Problem(s): PONV (postoperative nausea and vomiting) Assessment: reports occasional nausea, never used scopolamine, but states IV meds usually work * Assessment & Plan Note - Jaky Pritchett PA-C - 06/23/2024 2:15 PM EDTAssociated Problem(s): Obstructive sleep apnea (adult) (pediatric) TAMMI does not use CPAP. 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, FROM documented in this encounter [facility] note* Diagnosis Pre-op evaluation- Primary Preoperative examination, unspecified PONV (postoperative nausea and vomiting) Nausea with vomiting Obstructive sleep apnea (adult) (pediatric) History of prostate cancer Personal history of malignant neoplasm of prostate 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 Araujo's esophagus Pre-op evaluation- Primary Preoperative examination, unspecified Cervical nerve root impingement Brachial neuritis or radiculitis nos Obstructive sleep apnea (adult) (pediatric) PONV (postoperative nausea and vomiting) Nausea with vomiting History of prostate cancer Personal history of malignant neoplasm of prostate Anxiety state Anxiety state, unspecified Lumbar disc disorder Other and unspecified disc disorder of lumbar region Araujo's esophagus determined by endoscopy documented in this encounter [facility] note* Diagnosis Pre-op evaluation- Primary Preoperative examination, unspecified PONV (postoperative nausea and vomiting) Nausea with vomiting Obstructive sleep apnea (adult) (pediatric) History of prostate cancer Personal history of malignant neoplasm of prostate 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 Araujo's esophagus Pre-op evaluation- Primary Preoperative examination, unspecified Cervical nerve root impingement Brachial neuritis or radiculitis nos Obstructive sleep apnea (adult) (pediatric) PONV (postoperative nausea and vomiting) Nausea with vomiting History of prostate cancer Personal history of malignant neoplasm of prostate Anxiety state Anxiety state, unspecified Lumbar disc disorder Other and unspecified disc disorder of lumbar region Diverticulitis- Primary Diverticulitis of colon (without mention of hemorrhage) Abdominal pain, unspecified abdominal location documented in this encounter [facility] note* Diagnosis Pre-op evaluation- Primary Preoperative examination, unspecified PONV (postoperative nausea and vomiting) Nausea with vomiting Obstructive sleep apnea (adult) (pediatric) History of prostate cancer Personal history of malignant neoplasm of prostate 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 Araujo's esophagus Pre-op evaluation- Primary Preoperative examination, unspecified Cervical nerve root impingement Brachial neuritis or radiculitis nos Obstructive sleep apnea (adult) (pediatric) PONV (postoperative nausea and vomiting) Nausea with vomiting History of prostate cancer Personal history of malignant neoplasm of prostate Anxiety state Anxiety state, unspecified Lumbar disc disorder Other and unspecified disc disorder of lumbar region Radicular pain- Primary Neuralgia, neuritis, and radiculitis, unspecified documented in this encounter [facility] note* Diagnosis Pre-op evaluation- Primary Preoperative examination, unspecified PONV (postoperative nausea and vomiting) Nausea with vomiting Obstructive sleep apnea (adult) (pediatric) History of prostate cancer Personal history of malignant neoplasm of prostate 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 Araujo's esophagus Pre-op evaluation- Primary Preoperative examination, unspecified Cervical nerve root impingement Brachial neuritis or radiculitis nos Obstructive sleep apnea (adult) (pediatric) PONV (postoperative nausea and vomiting) Nausea with vomiting History of prostate cancer Personal history of malignant neoplasm of prostate Anxiety state Anxiety state, unspecified Lumbar disc disorder Other and unspecified disc disorder of lumbar region Radicular pain Neuralgia, neuritis, and radiculitis, unspecified documented in this encounter [facility] note* Diagnosis Pre-op evaluation- Primary Preoperative examination, unspecified PONV (postoperative nausea and vomiting) Nausea with vomiting Obstructive sleep apnea (adult) (pediatric) History of prostate cancer Personal history of malignant neoplasm of prostate Raaujo's esophagus without dysplasia Araujo's esophagus Pre-op evaluation- Primary Preoperative examination, unspecified Cervical nerve root impingement Brachial neuritis or radiculitis nos Obstructive sleep apnea (adult) (pediatric) PONV (postoperative nausea and vomiting) Nausea with vomiting History of prostate cancer Personal history of malignant neoplasm of prostate Anxiety state Anxiety state, unspecified Lumbar disc disorder Other and unspecified disc disorder of lumbar region Abnormal findings on diagnostic imaging of other parts of musculoskeletal system- Primary History of prostate cancer Personal history of malignant neoplasm of prostate documented in this encounter [facility] note* Diagnosis Pre-op evaluation- Primary Preoperative examination, unspecified PONV (postoperative nausea and vomiting) Nausea with vomiting Obstructive sleep apnea (adult) (pediatric) History of prostate cancer Personal history of malignant neoplasm of prostate 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 Araujo's esophagus Pre-op evaluation- Primary Preoperative examination, unspecified Cervical nerve root impingement Brachial neuritis or radiculitis nos Obstructive sleep apnea (adult) (pediatric) PONV (postoperative nausea and vomiting) Nausea with vomiting History of prostate cancer Personal history of malignant neoplasm of prostate Anxiety state Anxiety state, unspecified Lumbar disc disorder Other and unspecified disc disorder of lumbar region Obstructive sleep apnea (adult) (pediatric)- Primary Mixed hyperlipidemia 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 Araujo's esophagus Skin cancer Unspecified malignant neoplasm of skin, site unspecified History of prostate cancer Personal history of malignant neoplasm of prostate Anxiety state Anxiety state, unspecified Impaired fasting glucose documented in this encounter [facility] note* Diagnosis Pre-op evaluation- Primary Preoperative examination, unspecified PONV (postoperative nausea and vomiting) Nausea with vomiting Obstructive sleep apnea (adult) (pediatric) History of prostate cancer Personal history of malignant neoplasm of prostate 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 Araujo's esophagus Pre-op evaluation- Primary Preoperative examination, unspecified Cervical nerve root impingement Brachial neuritis or radiculitis nos Obstructive sleep apnea (adult) (pediatric) PONV (postoperative nausea and vomiting) Nausea with vomiting History of prostate cancer Personal history of malignant neoplasm of prostate Anxiety state Anxiety state, unspecified Lumbar disc disorder Other and unspecified disc disorder of lumbar region Mixed hyperlipidemia documented in this encounter [facility] note* Diagnosis Pre-op evaluation- Primary Preoperative examination, unspecified PONV (postoperative nausea and vomiting) Nausea with vomiting Obstructive sleep apnea (adult) (pediatric) History of prostate cancer Personal history of malignant neoplasm of prostate 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 Araujo's esophagus Pre-op evaluation- Primary Preoperative examination, unspecified Cervical nerve root impingement Brachial neuritis or radiculitis nos Obstructive sleep apnea (adult) (pediatric) PONV (postoperative nausea and vomiting) Nausea with vomiting History of prostate cancer Personal history of malignant neoplasm of prostate Anxiety state Anxiety state, unspecified Lumbar disc disorder Other and unspecified disc disorder of lumbar region Left lower quadrant abdominal pain- Primary Intra-abdominal and pelvic swelling, mass and lump, unspecified site Screening for nephropathy documented in this encounter [facility] note* Diagnosis Pre-op evaluation- Primary Preoperative examination, unspecified PONV (postoperative nausea and vomiting) Nausea with vomiting Obstructive sleep apnea (adult) (pediatric) History of prostate cancer Personal history of malignant neoplasm of prostate 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 Araujo's esophagus Pre-op evaluation- Primary Preoperative examination, unspecified Cervical nerve root impingement Brachial neuritis or radiculitis nos Obstructive sleep apnea (adult) (pediatric) PONV (postoperative nausea and vomiting) Nausea with vomiting History of prostate cancer Personal history of malignant neoplasm of prostate Anxiety state Anxiety state, unspecified Lumbar disc disorder Other and unspecified disc disorder of lumbar region Left lower quadrant abdominal pain Intra-abdominal and pelvic swelling, mass and lump, unspecified site documented in this encounter [facility] Discharge instructions No data available for this section [facility] progress note No data available for this section [facility] reason for referral (narrative)* Outpatient Procedure (Routine) - Authorized Specialty Diagnoses / Procedures Referred By Dunia urias Referred To Contact [facility] Diagnoses Araujo's esophagus with dysplasia Procedures EGD DIAGNOSTIC ESOPHAGOGASTRODUODENOSC OPY TRANSORAL DIAGNOSTIC Trisha Thompson MD [address] [place], [place] [address] [facility] [place] [address] [place] [address] Referral ID Status Reason Start Date Expiration Date Visits Requested Visits Authorized [id number] Authorized Auto-Generat ed Referral 04/22/2024 04/22/2025 1 1 [facility] for referral (narrative)No reason for referral information availableWWood County [facility] Work Phone: Reason for visit Narrative* Outpatient Procedure (Routine) - Closed Specialty Diagnoses / Procedures Referred By Dunia urias Referred To Contact [facility] Diagnoses Araujo's esophagus with dysplasia Procedures EGD DIAGNOSTIC ESOPHAGOGASTRODUODENOSC OPY TRANSORAL DIAGNOSTIC Trisha Thompson MD [address] [place] [address] Phone: tel: fax: [facility] [address] [address] Referral ID Status Reason Start Date Expiration Date V isits Requested Visits Authorized [id number] Closed Auto-Generate d Referral 04/22/2024 04/22/2025 1 1 [facility] for visit Narrative* Diagnostic Procedure Only (Routine) - Closed Specialty Diagnoses / Procedures Referred By Dunia urias Referred To Contact XR IMAGING Diagnoses Radicular pain Procedures XR LUMBAR GENERAL 3V AP/LAT/L5-S1 RADEX SPINE LUMBOSACRAL 2/3 VIEWS Rom Newell MD [address] [place] [address] Phone: tel: fax: [place] [address] Referral ID Status Reason Start Date Expiration Date V isits Requested Visits Authorized [id number] Closed Auto-Generate d Referral 07/15/2024 08/14/2025 1 1 [facility]/CT (Routine) - Closed Specialty Diagnoses / Procedures Referred By Contac t Referred To Contact CT IM[facility] Diagnoses Left lower quadrant abdominal pain Intra-abdominal and pelvic swelling, mass and lump, unspecified site Procedures CT ABD/PEL W IVCON CT ABD & PELVIS W/CONTRAST Rom Newell MD [address] [place] [address] Phone: tel: fax: [place] [address] Referral ID Status Reason Start Date Expiration Date V isits Requested Visits Authorized [id number] Closed Auto-Generate d Referral 11/18/2024 12/18/2025 1 1 [facility] Summary Purpose Family History No Family History Records Found Relationship Condition Age at Onset Recorded Date/T misti mother Diabetes mellitus Unknown Cardiac disease Unknown brother Malignant neoplasm Unknown Advance Directives No Advanced Directives Records FoundDocuments on File Type Date Recorded Patient Engineering Aide Expl anation Advance Directive(s) 04/16/2018 12:40 PM Documents on File Type Date Recorded Patient Engineering Aide Expl anation Advance Directive(s) 04/16/2018 12:40 PM Advance Directive Response Recorded Date/ Time Living Will Yes June 06, 2018 2:18pm Power of Liquefaction Plant Operator Yes June 06 2:18pm Advance Directive Response Recorded Date/ Time Living Will Yes June 06, 2018 1:18pm Power of Liquefaction Plant Operator Yes June 06 1:18pm Advance Directive Response Recorded Date/ Time Name of Medical Power of Liquefaction Plant Operator SPOUSE/DAUGHTE R/SON July 06, 2022 8:39am Living Will Yes July 06, 2022 8:39am Power of Liquefaction Plant Operator Yes July 06 8:39am Advance Directive Response Recorded Date/ Time Living Will Yes July 06, 2022 7:39am Power of Liquefaction Plant Operator Yes July 06 7:39am Advance Directive Response Recorded Date/ Time Name of Medical Power of Liquefaction Plant Operator May 01, 2023 2:37pm Living Will Yes May 01 2:37pm Power of Liquefaction Plant Operator Yes May 01, 2023 2:37pm Advance Directive Response Recorded Date/ Time Living Will No July 05, 2024 8:11am Do you have a Healthcare Power of Liquefaction Plant Operator? No July 05, 2024 8:11am Reason for Referral Specialty Diagnoses / Procedures Referred By Contac t Referred To Contact CT IMAGING Diagnoses Transient cerebral ischemia, unspecified type Procedures CT BRAIN WO IVCON CT HEAD/BRAIN W/O CONTRAST MATERIAL Ailin Courtney, EARLY CHILDHOOD AIDE [employer]ASSROOM.SPECIAL OFFICER [address] [place] [address] [place] [address] Referral ID Status Reason Start Date Expiration Date Visits Requested Visits Authorized [id number] Authorized Auto-Generat ed Referral 09/10/2023 10/02/2024 1 1 Specialty Diagnoses / Procedures Referred By Contac t Referred To Contact Pain Management Diagnoses Chronic low back pain, unspecified back pain laterality, unspecified whether sciatica present DDD (degenerative disc disease), lumbar Albin-Schlatter's disease of knees, bilateral Lumbar back pain with radiculopathy affecting right lower extremity Cervical nerve root impingement Procedures CONSULT TO PAIN MGT Rom Newell MD [address] [place] [address] Referral ID Status Reason Start Date Expiration Date Visits Requested Visits Authorized [id number] Ref Not Required PCP Requested Referral 08/28/2023 08/27/2024 1 1 Specialty Diagnoses / Procedures Referred By Contac t Referred To Contact Dermatology Diagnoses External nasal lesion Procedures CONSULT TO DERMATOLOGY Matilda Brown PA-C [address] [place] [address] Referral ID Status Reason Start Date Expiration Date Visits Requested Visits Authorized [id number] Ref Not Required PCP Requested Referral 10/18/2022 10/18/2023 1 1 Specialty Diagnoses / Procedures Referred By Contac t Referred To Contact Gastroenterology Diagnoses 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 Procedures CONSULT TO GASTROENTEROLOGY OFFICE/OUTPATIENT [facility] 60-74 MINUTES Trisha Thompson MD [address] [address] Referral ID Status Reason Start Date Expiration Date Visits Requested Visits Authorized [id number] Authorized PCP Requested Referral 10/02/2022 10/02/2023 1 1 Specialty Diagnoses / Procedures Referred By Contac t Referred To Contact Pain Management Diagnoses 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 Procedures CONSULT TO PAIN MGT Rom Newell MD [address] [place] [address] Referral ID Status Reason Start Date Expiration Date Visits Requested Visits Authorized [id number] Ref Not Required PCP Requested Referral 08/03/2022 08/03/2023 1 1 Specialty Diagnoses / Procedures Referred By Contac t Referred To Contact Urology Diagnoses Microscopic hematuria Procedures CONSULT TO UROLOGY OFFICE/OUTPATIENT [facility] 60-74 MINUTES Rom Newell MD [address] [place] [address] Referral ID Status Reason Start Date Expiration Date Visits Requested Visits Authorized [id number] Authorized PCP Requested Referral 06/11/2022 06/11/2023 1 1 Specialty Diagnoses / Procedures Referred By Contac t Referred To Contact General Surgery Diagnoses RUQ pain RLQ abdominal pain GERD without esophagitis Procedures CONSULT TO GENERAL SURGERY OFFICE/OUTPATIENT [facility] 60-74 MINUTES Rom Newell MD [address] [place] [address] Referral ID Status Reason Start Date Expiration Date Visits Requested Visits Authorized [id number] Authorized PCP Requested Referral 06/09/2022 06/09/2023 1 1 Specialty Diagnoses / Procedures Referred By Contac t Referred To Contact CT IMAGING Diagnoses Chronic RLQ pain Infection in abdomen (HCC) Procedures CT ABD/PEL W IVCON CT ABD & PELVIS W/CONTRAST Rom Newell MD [address] [place] [address] [address] Referral ID Status Reason Start Date Expiration Date Visits Requested Visits Authorized [id number] Authorized Auto-Generat ed Referral 05/07/2022 06/06/2023 1 1 Specialty Diagnoses / Procedures Referred By Contac t Referred To Contact Diagnoses Sleep apnea, unspecified type Procedures CONSULT TO SLEEP MEDICINE - ADULT OFFICE/OUTPATIENT [facility] 60-74 MINUTES Rom Newell MD [address] [place] [address] Referral ID Status Reason Start Date Expiration Date Visits Requested Visits Authorized [id number] Authorized PCP Requested Referral 07/07/2021 07/07/2022 1 1 Chief Complaint and Reason for Visit Chief Complaint CSCOPE RUQ PAIN & GERD Reason for Visit Personal history of colonic polyps Abdominal pain Chief Complaint RUQ PAIN & GERD discuss results Reason for Visit Abdominal pain Barretts esophagus Personal history of colonic polyps Chief Complaint PSA Chief Complaint PSA CONSULT - PROSTATE Space OAR gel and tag marker place MALIGNANT NEOPLASM OF PROSTATE Malignant neoplasm of prostate Reason for Visit [id number] Chief Complaint PSA CONSULT - PROSTATE Space OAR gel and tag marker place Malignant neoplasm of prostate OTV OTV OTV Reason for Visit [id number] Chief Complaint Admit Date PSA June 11, 2024 12:0 5pm Chief Complaint Admit Date PSA June 11, 2024 12:0 5pm KIDNEY STONE July 05, 2024 8:0 3am Additional Source Comments (unrecognized sect ion and content) No Status Records FoundNo Status Records FoundNo Status Records FoundNo Status Records Found INFORMATION SOURCE (unrecogn ized section and content) DATE CREATED AUTHOR 02/04/2020 [facility] DATE CREATED AUTHOR AUTHOR'S ORGANIZ ATION 05/29/2023 [facility]) DATE CREATED AUTHOR AUTHOR'S ORGANIZ ATION 08/12/2024 [facility] DATE CREATED AUTHOR AUTHOR'S ORGANIZ ATION 11/29/2024 [facility] Source Comments (unrecognize d section and content) In the event this informatio n is protected by the Federal Confidentiality of Alcohol and Drug Abuse Patient Records regulations: The Federal rules restrict any use of the information to criminally investigate or prosecute any alcohol or drug abuse patient.[facility] the event this information is protected by the Federal Confidentiality of Alcohol and Drug Abuse Patient Records regulations: The Federal rules restrict any use of the information to criminally investigate or prosecute any alcohol or drug abuse patient.[facility] Hospital[facility] the event this information is protected by the Federal Confidentiality of Alcohol and Drug Abuse Patient Records regulations: The Federal rules restrict any use of the information to criminally investigate or prosecute any alcohol or drug abuse patient.[facility] Hospital[facility] the event this information is protected by the Federal Confidentiality of Alcohol and Drug Abuse Patient Records regulations: The Federal rules restrict any use of the information to criminally investigate or prosecute any alcohol or drug abuse patient.[facility] Hospital[facility] the event this information is protected by the Federal Confidentiality of Alcohol and Drug Abuse Patient Records regulations: The Federal rules restrict any use of the information to criminally investigate or prosecute any alcohol or drug abuse patient.[facility] Hospital[facility] the event this information is protected by the Federal Confidentiality of Alcohol and Drug Abuse Patient Records regulations: The Federal rules restrict any use of the information to criminally investigate or prosecute any alcohol or drug abuse patient.[facility] Hospital[facility] the event this information is protected by the Federal Confidentiality of Alcohol and Drug Abuse Patient Records regulations: The Federal rules restrict any use of the information to criminally investigate or prosecute any alcohol or drug abuse patient.[facility] Hospital[facility] the event this information is protected by the Federal Confidentiality of Alcohol and Drug Abuse Patient Records regulations: The Federal rules restrict any use of the information to criminally investigate or prosecute any alcohol or drug abuse patient.[facility] HospitalIn the event this information is protected by the Federal Confidentiality of Alcohol and Drug Abuse Patient Records regulations: The Federal rules restrict any use of the information to criminally investigate or prosecute any alcohol or drug abuse patient.[facility] Hospital[facility] the event this information is protected by the Federal Confidentiality of Alcohol and Drug Abuse Patient Records regulations: The Federal rules restrict any use of the information to criminally investigate or prosecute any alcohol or drug abuse patient.[facility] Hospital[facility] the event this information is protected by the Federal Confidentiality of Alcohol and Drug Abuse Patient Records regulations: The Federal rules restrict any use of the information to criminally investigate or prosecute any alcohol or drug abuse patient.[facility] HospitalIn the event this information is protected by the Federal Confidentiality of Alcohol and Drug Abuse Patient Records regulations: The Federal rules restrict any use of the information to criminally investigate or prosecute any alcohol or drug abuse patient.[facility] HospitalIn the event this information is protected by the Federal Confidentiality of Alcohol and Drug Abuse Patient Records regulations: The Federal rules restrict any use of the information to criminally investigate or prosecute any alcohol or drug abuse patient.[facility] HospitalIn the event this information is protected by the Federal Confidentiality of Alcohol and Drug Abuse Patient Records regulations: The Federal rules restrict any use of the information to criminally investigate or prosecute any alcohol or drug abuse patient.[facility] HospitalIn the event this information is protected by the Federal Confidentiality of Alcohol and Drug Abuse Patient Records regulations: The Federal rules restrict any use of the information to criminally investigate or prosecute any alcohol or drug abuse patient.[facility] HospitalIn the event this information is protected by the Federal Confidentiality of Alcohol and Drug Abuse Patient Records regulations: The Federal rules restrict any use of the information to criminally investigate or prosecute any alcohol or drug abuse patient.[facility] HospitalIn the event this information is protected by the Federal Confidentiality of Alcohol and Drug Abuse Patient Records regulations: The Federal rules restrict any use of the information to criminally investigate or prosecute any alcohol or drug abuse patient.[facility] HospitalIn the event this information is protected by the Federal Confidentiality of Alcohol and Drug Abuse Patient Records regulations: The Federal rules restrict any use of the information to criminally investigate or prosecute any alcohol or drug abuse patient.[facility] HospitalIn the event this information is protected by the Federal Confidentiality of Alcohol and Drug Abuse Patient Records regulations: The Federal rules restrict any use of the information to criminally investigate or prosecute any alcohol or drug abuse patient.[facility] HospitalIn the event this information is protected by the Federal Confidentiality of Alcohol and Drug Abuse Patient Records regulations: The Federal rules restrict any use of the information to criminally investigate or prosecute any alcohol or drug abuse patient.[facility] HospitalIn the event this information is protected by the Federal Confidentiality of Alcohol and Drug Abuse Patient Records regulations: The Federal rules restrict any use of the information to criminally investigate or prosecute any alcohol or drug abuse patient.[facility] HospitalIn the event this information is protected by the Federal Confidentiality of Alcohol and Drug Abuse Patient Records regulations: The Federal rules restrict any use of the information to criminally investigate or prosecute any alcohol or drug abuse patient.[facility] HospitalIn the event this information is protected by the Federal Confidentiality of Alcohol and Drug Abuse Patient Records regulations: The Federal rules restrict any use of the information to criminally investigate or prosecute any alcohol or drug abuse patient.[facility] HospitalIn the event this information is protected by the Federal Confidentiality of Alcohol and Drug Abuse Patient Records regulations: The Federal rules restrict any use of the information to criminally investigate or prosecute any alcohol or drug abuse patient.[facility] HospitalIn the event this information is protected by the Federal Confidentiality of Alcohol and Drug Abuse Patient Records regulations: The Federal rules restrict any use of the information to criminally investigate or prosecute any alcohol or drug abuse patient.[facility] HospitalIn the event this information is protected by the Federal Confidentiality of Alcohol and Drug Abuse Patient Records regulations: The Federal rules restrict any use of the information to criminally investigate or prosecute any alcohol or drug abuse patient.[facility] HospitalIn the event this information is protected by the Federal Confidentiality of Alcohol and Drug Abuse Patient Records regulations: The Federal rules restrict any use of the information to criminally investigate or prosecute any alcohol or drug abuse patient.[facility] HospitalIn the event this information is protected by the Federal Confidentiality of Alcohol and Drug Abuse Patient Records regulations: The Federal rules restrict any use of the information to criminally investigate or prosecute any alcohol or drug abuse patient.[facility] HospitalIn the event this information is protected by the Federal Confidentiality of Alcohol and Drug Abuse Patient Records regulations: The Federal rules restrict any use of the information to criminally investigate or prosecute any alcohol or drug abuse patient.[facility] HospitalIn the event this information is protected by the Federal Confidentiality of Alcohol and Drug Abuse Patient Records regulations: The Federal rules restrict any use of the information to criminally investigate or prosecute any alcohol or drug abuse patient.[facility] HospitalIn the event this information is protected by the Federal Confidentiality of Alcohol and Drug Abuse Patient Records regulations: The Federal rules restrict any use of the information to criminally investigate or prosecute any alcohol or drug abuse patient.[facility] HospitalIn the event this information is protected by the Federal Confidentiality of Alcohol and Drug Abuse Patient Records regulations: The Federal rules restrict any use of the information to criminally investigate or prosecute any alcohol or drug abuse patient.[facility] HospitalIn the event this information is protected by the Federal Confidentiality of Alcohol and Drug Abuse Patient Records regulations: The Federal rules restrict any use of the information to criminally investigate or prosecute any alcohol or drug abuse patient.[facility] HospitalIn the event this information is protected by the Federal Confidentiality of Alcohol and Drug Abuse Patient Records regulations: The Federal rules restrict any use of the information to criminally investigate or prosecute any alcohol or drug abuse patient.[facility] HospitalIn the event this information is protected by the Federal Confidentiality of Alcohol and Drug Abuse Patient Records regulations: The Federal rules restrict any use of the information to criminally investigate or prosecute any alcohol or drug abuse patient.[facility] HospitalIn the event this information is protected by the Federal Confidentiality of Alcohol and Drug Abuse Patient Records regulations: The Federal rules restrict any use of the information to criminally investigate or prosecute any alcohol or drug abuse patient.[facility] HospitalIn the event this information is protected by the Federal Confidentiality of Alcohol and Drug Abuse Patient Records regulations: The Federal rules restrict any use of the information to criminally investigate or prosecute any alcohol or drug abuse patient.[facility] HospitalIn the event this information is protected by the Federal Confidentiality of Alcohol and Drug Abuse Patient Records regulations: The Federal rules restrict any use of the information to criminally investigate or prosecute any alcohol or drug abuse patient.[facility] HospitalIn the event this information is protected by the Federal Confidentiality of Alcohol and Drug Abuse Patient Records regulations: The Federal rules restrict any use of the information to criminally investigate or prosecute any alcohol or drug abuse patient.[facility] HospitalIn the event this information is protected by the Federal Confidentiality of Alcohol and Drug Abuse Patient Records regulations: The Federal rules restrict any use of the information to criminally investigate or prosecute any alcohol or drug abuse patient.[facility] HospitalIn the event this information is protected by the Federal Confidentiality of Alcohol and Drug Abuse Patient Records regulations: The Federal rules restrict any use of the information to criminally investigate or prosecute any alcohol or drug abuse patient.[facility] HospitalIn the event this information is protected by the Federal Confidentiality of Alcohol and Drug Abuse Patient Records regulations: The Federal rules restrict any use of the information to criminally investigate or prosecute any alcohol or drug abuse patient.[facility] HospitalIn the event this information is protected by the Federal Confidentiality of Alcohol and Drug Abuse Patient Records regulations: The Federal rules restrict any use of the information to criminally investigate or prosecute any alcohol or drug abuse patient.[facility] HospitalIn the event this information is protected by the Federal Confidentiality of Alcohol and Drug Abuse Patient Records regulations: The Federal rules restrict any use of the information to criminally investigate or prosecute any alcohol or drug abuse patient.[facility] HospitalIn the event this information is protected by the Federal Confidentiality of Alcohol and Drug Abuse Patient Records regulations: The Federal rules restrict any use of the information to criminally investigate or prosecute any alcohol or drug abuse patient.[facility] HospitalIn the event this information is protected by the Federal Confidentiality of Alcohol and Drug Abuse Patient Records regulations: The Federal rules restrict any use of the information to criminally investigate or prosecute any alcohol or drug abuse patient.[facility] HospitalIn the event this information is protected by the Federal Confidentiality of Alcohol and Drug Abuse Patient Records regulations: The Federal rules restrict any use of the information to criminally investigate or prosecute any alcohol or drug abuse patient.[facility] HospitalIn the event this information is protected by the Federal Confidentiality of Alcohol and Drug Abuse Patient Records regulations: The Federal rules restrict any use of the information to criminally investigate or prosecute any alcohol or drug abuse patient.[facility] HospitalIn the event this information is protected by the Federal Confidentiality of Alcohol and Drug Abuse Patient Records regulations: The Federal rules restrict any use of the information to criminally investigate or prosecute any alcohol or drug abuse patient.[facility] HospitalIn the event this information is protected by the Federal Confidentiality of Alcohol and Drug Abuse Patient Records regulations: The Federal rules restrict any use of the information to criminally investigate or prosecute any alcohol or drug abuse patient.[facility] HospitalIn the event this information is protected by the Federal Confidentiality of Alcohol and Drug Abuse Patient Records regulations: The Federal rules restrict any use of the information to criminally investigate or prosecute any alcohol or drug abuse patient.[facility] HospitalIn the event this information is protected by the Federal Confidentiality of Alcohol and Drug Abuse Patient Records regulations: The Federal rules restrict any use of the information to criminally investigate or prosecute any alcohol or drug abuse patient.[facility] HospitalIn the event this information is protected by the Federal Confidentiality of Alcohol and Drug Abuse Patient Records regulations: The Federal rules restrict any use of the information to criminally investigate or prosecute any alcohol or drug abuse patient.[facility] HospitalIn the event this information is protected by the Federal Confidentiality of Alcohol and Drug Abuse Patient Records regulations: The Federal rules restrict any use of the information to criminally investigate or prosecute any alcohol or drug abuse patient.[facility] HospitalIn the event this information is protected by the Federal Confidentiality of Alcohol and Drug Abuse Patient Records regulations: The Federal rules restrict any use of the information to criminally investigate or prosecute any alcohol or drug abuse patient.[facility] HospitalIn the event this information is protected by the Federal Confidentiality of Alcohol and Drug Abuse Patient Records regulations: The Federal rules restrict any use of the information to criminally investigate or prosecute any alcohol or drug abuse patient.[facility] HospitalIn the event this information is protected by the Federal Confidentiality of Alcohol and Drug Abuse Patient Records regulations: The Federal rules restrict any use of the information to criminally investigate or prosecute any alcohol or drug abuse patient.[facility] Reason for Visit (unrecogniz ed section and content) Reason Comments Radiology CT Specialty Diagnoses / Procedures Referred By Dunia t Referred To Contact CT IMAGING Diagnoses Chronic RLQ pain Infection in abdomen (HCC) Procedures CT ABD/PEL W IVCON CT ABD & PELVIS W/CONTRAST Rom Newell MD [address] [place] [address] [place] [id number] Referral ID Status Reason Start Date Expiration Date V isits Requested Visits Authorized [id number] Closed Auto-Generate d Referral 05/07/2022 06/06/2023 1 1 Reason Comments Orders Reason Comments 6 Month Exam Reason Comments 6 Month Exam Reason Comments Recheck Reason Comments Recheck 1 month follow up Reason Comments New Patient Sleep apnea; non-CPA P user Specialty Diagnoses / Procedures Referred By Contac t Referred To Contact Diagnoses Sleep apnea, unspecified type Procedures CONSULT TO SLEEP MEDICINE - ADULT OFFICE/OUTPATIENT NEW HIGH MDM 60-74 MINUTES Rom Newell MD [address] [place] [address] Referral ID Status Reason Start Date Expiration Date V isits Requested Visits Authorized [id number] Closed PCP Requested Referral 07/07/2021 07/07/2022 1 1 Reason Comments Abdominal Pain Reason Comments Follow Up Reason Comments Results Reason Onset Date Comments Refill Request 06/29/2022 Reason Comments Received Outside Medical Records Reason Comments Results Reason Comments Consult Reason Comments New Patient Araujo's Reason Comments Received Outside Medical Records Reason Comments Orders Reason Comments Rx refill; not on med list Reason Onset Date Comments Refill Request 06/19/2023 Reason Comments Blurred Vision Double vision at a d istance Balance/Incoordination Dizziness Reason Onset Date Comments Refill Request 09/09/2023 Specialty Diagnoses / Procedures Referred By Contac t Referred To Contact CT IMAGING Diagnoses Transient cerebral ischemia, unspecified type Procedures CT BRAIN WO IVCON CT HEAD/BRAIN W/O CONTRAST MATERIAL Ailin Courtney, EARLY CHILDHOOD AIDE CLASSROOM.SPECIAL OFFICER [address] [place] [address] [place] [address] Referral ID Status Reason Start Date Expiration Date V isits Requested Visits Authorized [id number] Closed Auto-Generate d Referral 09/10/2023 10/02/2024 1 1 Reason Comments Medication Problem Stop Lyrica return t o Gabapentin Reason Comments Medication Problem Reason Comments Follow Up Reason Comments Patient Update Reason Comments Follow Up 1 month blood pressu re follow up Reason Onset Date Comments Refill Request 03/23/2024 Reason Comments Barretts esophagus Reason Onset Date Comments Refill Request 04/27/2024 Reason Comments No Show Reason Comments ED Follow-up [facility] 07/05/24 Flank pain. Reason Onset Date Comments Refill Request 09/11/2024 Reason Onset Date Comments Symptoms 09/25/2024 Leg Pain Reason Comments Acute Visit Reason Comments Radiology CT Specialty Diagnoses / Procedures Referred By Contac t Referred To Contact CT IMAGING Diagnoses Left lower quadrant abdominal pain Intra-abdominal and pelvic swelling, mass and lump, unspecified site Procedures CT ABD/PEL W IVCON CT ABD & PELVIS W/CONTRAST Rom Newell MD [address] [place] [address] Phone: tel: fax: [place] [id number] Referral ID Status Reason Start Date Expiration Date V isits Requested Visits Authorized [id number] Closed Auto-Generate d Referral 11/18/2024 12/18/2025 1 1 Care Teams (unrecognized sec tion and content) [employer] Vessel Pilot Relationship Specialty Start Date End Date Rom Newell MD [address] [place], [place] [id number] PCP - General Family Practice 02/08/15 Anthony Guerrero Physician Neurology 06/02/14 [employer] Vessel [employer] Relationship Specialty [place] [address] [place] [address] [id number] PCP - General Family Practice 02/08/15 Anthony Guerrero Physician Neurology 06/02/14 [employer] Vessel Pilot Relationship Specialty Start Date End Date Rom Newell MD [address] [place], [place] [id number] PCP - General Family Medicine 02/08/15 Anthony Guerrero Physician Neurology 06/02/14 [employer] Vessel Pilot Relationship Specialty Start Date End Date Rom Newell MD [address] [place], [place] [id number] PCP - General Family Medicine 02/08/15 Anthony Guerrero Physician Neurology 06/02/14 [employer] Vessel Pilot Relationship Specialty Start Date End Date Rom Newell MD [address] [place], [place] [id number] PCP - General Family Medicine 02/08/15 Anthony Guerrero Physician Neurology 06/02/14 [employer] Vessel Pilot Relationship Specialty Start Date End Date Rom Newell MD [address] [place], [place] [id number] PCP - General Family Medicine 02/08/15 Anthony Guerrero Physician Neurology 06/02/14 [employer] Vessel Pilot Relationship Specialty Start Date End Date Rom Newell MD [address] [place] [address] PCP - General Family Medicine 02/08/15 Anthony Guerrero Physician Neurology 06/02/14 Team Status: Active Member Role Status Dates Dr. Rom Newell MD Family Provider Active Dr. Rom Newell MD Primary Care Provider Active Team Status: Inactive Member Role Status Dates Dr. Rom Newell MD Primary Care Provider, Referring Provider Active Dr. Joe Dahl MD Attending Provider Active Team Status: Active Member Role Status Dates Dr. Rom Newell MD Primary Care Provider, Referring Provider Active Dr. Joe Dahl MD Attending Provider, Other Prov ider Active [employer] Pilot Relationship Specialty Start Date End Date Rom Newell MD [address] [place] [address] PCP - General Family Medicine 02/08/15 Anthony Guerrero Physician Neurology 06/02/14 [employer] Vessel Pilot Relationship Specialty Start Date End Date Rom Newell MD [address] [place] [address] PCP - General Family Medicine 02/08/15 Anthony Guerrero Physician Neurology 06/02/14 [employer] Vessel Pilot Relationship Specialty Start Date End Date Rom Newell MD [address] [place] [address] PCP - General Family Medicine 02/08/15 Anthony Guerrero Physician Neurology 06/02/14 [employer] Vessel Pilot Relationship Specialty Start Date End Date Rom Newell MD [address] [place] [address] PCP - General Family Medicine 02/08/15 Anthony Guerrero Physician Neurology 06/02/14 [employer] Vessel Pilot Relationship Specialty Start Date End Date Rom Newell MD [address] [place] [address] PCP - General Family Medicine 02/08/15 Anthony Guerrero Physician Neurology 06/02/14 Team Status: Inactive Member Role Status Dates Dr. Rom Newell MD Primary Care Provider Active Dr. Álvaro Fritz MD Attending Provider, Referr ing Provider Active [employer] Pilot Relationship Specialty Start Date End Date Rom Newell MD [address] [place] [address] PCP - General Family Medicine 02/08/15 Anthony Guerrero Physician Neurology 06/02/14 [employer] Vessel Pilot Relationship Specialty Start Date End Date Rom Newell MD [address] [place] [address] PCP - General Family Medicine 02/08/15 Anthony Guerrero Physician Neurology 06/02/14 [employer] Vessel Pilot Relationship Specialty Start Date End Date Rom Newell MD [address] [place], [place] [id number] PCP - General Family Medicine 02/08/15 Anthony Guerrero Physician Neurology 06/02/14 [employer] Vessel Pilot Relationship Specialty Start Date End Date Rom Newell MD [address] [place] [address] PCP - General Family Medicine 02/08/15 Anthony Guerrero Physician Neurology 06/02/14 [employer] Vessel Pilot Relationship Specialty Start Date End Date Rom Newell MD [address] [place] [address] PCP - General Family Medicine 02/08/15 Anthony Guerrero Physician Neurology 06/02/14 Team Status: Inactive Member Role Status Dates Dr. Rom Newell MD Primary Care Provider Active Dr. Aaron Nowak DO Attending Provider Active Dr. Álvaro Fritz MD Referring Provider Active Team Status: Active Member Role Status Dates Dr. Rom Newell MD Primary Care Provider Active Dr. Aaron Nowak DO Attending Provider Active Team Status: Active Member Role Status Dates Dr. Rom Newell MD Primary Care Provider Active Dr. Aaron Nowak DO Attending Provider, Referring P rovider Active Team Status: Inactive Member Role Status Dates Dr. Rom Newell MD Primary Care Provider Active Dr. Aaron Nowak DO Attending Provider, Referring P rovider Active Team Status: Inactive Member Role Status Dates Dr. Rom Newell MD Primary Care Provider Active Dr. Aaron Nowak DO Attending Provider Active [employer] Relationship Specialty Start Date End Date Rom Newell MD [address] [place], [place] [address] PCP - General Family Medicine 02/08/15 Anthony Guerrero Physician Neurology 06/02/14 [employer] Vessel Pilot Relationship Specialty Start Date End Date Rom Newell MD [address] [place], [place] [address] PCP - General Family Medicine 02/08/15 Anthony Guerrero Physician Neurology 06/02/14 [employer] Vessel Pilot Relationship Specialty Start Date End Date Rom Newell MD [address] [place] [address] PCP - General Family Medicine 02/08/15 Anthony Guerrero Physician Neurology 06/02/14 [employer] Vessel Pilot Relationship Specialty Start Date End Date Rom Newell MD [address] [place] [address] PCP - General Family Medicine 02/08/15 Anthony Guerrero Physician Neurology 06/02/14 Men[employer] Vessel Pilot Relationship Specialty Start Date End Date Rom Newell MD [address] [place] [address] PCP - General Family Medicine 02/08/15 Anthony Guerrero Physician Neurology 06/02/14 Men[employer]en Vessel Pilot Relationship Specialty Start Date End Date Rom Newell MD [address] [place] [address] PCP - General Family Medicine 02/08/15 Anthony Guerrero Physician Neurology 06/02/14 Men[employer] Vessel Pilot Relationship Specialty Start Date End Date Rom Newell MD [address] [place] [address] PCP - General Family Medicine 02/08/15 Anthony Guerrero Physician Neurology 06/02/14 [employer] Vessel Pilot Relationship Specialty Start Date End Date Rom Newell MD [address] [place] [address] PCP - General Family Medicine 02/08/15 Anthony Guerrero Physician Neurology 06/02/14 Men[employer] Vessel Pilot Relationship Specialty Start Date End Date Rom Newell MD [address] [place] [address] PCP - General Family Medicine 02/08/15 Anthony Guerrero Physician Neurology 06/02/14 Men[employer] Vessel Pilot Relationship Specialty Start Date End Date Rom Newell MD [address] [place] [address] PCP - General Family Medicine 02/08/15 Anthony Guerrero Physician Neurology 06/02/14 Men[employer]en Vessel Pilot Relationship Specialty Start Date End Date Rom Newell MD [address] [facility] [address] PCP - General Family Medicine 02/08/15 Anthony Guerrero Physician Neurology 06/02/14 Justina Carrasco, EARLY CHILDHOOD AIDE CLASSROOM.JANITORIAL CLEANER [address] [place] [address] Mobile Battery Technician Family Medicine 03/16/24 Ailin Courtney EARLY CHILDHOOD AIDE CLASSROOM.JANITORIAL CLEANER [address] [place] [address] Mobile Battery Technician Family Medicine 03/16/24 Menhaden Vessel Pilot Relationship Specialty Start Date End Date Rom Newell MD [address] [place] [address] PCP - General Family Medicine 02/08/15 Anthony Guerrero Physician Neurology 06/02/14 Justina Carrasco, EARLY CHILDHOOD AIDE CLASSROOM.JANITORIAL CLEANER [address] [facility] [place] [address] Mobile Battery Technician Family Medicine 03/16/24 Ailin Courtney, EARLY CHILDHOOD AIDE CLASSROOM.JANITORIAL CLEANER [address] [place] [address] Mobile Battery Technician [facility] 03/16/24 Menhaden Vessel Pilot Relationship Specialty Start Date End Date Rom Newell MD [address] [place] [address] PCP - General Family Medicine 02/08/15 Anthony Guerrero Physician Neurology 06/02/14 Justina Carrasco APRN.JANITORIAL CLEANER [address] [facility] [place] [address] [facility] 03/16/24 Ailin Courtney APRN.JANITORIAL CLEANER [address] [place] [address] [facility] 03/16/24 Menhaden Vessel Pilot Relationship Specialty Start Date End Date Rom Newell MD [address] [place] [address] PCP - General Family Medicine 02/08/15 Anthony Guerrero Physician Neurology 06/02/14 Justina Carrasco APRN.JANITORIAL CLEANER [address] [facility] [place] [address] [facility] 03/16/24 Ailin Courtney APRN.JANITORIAL CLEANER [address] [place] [address] [facility] 03/16/24 Menhaden Vessel Pilot Relationship Specialty Start Date End Date Rom Newell MD [address] [place] [address] PCP - General Family Medicine 02/08/15 Anthony Guerrero Physician Neurology 06/02/14 Justina Carrasco APRN.JANITORIAL CLEANER [address] [facility] [place] [address] Mobile [facility] 03/16/24 Ailin Courtney APRN.JANITORIAL CLEANER [address] [place] [address] Mobile Battery Technician Family Medicine 03/16/24 Menhaden Vessel Pilot Relationship Specialty Start Date End Date Rom Newell MD [address] [facility] [place] [address] PCP - General Family Medicine 02/08/15 Anthony Guerrero Physician Neurology 06/02/14 Justina Carrasco, EARLY CHILDHOOD AIDE CLASSROOM.JANITORIAL CLEANER [address] [place] [address] Mobile Battery Technician Family Medicine 03/16/24 Ailin Courtney, EARLY CHILDHOOD AIDE CLASSROOM.JANITORIAL CLEANER [address] [place] [address] Mobile Battery Technician Family Medicine 03/16/24 Menhaden Vessel Pilot Relationship Specialty Start Date End Date Rom Newell MD [address] [place] [address] PCP - General Family Medicine 02/08/15 Anthony Guerrero Physician Neurology 06/02/14 Justina Carrasco, EARLY CHILDHOOD AIDE CLASSROOM.JANITORIAL CLEANER [address] [place] [address] Mobile Battery Technician Family Medicine 03/16/24 Ailin Courtney EARLY CHILDHOOD AIDE CLASSROOM.JANITORIAL CLEANER [address] [place] [address] Mobile Battery Technician Family Medicine 03/16/24 Menhaden Vessel Pilot Relationship Specialty Start Date End Date Rom Newell MD [address] [place] [address] PCP - General Family Medicine 02/08/15 Anthony Guerrero Physician Neurology 06/02/14 Justina Carrasco, LESLEY.JANITORIAL CLEANER [address] [facility] [place] [address] [facility] 03/16/24 Ailin Courtney, EARLY CHILDHOOD AIDE CLASSROOM.JANITORIAL CLEANER [address] [facility] [place] [id number] [facility] 03/16/24 Team Status: Inactive Member Role Status Dates Dr. Rom Newell MD Primary Care Provider Active Start: June 11, 2024 End: June 11, 2024 Dr. Álvaro Fritz MD Attending Provider Active Start: June 11, 2024 End: June 11, 2024 Dr. Álvaro Fritz MD Referring Provider Active Start: June 11, 2024 End: June 11, 2024 Team Status: Active Member Role Status Dates Dr. Rom Newell MD Primary Care Provider Active Team Status: Inactive Member Role Status Dates Dr. Rom Newell MD Primary Care Provider Active Start: July 05, 2024 End: July 05, 2024 Dr. Dequan Boyle DO Emergency Provider Active Start: July 05, 2024 End: July 05, 2024 Menhaden Vessel Pilot Relationship Specialty Start Date End Date Rom Newell MD [address] [facility] [place] [id number] PCP - General Family Medicine 02/08/15 Anthony Guerrero Physician Neurology 06/02/14 Justina Carrasco, EARLY CHILDHOOD AIDE CLASSROOM.JANITORIAL CLEANER [address] [facility] [place] [id number] [facility] 03/16/24 Ailin Courtney EARLY CHILDHOOD AIDE CLASSROOM.JANITORIAL CLEANER [address] [facility] [place] [id number] Mobile Battery Technician Family [facility] 03/16/24 Menhaden Vessel Pilot Relationship Specialty Start Date End Date Rom Newell MD [address] [place] [address] PCP - General Family Medicine 02/08/15 Anthony Guerrero Physician Neurology 06/02/14 Justina Carrasco, EARLY CHILDHOOD AIDE CLASSROOM.JANITORIAL CLEANER [address] [facility] [place] [address] Mobile Battery Technician Family Medicine 03/16/24 Ailin Courtney EARLY CHILDHOOD AIDE CLASSROOM.JANITORIAL CLEANER [address] [place] [address] Mobile [facility] 03/16/24 Menhaden Vessel Pilot Relationship Specialty Start Date End Date Rom Newell MD [address] [place] [address] PCP - General Family Medicine 02/08/15 Anthony Guerrero Physician Neurology 06/02/14 Justina Carrasco, EARLY CHILDHOOD AIDE CLASSROOM.JANITORIAL CLEANER [address] [facility] [place] [address] Mobile [facility] 03/16/24 Ailin Courtney EARLY CHILDHOOD AIDE CLASSROOM.JANITORIAL CLEANER [address] [place] [address] Mobile Battery Technician [facility] Medicine 03/16/24 Menhaden Vessel Pilot Relationship Specialty Start Date End Date Rom Newell MD [address] [place] [address] PCP - General Family Medicine 02/08/15 Anthony Guerrero Physician Neurology 06/02/14 Justina Carrasco APRN.JANITORIAL CLEANER [address] [facility] [place] [address] Mobile Battery Technician Family Medicine 03/16/24 Ailin Courtney APRN.JANITORIAL CLEANER [address] [place] [address] Mobile [facility] 03/16/24 Menhaden Vessel Pilot Relationship Specialty Start Date End Date Rom Newell MD [address] [place] [address] PCP - General Family Medicine 02/08/15 Anthony Guerrero Physician Neurology 06/02/14 Justina Carrasco, EARLY CHILDHOOD AIDE CLASSROOM.JANITORIAL CLEANER [address] [facility] [place] [address] Mobile Battery Technician [facility] Medicine 03/16/24 Ailin Courtney EARLY CHILDHOOD AIDE CLASSROOM.JANITORIAL CLEANER [address] [place] [address] Mobile [facility] 03/16/24 Menhaden Vessel Pilot Relationship Specialty Start Date End Date Rom Newell MD [address] [place] [address] PCP - General Family Medicine 02/08/15 Anthony Guerrero Physician Neurology 06/02/14 Justina Carrasco EARLY CHILDHOOD AIDE CLASSROOM.JANITORIAL CLEANER [address] [facility] [place] [address] Mobile Battery Technician Family Medicine 03/16/24 Ailin Courtney EARLY CHILDHOOD AIDE CLASSROOM.JANITORIAL CLEANER [address] [place] [address] Mobile Battery Technician Family Medicine 03/16/24 Menhaden Vessel Pilot Relationship Specialty Start Date End Date Rom Newell MD [address] [facility] [address] PCP - General Family Medicine 02/08/15 Anthony Guerrero Physician Neurology 06/02/14 Justina Carrasco, EARLY CHILDHOOD AIDE CLASSROOM.JANITORIAL CLEANER [address] [place] [place] [address] Mobile Battery Technician Family Medicine 03/16/24 Ailin Courtney EARLY CHILDHOOD AIDE CLASSROOM.JANITORIAL CLEANER [address] [facility] [place] [address] Mobile [facility] 03/16/24 Menhaden Vessel Pilot Relationship Specialty Start Date End Date Rom Newell MD [address] [place] [address] PCP - General Family Medicine 02/08/15 Anthony Guerrero Physician Neurology 06/02/14 Justina Carrasco, EARLY CHILDHOOD AIDE CLASSROOM.JANITORIAL CLEANER [address] [facility] [place] [address] Mobile Battery Technician Family Medicine 03/16/24 Ailin Courtney, EARLY CHILDHOOD AIDE CLASSROOM.JANITORIAL CLEANER [address] [place] [address] Mobile [facility] 03/16/24 Menhaden Vessel Pilot Relationship Specialty Start Date End Date Rom Newell MD [address] [facility] [place] [address] PCP - General Family Medicine 02/08/15 Anthony Guerrero Physician Neurology 06/02/14 Justina Carrasco APRN.JANITORIAL CLEANER [address] [facility] [place] [address] Mobile [facility] 03/16/24 Ailin Courtney APRN.JANITORIAL CLEANER [address] [place] [address] Mobile [facility] 03/16/24 Menhaden Vessel Pilot Relationship Specialty Start Date End Date oRm Newell MD [address] [place] [address] PCP - General Family Medicine 02/08/15 Anthony Guerrero Physician Neurology 06/02/14 Justina Carrasco APRN.JANITORIAL CLEANER [address] [facility] [place] [address] Mobile [facility] 03/16/24 Ailin Courtney APRN.JANITORIAL CLEANER [address] [place] [address] [facility] 03/16/24 Menhaden Vessel Pilot Relationship Specialty Start Date End Date Rom Newell MD [address] [place] [address] PCP - General Family Medicine 02/08/15 Anthony Guerrero Physician Neurology 06/02/14 Justina Carrasco APRN.JANITORIAL CLEANER [address] [facility] [place] [address] Mobile [facility] 03/16/24 Ailin Courtney APRN.JANITORIAL CLEANER [address] [place] [address] Mobile [facility] 03/16/24 Menhaden Vessel Pilot Relationship Specialty Start Date End Date Rom Newell MD [address] [place] [address] PCP - General Family Medicine 02/08/15 Anthony Guerrero Physician Neurology 06/02/14 Justina Carrasco, EARLY CHILDHOOD AIDE CLASSROOM.JANITORIAL CLEANER [address] [place] [address] Mobile [facility] 03/16/24 Ailin Courtney, EARLY CHILDHOOD AIDE CLASSROOM.JANITORIAL CLEANER [address] [place] [address] Mobile [facility] 03/16/24 Care Team (unrecognized sect ion and content) Care Team Personnel Name: ROM NEWELL MD Member Role: Primary Care Physician Address: Address: [place] [address]- Care Team Related Persons Name: AVINASHADILENE TADEORA Address: Home [address] [place] [address] Care Team Personnel Name: ROM NEWELL MD Member Role: Primary Care Physician Address: Address: [place] [address]- Care Team Related Persons Name: SANDRA VERA Address: Home [address] Care Team Personnel Name: ROM NEWELL MD Member Role: Primary Care Physician Address: Address: [place] [address]- Care Team Related Persons Name: CAPRI Address: Home [address] Care Team Personnel Name: ROM NEWELL MD Member Role: Primary Care Physician Address: Address: [place] [address]- Care Team Related Persons Name: SANDRA VERA Address: Home [address] [place] [address] [place] [address] Goals (unrecognized section and content) Goals may be documented in a n alternate section FOR RECORDS PERTAINING TO PATIENTS WHO ARE [...] BE BASED ON THE PRIMARY CLINICAL RECORDS. [facility] [employer] provides no warranty or guarantee of the accuracy or completeness of information in this document.
== END | disposition home or self-care (01) ==
LOC: MTLAB 15:10
PROVIDERS: PCP Family Medicine; Referring Provider Nurse Practitioner; Visit Provider Nurse Practitioner
DX: C61 Malignant neoplasm of prostate (principal)
CPT/HCPCS: 36415; 84153